=== PATIENT | female | born 1970 | race Caucasian/White ===

== ENCOUNTER → 2023-07-03 09:12 | Outpatient (REF) | payer OTHER, SELFPAY ==
[2023-07-03 12:20] LABS: INR 3.75; PT 37.6 Sec (11.4-14.6)
== END ==
LOC: REG 09:12
PROVIDERS: ATTENDING PHYSICIAN Internal Medicine Hematology & Oncology
DX: Z51.11 Encounter for antineoplastic chemotherapy (principal); I80.3 Phlebitis and thrombophlebitis of lower extremities, unspecified; D68.62 Lupus anticoagulant syndrome; D50.9 Iron deficiency anemia, unspecified; Z79.01 Long term (current) use of anticoagulants; E55.9 Vitamin D deficiency, unspecified; Z86.718 Personal history of other venous thrombosis and embolism
CPT/HCPCS: 36415; 85610

== ENCOUNTER → 2023-07-23 12:04 | Outpatient (REF) | payer OTHER, SELFPAY ==
[2023-07-23 13:35] LABS: APTT 39.6 Sec (23.4-35.0); INR 2.83; PT 29.7 Sec (11.4-14.6)
== END ==
LOC: REG 12:04
PROVIDERS: ATTENDING PHYSICIAN Internal Medicine Hematology & Oncology; FAMILY PHYSICIAN Nurse Practitioner
DX: Z51.11 Encounter for antineoplastic chemotherapy (principal); I80.3 Phlebitis and thrombophlebitis of lower extremities, unspecified; D68.62 Lupus anticoagulant syndrome; D50.9 Iron deficiency anemia, unspecified; Z79.01 Long term (current) use of anticoagulants; E55.9 Vitamin D deficiency, unspecified; Z86.718 Personal history of other venous thrombosis and embolism
CPT/HCPCS: 36415; 85610; 85730

== ENCOUNTER → 2023-08-02 10:14 | Outpatient (REF) | payer OTHER, SELFPAY ==
[2023-08-02 13:09] LABS: INR 2.46
== END ==
LOC: REG 10:14
PROVIDERS: ATTENDING PHYSICIAN Internal Medicine Hematology & Oncology; FAMILY PHYSICIAN Nurse Practitioner
DX: Z51.11 Encounter for antineoplastic chemotherapy (principal); I80.3 Phlebitis and thrombophlebitis of lower extremities, unspecified; D68.62 Lupus anticoagulant syndrome; Z79.01 Long term (current) use of anticoagulants; E55.9 Vitamin D deficiency, unspecified; Z86.718 Personal history of other venous thrombosis and embolism
CPT/HCPCS: 36415; 85610

== ENCOUNTER → 2023-08-15 11:46 | Outpatient (REF) | payer OTHER, SELFPAY ==
[2023-08-15 13:11] LABS: INR 3.11; PT 32.5 Sec (11.4-14.6)
[2023-08-15 13:12] LABS: APTT 40.2 Sec (23.4-35.0)
== END ==
LOC: REG 11:46
PROVIDERS: ATTENDING PHYSICIAN Internal Medicine Hematology & Oncology
DX: Z51.11 Encounter for antineoplastic chemotherapy (principal); I80.3 Phlebitis and thrombophlebitis of lower extremities, unspecified; D68.62 Lupus anticoagulant syndrome; D50.9 Iron deficiency anemia, unspecified; Z79.01 Long term (current) use of anticoagulants; E55.9 Vitamin D deficiency, unspecified; Z86.718 Personal history of other venous thrombosis and embolism
CPT/HCPCS: 36415; 85610; 85730

== ENCOUNTER → 2023-08-30 13:14 | Outpatient (REF) | payer OTHER, SELFPAY ==
[2023-08-30 14:41] LABS: INR 2.98; PT 31.4 Sec (11.4-14.6)
[2023-08-30 14:42] LABS: APTT 39.9 Sec (23.4-35.0)
== END ==
LOC: REG 13:14
PROVIDERS: ATTENDING PHYSICIAN Internal Medicine Hematology & Oncology; FAMILY PHYSICIAN Nurse Practitioner
DX: Z51.11 Encounter for antineoplastic chemotherapy (principal); I80.3 Phlebitis and thrombophlebitis of lower extremities, unspecified; D68.62 Lupus anticoagulant syndrome; D50.9 Iron deficiency anemia, unspecified; Z79.01 Long term (current) use of anticoagulants; E55.9 Vitamin D deficiency, unspecified; Z86.718 Personal history of other venous thrombosis and embolism
CPT/HCPCS: 36415; 85610; 85730

== ENCOUNTER → 2023-09-24 10:33 | Outpatient (REF) | payer OTHER, SELFPAY ==
[2023-09-24 14:45] LABS: INR 2.81; PT 29.5 Sec (11.4-14.6)
== END ==
LOC: REG 10:33
PROVIDERS: ATTENDING PHYSICIAN Internal Medicine Hematology & Oncology
DX: I80.3 Phlebitis and thrombophlebitis of lower extremities, unspecified (principal); Z79.01 Long term (current) use of anticoagulants; Z86.718 Personal history of other venous thrombosis and embolism
CPT/HCPCS: 36415; 85610

== ENCOUNTER → 2023-10-11 11:12 | Outpatient (REF) | payer OTHER, SELFPAY ==
[2023-10-11 16:56] LABS: APTT 46.7 Sec (23.4-35.0); PT 37.3 Sec (11.4-14.6)
== END ==
LOC: HWLAB 11:12
PROVIDERS: ATTENDING PHYSICIAN Internal Medicine Hematology & Oncology; FAMILY PHYSICIAN Nurse Practitioner
DX: Z51.11 Encounter for antineoplastic chemotherapy (principal); I80.3 Phlebitis and thrombophlebitis of lower extremities, unspecified; D68.62 Lupus anticoagulant syndrome; D50.9 Iron deficiency anemia, unspecified; Z79.01 Long term (current) use of anticoagulants; E55.9 Vitamin D deficiency, unspecified; Z86.718 Personal history of other venous thrombosis and embolism
CPT/HCPCS: 36415; 85610; 85730

== ENCOUNTER → 2023-10-18 10:59 | Outpatient (REF) | payer OTHER, SELFPAY ==
[2023-10-18 16:30] LABS: INR > 8.0
== END ==
LOC: HWLAB 10:59
PROVIDERS: ATTENDING PHYSICIAN Preventive Medicine Public Health & General Preventive Medicine; FAMILY PHYSICIAN Nurse Practitioner
DX: Z51.11 Encounter for antineoplastic chemotherapy (principal); I80.3 Phlebitis and thrombophlebitis of lower extremities, unspecified; D68.62 Lupus anticoagulant syndrome; D50.9 Iron deficiency anemia, unspecified; Z79.01 Long term (current) use of anticoagulants; E55.9 Vitamin D deficiency, unspecified; Z86.718 Personal history of other venous thrombosis and embolism
CPT/HCPCS: 36415; 85610; 85730

== ENCOUNTER → 2023-10-20 07:07 | Outpatient (REF) | payer OTHER, SELFPAY ==
[2023-10-20 08:40] LABS: APTT 43.2 Sec (23.4-35.0); INR 4.85; PT 45.6 Sec (11.4-14.6)
== END ==
LOC: REG 07:07
PROVIDERS: ATTENDING PHYSICIAN Internal Medicine Hematology & Oncology; FAMILY PHYSICIAN Nurse Practitioner
DX: Z51.11 Encounter for antineoplastic chemotherapy (principal); I80.3 Phlebitis and thrombophlebitis of lower extremities, unspecified; D68.62 Lupus anticoagulant syndrome; D50.9 Iron deficiency anemia, unspecified; Z79.01 Long term (current) use of anticoagulants; E55.9 Vitamin D deficiency, unspecified; Z86.718 Personal history of other venous thrombosis and embolism
CPT/HCPCS: 36415; 85610; 85730

== ENCOUNTER → 2023-10-25 11:08 | Outpatient (REF) | payer OTHER, SELFPAY ==
[2023-10-25 13:39] LABS: INR 2.07; PT 23.5 Sec (11.4-14.6)
== END ==
LOC: REG 11:08
PROVIDERS: ATTENDING PHYSICIAN Internal Medicine Hematology & Oncology; FAMILY PHYSICIAN Nurse Practitioner
DX: Z51.11 Encounter for antineoplastic chemotherapy (principal); I80.3 Phlebitis and thrombophlebitis of lower extremities, unspecified; D68.62 Lupus anticoagulant syndrome; D50.9 Iron deficiency anemia, unspecified; Z79.01 Long term (current) use of anticoagulants; E55.9 Vitamin D deficiency, unspecified; Z86.718 Personal history of other venous thrombosis and embolism
CPT/HCPCS: 36415; 85610; 85730

== ENCOUNTER → 2023-10-30 08:39 | Outpatient (REF) | payer OTHER, SELFPAY ==
[2023-10-30 10:34] LABS: INR 3.73; PT 36.9 Sec (11.4-14.6)
== END ==
LOC: REG 08:39
PROVIDERS: ATTENDING PHYSICIAN Internal Medicine Hematology & Oncology; FAMILY PHYSICIAN Nurse Practitioner
DX: Z51.11 Encounter for antineoplastic chemotherapy (principal); I80.3 Phlebitis and thrombophlebitis of lower extremities, unspecified; D68.61 Antiphospholipid syndrome; D50.9 Iron deficiency anemia, unspecified; Z79.01 Long term (current) use of anticoagulants; E55.9 Vitamin D deficiency, unspecified; Z86.718 Personal history of other venous thrombosis and embolism
CPT/HCPCS: 36415; 85610

== ENCOUNTER → 2023-11-06 10:10 | Outpatient (REF) | payer OTHER, SELFPAY ==
[2023-11-06 14:20] LABS: INR 5.01; PT 46.7 Sec (11.4-14.6)
== END ==
LOC: WDC 10:10
PROVIDERS: ATTENDING PHYSICIAN Nurse Practitioner; REFERRING PHYSICIAN Internal Medicine Hematology & Oncology
DX: Z86.718 Personal history of other venous thrombosis and embolism (principal); I80.3 Phlebitis and thrombophlebitis of lower extremities, unspecified; Z51.11 Encounter for antineoplastic chemotherapy; D68.62 Lupus anticoagulant syndrome; D50.9 Iron deficiency anemia, unspecified; E55.9 Vitamin D deficiency, unspecified; Z12.31 Encounter for screening mammogram for malignant neoplasm of breast
CPT/HCPCS: 36415; 77063; 77067; 85610

== ENCOUNTER → 2023-11-13 11:50 | Outpatient (REF) | payer OTHER, SELFPAY ==
[2023-11-13 14:09] LABS: INR 3.33; PT 33.7 Sec (11.4-14.6)
== END ==
LOC: REG 11:50
PROVIDERS: ATTENDING PHYSICIAN Internal Medicine Hematology & Oncology; FAMILY PHYSICIAN Nurse Practitioner
DX: Z51.11 Encounter for antineoplastic chemotherapy (principal); I80.3 Phlebitis and thrombophlebitis of lower extremities, unspecified; D68.62 Lupus anticoagulant syndrome; D50.9 Iron deficiency anemia, unspecified; Z79.01 Long term (current) use of anticoagulants; E55.9 Vitamin D deficiency, unspecified; Z86.718 Personal history of other venous thrombosis and embolism
CPT/HCPCS: 36415; 85610

== ENCOUNTER → 2023-11-23 09:26 | Outpatient (REF) | payer OTHER, SELFPAY ==
[2023-11-23 14:13] LABS: INR 4.78
== END ==
LOC: OLAB 09:26
PROVIDERS: ATTENDING PHYSICIAN Internal Medicine Hematology & Oncology
DX: Z51.11 Encounter for antineoplastic chemotherapy (principal); I80.3 Phlebitis and thrombophlebitis of lower extremities, unspecified; D68.62 Lupus anticoagulant syndrome; D50.9 Iron deficiency anemia, unspecified; Z79.01 Long term (current) use of anticoagulants; E55.9 Vitamin D deficiency, unspecified; Z86.718 Personal history of other venous thrombosis and embolism
CPT/HCPCS: 36415; 85610

== ENCOUNTER → 2023-11-28 12:00 | Outpatient (REF) | payer OTHER, SELFPAY ==
[2023-11-28 13:37] LABS: INR 3.58; PT 36.4 Sec (11.4-14.6)
== END ==
LOC: REG 12:00
PROVIDERS: ATTENDING PHYSICIAN Internal Medicine Hematology & Oncology
DX: Z79.01 Long term (current) use of anticoagulants (principal)
CPT/HCPCS: 36415; 85610

== ENCOUNTER → 2023-12-07 12:39 | Outpatient (REF) | payer OTHER, SELFPAY ==
[2023-12-07 13:47] LABS: PT 53.8 Sec (11.4-14.6)
[2023-12-07 15:03] LABS: INR 5.99
== END ==
LOC: REG 12:39
PROVIDERS: ATTENDING PHYSICIAN Internal Medicine Hematology & Oncology
DX: I80.3 Phlebitis and thrombophlebitis of lower extremities, unspecified (principal); D68.62 Lupus anticoagulant syndrome; Z86.718 Personal history of other venous thrombosis and embolism; Z79.01 Long term (current) use of anticoagulants
CPT/HCPCS: 36415; 85610

== ENCOUNTER → 2023-12-11 08:27 | Outpatient (REF) | payer OTHER, SELFPAY ==
[2023-12-11 12:23] LABS: PT 39.1 Sec (11.4-14.6)
== END ==
LOC: REG 08:27
PROVIDERS: ATTENDING PHYSICIAN Internal Medicine Hematology & Oncology
DX: Z51.11 Encounter for antineoplastic chemotherapy (principal); I80.3 Phlebitis and thrombophlebitis of lower extremities, unspecified; D68.62 Lupus anticoagulant syndrome; D50.9 Iron deficiency anemia, unspecified; Z79.01 Long term (current) use of anticoagulants; E55.9 Vitamin D deficiency, unspecified; Z86.718 Personal history of other venous thrombosis and embolism
CPT/HCPCS: 36415; 85610

== ENCOUNTER → 2023-12-15 11:50 | Outpatient (REF) | payer OTHER, SELFPAY ==
[2023-12-15 12:47] LABS: INR 4.28; PT 41.2 Sec (11.4-14.6)
== END ==
LOC: REG 11:50
PROVIDERS: ATTENDING PHYSICIAN Internal Medicine Hematology & Oncology
DX: Z51.11 Encounter for antineoplastic chemotherapy (principal); I80.3 Phlebitis and thrombophlebitis of lower extremities, unspecified; D68.62 Lupus anticoagulant syndrome; D50.9 Iron deficiency anemia, unspecified; Z79.01 Long term (current) use of anticoagulants; E55.9 Vitamin D deficiency, unspecified; Z86.718 Personal history of other venous thrombosis and embolism; I82.91 Chronic embolism and thrombosis of unspecified vein
CPT/HCPCS: 36415; 85610

== ENCOUNTER → 2023-12-24 11:44 | Outpatient (REF) | payer OTHER, SELFPAY ==
[2023-12-24 14:00] LABS: INR 4.15; PT 40.2 Sec (11.4-14.6)
== END ==
LOC: REG 11:44
PROVIDERS: ATTENDING PHYSICIAN Internal Medicine Hematology & Oncology
DX: Z51.11 Encounter for antineoplastic chemotherapy (principal); I80.3 Phlebitis and thrombophlebitis of lower extremities, unspecified; D68.62 Lupus anticoagulant syndrome; D50.9 Iron deficiency anemia, unspecified; Z79.01 Long term (current) use of anticoagulants; E55.9 Vitamin D deficiency, unspecified; Z86.718 Personal history of other venous thrombosis and embolism; I82.91 Chronic embolism and thrombosis of unspecified vein
CPT/HCPCS: 36415; 85610

== ENCOUNTER → 2023-12-31 10:55 | Outpatient (REF) | payer OTHER, SELFPAY ==
[2023-12-31 14:43] LABS: INR 4.55; PT 43.3 Sec (11.4-14.6)
== END ==
LOC: REG 10:55
PROVIDERS: ATTENDING PHYSICIAN Internal Medicine Hematology & Oncology
DX: Z51.11 Encounter for antineoplastic chemotherapy (principal); I80.3 Phlebitis and thrombophlebitis of lower extremities, unspecified; D68.62 Lupus anticoagulant syndrome; D50.9 Iron deficiency anemia, unspecified; Z79.01 Long term (current) use of anticoagulants; E55.9 Vitamin D deficiency, unspecified; Z86.718 Personal history of other venous thrombosis and embolism; I82.91 Chronic embolism and thrombosis of unspecified vein
CPT/HCPCS: 36415; 85610

== ENCOUNTER → 2024-01-07 10:18 | Outpatient (REF) | payer OTHER, SELFPAY ==
[2024-01-07 11:54] LABS: % Basophils 0.6 % (0-2); % Eosinophils 3.2 % (0-6); % Immature Granulocytes 0.4 % (0-0.5); % Lymphocytes 29.3 % (20.5-51.1); % Monocytes 7.2 % (1.7-9.3); % Neutrophils 59.3 % (42.2-75.2); Absolute Eosinophils 0.2 10^3/uL (0-0.7); Absolute Lymphocytes 1.4 10^3/uL (1.2-3.4); Absolute Monocytes 0.3 10^3/uL (0.1-0.6); Absolute Neutrophils 2.8 10^3/uL (1.4-6.5); Hematocrit 41.3 % (37.0-47.0); Hemoglobin 13.7 g/dL (12.0-16.0); Mean Corp Hgb Conc. 33.2 g/dL (33.0-37.0); Mean Corpuscular Hgb 28.8 pg (27.0-31.0); Mean Corpuscular Volume 86.8 fL (81.0-99.0); Mean Platelet Volume 10.6 fL (7.4-10.4); Nucleated Red Blood Cells % 0 %; Platelet Count 222 10^3/uL (130-400); Red Blood Cell Count 4.76 10^6/uL (4.20-5.40); Red Cell Dist. Width 14.6 % (11.5-14.5); White Blood Cell Count 4.7 10^3/uL (4.8-10.8)
[2024-01-07 12:24] LABS: Erythrocyte Sed Rate 2 mm/hour (0-20)
[2024-01-07 12:35] LABS: ALT (SGPT) 16 U/L (0-35); AST (SGOT) 30 U/L (14-36); Albumin 4.2 g/dl (3.5-5.0); Alkaline Phosphatase 74 U/L (38-126); Blood Urea Nitrogen 16 mg/dl (7-17); Calcium 9.6 mg/dl (8.4-10.2); Carbon Dioxide 27 mmol/L (22-30); Chloride 104 mmol/L (98-107); Glucose 99 mg/dl (70-99); Potassium 4.7 mmol/L (3.5-5.1); Sodium 137 mmol/L (135-145); Total Bilirubin 0.5 mg/dl (0.2-1.3); Total Protein 6.2 g/dl (6.3-8.2); eGFR > 60.00
[2024-01-07 12:38] LABS: C-Reactive Protein < 5.00 mg/L (0.0-10.00)
[2024-01-07 13:06] LABS: INR 2.78; PT 29.3 Sec (11.4-14.6)
== END ==
LOC: REG 10:18
PROVIDERS: ATTENDING PHYSICIAN Internal Medicine Hematology & Oncology; FAMILY PHYSICIAN Nurse Practitioner; REFERRING PHYSICIAN Internal Medicine Rheumatology
DX: Z51.11 Encounter for antineoplastic chemotherapy (principal); I80.3 Phlebitis and thrombophlebitis of lower extremities, unspecified; D50.9 Iron deficiency anemia, unspecified; Z79.01 Long term (current) use of anticoagulants; E55.9 Vitamin D deficiency, unspecified; Z86.718 Personal history of other venous thrombosis and embolism; I82.91 Chronic embolism and thrombosis of unspecified vein; M34.9 Systemic sclerosis, unspecified; Z51.81 Encounter for therapeutic drug level monitoring; D68.62 Lupus anticoagulant syndrome
CPT/HCPCS: 36415; 80053; 82306; 85025; 85610; 85652; 86140

== ENCOUNTER → 2024-01-14 11:42 | Outpatient (REF) | payer OTHER, SELFPAY ==
[2024-01-14 13:03] LABS: INR 3.24
== END ==
LOC: REG 11:42
PROVIDERS: ATTENDING PHYSICIAN Internal Medicine Hematology & Oncology; FAMILY PHYSICIAN Nurse Practitioner
DX: I80.3 Phlebitis and thrombophlebitis of lower extremities, unspecified (principal); D68.62 Lupus anticoagulant syndrome; D50.9 Iron deficiency anemia, unspecified; Z79.01 Long term (current) use of anticoagulants; E55.9 Vitamin D deficiency, unspecified; Z86.718 Personal history of other venous thrombosis and embolism; I82.91 Chronic embolism and thrombosis of unspecified vein
CPT/HCPCS: 36415; 85610

== ENCOUNTER → 2024-01-15 11:54 | Outpatient (REF) | payer OTHER, SELFPAY ==
[2024-01-15 13:41] LABS: Urine Albumin Trace (Neg - Trace); Urine Bilirubin 1+ (Negative); Urine Character Clear (Clear); Urine Color Yellow; Urine Glucose Negative (Negative); Urine Ketone Negative (Negative); Urine Leukocyte Trace (Negative); Urine Nitrite Negative (Negative); Urine Occult Blood Negative (Negative); Urine Specific Gravity 1.015 (<1.030); Urine Urobilinogen Negative (Neg - 1+)
[2024-01-15 15:09] LABS: Urine Mucus Few
[2024-01-15 15:13] LABS: Urine Red Blood Cell 0-2 /HPF (0-2); Urine White Cell 0-2 /HPF (0-5)
[2024-01-15 15:16] LABS: Urine Hyaline Cast >15 /LPF (0-2)
[2024-01-15 15:54] LABS: Urine Protein < 5 mg/dl
== END ==
LOC: REG 11:54
PROVIDERS: ATTENDING PHYSICIAN Internal Medicine Rheumatology; FAMILY PHYSICIAN Nurse Practitioner
DX: M34.9 Systemic sclerosis, unspecified (principal); Z51.81 Encounter for therapeutic drug level monitoring
CPT/HCPCS: 36415; 81003; 81015; 82570; 84156

== ENCOUNTER → 2024-01-21 10:21 | Outpatient (REF) | payer OTHER, SELFPAY ==
[2024-01-21 13:30] LABS: INR 3.82; PT 37.7 Sec (11.4-14.6)
== END ==
LOC: REG 10:21
PROVIDERS: ATTENDING PHYSICIAN Internal Medicine Hematology & Oncology; FAMILY PHYSICIAN Nurse Practitioner
DX: Z51.11 Encounter for antineoplastic chemotherapy (principal); I82.91 Chronic embolism and thrombosis of unspecified vein
CPT/HCPCS: 36415; 85610

== ENCOUNTER → 2024-01-28 10:10 | Outpatient (REF) | payer OTHER, SELFPAY ==
[2024-01-28 14:02] LABS: INR 3.36
== END ==
LOC: REG 10:10
PROVIDERS: ATTENDING PHYSICIAN Internal Medicine Hematology & Oncology; FAMILY PHYSICIAN Nurse Practitioner
DX: Z51.11 Encounter for antineoplastic chemotherapy (principal); I82.91 Chronic embolism and thrombosis of unspecified vein
CPT/HCPCS: 36415; 85610

== ENCOUNTER → 2024-02-05 09:37 | Outpatient (REF) | payer OTHER, SELFPAY ==
[2024-02-05 14:33] LABS: INR 5.35
== END ==
LOC: REG 09:37
PROVIDERS: ATTENDING PHYSICIAN Internal Medicine Hematology & Oncology
DX: Z51.11 Encounter for antineoplastic chemotherapy (principal); I80.3 Phlebitis and thrombophlebitis of lower extremities, unspecified; D68.62 Lupus anticoagulant syndrome; D50.9 Iron deficiency anemia, unspecified; Z79.01 Long term (current) use of anticoagulants; E55.9 Vitamin D deficiency, unspecified; Z86.718 Personal history of other venous thrombosis and embolism; I82.91 Chronic embolism and thrombosis of unspecified vein
CPT/HCPCS: 36415; 85610

== ENCOUNTER → 2024-02-12 10:01 | Outpatient (REF) | payer OTHER, SELFPAY ==
[2024-02-12 12:16] LABS: INR 3.36
== END ==
LOC: REG 10:01
PROVIDERS: ATTENDING PHYSICIAN Internal Medicine Hematology & Oncology
DX: Z51.11 Encounter for antineoplastic chemotherapy (principal); I80.3 Phlebitis and thrombophlebitis of lower extremities, unspecified; D68.62 Lupus anticoagulant syndrome; D50.9 Iron deficiency anemia, unspecified; Z79.01 Long term (current) use of anticoagulants; E55.9 Vitamin D deficiency, unspecified; Z86.718 Personal history of other venous thrombosis and embolism; I82.91 Chronic embolism and thrombosis of unspecified vein
CPT/HCPCS: 36415; 85610

== ENCOUNTER → 2024-02-21 10:04 | Outpatient (REF) | payer OTHER, SELFPAY ==
[2024-02-21 16:52] LABS: INR 3.83; PT 38.3 Sec (11.4-14.6)
== END ==
LOC: REG 10:04
PROVIDERS: ATTENDING PHYSICIAN Internal Medicine Hematology & Oncology
DX: Z51.11 Encounter for antineoplastic chemotherapy (principal); I80.3 Phlebitis and thrombophlebitis of lower extremities, unspecified; D68.62 Lupus anticoagulant syndrome; D50.9 Iron deficiency anemia, unspecified; Z79.01 Long term (current) use of anticoagulants; E55.9 Vitamin D deficiency, unspecified; Z86.718 Personal history of other venous thrombosis and embolism; I82.91 Chronic embolism and thrombosis of unspecified vein
CPT/HCPCS: 36415; 85610

== ENCOUNTER → 2024-03-04 11:35 | Outpatient (REF) | payer OTHER, SELFPAY ==
[2024-03-04 12:40] LABS: INR 1.86; PT 21.3 Sec (11.4-14.6)
== END ==
LOC: REG 11:35
PROVIDERS: ATTENDING PHYSICIAN Internal Medicine Hematology & Oncology
DX: Z51.11 Encounter for antineoplastic chemotherapy (principal); I80.3 Phlebitis and thrombophlebitis of lower extremities, unspecified; D68.62 Lupus anticoagulant syndrome; D50.9 Iron deficiency anemia, unspecified; Z79.01 Long term (current) use of anticoagulants; E55.9 Vitamin D deficiency, unspecified; Z86.718 Personal history of other venous thrombosis and embolism; I82.91 Chronic embolism and thrombosis of unspecified vein
CPT/HCPCS: 36415; 85610

== ENCOUNTER → 2024-03-11 09:06 | Outpatient (REF) | payer OTHER, SELFPAY ==
[2024-03-11 16:03] LABS: INR 2.26; PT 24.8 Sec (11.4-14.6)
== END ==
LOC: REG 09:06
PROVIDERS: ATTENDING PHYSICIAN Internal Medicine Hematology & Oncology
DX: Z86.718 Personal history of other venous thrombosis and embolism (principal); I82.91 Chronic embolism and thrombosis of unspecified vein; D68.62 Lupus anticoagulant syndrome; Z79.01 Long term (current) use of anticoagulants
CPT/HCPCS: 36415; 85610

== ENCOUNTER → 2024-03-19 10:01 | Outpatient (REF) | payer OTHER, SELFPAY ==
[2024-03-19 14:01] LABS: APTT 39.1 Sec (23.4-35.0)
[2024-03-19 15:18] LABS: INR 3.59; PT 36.4 Sec (11.4-14.6)
== END ==
LOC: REG 10:01
PROVIDERS: ATTENDING PHYSICIAN Internal Medicine Hematology & Oncology
DX: Z51.11 Encounter for antineoplastic chemotherapy (principal); I80.3 Phlebitis and thrombophlebitis of lower extremities, unspecified; D68.62 Lupus anticoagulant syndrome; D50.9 Iron deficiency anemia, unspecified; Z79.01 Long term (current) use of anticoagulants; E55.9 Vitamin D deficiency, unspecified; Z86.718 Personal history of other venous thrombosis and embolism; I82.91 Chronic embolism and thrombosis of unspecified vein
CPT/HCPCS: 36415; 85610; 85730

== ENCOUNTER → 2024-03-26 14:30 | Outpatient (REF) | payer OTHER, SELFPAY ==
[2024-03-26 15:59] LABS: INR 4.27; PT 41.8 Sec (11.4-14.6)
== END ==
LOC: REG 14:30
PROVIDERS: ATTENDING PHYSICIAN Internal Medicine Hematology & Oncology
DX: Z51.11 Encounter for antineoplastic chemotherapy (principal); I80.3 Phlebitis and thrombophlebitis of lower extremities, unspecified; D68.62 Lupus anticoagulant syndrome; D50.9 Iron deficiency anemia, unspecified; Z79.01 Long term (current) use of anticoagulants; E55.9 Vitamin D deficiency, unspecified; Z86.718 Personal history of other venous thrombosis and embolism; I82.91 Chronic embolism and thrombosis of unspecified vein
CPT/HCPCS: 36415; 85610

== ENCOUNTER → 2024-05-12 11:21 | Outpatient (REF) | payer OTHER, SELFPAY ==
[2024-05-12 12:19] LABS: INR 2.32; PT 25.6 Sec (11.4-14.6)
== END ==
LOC: REG 11:21
PROVIDERS: ATTENDING PHYSICIAN Internal Medicine Hematology & Oncology
DX: Z51.11 Encounter for antineoplastic chemotherapy (principal); I80.3 Phlebitis and thrombophlebitis of lower extremities, unspecified; D68.62 Lupus anticoagulant syndrome; D50.9 Iron deficiency anemia, unspecified; Z79.01 Long term (current) use of anticoagulants; E55.9 Vitamin D deficiency, unspecified; Z86.718 Personal history of other venous thrombosis and embolism; I82.91 Chronic embolism and thrombosis of unspecified vein
CPT/HCPCS: 36415; 85610

== ENCOUNTER → 2024-06-11 08:49 | Outpatient (REF) | payer OTHER, SELFPAY ==
[2024-06-11 11:23] LABS: INR 2.08; PT 23.8 Sec (11.4-14.6)
== END ==
LOC: REG 08:49
PROVIDERS: ATTENDING PHYSICIAN Internal Medicine Hematology & Oncology
DX: Z51.11 Encounter for antineoplastic chemotherapy (principal); I80.3 Phlebitis and thrombophlebitis of lower extremities, unspecified; D68.62 Lupus anticoagulant syndrome; D50.9 Iron deficiency anemia, unspecified; Z79.01 Long term (current) use of anticoagulants; E55.9 Vitamin D deficiency, unspecified; Z86.718 Personal history of other venous thrombosis and embolism; I82.91 Chronic embolism and thrombosis of unspecified vein
CPT/HCPCS: 36415; 85610; 85730

== ENCOUNTER → 2024-06-18 08:41 | Outpatient (REF) | payer OTHER, SELFPAY ==
[2024-06-18 12:35] LABS: INR 3.11; PT 32.4 Sec (11.4-14.6)
[2024-06-18 12:36] LABS: APTT 40.7 Sec (23.4-35.0)
== END ==
LOC: REG 08:41
PROVIDERS: ATTENDING PHYSICIAN Internal Medicine Hematology & Oncology
DX: Z51.11 Encounter for antineoplastic chemotherapy (principal); I80.3 Phlebitis and thrombophlebitis of lower extremities, unspecified; D68.62 Lupus anticoagulant syndrome; D50.9 Iron deficiency anemia, unspecified; Z79.01 Long term (current) use of anticoagulants; E55.9 Vitamin D deficiency, unspecified; Z86.718 Personal history of other venous thrombosis and embolism
CPT/HCPCS: 36415; 85610; 85730

== ENCOUNTER → 2024-06-27 09:30 | Outpatient (REF) | payer OTHER, SELFPAY ==
[2024-06-27 11:21] LABS: PT 31.1 Sec (11.4-14.6)
== END ==
LOC: REG 09:30
PROVIDERS: ATTENDING PHYSICIAN Internal Medicine Hematology & Oncology
DX: Z51.11 Encounter for antineoplastic chemotherapy (principal); I80.3 Phlebitis and thrombophlebitis of lower extremities, unspecified; D68.62 Lupus anticoagulant syndrome; D50.9 Iron deficiency anemia, unspecified; Z79.01 Long term (current) use of anticoagulants; E55.9 Vitamin D deficiency, unspecified; Z86.718 Personal history of other venous thrombosis and embolism; I82.91 Chronic embolism and thrombosis of unspecified vein
CPT/HCPCS: 36415; 85610

== ENCOUNTER → 2024-07-14 11:50 | Outpatient (REF) | payer OTHER, SELFPAY ==
[2024-07-14 13:09] LABS: % Basophils 0.2 % (0-2); % Eosinophils 2.7 % (0-6); % Immature Granulocytes 0.2 % (0-0.5); % Lymphocytes 26.4 % (20.5-51.1); % Monocytes 6.5 % (1.7-9.3); Absolute Eosinophils 0.1 10^3/uL (0-0.7); Absolute Lymphocytes 1.4 10^3/uL (1.2-3.4); Absolute Monocytes 0.3 10^3/uL (0.1-0.6); Absolute Neutrophils 3.4 10^3/uL (1.4-6.5); Hematocrit 42.8 % (37.0-47.0); Hemoglobin 13.9 g/dL (12.0-16.0); Mean Corp Hgb Conc. 32.5 g/dL (33.0-37.0); Mean Corpuscular Volume 86.1 fL (81.0-99.0); Nucleated Red Blood Cells % 0 %; Platelet Count 249 10^3/uL (130-400); Red Blood Cell Count 4.97 10^6/uL (4.20-5.40); Red Cell Dist. Width 14.3 % (11.5-14.5); White Blood Cell Count 5.2 10^3/uL (4.8-10.8)
[2024-07-14 13:17] LABS: INR 3.26; PT 33.1 Sec (11.4-14.6)
[2024-07-14 13:27] LABS: D-Dimer < 0.27 ug/mlFEU (0.00-0.50)
[2024-07-14 13:53] LABS: Erythrocyte Sed Rate 5 mm/hour (0-20)
[2024-07-14 14:04] LABS: ALT (SGPT) 18 U/L (0-35); AST (SGOT) 29 U/L (14-36); Albumin 4.6 g/dl (3.5-5.0); Alkaline Phosphatase 74 U/L (38-126); Blood Urea Nitrogen 21 mg/dl (7-17); Calcium 9.6 mg/dl (8.4-10.2); Carbon Dioxide 24 mmol/L (22-30); Chloride 102 mmol/L (98-107); Glucose 89 mg/dl (70-99); Iron 72 ug/dl (37-170); Potassium 4.6 mmol/L (3.5-5.1); Sodium 138 mmol/L (135-145); Total Bilirubin 0.7 mg/dl (0.2-1.3); Total Protein 6.5 g/dl (6.3-8.2); eGFR > 60.00
[2024-07-14 14:13] LABS: Percent Saturation 16 % (20-50); Total Iron Binding Capacity 429 ug/dl (265-497)
[2024-07-15 17:37] LABS: C-Reactive Protein < 5.00 mg/L (0.0-10.00)
[2024-07-15 17:57] LABS: Vitamin D, 25-OH*** 23.9 ng/mL (30-80)
[2024-07-15 18:15] LABS: Ferritin 11.3 ng/ml (11.1-264.0)
== END ==
LOC: REG 11:50
PROVIDERS: ATTENDING PHYSICIAN Internal Medicine Hematology & Oncology; REFERRING PHYSICIAN Internal Medicine Rheumatology
DX: Z51.11 Encounter for antineoplastic chemotherapy (principal); I80.3 Phlebitis and thrombophlebitis of lower extremities, unspecified; D68.62 Lupus anticoagulant syndrome; D50.9 Iron deficiency anemia, unspecified; Z79.01 Long term (current) use of anticoagulants; E55.9 Vitamin D deficiency, unspecified; Z86.718 Personal history of other venous thrombosis and embolism; I82.91 Chronic embolism and thrombosis of unspecified vein; M34.9 Systemic sclerosis, unspecified; Z51.81 Encounter for therapeutic drug level monitoring
CPT/HCPCS: 36415; 80053; 82306; 82728; 83540; 83550; 85025; 85379; 85610; 85652; 86140

== ENCOUNTER → 2024-07-30 13:51 | Outpatient (REF) | payer OTHER, SELFPAY ==
[2024-07-30 14:59] LABS: INR 3.64; PT 36.5 Sec (11.4-14.6)
== END ==
LOC: REG 13:51
PROVIDERS: ATTENDING PHYSICIAN Internal Medicine Hematology & Oncology; REFERRING PHYSICIAN Internal Medicine Rheumatology
DX: M34.9 Systemic sclerosis, unspecified (principal); D68.61 Antiphospholipid syndrome; R20.8 Other disturbances of skin sensation; Z51.11 Encounter for antineoplastic chemotherapy; I80.3 Phlebitis and thrombophlebitis of lower extremities, unspecified; D68.62 Lupus anticoagulant syndrome; D50.9 Iron deficiency anemia, unspecified; Z79.01 Long term (current) use of anticoagulants; E55.9 Vitamin D deficiency, unspecified; Z86.718 Personal history of other venous thrombosis and embolism; I82.91 Chronic embolism and thrombosis of unspecified vein
CPT/HCPCS: 36415; 73620; 85610

== ENCOUNTER → 2024-07-31 06:55 | Outpatient (REF) | payer OTHER, SELFPAY | LOC: RAD 06:55 | PROVIDERS: ATTENDING PHYSICIAN Internal Medicine Rheumatology | DX: M34.9 Systemic sclerosis, unspecified (principal); R20.9 Unspecified disturbances of skin sensation | CPT/HCPCS: 93922; 93925 ==

== ENCOUNTER → 2024-08-12 11:00 | Outpatient (REF) | payer OTHER, SELFPAY ==
[2024-08-12 14:04] LABS: INR 3.92
== END ==
LOC: REG 11:00
PROVIDERS: ATTENDING PHYSICIAN Internal Medicine Hematology & Oncology
DX: D68.62 Lupus anticoagulant syndrome (principal)
CPT/HCPCS: 36415; 85610

== ENCOUNTER → 2024-08-27 10:03 | Outpatient (REF) | payer OTHER, SELFPAY ==
[2024-08-27 14:09] LABS: INR 3.63; PT 36.4 Sec (11.4-14.6)
== END ==
LOC: REG 10:03
PROVIDERS: ATTENDING PHYSICIAN Internal Medicine Hematology & Oncology
DX: Z51.11 Encounter for antineoplastic chemotherapy (principal); I80.3 Phlebitis and thrombophlebitis of lower extremities, unspecified; D68.62 Lupus anticoagulant syndrome; D50.9 Iron deficiency anemia, unspecified; Z79.01 Long term (current) use of anticoagulants; E55.9 Vitamin D deficiency, unspecified; Z86.718 Personal history of other venous thrombosis and embolism; I82.91 Chronic embolism and thrombosis of unspecified vein
CPT/HCPCS: 36415; 85610

== ENCOUNTER → 2024-09-05 11:07 | Outpatient (REF) | payer OTHER, SELFPAY ==
[2024-09-05 12:12] LABS: % Basophils 0.4 % (0-2); % Eosinophils 3.5 % (0-6); % Immature Granulocytes 0.4 % (0-0.5); % Lymphocytes 25.7 % (20.5-51.1); Absolute Eosinophils 0.2 10^3/uL (0-0.7); Absolute Lymphocytes 1.4 10^3/uL (1.2-3.4); Absolute Monocytes 0.4 10^3/uL (0.1-0.6); Absolute Neutrophils 3.4 10^3/uL (1.4-6.5); Hematocrit 40.1 % (37.0-47.0); Hemoglobin 12.7 g/dL (12.0-16.0); Mean Corp Hgb Conc. 31.7 g/dL (33.0-37.0); Mean Corpuscular Volume 88.3 fL (81.0-99.0); Mean Platelet Volume 10.8 fL (7.4-10.4); Nucleated Red Blood Cells % 0 %; Platelet Count 273 10^3/uL (130-400); Red Blood Cell Count 4.54 10^6/uL (4.20-5.40); Red Cell Dist. Width 14.4 % (11.5-14.5); White Blood Cell Count 5.4 10^3/uL (4.8-10.8)
[2024-09-05 12:16] LABS: INR 4.43; PT 41.7 Sec (11.4-14.6)
[2024-09-05 12:34] LABS: Blood Urea Nitrogen 13 mg/dl (7-17); Calcium 9.5 mg/dl (8.4-10.2); Carbon Dioxide 25 mmol/L (22-30); Chloride 108 mmol/L (98-107); Glucose 99 mg/dl (70-99); Potassium 4.8 mmol/L (3.5-5.1); Sodium 141 mmol/L (135-145); eGFR > 60.00
== END ==
LOC: REG 11:07
PROVIDERS: ATTENDING PHYSICIAN Student in an Organized Health Care Education/Training Program; OTHER PHYSICIAN Internal Medicine Rheumatology; REFERRING PHYSICIAN Internal Medicine Hematology & Oncology
DX: I73.9 Peripheral vascular disease, unspecified (principal)
CPT/HCPCS: 36415; 80048; 85025; 85610

== ENCOUNTER 2024-09-05 23:31 | Inpatient (IN) | payer OTHER, SELFPAY ==
[2024-09-05 18:40] VITALS: BMI 29.3
[2024-09-05 18:49] VITALS: BP 137/92
--- NOTE | 2024-09-05 22:09 | ED.GENMED ---
History of Present Illness
General
Chief Complaint: Skin Problem
Source: patient
Exam Limitations: none
Time Seen by Provider: 09/05/24 22:02
History of Present Illness
History of Present Illness:
See MDM
Past History
Past History
ED Past Medical History: Other (DVT, IBS, Anitcardiolipin antibody, Lupus, Raynaud's disease)
ED Past Surgical History: Orthopedic
Social History
Tobacco: Non-smoker
Alcohol: None
Drug: None
Personal:
Living: with family
Employment: Not employed
Phy Exam
Physical Exam
Physical Exam:
See MDM
Course
Orders/Labs/Results
Orders:
Orders
09/05/24 19:01
CR Foot - Right Min 3 Views Urgent
Comment:
Reason For Exam: pain, redness
09/05/24 22:07
Complete Blood Count/With Diff Urgent
Comprehensive Metabolic Panel Urgent
PTT Urgent
Prothrombin Time Urgent
Morphine Sulfate 4 mg IV NOW STA
Zosyn 3.375 grams IVPB NOW Piperacillin/Tazo 3.375 Gram [Zosyn] 3.375 gram in 50 ml IV NOW
Vital Signs
Initial and Last Documented VS:
Initial Vital Signs
Pulse Resp BP Pulse Ox
45 20 137/92 99
09/05/24 18:49 09/05/24 18:49 09/05/24 18:49 09/05/24 18:49
Last Documented Vital Signs
Pulse Resp BP Pulse Ox
45 20 137/92 99
09/05/24 18:49 09/05/24 18:49 09/05/24 18:49 09/05/24 18:49
MDM/Problems Addressed
Differential Diagnosis Includes:
HPI and MDM Narrative:
53-year-old female presenting for evaluation of right great toe swelling and redness. This has been ongoing for the past month or so. She finished a course of doxycycline which did not help. PCP is concerned that it could be cellulitis versus
possible gout. She has no prior history of gout. Patient does have antiphospholipid syndrome and currently on Coumadin. Her INR was recently supratherapeutic in the fours. She had blood work performed earlier today. Given her ongoing symptoms,
she was sent in for IV antibiotics and admission. On exam, she does have erythema noted to her left great toe. X-ray was done showing no obvious osteomyelitis. Given her ongoing symptoms, will start Zosyn and admit
Physical exam
General: Well appearing and non-toxic
HEENT: protecting airway
Neck: appears supple
CV: No evidence of cyanosis
Resp: No accessory muscle use
Abd: Non-distended
Extremities: Decreased DP pulses to both feet. Chronic per patient
Neuro: alert
Psych: Normal affect
Skin: Erythema to right great toe
Problems Addressed including Acute and Chronic Conditions affecting care:
1. Right great toe erythema
Acuity: subacute
Prognosis: unstable
Details: Given her chronic poor perfusion and worsening symptoms, will start IV antibiotics and admit
Updates
Differential Diagnosis (but not limited to): Gout, cellulitis
Testing considered: Lactic acid
Drug therapy (if applicable): OTC meds, please see d/c instruction regarding Rx drugs
Amount and/or Complexity of Data Reviewed
Clinical info obtained from: Patient
External data reviewed: N/A
Labs I independently reviewed (but not limited to): Low blood cell count normal
Radiology: X-ray independently reviewed: No fracture or osteomyelitis
Pulse Ox: not hypoxic
EKG independently reviewed: N/A
[employer] [place] [employer] Inspector: N/A
Critical Care: N/A
Risk of Complication:
Social Determinants of health: Good social support
Discussed with other providers: Hospitalist
Escalation of Care includes Admit/Obs: Given the ongoing symptoms and failure of outpatient therapy, will admit
Occasional wrong word or 'sound a like' substitutions may have occurred due to the inherent limitations of voice recognition software. Read the chart carefully and recognize, using context, where substitutions have occurred.
*Critical Care Note
Total Time (30-74mins, 75-104mins- exclusive of procedures): Not Applicable
ED Attending Note
-
Portions of this chart may have been created with voice recognition software.� Occasional wrong word or��sound alike� substitutions may have occurred due to the inherent limitations of voice recognition software.
Discharge Plan
Departure
Patient Disposition: Admit
Date of Disposition: 09/05/24
Time of Disposition: 22:13
Admit to: Med/Surg
Presentation/result/management discussed w/ accepting MD/DO: Hospitalist
Discharge Problem:
Cellulitis of toe, right
Prescriptions:
No Action
amlodipine 5 MG tablet
5 mg PO HS
Patient Comments:
patient unsure of dose
valacyclovir [Valtrex] 500 MG tablet
500 mg PO DAILY
Patient Comments:
patient unsure of dose
omeprazole [Prilosec] 40 MG capsule,delayed release(DR/EC)
40 mg PO BID
warfarin [Coumadin] 6 MG tablet
6 mg PO .X4DAYS
Patient Comments:
Dose varies 6mg SUN/TUES/WED/FRI/SAT
Hydroxychloroquine Sulfate
400 mg PO HS
clonazepam 0.5 MG tablet
0.5 mg PO Q6HPRN PRN (Reason: anxiety)
gabapentin 300 MG capsule
600 mg PO HS
warfarin [Jantoven] 3 MG tablet
4 mg PO .DAILY X2DAYS
Patient Comments:
pattern of use is M and TH 4 mg other days 6 mg
Interventions
Interventions:
*Risk Screen - Suicide Last Done: 09/05/24 18:49
*General Assessment Last Done: 09/05/24 18:49
*Neglect/Abuse Screening Last Done: 09/05/24 18:49
*ED COVID-19 Vaccine History Last Done: 09/05/24 18:49
Discharge Date and Time
Print Language: LAO
[2024-09-05 22:19] VITALS: BP 131/86
--- NOTE | 2024-09-05 22:24 | HPS.HSE ---
Addendum entered and electronically signed by Ag Cordoba DO 09/06/24 00:20:
Patient seen and examined independently. Agree with findings and plan as set forth by AMBERLY Graves.
Patient is a 53y F with PMH significant for SLE, APS and PAD who presents to ED complaining of R foot pain x 1 month. Patient reports mild redness initially at the R great toe and now across the forefoot. She took abx when symptoms first
started - with no improvement in her symptoms. 2 weeks ago or so she nicked the great toe with a razor. Symptoms seemed to increased after that. She notes pain that feels 'in the bone'. No fevers / chills. No N/V.
Patient had known PAD and is followed by Dr. Boo Blanchard at [facility]. She states that 'all three blood vessels to my right foot are blocked' and she is scheduled for angio at that facility at the end of this month.
Ass:
R Foot Pain
ASCVD / PAD
SLE, Raynaud's, Scleroderma
Antiphospholipid Syndrome
Benign Hypertension
Anxiety
GERD
Plan:
Admit for further evaluation and treatment.
Will continue IV abx started in the ED for now - though symptoms / appearance seems more vascular than infectious.
Vascular Surgery evaluation.
Send for records to [facility].
Continue usual outpatient medications.
Follow daily INR and adjust Coumadin dose as needed to maintain therapeutic level.
Original Note:
Family Physician
-
Family Physician:
Chief Complaint
-
right great toe redness and swelling
History of Present Illness
53-year-old with past medical history for DVT, IBS, lupus, Raynaud's disease, scleroderma, antiphospholipid syndrome, PAD presented with right great toe redness for past 1 month. Patient was treated with antibiotics a month ago, patient stated no
relief in her redness or swelling, 2-1/2-week ago patient nicked her toe with a razor. Which made the redness, swelling worse. It is more painful. Patient denied any headache, dizziness or syncope patient denied any fever, chills, chest pain,
short of breath.. Patient denied any abdominal pain, nausea, vomiting or diarrhea. Patient denied dysuria hematuria.she is scheduled for angioplasty of her right LE.
Patient received a dose of Zosyn in ER. Admitted for further management
Medical History
Past Medical History
Past Medical History: Reports Other
Additional Past Medical History:
Antiphospholipid syndrome
DVT
IBS
Lupus
Raynaud's disease
Scleroderma
Past Surgical History: Reports Other
Additional Past Surgical History:
No surgery
Cholecystectomy
Partial amputation of right pinky toe
Impression amputation of left middle finger
Social History
Tobacco: Non-smoker
Alcohol: None
Drug: None
Family History
Family History: Not pertinent
Allergies / Home Medications
Allergies reflects when Allergies were last updated in [facility].
Home Medications with original date entered in [facility]
Allergy/Medication List:
Allergies
Allergy/AdvReac Type Severity Reaction Status Date / Time
No Known Allergies Allergy Verified 11/14/16 16:55
Home Medications
Hydroxychloroquine Sulfate 400 mg PO HS 11/13/13
amlodipine 5 mg tablet 5 mg PO HS 11/13/13
omeprazole 40 mg capsule,delayed release (Prilosec) 80 mg PO BID 11/13/13
warfarin 6 mg tablet (Coumadin) 6 mg PO .X4WEEK 11/13/13
clonazepam 0.5 mg tablet 0.5 mg PO Q6HPRN PRN anxiety 08/11/16
warfarin 3 mg tablet (Jantoven) 4 mg PO 3XD 09/13/16
Review of Systems
-
Constitutional: Reports No Symptoms
EENT: Reports No Symptoms
Respiratory: Reports No Symptoms
Cardiac: Reports No Symptoms
Abdomen/GI: Reports No Symptoms
: Reports No Symptoms
Musculoskeletal: Reports Other (Right great toe redness and swelling)
Skin: Reports No Symptoms
Neurological: Reports No Symptoms
Endocrine: Reports No Symptoms
Hematologic/Lymphatic: Reports No Symptoms
Psych: Reports No Symptoms
Physical Exam
Vital Signs
Vital Signs
Pulse Resp BP Pulse Ox
45 20 137/92 99
09/05/24 18:49 09/05/24 18:49 09/05/24 18:49 09/05/24 18:49
Physical Exam
General: Well Developed, Well Nourished and No Apparent Distress
HEENT: NormoCephalic, Moist mucous membranes and Atraumatic
Respiratory: Clear
Cardiac: S1/S2 and Regular Rhythm; No Murmur or Rub
GI: Soft, Non Tender, Non Distended and Normal Bowel Sounds; No Organomegaly
Rectal: Deferred by Provider
Musculoskeletal: No Clubbing and No Cyanosis
Skin: Other (Right great toe redness and swelling)
Neuro: AO x 3 and Nonfocal/grossly intact
Psych: Calm
Laboratory Results
-
09/05/24 22:07
09/05/24 22:07
Laboratory Results
PT Cancelled 09/05/24 22:07
INR Cancelled 09/05/24 22:07
APTT Cancelled 09/05/24 22:07
Total Bilirubin Cancelled 09/05/24 22:07
AST Cancelled 09/05/24 22:07
ALT Cancelled 09/05/24 22:07
Alkaline Phosphatase Cancelled 09/05/24 22:07
Data Reviewed
-
Diagnostic Radiology: Report Reviewed by me
Lab Data: Labs Reviewed by me
Impression/Plan
-
#toe cellulitis vs worsening PAD
-failed outpatient oral abx therapy
#hxt of PAD
-uric acid 3.5
-iv Zosyn continued
-Tylenol as needed for fever or pain
-foot x ray with No acute fracture or dislocation. Scattered mild to moderate osteoarthritic changes of the interphalangeal and first metatarsophalangeal joints. No erosions are evident. No radiographic evidence for inflammatory arthropathy. No
overt radiographic evidence for osteomyelitis. Soft tissues are grossly unremarkable.
--scheduled for angioplasty as outpatient next week.
-vascular consulted
# Essential hypertension
-Norvasc continue with hold parameters
#Anxiety
- Clonazepam continue with hold parameters
-trazodone continued for sleep
# History of lupus
#scleroderma
# History of antiphospholipid syndrome
#History of Raynaud disease
-CellCept, hydroxychloroquine continued
# History of DVT
#supratherapeutic INR
- INR 4.43
-daily PT/INR
-adjust Coumadin as per INR
-held Coumadin
# GERD
- PPI continued
# DVT prophylaxis
- scd
# CODE STATUS
- Full code
[2024-09-05] MEDS: MORPHINE SULFATE 4 MG IV (22:50)
[2024-09-05] MEDS: ZOSYN 50 IV (22:51)
[2024-09-05 23:00] VITALS: BP 125/85
[2024-09-05 23:11] LABS: Uric Acid 3.4 mg/dl (2.5-6.2)
[2024-09-06] VITALS (10 sets, daily range): BP systolic 103–135; BP diastolic 55–84; BMI 28.6
[2024-09-06] MEDS: MORPHINE SULFATE 4 MG IV ×2 (04:22→21:34)
[2024-09-06 04:35] LABS: % Basophils 0.6 % (0-2); % Eosinophils 4.1 % (0-6); % Immature Granulocytes 0.4 % (0-0.5); % Lymphocytes 38.7 % (20.5-51.1); % Monocytes 7.4 % (1.7-9.3); % Neutrophils 48.8 % (42.2-75.2); Absolute Eosinophils 0.2 10^3/uL (0-0.7); Absolute Monocytes 0.4 10^3/uL (0.1-0.6); Absolute Neutrophils 2.5 10^3/uL (1.4-6.5); Hematocrit 34.3 % (37.0-47.0); Hemoglobin 11.4 g/dL (12.0-16.0); Mean Corp Hgb Conc. 33.2 g/dL (33.0-37.0); Mean Corpuscular Hgb 28.1 pg (27.0-31.0); Mean Corpuscular Volume 84.7 fL (81.0-99.0); Mean Platelet Volume 10.5 fL (7.4-10.4); Nucleated Red Blood Cells % 0 %; Platelet Count 213 10^3/uL (130-400); Red Blood Cell Count 4.05 10^6/uL (4.20-5.40); Red Cell Dist. Width 14.2 % (11.5-14.5); White Blood Cell Count 5.1 10^3/uL (4.8-10.8)
[2024-09-06 04:42] LABS: INR 3.67; PT 36.2 Sec (11.4-14.6)
[2024-09-06 04:48] LABS: ALT (SGPT) 18 U/L (0-35); AST (SGOT) 25 U/L (14-36); Albumin 3.4 g/dl (3.5-5.0); Alkaline Phosphatase 69 U/L (38-126); Blood Urea Nitrogen 10 mg/dl (7-17); Calcium 9.5 mg/dl (8.4-10.2); Carbon Dioxide 23 mmol/L (22-30); Chloride 111 mmol/L (98-107); Estimated Creatinine Clearance 87 ml/min; Glucose 91 mg/dl (70-99); Potassium 3.8 mmol/L (3.5-5.1); Sodium 142 mmol/L (135-145); Total Bilirubin 0.5 mg/dl (0.2-1.3); Total Protein 5.3 g/dl (6.3-8.2); eGFR > 60.00
[2024-09-06] MEDS: ZOSYN 50 IV (06:08)
--- NOTE | 2024-09-06 08:00 | CON.VAS ---
Consultation
Consultation Request
Performing Provider: Miya
Reason for Consultation: Cellulitis
Medical History
-
Chief Complaint: Right foot/toe pain
History of Present Illness:
53-year-old female with past medical history significant for SLE, PAD, Raynaud's, scleroderma, antiphospholipid syndrome, hypertension, anxiety, GERD admitted with erythema to the right great toe that extends across the forefoot. Symptoms started
about 2 weeks ago after 'nicking her great toe with a razor'. Patient did finish 1 course of antibiotics with no relief. Patient follows with Dr. Boo Blanchard at [facility] for known PAD. Patient states 'all 3 blood vessels to my foot are
blocked' and is scheduled for an arteriogram at the end of this month. Patient wishes to follow-up with her surgeon at [facility]. Per the patient she has past medical history of embolic events to digits and toes and has been on Coumadin. Patient
reports her pain was significantly better overnight and has minimal symptoms this morning.
Patient states she recently had ultrasound duplex and was told she needed right lower extremity arteriogram and wishes to proceed with that at [facility] with her vascular surgeon.
Past Medical History
Past Medical History: Other (ASCVD / PAD, SLE, Raynaud's, Scleroderma, Antiphospholipid Syndrome, Benign Hypertension, Anxiety, GERD)
Past Surgical History: Other (Vascular surgery at [facility])
Family History
Family History: Reviewed & Not Pertinent
Allergies / Home Medications
Allergy/AdvReac Type Severity Reaction Status Date / Time
No Known Allergies Allergy Verified 11/14/16 16:55
�Medication �Instructions �Recorded �Confirmed �Type
Hydroxychloroquine Sulfate 400 mg PO HS 11/13/13 09/05/24 History
amlodipine 5 mg tablet 5 mg PO HS 11/13/13 09/05/24 History
omeprazole 40 mg capsule,delayed 80 mg PO BID 11/13/13 09/05/24 History
release (Prilosec)
warfarin 6 mg tablet (Coumadin) 6 mg PO .X4WEEK 11/13/13 09/05/24 History
clonazepam 0.5 mg tablet 0.5 mg PO Q6HPRN PRN anxiety 08/11/16 09/05/24 History
warfarin 3 mg tablet (Jantoven) 4 mg PO 3XD 09/13/16 09/05/24 History
mycophenolate mofetil 500 mg 1,000 mg PO HS 09/05/24 09/05/24 History
tablet (CellCept)
trazodone 100 mg tablet 200 mg PO HS 09/05/24 09/05/24 History
latanoprost 0.005 % eye drops 1 drp ophthalmic (eye) HS 09/06/24 09/06/24 History
sildenafil 25 mg tablet 20 mg PO HS 09/06/24 09/06/24 History
Review of Systems
-
History Source: Patient
Constitutional: Reports No Symptoms
Skin: Reports Other (Foot pain)
Physical Exam
Vital Signs
Temp Pulse Resp BP Pulse Ox
97.7 F 62 16 108/73 98
09/08/24 07:15 09/08/24 07:15 09/08/24 07:15 09/08/24 07:15 09/08/24 07:15
Lab Results
09/08/24 05:39
09/08/24 05:39
Physical Exam
General: No Apparent Distress
HEENT: Normocephalic and Atraumatic
Respiratory: Non Labored Respirations
GI: Soft and Non Tender
Skin: Other (very slight erythema to toes, no pain, + sensation, intact motor)
Pulses: Bilateral Femoral: +2, Left Dorsalis Pedis: +2 and Right Dorsalis Pedis: Doppler (Nonpalpable)
Assessment / Plan
-
extensive history with embolization
on coumadin
sees vascular surgeon at [facility]
patient wishes to return to her vascular surgeon
no acute vascular issue
chronic vascular disease that needs intervention
ok to discharge if foot remains stable and follow up with her vascular surgeon vaughn
if worsens, can transfer her per her request
would continue coumadin given history
call with any questions
--- NOTE | 2024-09-06 08:04 | W.PN.VS ---
Today's Communication / Plan
-
no acute intervention
Assessment/Plan
-
extensive history with embolization
on coumadin
sees vascular surgeon at [facility]
patient wishes to return to her vascular surgeon
no acute vascular issue
chronic vascular disease that needs intervention
ok to discharge if foot remains stable and follow up with her vascular surgeon vaughn
if worsens, can transfer her per her request
would continue coumadin given history
call with any questions
Subjective Data
-
Date of Service: September 06, 2024
Asked to eval patichristophern for right foot and toe pain
started 1 month ago
started oral antbx
symptoms were not improving so she came to ER
reports that pain is significantly better overnight
minimal symptoms this am
had duplex and was told she needs an agram with intervention on her right leg
would like to return to her vascular surgeon at [facility]
extensive pmhx including embolic events to digits and toes
Objective Data
-
Vital Signs
Temp Pulse Resp BP Pulse Ox
98 F 58 16 123/78 99
09/06/24 07:56 09/06/24 07:56 09/06/24 07:56 09/06/24 07:56 09/06/24 06:11
Lab Results
09/06/24 04:14
09/06/24 04:13
Calcium 9.5 mg/dl (8.4-10.2) 09/06/24 04:13
Total Bilirubin 0.5 mg/dl (0.2-1.3) 09/06/24 04:13
AST 25 U/L (14-36) 09/06/24 04:13
ALT 18 U/L (0-35) 09/06/24 04:13
Alkaline Phosphatase 69 U/L (38-126) 09/06/24 04:13
Total Protein 5.3 g/dl (6.3-8.2) L 09/06/24 04:13
Albumin 3.4 g/dl (3.5-5.0) L 09/06/24 04:13
Physical Exam
-
rrr
ctab
nt,nd,soft
2+ femoral pulses bilat
2+ DP left
non palpable pulses right foot
very slight erythema to toes
no pain
+ sensation
intact motor
[2024-09-06] MEDS: PEPCID 40 MG PO ×2 (08:12→20:15)
--- NOTE | 2024-09-06 09:54 | W.PN.HOSP.TC ---
Today's Communication/Plan
-
see plan
Assessment / Plan
Assessment / Plan
53y F with PMH significant for SLE, APS and PAD who presents to ED complaining of R foot pain x 1 month. Patient reports mild redness initially at the R great toe and now across the forefoot. She took abx when symptoms first started - with no
improvement in her symptoms. 2 weeks ago or so she nicked the great toe with a razor. Symptoms seemed to increased after that. She notes pain that feels 'in the bone'. No fevers / chills. No N/V.
Patient had known PAD and is followed by Dr. Boo Blanchard at [facility]. She states that 'all three blood vessels to my right foot are blocked' and she is scheduled for angio at that facility at the end of this month.
Gen: NAD, AAOx3.
Eyes: EOMI, PERRLA, no scleral icterus.
Neck: supple.
CV: RRR, +S1/S2, no m/r/g.
Resp: CTAB, no rales, wheezes, or rhonchi.
Abd: +BS, soft, NT, ND
Skin: R toes and distal foot with mild cellulitis
Neuro: CN 2-12 intact, non-focal.
Psych: Normal mood and affect.
R foot Xray: No acute fracture or dislocation. Scattered mild to moderate osteoarthritic changes of the interphalangeal and first metatarsophalangeal joints. No erosions are evident. No radiographic evidence for inflammatory arthropathy. No overt
radiographic evidence for osteomyelitis. Soft tissues are grossly unremarkable.
R ischemic Foot Pain due to PAD:
-with mild cellulitis
-Patient seen by vascular surgery. No acute vascular surgical intervention at this time.
-change abx to IV Vanco with reports of pus from nailbed
Other problems:
SLE, Raynaud's, Scleroderma: cont Plaquenil/CellCept
Antiphospholipid Syndrome: resume coumadin as no surgical intervention planned at this moment
Essential hypertension: cont Norvasc
Anxiety: cont Trazodone
GERD: Restart home Prilosec
FULL/coumadin with therapeutic INR
Anticipated Discharge: 24 - 48 hours
Subjective/Interval History
-
Date of Service: September 06, 2024
No new complaints.
Objective Data
-
Labs:
Laboratory Results
09/05/24 09/06/24 09/06/24
22:07 04:13 04:14
WBC Cancelled 5.1
Hgb Cancelled 11.4 L
Hct Cancelled 34.3 L
Plt Count Cancelled 213 D
PT Cancelled 36.2 H
INR Cancelled 3.67
APTT Cancelled
Sodium Cancelled 142
Potassium Cancelled 3.8
Chloride Cancelled 111 H
Carbon Dioxide Cancelled 23
BUN Cancelled 10
Creatinine Cancelled 0.8
Glucose Cancelled 91
Calcium Cancelled 9.5
Total Bilirubin Cancelled 0.5
AST Cancelled 25
ALT Cancelled 18
Alkaline Phosphatase Cancelled 69
Vital Signs:
Vital Signs
Temp Pulse Resp BP Pulse Ox
98 F 58 16 123/78 99
09/06/24 07:56 09/06/24 07:56 09/06/24 07:56 09/06/24 07:56 09/06/24 06:11
--- NOTE | 2024-09-06 10:33 | PHA.VAN.IN ---
Assessment
- Assessment
Renal Function: Appears similar to baseline
Concomitant Antimicrobials: hydroxychloroquine
AUC Dosing Plan
- Dosing Variables
Dosing Weight (kg): 80
Dosing CrCl (ml/min): 87
Vd coefficient (L/kg): 0.7
- Empiric Dosing
Maintenance Regimen: 1000 mg q12h - first dose pending administration
Estimated AUC (mcg*h/mL): 484
Estimated Peak (mcg*h/mL): 29.7
Estimated Trough (mcg/ml): 12.8
Estimated Half Life (H): 9
- Monitoring
No levels ordered at this time: consider levels when pt reaches steady state
Pharmacokinetics Vancomycin I
- -
Patient Age: 53
Patient Sex: Female
Vancomycin Day #: 1
Indication: Skin And Soft Tissue
Requesting Provider: Devin
Height / Weight:
Height 5 ft 5 in
Actual Weight 80 kg
- Vital Signs / Lab Results
Temp Pulse Resp BP Pulse Ox
98 F 58 16 123/78 99
09/06/24 07:56 09/06/24 07:56 09/06/24 07:56 09/06/24 07:56 09/06/24 06:11
Lab Results - Hematology
09/05/24 09/06/24
22:07 04:14
WBC Cancelled 5.1
Lab Results - Chemistry
09/05/24 09/06/24
22:07 04:13
BUN Cancelled 10
Creatinine Cancelled 0.8
Estimated Creat Clear Cancelled 87
Albumin Cancelled 3.4 L
09/06/24
00:01
Lactic Acid 1.0
[2024-09-06] MEDS: TESSALON PERLES 100 MG PO ×2 (10:39→20:15)
[2024-09-06] MEDS: VANCOCIN 200 IV ×2 (10:45→18:45)
[2024-09-06] MEDS: BENADRYL 25 MG IV ×3 (12:19→23:47)
--- NOTE | 2024-09-06 14:18 | CM ---
Initial assessment completed in the ED
Pharmacy verified: [facility] @ [id number]
Lives with spouse in multilevel home; 4 steps to enter; 10 steps between floors; railings on stairs; patient's bedroom and bath on 1st floor; bath has tub w/shower
PLOF: reported she is independent with ambulation, stairs, and ADLs; drives; not working
NO DME
NO SNF or Home Health utilization history
Transport: Family/Friend or [facility]
Discharge plan to be determined pending hospital course; CM will monitor for needs and support accordingly
--- NOTE | 2024-09-06 15:26 | PTCARENOTE ---
report sent to [facility].
--- NOTE | 2024-09-06 15:26 | PTCARENOTE ---
Assumed care of pt at aprox 1200- Pt vanco finished infusing and pt was c/o of itching of scalp. Dr Beltran notified and IV bendaryl given.
--- NOTE | 2024-09-06 19:25 | PTCARENOTE ---
Received pt from ED. Araceli3. VSS. Ambulatory with no assistance. No complaints at this time.
[2024-09-06] MEDS: PROTONIX 40 MG PO (20:15)
[2024-09-06] MEDS: CELLCEPT 1000 MG PO (21:25)
[2024-09-06] MEDS: NORVASC 5 MG PO (21:26)
[2024-09-06] MEDS: COUMADIN 4 MG PO (21:30)
[2024-09-06] MEDS: PLAQUENIL 400 MG PO (21:33)
[2024-09-07] MEDS: BENADRYL 25 MG IV ×2 (05:00→17:18)
[2024-09-07] MEDS: MORPHINE SULFATE 4 MG IV (05:01)
[2024-09-07] MEDS: VANCOCIN 200 IV ×2 (06:07→17:06)
[2024-09-07 06:08] LABS: Hemoglobin 12.3 g/dL (12.0-16.0); Mean Corp Hgb Conc. 32.4 g/dL (33.0-37.0); Mean Corpuscular Volume 86.6 fL (81.0-99.0); Mean Platelet Volume 10.6 fL (7.4-10.4); Platelet Count 237 10^3/uL (130-400); Red Blood Cell Count 4.39 10^6/uL (4.20-5.40); Red Cell Dist. Width 14.1 % (11.5-14.5)
[2024-09-07 06:14] LABS: INR 2.31; PT 25.5 Sec (11.4-14.6)
[2024-09-07 06:38] LABS: Blood Urea Nitrogen 10 mg/dl (7-17); Calcium 9.4 mg/dl (8.4-10.2); Carbon Dioxide 29 mmol/L (22-30); Chloride 108 mmol/L (98-107); Estimated Creatinine Clearance 76 ml/min; Glucose 82 mg/dl (70-99); Potassium 4.7 mmol/L (3.5-5.1); Sodium 142 mmol/L (135-145); eGFR > 60.00
[2024-09-07 07:20] VITALS: BP 112/68
[2024-09-07 07:35] VITALS: BP 112/68
[2024-09-07] MEDS: PEPCID 40 MG PO ×2 (08:40→20:39)
[2024-09-07] MEDS: PROTONIX 40 MG PO ×2 (08:40→20:40)
--- NOTE | 2024-09-07 09:01 | W.PN.HOSP.TC ---
Today's Communication/Plan
-
see plan
Assessment / Plan
Assessment / Plan
53y F with PMH significant for SLE, APS and PAD who presents to ED complaining of R foot pain x 1 month. Patient reports mild redness initially at the R great toe and now across the forefoot. She took abx when symptoms first started - with no
improvement in her symptoms. 2 weeks ago or so she nicked the great toe with a razor. Symptoms seemed to increased after that. She notes pain that feels 'in the bone'. No fevers / chills. No N/V.
Patient had known PAD and is followed by Dr. Boo Blanchard at [facility]. She states that 'all three blood vessels to my right foot are blocked' and she is scheduled for angio at that facility at the end of this month.
Gen: NAD, AAOx3.
Eyes: EOMI, PERRLA, no scleral icterus.
Neck: supple.
CV: RRR, +S1/S2, no m/r/g.
Resp: CTAB, no rales, wheezes, or rhonchi.
Abd: +BS, soft, NT, ND
Skin: R toes and distal foot proximal to the first toe with mild cellulitis
Neuro: CN 2-12 intact, non-focal.
Psych: Normal mood and affect.
R foot Xray: No acute fracture or dislocation. Scattered mild to moderate osteoarthritic changes of the interphalangeal and first metatarsophalangeal joints. No erosions are evident. No radiographic evidence for inflammatory arthropathy. No overt
radiographic evidence for osteomyelitis. Soft tissues are grossly unremarkable.
R ischemic Foot Pain due to PAD:
-with mild cellulitis
-Patient seen by vascular surgery. No acute vascular surgical intervention at this time.
-cont IV Vanco with reports of pus from nailbed
Other problems:
SLE, Raynaud's, Scleroderma: cont Plaquenil/CellCept
Antiphospholipid Syndrome: cont coumadin as no surgical intervention planned at this moment
Essential hypertension: cont Norvasc
Anxiety: cont Trazodone
GERD: Restart home Prilosec
FULL/coumadin with therapeutic INR
Anticipated Discharge: 24 - 48 hours
Subjective/Interval History
-
Date of Service: September 07, 2024
No new complaints.
Objective Data
-
Labs:
Laboratory Results
09/07/24
04:33
WBC 4.0 L
Hgb 12.3
Hct 38.0
Plt Count 237
PT 25.5 H
INR 2.31
Sodium 142
Potassium 4.7
Chloride 108 H
Carbon Dioxide 29
BUN 10
Creatinine 0.9
Glucose 82
Calcium 9.4
Vital Signs:
Vital Signs
Temp Pulse Resp BP Pulse Ox
97.7 F 68 16 112/68 97
09/07/24 07:35 09/07/24 07:35 09/07/24 07:35 09/07/24 07:35 09/07/24 07:40
I&O
09/06/24 09/07/24 09/08/24
06:59 06:59 06:59
Intake Total 480 / 480
Balance 480 / 480
[2024-09-07] MEDS: TYLENOL 650 MG PO (09:37)
[2024-09-07] MEDS: TESSALON PERLES 100 MG PO (09:37)
--- NOTE | 2024-09-07 10:36 | PHA.VAN.FU ---
Vancomycin Assessment / Plan
- Assessment
Renal Function: Stable
WBC's are: Stable
In the past 24 hrs, patient has been: Afebrile
Concomitant Antimicrobials: hydroxychloroquine
- Dosing Plan
Continue: vancomycin 1000 mg q12
- Monitoring Plan
Peak Level: 09/07/24 2030 - after 4th dose
Trough Level: 09/08/24 0530
- Follow Up
Pharmacy will continue to follow.
Vancomycin Follow UP
- -
Patient Age: 53
Patient Sex: Female
Vancomycin Day #: 2
Indication: Skin And Soft Tissue
Requesting Provider: Devin
Height / Weight:
Height 5 ft 5 in
Actual Weight 78.018 kg
- Vital Signs / Lab Results
Temp Pulse Resp BP Pulse Ox
97.7 F 68 16 112/68 97
09/07/24 07:35 09/07/24 07:35 09/07/24 07:35 09/07/24 07:35 09/07/24 07:40
Lab Results - Hematology
09/05/24 09/06/24 09/07/24
22:07 04:14 04:33
WBC Cancelled 5.1 4.0 L
Lab Results - Chemistry
09/05/24 09/06/24 09/07/24
22:07 04:13 04:33
BUN Cancelled 10 10
Creatinine Cancelled 0.8 0.9
Estimated Creat Clear Cancelled 87 76
Albumin Cancelled 3.4 L
09/06/24
00:01
Lactic Acid 1.0
--- NOTE | 2024-09-07 13:51 | PTCARENOTE ---
Right foot - posterior tibial pulse very weak with doppler. Dorsalis pedal pulse with doppler. Could not palpate pedal pulses. Patient states that this is her baseline and that it is very difficult to get pedal pulses on right even with doppler.
Right foot and ankle with redness and warmth. IV antibiotics administered as ordered. Denies pain at this time.
[2024-09-07 15:10] VITALS: BP 105/66
[2024-09-07] MEDS: COUMADIN 5 MG PO (17:05)
--- NOTE | 2024-09-07 17:22 | PTCARENOTE ---
Assumed care of patient at 3pm. No noted changes in assessment.
[2024-09-07] MEDS: NORVASC 5 MG PO (20:38)
[2024-09-07] MEDS: PLAQUENIL 400 MG PO (20:39)
[2024-09-07] MEDS: CELLCEPT 1000 MG PO (20:40)
[2024-09-07 21:17] LABS: Vancomycin Peak 29.8 ug/ml (18-26)
[2024-09-07 23:31] VITALS: BP 119/73
[2024-09-08] MEDS: MORPHINE SULFATE 4 MG IV (05:44)
[2024-09-08 05:55] LABS: Hematocrit 38.5 % (37.0-47.0); Hemoglobin 12.5 g/dL (12.0-16.0); Mean Corp Hgb Conc. 32.5 g/dL (33.0-37.0); Mean Corpuscular Hgb 28.2 pg (27.0-31.0); Mean Corpuscular Volume 86.7 fL (81.0-99.0); Mean Platelet Volume 10.5 fL (7.4-10.4); Platelet Count 226 10^3/uL (130-400); Red Blood Cell Count 4.44 10^6/uL (4.20-5.40); Red Cell Dist. Width 13.9 % (11.5-14.5); White Blood Cell Count 4.9 10^3/uL (4.8-10.8)
[2024-09-08 06:07] LABS: INR 2.23; PT 24.8 Sec (11.4-14.6)
[2024-09-08 06:16] LABS: Blood Urea Nitrogen 11 mg/dl (7-17); Calcium 9.7 mg/dl (8.4-10.2); Carbon Dioxide 26 mmol/L (22-30); Chloride 110 mmol/L (98-107); Estimated Creatinine Clearance 69 ml/min; Glucose 98 mg/dl (70-99); Potassium 4.9 mmol/L (3.5-5.1); Sodium 142 mmol/L (135-145); eGFR > 60.00
[2024-09-08 06:23] LABS: Vancomycin Trough 17.4 ug/ml (5-20)
[2024-09-08] MEDS: VANCOCIN 200 IV (06:27)
[2024-09-08] MEDS: BENADRYL 25 MG IV (06:28)
[2024-09-08 07:15] VITALS: BP 108/73
[2024-09-08] MEDS: PEPCID 40 MG PO (08:30)
[2024-09-08] MEDS: PROTONIX 40 MG PO (08:30)
--- NOTE | 2024-09-08 10:33 | W.PN.HOSP.TC ---
Today's Communication/Plan
-
d/c
Assessment / Plan
Assessment / Plan
53y F with PMH significant for SLE, APS and PAD who presents to ED complaining of R foot pain x 1 month. Patient reports mild redness initially at the R great toe and now across the forefoot. She took abx when symptoms first started - with no
improvement in her symptoms. 2 weeks ago or so she nicked the great toe with a razor. Symptoms seemed to increased after that. She notes pain that feels 'in the bone'. No fevers / chills. No N/V.
Patient had known PAD and is followed by Dr. Boo Blanchard at [facility]. She states that 'all three blood vessels to my right foot are blocked' and she is scheduled for angio at that facility at the end of this month.
Gen: NAD, AAOx3.
Eyes: EOMI, PERRLA, no scleral icterus.
Neck: supple.
CV: remains RRR, +S1/S2, no m/r/g.
Resp: remains CTAB, no rales, wheezes, or rhonchi.
Abd: +BS, soft, NT, ND
Skin: R toes and distal foot proximal to the first toe with mild cellulitis, improved from yesterday
Neuro: CN 2-12 intact, non-focal.
Psych: Normal mood and affect.
R foot Xray: No acute fracture or dislocation. Scattered mild to moderate osteoarthritic changes of the interphalangeal and first metatarsophalangeal joints. No erosions are evident. No radiographic evidence for inflammatory arthropathy. No overt
radiographic evidence for osteomyelitis. Soft tissues are grossly unremarkable.
R ischemic Foot Pain due to PAD:
-with mild cellulitis
-Patient seen by vascular surgery. No acute vascular surgical intervention at this time.
-has been on IV Vanco with reports of pus from nailbed
-d/c on 10 days bactrim/Keflex
Other problems:
SLE, Raynaud's, Scleroderma: cont Plaquenil/CellCept
Antiphospholipid Syndrome: cont coumadin as no surgical intervention planned at this moment
Essential hypertension: cont Norvasc
Anxiety: cont Trazodone
GERD: Restart home Prilosec
FULL/coumadin with therapeutic INR
Total time spent on d/c = 34 min. This included today's physical exam, progress note, review of laboratory and diagnostic data, preparation of discharge documents and prescriptions, and discussions about the pt's hospital course and discharge plan
with the patient and other medical technologist hematology involved in the patient's care.
Anticipated Discharge: Today
Subjective/Interval History
-
Date of Service: September 08, 2024
No new complaints.
Objective Data
-
Labs:
Laboratory Results
09/08/24
05:39
WBC 4.9
Hgb 12.5
Hct 38.5
Plt Count 226
PT 24.8 H
INR 2.23
Sodium 142
Potassium 4.9
Chloride 110 H
Carbon Dioxide 26
BUN 11
Creatinine 1.0
Glucose 98
Calcium 9.7
Vital Signs:
Vital Signs
Temp Pulse Resp BP Pulse Ox
97.7 F 62 16 108/73 98
09/08/24 07:15 09/08/24 07:15 09/08/24 07:15 09/08/24 07:15 09/08/24 07:15
I&O
09/07/24 09/08/24 09/09/24
06:59 06:59 06:59
Intake Total 480 / 480 600 / 600
Balance 480 / 480 600 / 600
--- NOTE | 2024-09-08 11:03 | CM ---
entered order for discharge.
Spoke with pt she said her mom Era will drive her home.
She will be dc on po antibiotics.
Pt agrees with dc.
PLAN Home no needs
[2024-09-08] MEDS: TESSALON PERLES 100 MG PO (11:11)
--- NOTE | 2024-09-08 11:25 | PHA.VAN.FU ---
Vancomycin Assessment / Plan
- Assessment
Renal Function: SCR Increasing (1.0, increasing by 0.1/day past three days)
WBC's are: WNL (4.9)
In the past 24 hrs, patient has been: Afebrile
Concomitant Antimicrobials: Hydroxychloroquine
- Assessment - Therapeutic Drug Monitoring
Extrapolated Cmax (mcg/mL): 29.8
Peak level was drawn: Appropriately (~2.7hr after end of infusion)
Extrapolated Cmin (mcg/mL): 17.4
Trough Drawn: Appropriately
Levels were drawn: At steady state (After 3rd maintenance dose)
Calculated AUC (mcg*h/mL): 618
Calculated ke: 0.0613
Calculated half life (H): 11.3
Calculated Vd (L): 52.78
Calculated Vanc CL (ml/min): 53.89
- Dosing Plan
Adjust Regimen to: Vanco 750mg Q12H
- Monitoring Plan
No level(s) ordered at this time: Consider in the next few days
- Follow Up
Pharmacy will continue to follow.
Vancomycin Follow UP
- -
Patient Age: 53
Patient Sex: Female
Vancomycin Day #: 3
Indication: Skin And Soft Tissue
Requesting Provider: Devin
Height / Weight:
Height 5 ft 5 in
Actual Weight 78.018 kg
- Vital Signs / Lab Results
Temp Pulse Resp BP Pulse Ox
97.7 F 62 16 108/73 98
09/08/24 07:15 09/08/24 07:15 09/08/24 07:15 09/08/24 07:15 09/08/24 07:15
Lab Results - Hematology
09/05/24 09/06/24 09/07/24
22:07 04:14 04:33
WBC Cancelled 5.1 4.0 L
09/08/24
05:39
WBC 4.9
Lab Results - Chemistry
09/05/24 09/06/24 09/07/24
22:07 04:13 04:33
BUN Cancelled 10 10
Creatinine Cancelled 0.8 0.9
Estimated Creat Clear Cancelled 87 76
Albumin Cancelled 3.4 L
09/08/24
05:39
BUN 11
Creatinine 1.0
Estimated Creat Clear 69
Albumin
09/06/24
00:01
Lactic Acid 1.0
Therapeutic Drug Monitoring
Vancomycin Peak 29.8 ug/ml (18-26) H 09/07/24 20:52
Vancomycin Trough 17.4 ug/ml (5-20) 09/08/24 05:39
[2024-09-08 12:15] VITALS: BP 114/77
--- NOTE | 2024-09-08 13:08 | W.DCSUMMARY ---
Discharge Summary
Discharge Data
Date of Admission: 09/05/24
Date of Discharge: 09/08/24
-
Pending Results: No
Hospital Course
Primary diagnoses:
Right foot cellulitis
Secondary diagnoses:
Right ischemic Foot Pain due to peripheral arterial disease
Systemic lupus erythematosus
Raynaud's disease
Scleroderma
Antiphospholipid Syndrome
Essential hypertension
Anxiety
Gastroesophageal reflux disease
Consultants:
Vascular surgery
Imaging:
R foot Xray: No acute fracture or dislocation. Scattered mild to moderate osteoarthritic changes of the interphalangeal and first metatarsophalangeal joints. No erosions are evident. No radiographic evidence for inflammatory arthropathy. No overt
radiographic evidence for osteomyelitis. Soft tissues are grossly unremarkable.
Hospital course: 53-year-old female presented with right foot pain and erythema as outlined in H&P done on admission. Imaging above. She had mild cellulitis. She was seen in consultation by vascular surgery who did not feel the patient required
any acute vascular surgical intervention. Patient was treated with IV vancomycin. She had improvement in her cellulitis. She was discharged on 10 days of Bactrim and Keflex.
Discharge Plan
-
Patient Disposition: Home (Routine Discharge)
Discharge Diagnosis/Procedures: Right foot cellulitis
Condition: Good
Diet: Regular
Activity: As tolerated
Driving Restrictions: As prior to admission
Bathing Restrictions: None
Blood Work: INR in 2 to 3 days
Referrals:
Salvador Brannon CRNP [Family Provider] - in less than 1 week
Prescriptions:
New
sulfamethoxazole-trimethoprim [Bactrim DS] 800-160 mg tablet
1 tab PO BID Qty: 20 0RF
cephalexin 500 mg capsule
500 mg PO Q6H 10 Days Qty: 40 0RF
Continued
amlodipine 5 MG tablet
5 mg PO HS
Patient Comments:
patient unsure of dose
omeprazole [Prilosec] 40 MG capsule,delayed release(DR/EC)
80 mg PO BID
warfarin [Coumadin] 6 MG tablet
6 mg PO .X4WEEK
Patient Comments:
Dose varies 6mg SUN//SUN/SUN/SAT
Hydroxychloroquine Sulfate
400 mg PO HS
clonazepam 0.5 MG tablet
0.5 mg PO Q6HPRN PRN (Reason: anxiety)
warfarin [Jantoven] 3 MG tablet
4 mg PO 3XD
Patient Comments:
pattern of use is and 4 mg other days 6 mg
Rx Instructions:
Sunday, , Sunday
mycophenolate mofetil [CellCept] 500 mg Tablet
1,000 mg PO HS
trazodone 100 mg Tablet
200 mg PO HS
latanoprost 0.005 % Drops
1 drp OPHTHALMIC (EYE) HS
sildenafil 25 mg Tablet
20 mg PO HS
Discharge Orders:
Discharge Patient (As Directed); Ordered 09/08/24
Ordered By: Estuardo Beltran
Discharge Date and Time
Print Language: [place]
== END 2024-09-08 13:25 | disposition home or self-care (01) | DRG 603 ==
LOC: 4 EAST ACU 23:31
PROVIDERS: Registered Nurse; ADMITTING PHYSICIAN Hospitalist; ATTENDING PHYSICIAN Internal Medicine; EMERGENCY PHYSICIAN Student in an Organized Health Care Education/Training Program; OTHER PHYSICIAN Surgery
DX: L03.115 Cellulitis of right lower limb (principal); D68.61 Antiphospholipid syndrome; I73.00 Raynaud's syndrome without gangrene; M79.89 Other specified soft tissue disorders; K58.9 Irritable bowel syndrome, unspecified; M32.9 Systemic lupus erythematosus, unspecified; M19.071 Primary osteoarthritis, right ankle and foot; L03.031 Cellulitis of right toe; I25.10 Atherosclerotic heart disease of native coronary artery without angina pectoris; M34.9 Systemic sclerosis, unspecified; I10 Essential (primary) hypertension; F41.9 Anxiety disorder, unspecified; K21.9 Gastro-esophageal reflux disease without esophagitis; Z90.49 Acquired absence of other specified parts of digestive tract; Z86.718 Personal history of other venous thrombosis and embolism; Z79.01 Long term (current) use of anticoagulants
CPT/HCPCS: 36415; 73630; 80048; 80053; 80202; 83605; 84550; 85025; 85027; 85610; 96365; 96367; 96375; 99284

== ENCOUNTER → 2024-09-10 09:00 | Outpatient (REF) | payer OTHER, SELFPAY ==
[2024-09-10 12:15] LABS: PT 33.8 Sec (11.4-14.6)
[2024-09-10 12:16] LABS: APTT 41.9 Sec (23.4-35.0)
== END ==
LOC: REG 09:00
PROVIDERS: ATTENDING PHYSICIAN Internal Medicine Hematology & Oncology
DX: Z51.11 Encounter for antineoplastic chemotherapy (principal); I80.3 Phlebitis and thrombophlebitis of lower extremities, unspecified; D68.62 Lupus anticoagulant syndrome; D50.9 Iron deficiency anemia, unspecified; Z79.01 Long term (current) use of anticoagulants; E55.9 Vitamin D deficiency, unspecified; Z86.718 Personal history of other venous thrombosis and embolism; I82.91 Chronic embolism and thrombosis of unspecified vein
CPT/HCPCS: 36415; 85610; 85730

== ENCOUNTER → 2024-09-15 10:01 | Outpatient (REF) | payer OTHER, SELFPAY | LOC: HWLAB 10:01 | PROVIDERS: ATTENDING PHYSICIAN Student in an Organized Health Care Education/Training Program | DX: I73.9 Peripheral vascular disease, unspecified (principal) | CPT/HCPCS: 36415; 86850; 86900; 86901 ==

== ENCOUNTER → 2024-09-17 08:56 | Outpatient (REF) | payer OTHER, SELFPAY ==
[2024-09-17 12:43] LABS: INR 2.59; PT 28.2 Sec (11.4-14.6)
== END ==
LOC: REG 08:56
PROVIDERS: ATTENDING PHYSICIAN Internal Medicine Hematology & Oncology
DX: Z51.11 Encounter for antineoplastic chemotherapy (principal); I80.3 Phlebitis and thrombophlebitis of lower extremities, unspecified; D68.62 Lupus anticoagulant syndrome; D50.9 Iron deficiency anemia, unspecified; Z79.01 Long term (current) use of anticoagulants; E55.9 Vitamin D deficiency, unspecified; Z86.718 Personal history of other venous thrombosis and embolism; I82.91 Chronic embolism and thrombosis of unspecified vein
CPT/HCPCS: 36415; 85610

== ENCOUNTER → 2024-09-23 12:57 | Outpatient (REF) | payer OTHER, SELFPAY ==
[2024-09-23 14:24] LABS: INR 2.24; PT 24.8 Sec (11.4-14.6)
== END ==
LOC: REG 12:57
PROVIDERS: ATTENDING PHYSICIAN Internal Medicine Hematology & Oncology
DX: Z51.11 Encounter for antineoplastic chemotherapy (principal); I80.3 Phlebitis and thrombophlebitis of lower extremities, unspecified; D68.62 Lupus anticoagulant syndrome; D50.9 Iron deficiency anemia, unspecified; Z79.01 Long term (current) use of anticoagulants; E55.9 Vitamin D deficiency, unspecified; Z86.718 Personal history of other venous thrombosis and embolism; I82.91 Chronic embolism and thrombosis of unspecified vein
CPT/HCPCS: 36415; 85610

== ENCOUNTER → 2024-09-26 10:41 | Outpatient (REF) | payer OTHER, SELFPAY ==
[2024-09-26 16:36] LABS: INR 3.01; PT 31.1 Sec (11.4-14.6)
== END ==
LOC: HWRAD 10:41
PROVIDERS: ATTENDING PHYSICIAN Internal Medicine Hematology & Oncology
DX: I82.91 Chronic embolism and thrombosis of unspecified vein (principal); J18.9 Pneumonia, unspecified organism; Z51.11 Encounter for antineoplastic chemotherapy; I80.3 Phlebitis and thrombophlebitis of lower extremities, unspecified; D68.62 Lupus anticoagulant syndrome; D50.9 Iron deficiency anemia, unspecified; Z79.01 Long term (current) use of anticoagulants; E55.9 Vitamin D deficiency, unspecified; Z86.718 Personal history of other venous thrombosis and embolism
CPT/HCPCS: 36415; 71046; 85610

== ENCOUNTER → 2024-09-30 12:29 | Outpatient (REF) | payer OTHER, SELFPAY ==
[2024-09-30 14:24] LABS: INR 4.37; PT 41.3 Sec (11.4-14.6)
== END ==
LOC: REG 12:29
PROVIDERS: ATTENDING PHYSICIAN Internal Medicine Hematology & Oncology
DX: Z51.11 Encounter for antineoplastic chemotherapy (principal); I80.3 Phlebitis and thrombophlebitis of lower extremities, unspecified; D68.62 Lupus anticoagulant syndrome; D50.9 Iron deficiency anemia, unspecified; Z79.01 Long term (current) use of anticoagulants; E55.9 Vitamin D deficiency, unspecified; Z86.718 Personal history of other venous thrombosis and embolism; I82.91 Chronic embolism and thrombosis of unspecified vein
CPT/HCPCS: 36415; 85610

== ENCOUNTER → 2024-10-08 09:43 | Outpatient (REF) | payer OTHER, SELFPAY ==
[2024-10-08 12:53] LABS: INR 4.91; PT 45.8 Sec (11.4-14.6)
== END ==
LOC: REG 09:43
PROVIDERS: ATTENDING PHYSICIAN Internal Medicine Hematology & Oncology
DX: Z51.11 Encounter for antineoplastic chemotherapy (principal); I80.3 Phlebitis and thrombophlebitis of lower extremities, unspecified; D68.62 Lupus anticoagulant syndrome; D50.9 Iron deficiency anemia, unspecified; Z79.01 Long term (current) use of anticoagulants; E55.9 Vitamin D deficiency, unspecified; Z86.718 Personal history of other venous thrombosis and embolism; I82.91 Chronic embolism and thrombosis of unspecified vein
CPT/HCPCS: 36415; 85610

== ENCOUNTER → 2024-10-13 06:32 | Outpatient (REF) | payer OTHER, SELFPAY ==
[2024-10-13 07:59] LABS: INR 2.68; PT 28.5 Sec (11.4-14.6)
== END ==
LOC: REG 06:32
PROVIDERS: ATTENDING PHYSICIAN Internal Medicine Hematology & Oncology
DX: Z51.11 Encounter for antineoplastic chemotherapy (principal); I80.3 Phlebitis and thrombophlebitis of lower extremities, unspecified; D68.62 Lupus anticoagulant syndrome; D50.9 Iron deficiency anemia, unspecified; Z79.01 Long term (current) use of anticoagulants; E55.9 Vitamin D deficiency, unspecified; Z86.718 Personal history of other venous thrombosis and embolism; I82.91 Chronic embolism and thrombosis of unspecified vein
CPT/HCPCS: 36415; 85610

== ENCOUNTER → 2024-10-21 06:52 | Outpatient (REF) | payer OTHER, SELFPAY ==
[2024-10-21 08:50] LABS: INR 2.71; PT 29.1 Sec (11.4-14.6)
== END ==
LOC: RAD 06:52
DX: I77.1 Stricture of artery (principal); L98.499 Non-pressure chronic ulcer of skin of other sites with unspecified severity; I73.9 Peripheral vascular disease, unspecified
CPT/HCPCS: 36415; 85610; 93926

== ENCOUNTER → 2024-10-29 09:23 | Outpatient (REF) | payer OTHER, SELFPAY ==
[2024-10-29 12:43] LABS: INR 3.32
== END ==
LOC: REG 09:23
PROVIDERS: ATTENDING PHYSICIAN Internal Medicine Hematology & Oncology
DX: Z51.11 Encounter for antineoplastic chemotherapy (principal); I80.3 Phlebitis and thrombophlebitis of lower extremities, unspecified; D68.62 Lupus anticoagulant syndrome; D50.9 Iron deficiency anemia, unspecified; Z79.01 Long term (current) use of anticoagulants; E55.9 Vitamin D deficiency, unspecified; Z86.718 Personal history of other venous thrombosis and embolism; I82.91 Chronic embolism and thrombosis of unspecified vein
CPT/HCPCS: 36415; 85610

== ENCOUNTER → 2024-11-05 09:08 | Outpatient (REF) | payer OTHER, SELFPAY ==
[2024-11-05 12:38] LABS: INR 3.39; PT 34.6 Sec (11.4-14.6)
== END ==
LOC: REG 09:08
PROVIDERS: ATTENDING PHYSICIAN Internal Medicine Hematology & Oncology
DX: Z51.11 Encounter for antineoplastic chemotherapy (principal); I80.3 Phlebitis and thrombophlebitis of lower extremities, unspecified; D68.62 Lupus anticoagulant syndrome; D50.9 Iron deficiency anemia, unspecified; Z79.01 Long term (current) use of anticoagulants; E55.9 Vitamin D deficiency, unspecified; Z86.718 Personal history of other venous thrombosis and embolism; I82.91 Chronic embolism and thrombosis of unspecified vein
CPT/HCPCS: 36415; 85610

== ENCOUNTER → 2024-11-12 08:35 | Outpatient (REF) | payer OTHER, SELFPAY ==
[2024-11-12 14:22] LABS: INR 4.23; PT 40.8 Sec (11.4-14.6)
== END ==
LOC: REG 08:35
PROVIDERS: ATTENDING PHYSICIAN Internal Medicine Hematology & Oncology
DX: D50.9 Iron deficiency anemia, unspecified (principal); I82.91 Chronic embolism and thrombosis of unspecified vein
CPT/HCPCS: 36415; 85610

== ENCOUNTER → 2024-11-18 08:42 | Outpatient (REF) | payer OTHER, SELFPAY ==
[2024-11-18 12:51] LABS: INR 3.44; PT 34.4 Sec (11.4-14.6)
== END ==
LOC: REG 08:42
PROVIDERS: ATTENDING PHYSICIAN Internal Medicine Hematology & Oncology
DX: P50.9 Newborn affected by intrauterine (fetal) blood loss, unspecified (principal); I82.91 Chronic embolism and thrombosis of unspecified vein
CPT/HCPCS: 36415; 85610

== ENCOUNTER → 2024-12-01 15:06 | Outpatient (REF) | payer OTHER, SELFPAY | LOC: WDC 15:06 | DX: Z12.31 Encounter for screening mammogram for malignant neoplasm of breast (principal) | CPT/HCPCS: 77063; 77067 ==

== ENCOUNTER → 2024-12-02 12:21 | Outpatient (REF) | payer OTHER, SELFPAY ==
[2024-12-02 15:37] LABS: INR 3.58; PT 35.5 Sec (11.4-14.6)
== END ==
LOC: REG 12:21
PROVIDERS: ATTENDING PHYSICIAN Internal Medicine Hematology & Oncology
DX: Z51.11 Encounter for antineoplastic chemotherapy (principal); I80.3 Phlebitis and thrombophlebitis of lower extremities, unspecified; D68.62 Lupus anticoagulant syndrome; D50.9 Iron deficiency anemia, unspecified; Z79.01 Long term (current) use of anticoagulants; E55.9 Vitamin D deficiency, unspecified; Z86.718 Personal history of other venous thrombosis and embolism; I82.91 Chronic embolism and thrombosis of unspecified vein
CPT/HCPCS: 36415; 85610

== ENCOUNTER → 2024-12-16 13:23 | Outpatient (REF) | payer OTHER, SELFPAY | LOC: RAD 13:23 | DX: D68.61 Antiphospholipid syndrome (principal); I73.9 Peripheral vascular disease, unspecified | CPT/HCPCS: 93925 ==

== ENCOUNTER → 2024-12-18 12:52 | Outpatient (REF) | payer OTHER, SELFPAY ==
[2024-12-18 13:36] LABS: INR 3.87; PT 38.2 Sec (11.4-14.6)
== END ==
LOC: REG 12:52
PROVIDERS: ATTENDING PHYSICIAN Internal Medicine Hematology & Oncology
DX: E55.9 Vitamin D deficiency, unspecified (principal); Z51.11 Encounter for antineoplastic chemotherapy; I80.3 Phlebitis and thrombophlebitis of lower extremities, unspecified; D68.62 Lupus anticoagulant syndrome; Z79.01 Long term (current) use of anticoagulants; Z86.718 Personal history of other venous thrombosis and embolism; I82.91 Chronic embolism and thrombosis of unspecified vein
CPT/HCPCS: 36415; 85610

== ENCOUNTER → 2024-12-25 13:25 | Outpatient (REF) | payer OTHER, SELFPAY ==
[2024-12-25 14:25] LABS: INR 3.19; PT 33.0 Sec (11.4-14.6)
== END ==
LOC: REG 13:25
PROVIDERS: ATTENDING PHYSICIAN Internal Medicine Hematology & Oncology
DX: D68.62 Lupus anticoagulant syndrome (principal); Z51.11 Encounter for antineoplastic chemotherapy; I80.3 Phlebitis and thrombophlebitis of lower extremities, unspecified; D50.9 Iron deficiency anemia, unspecified; Z79.01 Long term (current) use of anticoagulants; E55.9 Vitamin D deficiency, unspecified; Z86.718 Personal history of other venous thrombosis and embolism; I82.91 Chronic embolism and thrombosis of unspecified vein
CPT/HCPCS: 36415; 85610

== ENCOUNTER → 2024-12-31 15:43 | Outpatient (REF) | payer OTHER, SELFPAY ==
[2024-12-31 17:25] LABS: Hematocrit 35.5 % (37.0-47.0); Hemoglobin 11.6 g/dL (12.0-16.0); Mean Corp Hgb Conc. 32.7 g/dL (33.0-37.0); Mean Corpuscular Volume 87.7 fL (81.0-99.0); Nucleated Red Blood Cells % 0 %; Platelet Count 255 10^3/uL (130-400); Red Cell Dist. Width 14.6 % (11.5-14.5)
[2024-12-31 17:36] LABS: INR 2.34; PT 26.1 Sec (11.4-14.6)
[2024-12-31 17:44] LABS: Blood Urea Nitrogen 15 mg/dl (7-17); Calcium 9.3 mg/dl (8.4-10.2); Carbon Dioxide 23 mmol/L (22-30); Chloride 107 mmol/L (98-107); Glucose 95 mg/dl (70-99); Potassium 4.1 mmol/L (3.5-5.1); Sodium 137 mmol/L (135-145); eGFR > 60.00
== END ==
LOC: REG 15:43
PROVIDERS: ATTENDING PHYSICIAN Internal Medicine Hematology & Oncology; REFERRING PHYSICIAN Student in an Organized Health Care Education/Training Program
DX: Z51.11 Encounter for antineoplastic chemotherapy (principal); I80.3 Phlebitis and thrombophlebitis of lower extremities, unspecified; D68.62 Lupus anticoagulant syndrome; D50.9 Iron deficiency anemia, unspecified; Z79.01 Long term (current) use of anticoagulants; E55.9 Vitamin D deficiency, unspecified; Z86.718 Personal history of other venous thrombosis and embolism; I82.91 Chronic embolism and thrombosis of unspecified vein; I73.9 Peripheral vascular disease, unspecified
CPT/HCPCS: 36415; 80048; 85025; 85610

== ENCOUNTER → 2025-01-06 13:24 | Outpatient (REF) | payer OTHER, SELFPAY ==
[2025-01-06 14:20] LABS: INR 1.82; PT 21.3 Sec (11.4-14.6)
== END ==
LOC: REG 13:24
PROVIDERS: ATTENDING PHYSICIAN Internal Medicine Hematology & Oncology
DX: I80.3 Phlebitis and thrombophlebitis of lower extremities, unspecified (principal); Z51.11 Encounter for antineoplastic chemotherapy; D68.62 Lupus anticoagulant syndrome; D50.9 Iron deficiency anemia, unspecified; Z79.01 Long term (current) use of anticoagulants; E55.9 Vitamin D deficiency, unspecified; Z86.718 Personal history of other venous thrombosis and embolism; I82.91 Chronic embolism and thrombosis of unspecified vein
CPT/HCPCS: 36415; 85610

== ENCOUNTER 2025-01-12 22:47 | Inpatient (IN) | payer MEDICARE, OTHER, SELFPAY ==
[2025-01-12] VITALS (10 sets, daily range): BP systolic 108–138; BP diastolic 80–99; BMI 28.5; BMI 27.7
--- NOTE | 2025-01-12 20:32 | ED.GENMED ---
History of Present Illness
General
Chief Complaint: Vascular Symptoms
Source: patient, records and spouse
Exam Limitations: none
Time Seen by Provider: 01/12/25 20:12
Nursing documentation reviewed up to this point in time: agreed with
History of Present Illness
History of Present Illness:
54-year-old female with a past medical history of scleroderma, GERD, IBS, PVD who presents to the emergency department for evaluation of right foot pain and abnormal outpatient vascular studies. Patient reports that she has had claudication
symptoms in her right leg for months. She says she initially had an angioplasty in the right leg in September and then had return of claudication symptoms requiring repeat angioplasty this past Sunday with interventional radiology at [facility]. Symptoms improved after procedure and then a few days ago she started having exertional pain in the right foot again followed by development of a sensation of consistent tightness around the foot and ankle on the right. She denies
any weakness or numbness in the ankle or foot. She denies any other acute complaints. She had outpatient vascular studies done�arterial and venous ultrasounds of the right leg�and was found to have acute arterial occlusion of the posterior tibial
artery. She is on Coumadin and reports compliance, had an INR drawn today which was reportedly 2.9 she does note that she was briefly subtherapeutic on her INR in the days surrounding procedure last week with james at 1.8.
Past History
Past History
ED Past Medical History: Other (DVT, IBS, Anitcardiolipin antibody, Lupus, Raynaud's disease)
ED Past Surgical History: Orthopedic
Social History
Tobacco: Non-smoker
Alcohol: None
Drug: None
Personal:
Living: with family
Employment: Not employed
Review of Systems
Review of Systems
All Other Systems: ROS reviewed and negative except as documented in HPI and ROS
Constitutional: Denies fever
Respiratory: Denies trouble breathing
Cardiac: Denies chest pain
ABD/GI: Denies abdominal pain
: Denies flank pain
Musculoskeletal: Reports other (Foot and ankle pain); Denies neck pain or back pain
Neurological: Denies dizzy or headache
Phy Exam
Physical Exam
Physical Exam:
General: Awake, alert, oriented x3; no acute distress
Head: Normocephalic, atraumatic
Eyes: Conjunctiva normal, sclera anicteric
Throat: Airway intact, handling secretions
Neck: Trachea midline
Lungs: Breathing comfortably no distress
Heart: Regular rate
Neuro: No gross deficits�sensation appears intact in the right foot
Skin: Right foot is somewhat dusky and purpleish when compared to the left
Extremities: Right foot somewhat dusky and purpleish compared to the left with delayed capillary refill; no dorsalis pedis or posterior tibial pulses present by Doppler in the right foot; they are present by Doppler in the left foot; no edema or
calf tenderness
Scores
Heart Failure Risk
Heart Failure Risk Score: Not Applicable
Heart Score for Chest Pain Patients
STEMI patient?: Not applicable
Withdrawal Assessment of Alcohol
Withdrawal Assessment Completed?: Not applicable
Course
Orders/Labs/Results
Orders:
Orders
01/12/25 20:34
Type+Screen Urgent
Complete Blood Count/With Diff Urgent
Comprehensive Metabolic Panel Urgent
PTT Urgent
Prothrombin Time Urgent
01/12/25 20:39
CT Abd Aorta Angio W/ Run Off Urgent
Comment:
Reason For Exam: right leg pain, distal arterial occlusion
01/12/25 20:57
Heparin 6,200 units IV NOW STA
Pharmacy Request to Place See Dose Instructions PO NOW STA
Discontinue all Active Warfarin orders?: Yes
Nursing to Place Non Medication Order As Directed
Physician Order: PTT 6 hours after initial start of Heparin infusion
01/12/25 21:00
Heparin 22550 Units/250 ml 25,000 units in 250 ml IV PER PROTOCOL
Weight to be used for heparin protocol in kilograms (kg):: 77.6
Protocol:: DVT/PE
PTT Goal Range to be used:: PTT 73 to 111 seconds
Order type:: Initial
INITIAL Infusion Dose (UNITS/KG/hr) & then follow protocol:: 18 units/kg/hr
Infusion Dose in UNITS/hr & then follow protocol (UNITS/hr):: 1,400
INFUSION RATE in mL/hr & then follow protocol (mL/hr):: 14
For DVT/PE algorithm, re-bolus for low PTT?: Yes
PTT less than or equal to 64 seconds:: Re-bolus 80 units/kg (max 10,000units). Increase by 300 units/hr
(+ 3mL/hr)
PTT 64.1 to 72.9 seconds:: Re-bolus 40 units/kg (max 5,000 units). Increase by 200 units/hr
(+ 2mL/hr)
PTT 73 to 111 seconds:: Target Range. No change in rate.
PTT 111.1 to 130.9 seconds:: Decrease rate by 200 units/hr (- 2 mL/hr)
PTT 131 to 199.9 seconds:: HOLD for 1 hr. Then decrease by 200 units/hr (- 2mL/hr)
PTT greater than or equal to 200 seconds:: HOLD for 2 hrs & Notify Provider. Then decrease by 300 units/hr
(- 3mL/hr)
Lab follow-up:: Each change, PTT q6h until 2 consecutive are therapeutic. Then
PTT daily.
Pharmacy Request to Place See Dose Instructions IV DIRECTED
Abnormal Lab Results
01/12/25
20:34
WBC 4.7 L 10^3/uL
(4.8-10.8)
MCHC 32.2 L g/dL
(33.0-37.0)
MPV 10.9 H fL
(7.4-10.4)
01/12/25 20:34
Vital Signs
Initial and Last Documented VS:
Initial Vital Signs
Temp Pulse Resp BP Pulse Ox
36.9 C 109 18 138/99 98
01/12/25 19:59 01/12/25 19:59 01/12/25 19:59 01/12/25 19:59 01/12/25 19:59
Last Documented Vital Signs
Temp Pulse Resp BP Pulse Ox
36.9 C 97 20 114/81 98
01/12/25 19:59 01/12/25 20:53 01/12/25 20:53 01/12/25 20:53 01/12/25 20:53
MDM/Problems Addressed
Differential Diagnosis Includes:
Arterial occlusion
MDM/Problems Addressed:
54-year-old female presents for evaluation of right foot pain�had angioplasty last week at [facility] started with exertional right foot pain and consistent tightness around the foot and ankle over the past few days. Outpatient arterial
ultrasound done today showed acute arterial occlusion posterior tibial artery at the level of the ankle. Venous ultrasound negative for DVT. She is reportedly therapeutic on INR�she says it was 2.[address] an IV check labs including
a CBC and a CMP, coags. Will discuss with vascular surgery for recommendations.
Discussed with vascular surgery�recommended CT angiogram with runoff to evaluate for any large vessel occlusions. Will plan to admit on heparin infusion overnight. [facility] but was never seen by vascular surgery there. She declined transfer says that she does not wish to receive further care at [facility] and wishes to continue her care here at [place]. Discussed case
with hospitalist for admission.
Chronic conditions affecting care:
Scleroderma, PVD
*Radiology
Radiology exam reviewed: radiology read reviewed
*Pulse Oximetry
SaO2: 99
Oxygen Mode of Delivery: Room air
Patient hypoxic: no (99%)
*Critical Care Note
Total Time (30-74mins, 75-104mins- exclusive of procedures): Not Applicable
Data Reviewed
Review of Other/Old Records Reveals: Labs, Records and Radiology Studies
Source: patient, records and spouse
Patient Management
Discussion with other providers: Hospitalist (Discussed with hospitalist) and Artist Relationship Manager (Discussed with vascular surgeon)
Escalation/DeEscalation of care consider admission/obs:
Admission indicated
ED Attending Note
-
Portions of this chart may have been created with voice recognition software.� Occasional wrong word or��sound alike� substitutions may have occurred due to the inherent limitations of voice recognition software.
Discharge Plan
Departure
Patient Disposition: Admit
Date of Disposition: 01/12/25
Time of Disposition: 21:01
Admit to doctor: Adalid
Presentation/result/management discussed w/ accepting MD/DO: Hospitalist
Discharge Problem:
Arterial occlusion
Prescriptions:
No Action
amlodipine 5 MG tablet
5 mg PO HS
Patient Comments:
patient unsure of dose
omeprazole [Prilosec] 40 MG capsule,delayed release(DR/EC)
80 mg PO BID
warfarin [Coumadin] 6 MG tablet
6 mg PO .X4WEEK
Patient Comments:
Dose varies 6mg SUN//SUN/SUN/SAT
Hydroxychloroquine Sulfate
400 mg PO HS
clonazepam 0.5 MG tablet
0.5 mg PO Q6HPRN PRN (Reason: anxiety)
warfarin [Jantoven] 3 MG tablet
4 mg PO 3XD
Patient Comments:
pattern of use is M and TH 4 mg other days 6 mg
Rx Instructions:
Sunday, , Sunday
mycophenolate mofetil [CellCept] 500 mg Tablet
1,000 mg PO HS
trazodone 100 mg Tablet
200 mg PO HS
latanoprost 0.005 % Drops
1 drp OPHTHALMIC (EYE) HS
sildenafil 25 mg Tablet
20 mg PO HS
sulfamethoxazole-trimethoprim [Bactrim DS] 800-160 mg tablet
1 tab PO BID Qty: 20 0RF
cephalexin 500 mg capsule
500 mg PO Q6H 10 Days Qty: 40 0RF
Interventions
Interventions:
*Risk Screen - Suicide Last Done: 01/12/25 19:59
*General Assessment Last Done: 01/12/25 19:59
*Neglect/Abuse Screening Last Done: 01/12/25 19:59
*ED- Fall Risk Assessment Last Done: 01/12/25 20:25
*ED COVID-19 Vaccine History Last Done: 01/12/25 20:25
ED- Cardiac Assessment Last Done: 01/12/25 20:54
ED- Pulmonary Assessment Last Done: 01/12/25 20:54
ED-Peripheral Vascular Assessment Last Done: 01/12/25 20:54
ED-Skin Assessment Last Done: 01/12/25 20:54
Discharge Date and Time
Print Language: MOHAWK
[2025-01-12 20:50] LABS: Hematocrit 37.6 % (37.0-47.0); Hemoglobin 12.1 g/dL (12.0-16.0); Mean Corp Hgb Conc. 32.2 g/dL (33.0-37.0); Mean Corpuscular Volume 88.1 fL (81.0-99.0); Nucleated Red Blood Cells % 0 %; Platelet Count 210 10^3/uL (130-400); Red Cell Dist. Width 14.4 % (11.5-14.5)
[2025-01-12 20:58] LABS: APTT 38.2 Sec (23.4-35.0); INR 3.15; PT 32.2 Sec (11.4-14.6)
[2025-01-12] MEDS: HEPARIN 25000 UNITS/250 ML IV (21:10)
[2025-01-12] MEDS: IMODIUM 2 MG PO (21:15)
[2025-01-12 21:28] LABS: Blood Urea Nitrogen 12 mg/dl (7-17); Calcium 9.2 mg/dl (8.4-10.2); Carbon Dioxide 22 mmol/L (22-30); Chloride 108 mmol/L (98-107); Estimated Creatinine Clearance 75 ml/min; Glucose 135 mg/dl (70-99); Sodium 137 mmol/L (135-145); eGFR > 60.00
--- NOTE | 2025-01-12 22:13 | HPS.HSE ---
Family Physician
-
Family Physician: AMBERLY Amaya
Chief Complaint
-
Cold / painful R foot
History of Present Illness
Patient is a 54y F with PMH significant for SLE, antiphospholipid Abs syndrome and prior embolic phenomena / arterial occlusions who presents to ED complaining of cold and painful R foot. Patient was seen here in September 2024 with pain in the R
foot attributed to chronic vascular disease and mild cellulitis. She was seen by her usual Vascular Surgeon at [facility] (Dr. Boo Blanchard) and underwent angioplasty in September. Patient states that she had some recurrent symptoms and then had
another angioplasty procedure done last Sunday at [facility]. She had some initial pain s/p that procedure that was attributed to reperfusion pain.
Yesterday patient noted abrupt onset of cold and numb R foot. She contacted her physicians and had outpatient ultrasounds done today. This showed R posterior tibial artery occlusion at the level of the ankle.
Patient was advised to present to the ED for further evaluation and treatment.
Patient is maintained on Coumadin due to APS. She took her most recent dose yesterday.
Medical History
Past Medical History
Past Medical History: Reports Other
Additional Past Medical History:
Antiphospholipid syndrome
DVT
IBS
Lupus
Raynaud's disease
Scleroderma
Past Surgical History: Reports Other
Additional Past Surgical History:
Cholecystectomy
Partial amputation of right pinky toe
Impression amputation of left middle finger
Multiple Angioplasties
Social History
Tobacco: Non-smoker
Alcohol: None
Drug: None
Family History
Family History: Not pertinent
Allergies / Home Medications
Allergies reflects when Allergies were last updated in [facility].
Home Medications with original date entered in [facility]
Allergy/Medication List:
Allergies
Allergy/AdvReac Type Severity Reaction Status Date / Time
No Known Allergies Allergy Verified 01/12/25 20:24
Home Medications
amlodipine 5 mg tablet 5 mg PO HS 11/13/13
hydroxychloroquine 200 mg tablet (Plaquenil) 400 mg PO HS ##0 11/13/13
clonazepam 0.5 mg tablet 0.5 mg PO Q8HPRN PRN anxiety 08/11/16
mycophenolate mofetil 500 mg tablet (CellCept) 1,000 mg PO HS 09/05/24
trazodone 100 mg tablet 200 mg PO HS 09/05/24
latanoprost 0.005 % eye drops 1 drp BOTH EYES HS 09/06/24
sildenafil 25 mg tablet 20 mg PO HS 09/06/24
loperamide 2 mg tablet 2 mg PO Q6HPRN PRN DIARRHEA 01/12/25
omeprazole 40 mg capsule,delayed release 80 mg PO HS 01/12/25
psyllium husk 0.4 gram capsule (Metamucil) 2.4 g PO DAILY 01/12/25
warfarin 2 mg tablet 4 mg PO SUMOTUWETHSA@199901/12/25
warfarin 2 mg tablet 6 mg PO FR@199901/12/25
Review of Systems
-
History Source: Patient
A 12 point ROS was completed and negative except as noted: Yes
Constitutional: Denies Fever or Chills
Respiratory: Denies Cough or Trouble Breathing
Cardiac: Denies Chest Pain or Palpitations
Abdomen/GI: Denies Abdominal Pain, Nausea, Vomiting or Diarrhea
: Denies Dysuria or Flank Pain
Musculoskeletal: Reports Joint Pain; Denies Edema
Neurological: Denies Dizzy or Headache
Physical Exam
Vital Signs
Vital Signs
Temp Pulse Resp BP Pulse Ox
98.5 F 101 19 134/82 99
01/12/25 19:59 01/12/25 21:00 01/12/25 21:00 01/12/25 21:00 01/12/25 21:00
Physical Exam
General: Other (54y F in no acute distress.)
HEENT: Moist mucous membranes and PERRLA
Respiratory: Clear; No Wheezes, Rales or Rhonchi
Cardiac: S1/S2 and Regular Rhythm; No Murmur
GI: Soft, Non Tender, Non Distended and Normal Bowel Sounds
Hematologic/Lymphatic: Other (Cool, dusky R foot. Pulses are not appreciated. No tenderness.)
Laboratory Results
-
01/12/25 20:34
01/12/25 20:34
Laboratory Results
PT 32.2 Sec (11.4-14.6) H 01/12/25 20:34
INR 3.15 01/12/25 20:34
APTT 38.2 Sec (23.4-35.0) H 01/12/25 20:34
Total Bilirubin Cancelled 01/12/25 20:34
AST Cancelled 01/12/25 20:34
ALT Cancelled 01/12/25 20:34
Alkaline Phosphatase Cancelled 01/12/25 20:34
Impression/Plan
-
A/P: Patient is a 54y F with PMH significant for antiphospholipid syndrome and prior arterial embolizations who presents to ED complaining of cold / numb R foot x 24 hours.
Right Posterior Tibial Artery Occlusion
SLE
Antiphospholipid Antibody Syndrome
Raynaud's
Scleroderma
- Admit for further evaluation and treatment.
- CT Angio completed in the ED and awaiting formal results.
- IV heparin infusion for now.
- Vascular Surgery consulted and will follow-up results of CTA re: timing of any intervention.
- Pain control / supportive care / etc.
- Hold Coumadin acutely while on IV heparin.
- Continue CellCept and Plaquenil.
Benign Hypertension
- Hold amlodipine acutely to prevent hypotension / underperfusion.
Anxiety / Depression
- Stable. Continue current med regimen.
GERD
- Stable. Continue usual PPI.
DVT Prophylaxis: On IV Heparin
Code Status: Full
[2025-01-13] VITALS (7 sets, daily range): BP systolic 99–129; BP diastolic 60–93; BMI 27.7
--- NOTE | 2025-01-13 00:18 | PTCARENOTE ---
Pt admitted from ED to 2255 at 2345, aaox3, SR on the tele monitor HR 60's, BP 124/82, Pox 97% RA. R foot cold and dusky, able to locate pulses via Doppler to anterior tibial artery above R ankle, + pulses to L pedal. C/o some discomfort from R
foot, however denies any pain medications at this time. Admission questions completed, pt oriented to room and surroundings, call chase within reach, POC discussed and in agreement.
[2025-01-13] MEDS: NSS 1000 IV ×2 (00:37→09:59)
[2025-01-13] MEDS: PROTONIX 40 MG PO ×2 (00:49→22:11)
[2025-01-13] MEDS: CELLCEPT 1000 MG PO ×2 (00:49→22:11)
[2025-01-13] MEDS: XALATAN OPHTHALMIC SOLUTION 1 DROP BOTH EYES ×2 (00:59→22:12)
[2025-01-13] MEDS: DESYREL 200 MG PO (00:59)
[2025-01-13] MEDS: REVATIO 20 MG PO ×2 (00:59→22:11)
[2025-01-13] MEDS: PLAQUENIL 400 MG PO ×2 (01:01→22:11)
[2025-01-13 03:29] LABS: Hematocrit 31.9 % (37.0-47.0); Hemoglobin 10.5 g/dL (12.0-16.0); Mean Corp Hgb Conc. 32.9 g/dL (33.0-37.0); Mean Corpuscular Volume 87.6 fL (81.0-99.0); Nucleated Red Blood Cells % 0 %; Platelet Count 193 10^3/uL (130-400); Red Cell Dist. Width 14.4 % (11.5-14.5)
[2025-01-13 03:59] LABS: APTT > 200.0 Sec (23.4-35.0)
[2025-01-13 04:20] LABS: Blood Urea Nitrogen 10 mg/dl (7-17); Calcium 8.9 mg/dl (8.4-10.2); Carbon Dioxide 25 mmol/L (22-30); Chloride 110 mmol/L (98-107); Estimated Creatinine Clearance 74 ml/min; Glucose 91 mg/dl (70-99); Potassium 3.9 mmol/L (3.5-5.1); Sodium 139 mmol/L (135-145); eGFR > 60.00
[2025-01-13] MEDS: TYLENOL 650 MG PO (04:58)
--- NOTE | 2025-01-13 06:27 | PTCARENOTE ---
Ptt >200, held heparin infusion x 2hr then restarted by decreasing it by 300 unit. Hgb decreased from 12.1 to 10.5 with morning labs, no active bleeding noted. IVF's infusing at 100ml/hr. [employer] coupon and bond collection clerk made aware of morning labs.
--- NOTE | 2025-01-13 08:49 | CON.VAS ---
Addendum entered and electronically signed by Truman Rachel III, MD 01/13/25 16:03:
This patient was seen and examined in collaboration with AMBERLY White. I agree with the history and physical exam as well as the assessment and plan. I have the following additions:
Complex medical history including antiphospholipid antibody syndrome, scleroderma and Raynaud's
Prior upper extremity and lower extremity endovascular interventions by Dr. John Blanchard at [facility]
Most recent intervention was on January 07 (see separate update note for details). This was a tibial and pedal intervention for foot claudication
Presented to the [facility] emergency room overnight with pain in the right foot, worse since the arteriogram last week.
On physical exam she is in no acute distress
Rubor is seen in the right foot
No open wounds or ulcerations are present
Toes with sluggish cap refill
Monophasic Doppler signals are present over the dorsalis pedis artery and posterior tibial artery at the ankle
CT angiogram of the abdomen, pelvis and lower extremity runoff was reviewed. 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 There is some focal ectasia of her
right popliteal artery but this measures 6 to 6.5 mm and there is no thrombus or luminal irregularity identified.
I had a long conversation with Lizette today at the bedside. She has significant tibial and small vessel disease. She is having ongoing rest pain in her right foot. Her INR currently is 3. Ideally I would like to perform a lower extremity
arteriogram to get a better sense of her revascularization options. Given the tibial artery occlusive disease and small vessel disease in her foot open revascularization may not be possible due to limited target options and/or outflow limitations
in the foot. She may be a good candidate for arterialization of the deep veins given the distribution of her disease. I have ordered a LimFlow US of her right leg to evaluate her for this.
Will follow with you. When INR is below her therapeutic goal would initiate heparin gtt. Will followup on LimFlow US. Can discuss timing of RLE a'gram further once INR is below 2.
Signed:
Truman Rachel III, MD
Vascular Surgery
[facility]
Original Note:
Consultation
Consultation Request
Date/Time Consultation Performed: 01/13/2025 8:30 AM
Performing Provider: Virginie
Reason for Consultation: Right PT occlusion
Medical History
-
Chief Complaint: Cold/painful right foot
History of Present Illness:
54-year-old female with past medical history significant for scleroderma, lupus, antiphospholipid syndrome (on Coumadin), Raynaud's, DVT who presented to the ER last night for cold/painful right foot. Patient was seen by our service at [facility] in September 2024 for pain to the right foot. At that time she opted to return to her doctors at [facility](Dr. Blanchard). Since then patient has undergone angioplasty in September and another angioplasty last week of for the right foot pain.
Patient states that since her angioplasty last week she has had significantly more foot pain prompting this visit.
Arterial ultrasound: Occlusion of the right posterior tibial artery at the level of the ankle.
DVT study: Negative
CTA runoff: Occlusion at the proximal aspect of the right anterior tibial artery without evidence for reconstitution. Occlusion of the right posterior tibial artery at the level of the ankle with evidence for some reconstitution below the level of
the ankle. Diminutive left posterior tibial artery with diminished flow suggesting a degree of stenosis and/or occlusion. Correlation with an arterial ultrasound could be considered.
Vascular consult for above findings. Patient seen at bedside this a.m. with Dr. Rachel. Patient's right foot is warm though slightly cooler than the left. Doppler signals present. Good cap refill. Complains of burning to the foot.
Past Medical History
Past Medical History: Other (Antiphospholipid syndrome, DVT, IBS, lupus, Raynaud's, scleroderma)
Past Surgical History: Cholecystectomy, and Other (Partial amputation of right pinky toe and left middle finger, RLE angioplasties 09/2024 and last week)
Social History
Tobacco: Non-Smoker
Alcohol: None
Drug: None
Family History
Family History: Reviewed & Not Pertinent
Allergies / Home Medications
Allergy/AdvReac Type Severity Reaction Status Date / Time
No Known Allergies Allergy Verified 01/12/25 20:24
�Medication �Instructions �Recorded �Confirmed �Type
amlodipine 5 mg tablet 5 mg PO HS 11/13/13 01/12/25 History
hydroxychloroquine 200 mg tablet 400 mg PO HS ##0 11/13/13 01/12/25 History
(Plaquenil)
clonazepam 0.5 mg tablet 0.5 mg PO Q8HPRN PRN anxiety 08/11/16 01/12/25 History
mycophenolate mofetil 500 mg 1,000 mg PO HS 09/05/24 01/12/25 History
tablet (CellCept)
trazodone 100 mg tablet 200 mg PO HS 09/05/24 01/12/25 History
latanoprost 0.005 % eye drops 1 drp BOTH EYES HS 09/06/24 01/12/25 History
sildenafil 25 mg tablet 20 mg PO HS 09/06/24 01/12/25 History
loperamide 2 mg tablet 2 mg PO Q6HPRN PRN DIARRHEA 01/12/25 01/12/25 History
omeprazole 40 mg capsule,delayed 80 mg PO HS 01/12/25 01/12/25 History
release
psyllium husk 0.4 gram capsule 2.4 g PO DAILY 01/12/25 01/12/25 History
(Metamucil)
warfarin 2 mg tablet 4 mg PO SUMOTUWETHSA@199901/12/25 01/12/25 History
warfarin 2 mg tablet 6 mg PO FR@199901/12/25 01/12/25 History
Review of Systems
-
History Source: Patient
All other systems: Negative unless noted
Constitutional: Reports No Symptoms
EENT: Reports No Symptoms
Respiratory: Reports No Symptoms
Cardiac: Reports No Symptoms
Vascular: Reports Leg Pain / Claudication
Abdomen/GI: Reports No Symptoms
: Reports No Symptoms
Musculoskeletal: Reports Muscle Pain
Skin: Reports Other (Right foot burning)
Neurological: Reports No Symptoms
Physical Exam
Vital Signs
Temp Pulse Resp BP Pulse Ox
97.6 F 68 16 99/85 96
01/13/25 08:28 01/13/25 08:30 01/13/25 08:28 01/13/25 08:30 01/13/25 08:28
Lab Results
01/13/25 03:13
Physical Exam
General: No Apparent Distress
HEENT: Normocephalic and Atraumatic
Respiratory: Non Labored Respirations
Cardiac: Negative JVD
GI: Soft and Non Tender
Musculoskeletal: No Clubbing, No Cyanosis and No Edema
Skin: Warm
Neuro: Awake, Alert and Oriented
Psych: Calm
Pulses: Right Dorsalis Pedis: Doppler and Right Posterior Tibial: Doppler
Assessment / Plan
-
54-year-old female here with right foot pain
Occlusion of the right posterior tibial artery at the level of the ankle by ultrasound
Plan:
CHIKI and TBI ordered
Pre-limflow study
Will follow-up patient when studies complete
Data Reviewed
-
CT Scan: Discussed with Patient
Ultrasound: Discussed with Patient
Labs: Labs Reviewed by me
--- NOTE | 2025-01-13 08:59 | W.PN.HOSP.TC ---
Today's Communication/Plan
-
Check INR
Await Vascular plans
Continue Heparin gtt
Assessment / Plan
Assessment / Plan
54 female presented to the hospital with cold and painful right foot patient was seen by vascular surgeon at [facility] and underwent angioplasty in September as well as last Sunday. She had some initial pain which was felt to be secondary to
reperfusion pain but abruptly had cold and numb right foot she had ultrasound done as outpatient which showed right posterior tibial artery occlusion at the level of ankle and advised to go to ER. She has a history of antiphospholipid antibody
syndrome and maintained on Coumadin. She thinks that her INR was down to 1.8 for a procedure could have impacted this. She is normally ma
CTA-occlusion at the proximal aspect of the right anterior tibial artery without evidence of reconstitution. Occlusion of the right posterior tibial artery at the level of the ankle with evidence for some reconstitution below the level of the
ankle. Diminutive left posterior tibial artery with diminished flow suggesting a degree of stenosis and/or occlusion
Arterial ultrasound on 01/12/2025-occlusion of the right posterior tibial artery at the level of the ankle.
CVS: S1-S2 normal
Chest: CTA B/L
Abdomen: Soft, NT / Bowel sounds present
Extremities: No edema, left anterior tibial and posterior tibial appreciated with Doppler. Dorsalis pedis not appreciated
Big toe 1st and 2nd toes are slightly cold to touch. Decreased sensation but not total loss, no motor loss
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
IV heparin
Vascular surgery consulted, await plans
# SLE/antiphospholipid antibody syndrome/Raynaud's/scleroderma
Continue CellCept and Plaquenil
Also maintained on Coumadin as outpatient.
Sees . Her INR is kept between 3 and 3.5 as OP.
Hold coumadin while on IV heparin
# Drop in hemoglobin-repeat
# Hypertension-hold amlodipine
# Anxiety -continue clonazepam, trazodone
# GERD-continue PPI
# History of migraines
# Diverticulosis
# DVT prophylaxis-IV heparin
# Full code
Part of this note was created using voice recognition system. Occasional wrong word or��sound alike� substitutions may have inadvertently occurred due to the inherent limitations of voice recognition software. If noted kindly bring it to my
attention for correction.
Anticipated Discharge: 24 - 48 hours
Subjective/Interval History
-
Date of Service: January 13, 2025
Objective Data
-
Labs:
Laboratory Results
01/12/25 01/13/25 01/13/25
20:34 03:13 08:57
WBC 4.9
Hgb 10.5 L
Hct 31.9 L
Plt Count 193
PT 32.2 H Pending
INR 3.15 Pending
APTT 38.2 H > 200.0 H*
Sodium 137 139
Potassium 3.9
Chloride 108 H 110 H
Carbon Dioxide 22 25
BUN 12 10
Creatinine 0.9 0.9
Glucose 135 H 91
Calcium 9.2 8.9
Total Bilirubin Cancelled
AST Cancelled
ALT Cancelled
Alkaline Phosphatase Cancelled
01/13/25 01/13/25
12:00 14:00
WBC
Hgb Pending
Hct Pending
Plt Count
PT
INR
APTT Pending
Sodium
Potassium
Chloride
Carbon Dioxide
BUN
Creatinine
Glucose
Calcium
Total Bilirubin
AST
ALT
Alkaline Phosphatase
Vital Signs:
Vital Signs
Temp Pulse Resp BP Pulse Ox
97.6 F 68 16 99/85 96
01/13/25 08:28 01/13/25 08:30 01/13/25 08:28 01/13/25 08:30 01/13/25 08:28
I&O
01/12/25 01/13/25 01/14/25
06:59 06:59 06:59
Intake Total 1230 / 1230
Balance 1230 / 1230
--- NOTE | 2025-01-13 10:47 | CM ---
Reviewed chart. Met with Mrs. Palma to review discharge plans. She states prior to admission she resides with her spouse in a two story home with five steps to enter. She states she has a first floor set-up. She states prior to admission she was
independent with ambulation and adls. She states she does not have any DME in the home. She states she has a prescription plan and uses [facility]. She states she has not had any VNA services. Will need to see her current functional level
to see if she has any skilled care needs. Medical work-up in progress. The discharge plan is to return home with her spouse when medically stable.
[2025-01-13 12:24] LABS: Hematocrit 33.2 % (37.0-47.0); Hemoglobin 10.9 g/dL (12.0-16.0)
[2025-01-13 12:40] LABS: INR 3.27; PT 33.1 Sec (11.4-14.6)
[2025-01-13 12:46] LABS: APTT 154.8 Sec (23.4-35.0)
--- NOTE | 2025-01-13 14:48 | W.PN.UPDATE ---
Update Note
Progress Note Update
IR Angio performed at [facility]
01/07/2025 �4:35 PM - Simba Toscano
IMPRESSION:
Successful right lower extremity revascularization with recanalization and angioplasty of the posterior tibial and medial plantar arteries and partial recanalization and angioplasty of the anterior tibial artery.
�
ATTENDING PHYSICIAN AGREEMENT [[id number]]:
I have personally reviewed the images and agree with this report. This procedure was performed under my personal supervision; I was present for the entire procedure.
�
�
�
�
�
�
�
NARRATIVE:
Procedure:
1. Right lower extremity arteriogram
2. Right lower extremity revascularization with recanalization and balloon angioplasty of anterior tibial artery, posterior tibial artery, and proximal medial plantar artery
�
Staff: Santo
�
Resident: Raeann
�
Contrast: 80 mL Visipaque intraarterial
�
Fluoroscopy time: 37.5 minutes pulsed at 7.5 pulses per second.
�
Complications: None
�
Medications: 5000 units heparin iv. 400 mcg nitroglycerin ia. General anesthesia was monitored by anesthesia staff.
�
Indication: SLE, APLS , and right lower extremity critical limb ischemia with recurrent symptoms following 09/24/2024 revascularization
�
Procedure: Access to the left common femoral artery in a retrograde fashion was was achieved using a micropuncture kit. Real-time ultrasound guidance was used to access the artery. Under fluoroscopic guidance, access to the contralateral superficial
femoral artery was achieved with a wire and catheter, an overlapping arteriograms of the right lower extremity to the foot were obtained. Based on these findings, a 6 Cuban Thom sheath and 6 Cuban guiding catheter were placed with the tip of the
catheter in the popliteal artery. Through this access, a CXI and Glidewire advantage were used to recanalize the posterior tibial artery to the level of the medial plantar artery. Angioplasty was performed at multiple stations with a 2.5 mm Cook
Advance balloon. Post angioplasty arteriogram was performed. Intra-arterial nitroglycerin was administered and additional prolonged 2.5 mm balloon angioplasty of the posterior tibial artery was performed. Then, the wire and catheter were used to
select
and recanalize the anterior tibial artery. Angioplasty was performed in multiple stations with a 2.5 mm Cook Advance balloon. Additional wire and catheter recanalization of the dorsalis pedis artery was attempted and angioplasty performed with a 2
mm Cook Advance balloon. Post angioplasty arteriography was performed. Based on these findings, additional angioplasty of the posterior tibial artery was performed to 3 mm. Limited left common femoral arteriography was performed. All devices were
removed and hemostasis was gained by Perclose device.
�
Findings:
1. Pulsatile and anechoic common femoral artery. Appropriate vessel caliber and access site for closure device.
2. Patent superficial femoral and popliteal arteries with no significant stenosis. 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 Chronic occlusion of the proximal anterior
tibial artery with multifocal high-grade stenoses just distal to the origin. No significant stenosis of the tibioperoneal trunk or peroneal artery. Chronic occlusion of the posterior tibial artery with multifocal high-grade stenoses and distal
reconstitution at the level of the ankle. The proximal medial plantar artery is patent, with chronic occlusion distally. Chronic occlusion of the lateral plantar artery. The plantar arch is incomplete.
3. Following recanalization and initial angioplasty of the posterior tibial and medial plantar arteries, there is spasm of the mid posterior tibial artery. No significant residual stenosis after intra-arterial nitroglycerin and prolonged
angioplasty. Persistent distal occlusion of the distal medial plantar artery. No significant residual stenosis of the proximal anterior tibial artery post recanalization and angioplasty. The distal anterior tibial artery/dorsalis pedis artery remain
occluded. The peroneal artery remains patent. Improved perfusion to the foot on completion arteriogram. The pedal arch remains incomplete.
--- NOTE | 2025-01-13 19:03 | PTCARENOTE ---
~3525-2299: handoff repot received from nightshift RN. Pt Aox4, NSR BBB on tele 70s, SBP 100s, RA satting 96%. Pt denies pain at this time. RLE cool and dusky. Absent PT and DP pulses, however lateral tarsal pulses (lateral ankle pulse) present with
doppler, site marked. Pt does state minor decreased sensation in the RLE as well. Heparin gtt and IVF infusing per order. Pt NPO at this time. All needs met, call chase within reach.
~1000: DP pulses present with doppler but weak. PT pulses present with doppler. Sites marked.
~1100: DP and PT pulses remain present with doppler but weak at this time.
~1200: Bloodwork sent to lab.
~1300: PTT resulted, heparin gtt held per protocol. Questions about IVF, diet order since patient is not scheduled for procedure and per patient dilaudid makes her itchy, so PRN benedryl needed if pain meds to be given, messaged Dr. Tillman, no new
orders at this time. Patient transported via stretcher for of [facility].
~1400: Patient back from US. Diet ordered, PRN benedryl and IVF d/c'd by Dr. Baer. Heparin gtt restarted per protcol. Next PTT ordered.
~6927-8734: Patient resting in room. Family visiting. Q1H neurovascular assessment done on RLE. Toes dusky/ cyanotic, cap refill >2 seconds, foot is cool. R lateral pulse site present with doppler, however DP and PT pulses are intermittentl present
with doppler. Pt denies pain at this time.
~5795-6737: Patient resting in bed. Neurovascular checks completed. Famiyl visiting. VSS at this time. DP and PT ald R lateral ankle pulses all present with doppler at 1800. Pt denies pain at this time. All needs met, call chase within reach. handoff
report given to nightshift RN.
[2025-01-13 20:22] LABS: APTT 126.4 Sec (23.4-35.0)
[2025-01-13] MEDS: DESYREL PO (21:25)
[2025-01-13] MEDS: BENADRYL 50 MG PO (22:11)
[2025-01-13] MEDS: DILAUDID 0.5 MG IV (22:11)
--- NOTE | 2025-01-14 00:40 | PTCARENOTE ---
Addendum entered by Jonelle Astorga RN 01/14/25 01:04:
Q1 vascular check performed pt w/ + DP pulse w/ doppler, toes remain dusky and cool.
Original Note:
Assumed care of patient at change of shift. Tele monitor shows NSR w/ BBBC, HR in the 60-70's at rest. VSS.
Right foot intermittently dusky, and toes remain cool upon assessment. DP pulses not present w/ doppler. Posterior tibial artery present w/ doppler. Pt c/o right foot w/ decreased sensation which is unchanged from previous shift. Pt does note that
her pain in her foot is worse at night and c/o pain after ambulating. Pt described pain as 'burning' w/ her 4th & 5th digits on her right foot along w/ her heel. PRN Dilaudid administered--see MAR for details. IV Heparin gtt infusing at 700units/hr,
next ptt due at 02:40. Patient aware of POC, and can make needs known. Call chase in reach.
[2025-01-14] MEDS: HEPARIN 25000 UNITS/250 ML IV (00:46)
[2025-01-14 02:37] VITALS: BMI 28.1
[2025-01-14 02:39] VITALS: BP 105/71
[2025-01-14] MEDS: DILAUDID 0.5 MG IV ×2 (02:42→21:44)
[2025-01-14 02:55] LABS: Hematocrit 31.8 % (37.0-47.0); Hemoglobin 10.5 g/dL (12.0-16.0); Mean Corp Hgb Conc. 33.0 g/dL (33.0-37.0); Mean Corpuscular Volume 87.1 fL (81.0-99.0); Platelet Count 173 10^3/uL (130-400); Red Cell Dist. Width 14.3 % (11.5-14.5)
[2025-01-14 03:06] LABS: INR 3.17; PT 32.3 Sec (11.4-14.6)
[2025-01-14 03:07] LABS: APTT 70.0 Sec (23.4-35.0)
[2025-01-14] MEDS: HEPARIN 3100 UNITS IV (03:13)
[2025-01-14 03:18] LABS: Blood Urea Nitrogen 8 mg/dl (7-17); Calcium 8.5 mg/dl (8.4-10.2); Carbon Dioxide 23 mmol/L (22-30); Chloride 112 mmol/L (98-107); Estimated Creatinine Clearance 84 ml/min; Glucose 90 mg/dl (70-99); Potassium 4.1 mmol/L (3.5-5.1); Sodium 138 mmol/L (135-145); eGFR > 60.00
[2025-01-14 08:01] VITALS: BP 93/66
--- NOTE | 2025-01-14 08:32 | W.PN.HOSP.TC ---
Today's Communication/Plan
-
Await Vascular plans
Assessment / Plan
Assessment / Plan
54 female presented to the hospital with cold and painful right foot patient was seen by vascular surgeon at [facility] and underwent angioplasty in September as well as last Sunday. She had some initial pain which was felt to be secondary to
reperfusion pain but abruptly had cold and numb right foot she had ultrasound done as outpatient which showed right posterior tibial artery occlusion at the level of ankle and advised to go to ER. She has a history of antiphospholipid antibody
syndrome and maintained on Coumadin. She thinks that her INR was down to 1.8 for a procedure could have impacted this. She is normally ma
CTA-occlusion at the proximal aspect of the right anterior tibial artery without evidence of reconstitution. Occlusion of the right posterior tibial artery at the level of the ankle with evidence for some reconstitution below the level of the
ankle. Diminutive left posterior tibial artery with diminished flow suggesting a degree of stenosis and/or occlusion
Arterial ultrasound on 01/12/2025-occlusion of the right posterior tibial artery at the level of the ankle.
CVS: S1-S2 normal
Chest: CTA B/L
Abdomen: Soft, NT / Bowel sounds present
Extremities: No edema, left anterior tibial and posterior tibial appreciated with Doppler. Dorsalis pedis not appreciated
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
IV heparin
Vascular surgery consulted, waiting for INR to come down to do procedure
# SLE/antiphospholipid antibody syndrome/Raynaud's/scleroderma
Continue CellCept and Plaquenil
Also maintained on Coumadin as outpatient.
Sees . Her INR is kept between 3 and 3.5 as OP.
Hold coumadin while on IV heparin
# Drop in hemoglobin-repeat stable. Anemia NOS. Check Iron studies.
# Hypertension-hold amlodipine
# Anxiety -continue clonazepam, trazodone
# GERD-continue PPI
# History of migraines
# Diverticulosis
# DVT prophylaxis-IV heparin
# Full code
D/W RN at bed side
Part of this note was created using voice recognition system. Occasional wrong word or��sound alike� substitutions may have inadvertently occurred due to the inherent limitations of voice recognition software. If noted kindly bring it to my
attention for correction.
Anticipated Discharge: 24 - 48 hours
Subjective/Interval History
-
Date of Service: January 14, 2025
Objective Data
-
Labs:
Laboratory Results
01/13/25 01/14/25 01/14/25
20:03 02:47 09:15
WBC 3.5 L
Hgb 10.5 L
Hct 31.8 L
Plt Count 173
PT 32.3 H
INR 3.17
APTT 126.4 H 70.0 H Pending
Sodium 138
Potassium 4.1
Chloride 112 H
Carbon Dioxide 23
BUN 8
Creatinine 0.8
Glucose 90
Calcium 8.5
Vital Signs:
Vital Signs
Temp Pulse Resp BP Pulse Ox
97.7 F 69 20 93/66 97
01/14/25 08:06 01/14/25 08:01 01/14/25 08:06 01/14/25 08:01 01/14/25 08:06
I&O
01/13/25 01/14/25 01/15/25
06:59 06:59 06:59
Intake Total 1230 / 1230 334 / 334
Balance 1230 / 1230 334 / 334
[2025-01-14 10:01] LABS: Iron 107 ug/dl (37-170)
[2025-01-14 10:11] LABS: Total Iron Binding Capacity 323 ug/dl (265-497)
--- NOTE | 2025-01-14 10:36 | PTCARENOTE ---
Pt is AOx3, complains of burning and numbness in right foot. Neuro checks completed as ordered. 10AM neuro check, RN unable to find posterior tibial pulse on doppler. Kell Rosenbaum NP, made aware. Independent OOB. Heparin gtt infusing per
protocol. Call chase within reach.
[2025-01-14 10:56] LABS: APTT > 200 Sec (23.4-35.0)
[2025-01-14 11:30] VITALS: BP 109/75
[2025-01-14 11:31] LABS: Ferritin 32.8 ng/ml (11.1-264.0)
[2025-01-14 11:45] LABS: Vitamin B12 167 pg/ml (239-931)
--- NOTE | 2025-01-14 15:33 | CM ---
Reviewed chart. Met with Mrs. Palma to review discharge plans. She states she is feeling okay. Going testing in progress.
Prior to admission she resides with her spouse in a two story home with five steps to enter. She has a first floor set-up. Prior to admission she was independent with ambulation and adls. She does not have any DME in the home. She has a
prescription plan and uses [facility]. She has not had any VNA services. Will need to see her current functional level to see if she has any skilled care needs. Medical work-up in progress. The discharge plan is to return home with her
spouse when medically stable.
[2025-01-14 15:41] VITALS: BP 107/73
[2025-01-14 18:51] LABS: APTT 57.2 Sec (23.4-35.0)
[2025-01-14 19:28] VITALS: BP 132/75
[2025-01-14] MEDS: HEPARIN 6200 UNITS IV (19:29)
[2025-01-14] MEDS: PLAQUENIL 400 MG PO (21:43)
[2025-01-14] MEDS: CELLCEPT 1000 MG PO (21:43)
[2025-01-14] MEDS: PROTONIX 40 MG PO (21:44)
[2025-01-14] MEDS: REVATIO 20 MG PO (21:44)
[2025-01-14] MEDS: BENADRYL 50 MG PO (21:44)
[2025-01-14] MEDS: XALATAN OPHTHALMIC SOLUTION 1 DROP BOTH EYES (21:45)
[2025-01-14 21:54] VITALS: BP 112/74
[2025-01-14] MEDS: DESYREL PO (22:02)
--- NOTE | 2025-01-14 23:28 | PTCARENOTE ---
Assumed care of the pt @ 1900. Pt is AAOx3 SR with BBB on the monitor. Heparin gtt infusing per protocol. Right DP and PT + doppler. Pt c/o right foot pain 7 on numeric scale see MAR. Call chase within reach.
[2025-01-15 02:01] VITALS: BP 104/72
[2025-01-15 02:11] VITALS: BMI 28.0
[2025-01-15 03:15] LABS: INR 2.34; PT 26.1 Sec (11.4-14.6)
[2025-01-15 03:32] LABS: Blood Urea Nitrogen 8 mg/dl (7-17); Calcium 9.5 mg/dl (8.4-10.2); Carbon Dioxide 26 mmol/L (22-30); Chloride 109 mmol/L (98-107); Estimated Creatinine Clearance 75 ml/min; Glucose 85 mg/dl (70-99); Potassium 4.1 mmol/L (3.5-5.1); Sodium 140 mmol/L (135-145); eGFR > 60.00
[2025-01-15 03:40] LABS: APTT > 200 Sec (23.4-35.0)
[2025-01-15 08:18] VITALS: BP 108/71
--- NOTE | 2025-01-15 09:15 | W.PN.HOSP.TC ---
Today's Communication/Plan
-
Continue with IV heparin
Restart her Norvasc which she takes for Raynaud's
Check an echocardiogram
Assessment / Plan
Assessment / Plan
54 female presented to the hospital with cold and painful right foot patient was seen by vascular surgeon at [facility] and underwent angioplasty in September as well as last Sunday. She had some initial pain which was felt to be secondary to
reperfusion pain but abruptly had cold and numb right foot she had ultrasound done as outpatient which showed right posterior tibial artery occlusion at the level of ankle and advised to go to ER. She has a history of antiphospholipid antibody
syndrome and maintained on Coumadin. She thinks that her INR was down to 1.8 for a procedure could have impacted this. She is normally ma
CTA-occlusion at the proximal aspect of the right anterior tibial artery without evidence of reconstitution. Occlusion of the right posterior tibial artery at the level of the ankle with evidence for some reconstitution below the level of the
ankle. Diminutive left posterior tibial artery with diminished flow suggesting a degree of stenosis and/or occlusion
Arterial ultrasound on 01/12/2025-occlusion of the right posterior tibial artery at the level of the ankle.
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
IV heparin
Vascular surgery consulted, waiting for INR to come down to do procedure
# SLE/antiphospholipid antibody syndrome/Raynaud's/scleroderma
Continue CellCept and Plaquenil
Also maintained on Coumadin as outpatient.
Sees . Her INR is kept between 3 and 3.5 as OP.
Hold coumadin while on IV heparin
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
occlusion of the right posterior tibial artery.
Will discuss with vascular if this is PAD or to be concerned about any embolic disease. If recurrent arterial embolism the need to reevaluate her current anticoagulation regimen. She came with INR of 2.94. Her goal is. 2.5-3.5. Will definitely
add aspirin to her Coumadin. If felt more an embolic issue will speak with the her balance wheel arm burnisher and consider fondaparinux if appropriate.
Check an echo to rule out any intracardiac emboli.
# Drop in hemoglobin-repeat stable. Anemia NOS. Check Iron studies.
# Hypertension-hold amlodipine
# Anxiety -continue clonazepam, trazodone
# GERD-continue PPI
# History of migraines
# Diverticulosis
# DVT prophylaxis-IV heparin
# Full code
Discussed with vascular
Total time spent on today's encounter was 52 minutes which included time spent in counseling the patient/family regarding diagnosis and treatment plan as listed above, goals of care, and symptom management. Case was discussed with nursing staff,
specialists, and care coordinators/case management. All labs and imaging personally reviewed by me. Remainder the time spent in detailed review of previous records, lab data, imaging, and other medical provider documentation.
Anticipated Discharge: > 48 hours
Subjective/Interval History
-
Date of Service: January 15, 2025
Patient has pain in the toes more than the feet especially at night
No nausea vomiting. No fever or chills.
No shortness of breath or chest pain.
Patient says she had 2 episodes of DVT in her life
She also thinks that she had an arterial clot in August of this year. She has been on Coumadin since 1996.
In the past apparently she was on aspirin and Plavix and felt overkill and not on any antithrombotic events currently.
When asked about SLE she says it is more scleroderma and sees a manager pulmonary. On CellCept.
Objective Data
-
Labs:
Laboratory Results
01/15/25 01/15/25
02:17 11:45
PT 26.1 H
INR 2.34
APTT > 200 H* Pending
Sodium 140
Potassium 4.1
Chloride 109 H
Carbon Dioxide 26
BUN 8
Creatinine 0.9
Glucose 85
Calcium 9.5
Vital Signs:
Vital Signs
Temp Pulse Resp BP Pulse Ox
97.7 F 68 16 108/71 96
01/15/25 08:20 01/15/25 08:18 01/15/25 08:20 01/15/25 08:18 01/15/25 08:20
I&O
01/14/25 01/15/25 01/16/25
06:59 06:59 06:59
Intake Total 334 / 334
Balance 334 / 334
Physical Exam
-
General: Comfortable
Respiratory: Non Labored Respirations; Negative Accessory Resp Muscle Use
Cardiac: Regular Rhythm and S1/S2; Negative Murmur or Tachycardic
Musculoskeletal: Other (Colder right distal foot compared to left)
Neuro: AO x 3
Psych: Calm
Data Reviewed
-
Labs: Labs Reviewed by me
[2025-01-15 11:09] VITALS: BP 114/77
--- NOTE | 2025-01-15 12:20 | CON.ONC ---
Consultation
-
Date Consultation Requested: 01/15/25
Date Consultation Performed: 01/15/25
Requesting Provider: Dr. Leeroy Gruber
Performing Provider: Dr. Maulik Talbot
Reason for Consultation: APLS
Impression
Impression
a/w Right posterior tibial artery occlusion
triple positive APLS
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
PAD
Plan
Plan
awaiting INR to drift down for vascular surgery intervention
on heparin gtt -would consider eventual transition back to warfarin with goal 3-3.5 plus ASA 81mg daily
check iron studies
Patient History
History of Present Illness
54yo F with PMH VTE in setting of triple positive antiphospholipid syndrome for which she is on warfarin with goal 3-3.[address] Sanchez and CREST/SLE for which she is on CellCeept and hydroxychloroquine managed by Ashwin who presented with a cold
and painful right foot. She noted abrupt onset of numbness and cold in her right foot yesterday. She underwent outpatient vascular US that showed right posterior tibial artery occlusion athe the level of the ankle so was advised to proceed to the ER
for further evaluation and intervention. She has been undergoing evaluation and intervention with vascular surgery for PAD with Dr. Blanchard and s/p angioplasty in [facility] 2024 and last week. Her INR was 1.82 ON 01/06 and 2.94 on 01/12. She has been
admitted and started on a heparin gtt.
Past-Medical/Surgical History
PMH VTE, RESST/SLE, PAD, VERA
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
Social non-smoker, denies eTOH or recreational drugs. 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
Family son with factor 2 deficency
Patient Medication
�Medication �Instructions �Recorded �Confirmed �Last Taken �Type
amlodipine 5 mg tablet 5 mg PO HS 11/13/13 01/12/25 01/11/25 History
hydroxychloroquine 200 mg tablet 400 mg PO HS ##0 11/13/13 01/12/25 01/11/25 History
(Plaquenil)
clonazepam 0.5 mg tablet 0.5 mg PO Q8HPRN PRN anxiety 08/11/16 01/12/25 11/14/16 History
mycophenolate mofetil 500 mg 1,000 mg PO HS 09/05/24 01/12/25 01/11/25 History
tablet (CellCept)
trazodone 100 mg tablet 200 mg PO HS 09/05/24 01/12/25 01/11/25 History
latanoprost 0.005 % eye drops 1 drp BOTH EYES HS 09/06/24 01/12/25 01/11/25 History
sildenafil 25 mg tablet 20 mg PO HS 09/06/24 01/12/25 01/11/25 History
loperamide 2 mg tablet 2 mg PO Q6HPRN PRN DIARRHEA 01/12/25 01/12/25 01/12/25 History
omeprazole 40 mg capsule,delayed 80 mg PO HS 01/12/25 01/12/25 01/11/25 History
release
psyllium husk 0.4 gram capsule 2.4 g PO DAILY 01/12/25 01/12/25 01/12/25 History
(Metamucil)
warfarin 2 mg tablet 4 mg PO SUMOTUWETHSA@199901/12/25 01/12/25 01/11/25 History
warfarin 2 mg tablet 6 mg PO FR@199901/12/25 01/12/25 01/09/25 History
Active Medications
Generic Name Dose Route Start Last Admin
Trade Name Freq PRN Reason Stop Dose Admin
Acetaminophen 650 mg 01/12/25 23:47 01/13/25 04:58
Acetaminophen 325 Mg Tablet PO 02/09/25 23:46 650 mg
Q4HPRN PRN Administration
Mild Pain / Temp > 101
Amlodipine Besylate 5 mg 01/15/25 22:00
Amlodipine 5 Mg Tablet PO 02/12/25 21:59
HS AC
Clonazepam 0.5 mg 01/12/25 23:47
Clonazepam 0.5 Mg Tablet PO 02/09/25 23:46
Q8HPRN PRN
anxiety
Diphenhydramine HCl 25 mg 01/15/25 09:13
Diphenhydramine 50 Mg/Ml 1 Ml Vial IV 02/12/25 09:12
Q4HPRN PRN
ITHCING
Heparin Sodium 6,200 units 01/12/25 21:07 01/14/25 19:29
Heparin 80 Units/Kg Iv Rebolus IV 02/09/25 21:06 6,200 units
PRN PRN Administration
PTT < OR = 64 seconds
Heparin Sodium 3,100 units 01/12/25 21:08 01/14/25 03:13
Heparin 40 Units/Kg Iv Rebolus IV 02/09/25 21:07 3,100 units
PRN PRN Administration
PTT = 64.1 to 72.9 seconds
Hydromorphone HCl 0.5 mg 01/12/25 23:47 01/14/25 21:44
Hydromorphone 0.5 Mg/0.5 Ml Syringe IV 01/26/25 23:46 0.5 mg
Q4HPRN PRN Administration
Severe Pain
Hydroxychloroquine Sulfate 400 mg 01/13/25 01:00 01/14/25 21:43
Hydroxychloroquine 200 Mg Tablet PO 02/10/25 00:59 400 mg
HS AC Administration
Heparin Sodium 25,000 units in 250 mls @ 0 mls/hr 01/12/25 21:00 01/14/25 00:46
Heparin 29962 Units/250 Ml IV 250 mls
PER PROTOCOL AC Administration
Protocol
Per Protocol
Latanoprost 1 drop 01/13/25 01:00 01/14/25 21:45
Latanoprost 0.005% (Ophthalmic Solution) 2.5 Ml Bottle BOTH EYES 02/10/25 00:59 1 drop
HS AC Administration
Mycophenolate Mofetil 1,000 mg 01/13/25 00:45 01/14/25 21:43
Mycophenolate 500 Mg Tablet PO 02/10/25 00:44 1,000 mg
HS AC Administration
Pantoprazole Sodium 40 mg 01/13/25 01:00 01/14/25 21:44
Pantoprazole 40 Mg Delayed Release Tablet PO 02/10/25 00:59 40 mg
HS AC Administration
Sildenafil Citrate 20 mg 01/13/25 01:00 01/14/25 21:44
Sildenafil 20 Mg Tablet PO 02/10/25 00:59 20 mg
HS AC Administration
Sodium Chloride 0 flush 01/15/25 10:00
Sodium Chloride 0.9% (Flush) Syringe IV 02/12/25 09:59
PER PROTOCOL AC
Trazodone HCl 200 mg 01/13/25 01:00 01/14/25 22:02
Trazodone 100 Mg Tablet PO 02/10/25 00:59 Not Given
HS AC
Review of Systems
-
ROS is notable for HPI, otherwise negative
Physical Exam
-
General: No Apparent Distress
HEENT: Negative Jaundice
Cardiology: Normal Sinus Rhythm
Pulmonary: Clear
GI: Soft
Neurology: Non Focal
Skin: Warm
Psych: Calm
Labs
Lab Results
WBC 3.5 10^3/uL (4.8-10.8) L 01/14/25 02:47
RBC 3.65 10^6/uL (4.20-5.40) L 01/14/25 02:47
Hgb 10.5 g/dL (12.0-16.0) L 01/14/25 02:47
Hct 31.8 % (37.0-47.0) L 01/14/25 02:47
MCV 87.1 fL (81.0-99.0) 01/14/25 02:47
MCH 28.8 pg (27.0-31.0) 01/14/25 02:47
MCHC 33.0 g/dL (33.0-37.0) 01/14/25 02:47
RDW 14.3 % (11.5-14.5) 01/14/25 02:47
Plt Count 173 10^3/uL (130-400) 01/14/25 02:47
MPV 10.8 fL (7.4-10.4) H 01/14/25 02:47
Abs Immat Gran (auto) 0.0 10^3/uL (0-0.05) 01/13/25 03:13
Absolute Neuts (auto) 2.4 10^3/uL (1.4-6.5) 01/13/25 03:13
Absolute Lymphs (auto) 2.0 10^3/uL (1.2-3.4) 01/13/25 03:13
Absolute Monos (auto) 0.3 10^3/uL (0.1-0.6) 01/13/25 03:13
Absolute Eos (auto) 0.1 10^3/uL (0-0.7) 01/13/25 03:13
Absolute Basos (auto) 0.0 10^3/uL (0-0.2) 01/13/25 03:13
Immature Gran % 0.2 % (0-0.5) 01/13/25 03:13
Neutrophils % 49.0 % (42.2-75.2) 01/13/25 03:13
Lymphocytes % 40.7 % (20.5-51.1) 01/13/25 03:13
Monocytes % 7.0 % (1.7-9.3) 01/13/25 03:13
Eosinophils % 2.9 % (0-6) 01/13/25 03:13
Basophils % 0.2 % (0-2) 01/13/25 03:13
Creatinine 0.9 mg/dL (0.6-1.0) 01/15/25 02:17
Vital Signs
Vital Signs
Temp Pulse Resp BP Pulse Ox
97.9 F 68 16 114/77 96
01/15/25 11:09 01/15/25 12:00 01/15/25 11:09 01/15/25 11:09 01/15/25 08:20
--- NOTE | 2025-01-15 12:30 | CM ---
Reviewed chart. Met with Mrs. Palma to review discharge plans. She states she is feeling well. Awaiting medical team recommendations. Prior to admission she resides with her spouse in two story home with five steps to enter. She has a first
floor set-up. Prior to admission she was independent with ambulation and adls. She does not have any DME in the home. She has a prescription plan and uses [facility]. Will need to see her current functional level to see if she will h ave
any skilled care needs. Medical work-up in progress. The discharge plan is to return home with her spouse when medically stable.
[2025-01-15] MEDS: HEPARIN 25000 UNITS/250 ML IV (12:45)
[2025-01-15 13:20] LABS: APTT 40.6 Sec (23.4-35.0)
[2025-01-15] MEDS: HEPARIN 6200 UNITS IV (13:34)
--- NOTE | 2025-01-15 16:05 | PTCARENOTE ---
Heparin gtt infusing at 900 units/hr. Tele- SR w/ BBBC. HR 60-70s. Assessment completed as documented. B/l dorsalis pedis and posterior tibial pulse present on doppler. Pt complains of some pressure and numbness in right foot and rates 4/10. Pain
medication offered and pt states pain is at acceptable level. Currently OOB in chair; call salvatore w/in reach.
[2025-01-15 16:16] VITALS: BP 107/62
[2025-01-15 19:30] VITALS: BP 105/79
[2025-01-15 20:21] LABS: APTT 199.7 Sec (23.4-35.0)
[2025-01-15] MEDS: CELLCEPT 1000 MG PO (21:56)
[2025-01-15] MEDS: NORVASC 5 MG PO (21:56)
[2025-01-15] MEDS: REVATIO 20 MG PO (21:57)
[2025-01-15] MEDS: PLAQUENIL 400 MG PO (21:57)
[2025-01-15] MEDS: XALATAN OPHTHALMIC SOLUTION 1 DROP BOTH EYES (21:57)
[2025-01-15] MEDS: PROTONIX 40 MG PO (21:57)
[2025-01-15] MEDS: DESYREL PO (23:06)
[2025-01-15] MEDS: DILAUDID 0.5 MG IV (23:10)
[2025-01-15] MEDS: BENADRYL 25 MG IV (23:10)
[2025-01-15 23:18] VITALS: BP 127/83
--- NOTE | 2025-01-16 01:09 | PTCARENOTE ---
Assumed care of the pt @ 1900. Pt is AAOx3 SR with BBB on the monitor VSS Heparin gtt infusing per DVT protocol. Neuro/Vascular checks q1 to RLE. + doppler pulses. Call chase within reach.
[2025-01-16 03:26] VITALS: BP 108/73
[2025-01-16] MEDS: BENADRYL 25 MG IV ×2 (03:53→22:23)
[2025-01-16] MEDS: DILAUDID 0.5 MG IV ×2 (03:54→22:23)
[2025-01-16 04:19] LABS: INR 1.75; PT 21.0 Sec (11.4-14.6)
[2025-01-16 04:20] LABS: APTT 56.6 Sec (23.4-35.0)
[2025-01-16 04:21] LABS: Hematocrit 34.8 % (37.0-47.0); Hemoglobin 11.3 g/dL (12.0-16.0); Mean Corp Hgb Conc. 32.5 g/dL (33.0-37.0); Mean Corpuscular Volume 87.7 fL (81.0-99.0); Platelet Count 198 10^3/uL (130-400); Red Cell Dist. Width 14.1 % (11.5-14.5)
[2025-01-16 04:33] LABS: HDL Cholesterol 52 mg/dl; LDL Cholesterol, Calculated 102 mg/dl; Very Low Density Lipoprotein 24 mg/dl (0-30)
[2025-01-16] MEDS: HEPARIN 6200 UNITS IV ×2 (05:26→20:27)
[2025-01-16 07:16] VITALS: BP 94/59
[2025-01-16 07:17] VITALS: BMI 27.8
--- NOTE | 2025-01-16 10:03 | W.PN.HOSP.TC ---
Today's Communication/Plan
-
Continue with IV heparin for now
Initiate aspirin
Follow CBC
Assessment / Plan
Assessment / Plan
54 female presented to the hospital with cold and painful right foot patient was seen by vascular surgeon at [facility] and underwent angioplasty in September as well as last Sunday. She had some initial pain which was felt to be secondary to
reperfusion pain but abruptly had cold and numb right foot she had ultrasound done as outpatient which showed right posterior tibial artery occlusion at the level of ankle and advised to go to ER. She has a history of antiphospholipid antibody
syndrome and maintained on Coumadin. She thinks that her INR was down to 1.8 for a procedure could have impacted this. She is normally ma
CTA-occlusion at the proximal aspect of the right anterior tibial artery without evidence of reconstitution. Occlusion of the right posterior tibial artery at the level of the ankle with evidence for some reconstitution below the level of the
ankle. Diminutive left posterior tibial artery with diminished flow suggesting a degree of stenosis and/or occlusion
Arterial ultrasound on 01/12/2025-occlusion of the right posterior tibial artery at the level of the ankle.
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
On IV heparin
Vascular surgery consulted-plan to do intervention on Saturday 01/20
Will discuss with hematology about bridging with fondaparinux and stop IV heparin with the difficulty of PTT interpretation with CASH SALES AUDIT CLERK
# SLE/antiphospholipid antibody syndrome/Raynaud's/scleroderma
Continue CellCept and Plaquenil
Also maintained on Coumadin as outpatient.
Sees . Her INR is kept between 3 and 3.5 as OP.
Hold coumadin while on IV heparin
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
occlusion of the right posterior tibial artery.
Will discuss with vascular if this is PAD or to be concerned about any embolic disease. If recurrent arterial embolism the need to reevaluate her current anticoagulation regimen. She came with INR of 2.94. Her goal is. 2.5-3.5. Will definitely
add aspirin to her Coumadin. If felt more an embolic issue/thrombosis than classic PAD. Appreciate hematology input. Start on aspirin along with Coumadin going forward
Echo 01/15 with normal EF mild MR and no changes compared to August 2022
# Drop in hemoglobin-repeat stable
# Hypertension-continue with amlodipine
# Anxiety -continue clonazepam, trazodone
# GERD-continue PPI
# History of migraines
# Diverticulosis
# DVT prophylaxis-IV heparin
# Full code
Discussed with vascular and hematology
Discussed with RN
Total time spent on today's encounter was 52 minutes which included time spent in counseling the patient/family regarding diagnosis and treatment plan as listed above, goals of care, and symptom management. Case was discussed with nursing staff,
specialists, and care coordinators/case management. All labs and imaging personally reviewed by me. Remainder the time spent in detailed review of previous records, lab data, imaging, and other medical provider documentation.
Anticipated Discharge: > 48 hours
Subjective/Interval History
-
Date of Service: January 16, 2025
Feels okay today. Right foot feels okay including the toes.
No fever or chills.
Objective Data
-
Labs:
Laboratory Results
01/16/25 01/16/25
03:48 11:30
WBC 3.7 L
Hgb 11.3 L
Hct 34.8 L
Plt Count 198
PT 21.0 H
INR 1.75
APTT 56.6 H Pending
Vital Signs:
Vital Signs
Temp Pulse Resp BP Pulse Ox
98.3 F 65 18 94/59 98
01/16/25 07:16 01/16/25 09:00 01/16/25 07:16 01/16/25 07:16 01/16/25 07:16
I&O
01/15/25 01/16/25 01/17/25
06:59 06:59 06:59
Intake Total 570 / 570
Balance 570 / 570
Physical Exam
-
General: Comfortable
Respiratory: Non Labored Respirations; Negative Accessory Resp Muscle Use
Cardiac: Regular Rhythm and S1/S2; Negative Tachycardic
Musculoskeletal: Other (Mildly colder right foot compared to left as yesterday)
Neuro: AO x 3
Psych: Calm
Data Reviewed
-
Labs: Labs Reviewed by me
[2025-01-16] MEDS: ASPIR LOW (ENTERIC COATED) 81 MG PO (10:36)
[2025-01-16 11:23] LABS: APTT > 200 Sec (23.4-35.0)
--- NOTE | 2025-01-16 12:24 | W.PN.ONC2 ---
Today's Communication / Plan
-
increase dietary iron
INR goal 3-3.5 when eventual resumption of warfarin
add asa 81mg daily
Impression
Impression
a/w Right posterior tibial artery occlusion
triple positive APLS
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
PAD
normocytic anemia with a component of iron deficiency with ferritin 32
Plan
Plan
awaiting INR to drift down for vascular surgery intervention
on heparin gtt -would consider eventual transition back to warfarin with goal 3-3.5 plus ASA 81mg daily
Subjective/Objective
Subjective
denies overt bleeding
Vital Signs:
Vital Signs
Temp Pulse Resp BP Pulse Ox
98.3 F 65 18 94/59 98
01/16/25 07:16 01/16/25 09:00 01/16/25 07:16 01/16/25 07:16 01/16/25 07:16
Lab Results:
Laboratory Data
WBC 3.7 10^3/uL (4.8-10.8) L 01/16/25 03:48
Hgb 11.3 g/dL (12.0-16.0) L 01/16/25 03:48
Plt Count 198 10^3/uL (130-400) 01/16/25 03:48
PT 21.0 Sec (11.4-14.6) H 01/16/25 03:48
INR 1.75 01/16/25 03:48
APTT > 200 Sec (23.4-35.0) H* 01/16/25 10:45
eGFR > 60.00 01/15/25 02:17
Physical Exam
HEENT: No Jaundice
Pulmonary: Other (unlabored)
GI: Soft
Neuro: Non Focal
--- NOTE | 2025-01-16 12:28 | PTCARENOTE ---
PTT continues to remain non-therapeutic. Dr. Gruber, Dr. Dias and Cayden GAMING all notified and no new orders. Instructed to continue to follow IV Heparin (DVT/PE) protocol. Plan of care reviewed w/ pt and verbalizes understanding.
[2025-01-16 12:35] VITALS: BP 118/89
--- NOTE | 2025-01-16 15:04 | CM ---
Reviewed chart. Met with Mrs. Palma to review discharge plans. She states she feels well. Awaiting medical team recommendations. Prior to admission she resides with her spouse in two story home with five steps to enter. She has a first floor
set-up. Prior to admission she was independent with ambulation and adls. She does not have any DME in the home. She has a prescription plan and uses [facility]. Will need to see her current functional level to see if she will h ave any
skilled care needs. Medical work-up in progress. The discharge plan is to return home with her spouse when medically stable.
Initialized on 01/15/25 12:30 - END OF NOTE
[2025-01-16 15:18] VITALS: BP 115/71
[2025-01-16] MEDS: HEPARIN 25000 UNITS/250 ML IV (19:03)
[2025-01-16 19:59] LABS: APTT 52.4 Sec (23.4-35.0)
[2025-01-16 22:11] VITALS: BP 135/94
[2025-01-16] MEDS: DESYREL PO (22:19)
[2025-01-16] MEDS: CELLCEPT 1000 MG PO (22:19)
[2025-01-16] MEDS: NORVASC 5 MG PO (22:19)
[2025-01-16] MEDS: REVATIO 20 MG PO (22:20)
[2025-01-16] MEDS: PLAQUENIL 400 MG PO (22:20)
[2025-01-16] MEDS: PROTONIX 40 MG PO (22:20)
[2025-01-16] MEDS: XALATAN OPHTHALMIC SOLUTION 1 DROP BOTH EYES (22:20)
[2025-01-17 02:31] VITALS: BMI 27.5
[2025-01-17 02:38] LABS: Hematocrit 32.5 % (37.0-47.0); Hemoglobin 10.6 g/dL (12.0-16.0); Mean Corp Hgb Conc. 32.6 g/dL (33.0-37.0); Mean Corpuscular Volume 86.7 fL (81.0-99.0); Platelet Count 193 10^3/uL (130-400); Red Cell Dist. Width 14.4 % (11.5-14.5)
[2025-01-17] MEDS: DILAUDID 0.5 MG IV ×2 (02:39→22:31)
[2025-01-17] MEDS: BENADRYL 25 MG IV ×2 (02:39→22:30)
[2025-01-17 03:19] LABS: APTT > 200 Sec (23.4-35.0)
--- NOTE | 2025-01-17 03:56 | PTCARENOTE ---
Heparin gtt on hold for 2 hrs due to PTT > 200, house provider notified (continue to follow protocol, will decrease rate with restart). Right pedal and posterior tibial pulses weak but present by Doppler this shift. Pt. having level 8/10 pain in
right foot, especially when laying still/sleeping. Medicated with Dilaudid with adequate relief obtained. Pt. resting quietly.
[2025-01-17 08:12] VITALS: BP 91/70
[2025-01-17] MEDS: ASPIR LOW (ENTERIC COATED) 81 MG PO (08:30)
[2025-01-17 08:33] VITALS: BP 99/76
--- NOTE | 2025-01-17 09:46 | W.PN.HOSP.TC ---
Today's Communication/Plan
-
Continue with IV Heparin
Assessment / Plan
Assessment / Plan
54 female presented to the hospital with cold and painful right foot patient was seen by vascular surgeon at [facility] and underwent angioplasty in September as well as last Sunday. She had some initial pain which was felt to be secondary to
reperfusion pain but abruptly had cold and numb right foot she had ultrasound done as outpatient which showed right posterior tibial artery occlusion at the level of ankle and advised to go to ER. She has a history of antiphospholipid antibody
syndrome and maintained on Coumadin. She thinks that her INR was down to 1.8 for a procedure could have impacted this. She is normally ma
CTA-occlusion at the proximal aspect of the right anterior tibial artery without evidence of reconstitution. Occlusion of the right posterior tibial artery at the level of the ankle with evidence for some reconstitution below the level of the
ankle. Diminutive left posterior tibial artery with diminished flow suggesting a degree of stenosis and/or occlusion
Arterial ultrasound on 01/12/2025-occlusion of the right posterior tibial artery at the level of the ankle.
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
On IV heparin
Vascular surgery consulted-plan to do intervention on Saturday 01/20
Continue with bridging heparin preprocedure. Patient baseline APTT 40-45. Hematology recommending to keep PTT twice the normal limit of 80-90. She seems to be very sensitive with heparin. Frequent supratherapeutic PTT elevation noted but no
external bleeding. Hematology following
# SLE/antiphospholipid antibody syndrome/Raynaud's/scleroderma
Continue CellCept and Plaquenil
Also maintained on Coumadin as outpatient.
Sees . Her INR is kept between 3 and 3.5 as OP.
Hold coumadin while on IV heparin
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
occlusion of the right posterior tibial artery.
Will discuss with vascular if this is PAD or to be concerned about any embolic disease. If recurrent arterial embolism the need to reevaluate her current anticoagulation regimen. She came with INR of 2.94. Her goal is. 2.5-3.5. Will definitely
add aspirin to her Coumadin. If felt more an embolic issue/thrombosis than classic PAD. Appreciate hematology input. Continue on aspirin along with Coumadin going forward
Echo 01/15 with normal EF mild MR and no changes compared to August 2022
# Drop in hemoglobin- stable
# Hypertension-continue with amlodipine
# Anxiety -continue clonazepam, trazodone
# GERD-continue PPI
# History of migraines
# Diverticulosis
# DVT prophylaxis-IV heparin
# Full code
Discussed with hematology
Anticipated Discharge: > 48 hours
Subjective/Interval History
-
Date of Service: January 17, 2025
Pain from the right foot and toes are okay.
Denies any black stools or blood in the urine.
No nausea vomiting. No abdominal pain.
Denies chest pain or shortness of breath. Next
Objective Data
-
Labs:
Laboratory Results
01/17/25 01/17/25
02:28 11:25
WBC 4.0 L
Hgb 10.6 L
Hct 32.5 L
Plt Count 193
APTT > 200 H* Pending
Vital Signs:
Vital Signs
Temp Pulse Resp BP Pulse Ox
97.7 F 60 16 91/70 100
01/17/25 08:13 01/17/25 08:40 01/17/25 08:13 01/17/25 08:12 01/17/25 08:13
I&O
01/16/25 01/17/25 01/18/25
06:59 06:59 06:59
Intake Total 570 / 570 1260 / 1260
Balance 570 / 570 1260 / 1260
Physical Exam
-
General: Comfortable
Respiratory: Non Labored Respirations; Negative Accessory Resp Muscle Use
Cardiac: Regular Rhythm and S1/S2
Neuro: AO x 3
Data Reviewed
-
Labs: Labs Reviewed by me
--- NOTE | 2025-01-17 10:13 | W.PN.ONC ---
Today's Communication / Plan
-
Awaiting INR to drift down for vascular surgery intervention
Heparin gtt -would consider eventual transition back to warfarin with goal 3-3.5 plus ASA 81mg daily
Discussed discussed alternative to heparin however there is less data with Arixtra particularly following a failure of Lovenox
Although the INR is been erratic would continue the current course prior to procedure
Impression
Impression
a/w Right posterior tibial artery occlusion
triple positive APLS
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
PAD
normocytic anemia with a component of iron deficiency with ferritin 32
Subjective/Objective
Subjective/Objective
Patient
Vital Signs:
Vital Signs
Temp Pulse Resp BP Pulse Ox
97.7 F 60 16 91/70 100
01/17/25 08:13 01/17/25 08:40 01/17/25 08:13 01/17/25 08:12 01/17/25 08:13
physical exam unchanged
Lab Results:
Laboratory Data
WBC 4.0 10^3/uL (4.8-10.8) L 01/17/25 02:28
Hgb 10.6 g/dL (12.0-16.0) L 01/17/25 02:28
Plt Count 193 10^3/uL (130-400) 01/17/25 02:28
PT 21.0 Sec (11.4-14.6) H 01/16/25 03:48
INR 1.75 01/16/25 03:48
APTT > 200 Sec (23.4-35.0) H* 01/17/25 02:28
eGFR > 60.00 01/15/25 02:17
--- NOTE | 2025-01-17 10:50 | PTCARENOTE ---
Patient resting in bed this morning, IV heparin infusing at 700 units/hr. Pulses R foot obtainable with doppler x 3. Patient denies any pain at this time, foot warm to touch. Patient requesting to speak with vascular, that she has questions prior to
arteriogram which is scheduled for Sunday. TT to Dr. Escobar, she will see the patient tomorrow or at the latest Sunday. Neurovascular checks reduced from q1H to q 4H.
[2025-01-17 11:44] VITALS: BP 123/55
[2025-01-17 12:17] LABS: APTT 55.0 Sec (23.4-35.0)
[2025-01-17] MEDS: HEPARIN 6200 UNITS IV (13:20)
[2025-01-17 15:55] VITALS: BP 117/93
--- NOTE | 2025-01-17 19:10 | PTCARENOTE ---
TT to Dr. Gruber regarding IV heparin and fluctuating PTT levels. On 700 units/hr of heparin, PTT resulted at 55.0 which requires a bolus and increase of heparin by 300 units/hr. PTT's after boluses have been greater than 200, requested if bolus
could be held and increase rate according to protocol. As per physician, should continue with protocol at this time and administer bolus as ordered, which was given and heparin now at 1000 units/hr. For repeat PTT at 1930.
[2025-01-17 20:01] VITALS: BP 107/81
[2025-01-17 20:45] LABS: APTT > 200 Sec (23.4-35.0)
[2025-01-17 22:27] VITALS: BP 122/81
[2025-01-17] MEDS: CELLCEPT 1000 MG PO (22:27)
[2025-01-17] MEDS: REVATIO 20 MG PO (22:28)
[2025-01-17] MEDS: PLAQUENIL 400 MG PO (22:28)
[2025-01-17] MEDS: PROTONIX 40 MG PO (22:29)
[2025-01-17] MEDS: NORVASC 5 MG PO (22:30)
[2025-01-17] MEDS: FLUSH (NSS) 1 FLUSH IV (22:32)
[2025-01-17] MEDS: DESYREL PO (22:33)
[2025-01-17] MEDS: XALATAN OPHTHALMIC SOLUTION 1 DROP BOTH EYES (22:33)
[2025-01-18] VITALS (7 sets, daily range): BP systolic 93–130; BP diastolic 59–87; BMI 27.3
--- NOTE | 2025-01-18 00:03 | PTCARENOTE ---
Received pt at change of shift resting in bed. VSS. Heparin gtt infusing per protocol. PTT obtained and sent, resulted >200. Mamie Ring NP made aware. Protocol followed. pt Denies any CP or SOB. pt c/o pain in right foot as 11/11, requesting
PRN Dilaudid and Bendryl. Administered per order. Encouraged pt to call RN with any questions/concerns. Call chase within reach.
[2025-01-18] MEDS: BENADRYL 25 MG IV ×2 (02:44→22:22)
[2025-01-18] MEDS: HEPARIN 25000 UNITS/250 ML IV (02:45)
[2025-01-18] MEDS: DILAUDID 0.5 MG IV ×2 (02:45→22:23)
[2025-01-18 05:29] LABS: Hematocrit 32.3 % (37.0-47.0); Hemoglobin 10.6 g/dL (12.0-16.0); Mean Corp Hgb Conc. 32.8 g/dL (33.0-37.0); Mean Corpuscular Volume 88.0 fL (81.0-99.0); Platelet Count 208 10^3/uL (130-400); Red Cell Dist. Width 14.3 % (11.5-14.5)
[2025-01-18 06:01] LABS: APTT 42.3 Sec (23.4-35.0)
[2025-01-18] MEDS: HEPARIN 6200 UNITS IV (06:15)
[2025-01-18] MEDS: ASPIR LOW (ENTERIC COATED) 81 MG PO (08:42)
--- NOTE | 2025-01-18 09:37 | PTCARENOTE ---
Resting in bed this morning, IV heparin infusing at 1000 units/hr, for repeat PTT at 1230- still having difficulty obtaining therapeutic range PTT. Patient denies any pain this morning, neurovascular check unchanged.
--- NOTE | 2025-01-18 13:42 | W.PN.HOSP.TC ---
Today's Communication/Plan
-
CW IV heparin
Assessment / Plan
Assessment / Plan
54 female presented to the hospital with cold and painful right foot patient was seen by vascular surgeon at [facility] and underwent angioplasty in September as well as last Sunday. She had some initial pain which was felt to be secondary to
reperfusion pain but abruptly had cold and numb right foot she had ultrasound done as outpatient which showed right posterior tibial artery occlusion at the level of ankle and advised to go to ER. She has a history of antiphospholipid antibody
syndrome and maintained on Coumadin. She thinks that her INR was down to 1.8 for a procedure could have impacted this. She is normally ma
CTA-occlusion at the proximal aspect of the right anterior tibial artery without evidence of reconstitution. Occlusion of the right posterior tibial artery at the level of the ankle with evidence for some reconstitution below the level of the
ankle. Diminutive left posterior tibial artery with diminished flow suggesting a degree of stenosis and/or occlusion.
Arterial ultrasound on 01/12/2025-occlusion of the right posterior tibial artery at the level of the ankle.
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
On IV heparin
Vascular surgery consulted-plan to do intervention on Saturday 01/20
Continue with bridging heparin preprocedure. Patient baseline APTT 40-45. Hematology recommending to keep PTT twice the normal limit of 80-90. She seems to be very sensitive with heparin. Frequent supratherapeutic PTT elevation noted but no
external bleeding. Hematology following
# SLE/antiphospholipid antibody syndrome/Raynaud's/scleroderma
Continue CellCept and Plaquenil
Also maintained on Coumadin as outpatient.
Sees . Her INR is kept between 3 and 3.5 as OP.
Hold coumadin while on IV heparin
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
occlusion of the right posterior tibial artery.
If felt more an embolic issue/thrombosis than classic PAD. Appreciate hematology input. Continue on aspirin along with Coumadin going forward
Echo 01/15 with normal EF mild MR and no changes compared to August 2022
# Drop in hemoglobin- stable
# Hypertension-continue with amlodipine
# Anxiety -continue clonazepam, trazodone
# GERD-continue PPI
# History of migraines
# Diverticulosis
# DVT prophylaxis-IV heparin
# Full code
Anticipated Discharge: > 48 hours
Subjective/Interval History
-
Date of Service: January 18, 2025
No overnight events.
Patient voices no specific complaints.
Right foot feels okay
Objective Data
-
Labs:
Laboratory Results
01/18/25 01/18/25
05:22 12:45
WBC 4.0 L
Hgb 10.6 L
Hct 32.3 L
Plt Count 208
APTT 42.3 H Pending
Vital Signs:
Vital Signs
Temp Pulse Resp BP Pulse Ox
98 F 70 20 107/73 94
01/18/25 07:47 01/18/25 07:47 01/18/25 07:47 01/18/25 07:47 01/18/25 07:47
I&O
01/17/25 01/18/25 01/19/25
06:59 06:59 06:59
Intake Total 1260 / 1260 222 / 222
Balance 1260 / 1260 222 / 222
Physical Exam
-
General: Comfortable
Respiratory: Non Labored Respirations; Negative Accessory Resp Muscle Use
Cardiac: Regular Rhythm and S1/S2
Neuro: AO x 3
Data Reviewed
-
Labs: Labs Reviewed by me
[2025-01-18 14:07] LABS: APTT 183.7 Sec (23.4-35.0)
--- NOTE | 2025-01-18 14:31 | CHAP ---
Visited Ms. Palma at 10:35. She was in good spirits, awaiting her procedure on Sunday. Has good family support. She welcomed prayer and was appreciative of the visit. Emotional and spiritual support provided.
--- NOTE | 2025-01-18 17:22 | PTCARENOTE ---
Critical high PTT result tt to Dr. Gruber per protocol. Heparin held x 1 hour and resumed at 800 units/hr. Heparin boluses discontinued for future PTT's.
[2025-01-18 21:45] LABS: APTT 60.3 Sec (23.4-35.0)
[2025-01-18] MEDS: CELLCEPT 1000 MG PO (22:19)
[2025-01-18] MEDS: PROTONIX 40 MG PO (22:20)
[2025-01-18] MEDS: DESYREL PO (22:20)
[2025-01-18] MEDS: REVATIO 20 MG PO (22:21)
[2025-01-18] MEDS: PLAQUENIL 400 MG PO (22:21)
[2025-01-18] MEDS: NORVASC 5 MG PO (22:22)
[2025-01-18] MEDS: XALATAN OPHTHALMIC SOLUTION 1 DROP BOTH EYES (22:32)
--- NOTE | 2025-01-19 01:02 | PTCARENOTE ---
Assumed care on pt at 1900, resting in bed with no complaints of pain at the time. Heparin infusing at 800 unit/hr, assessing ptt per protocol. R foot dopler pulses and vascular assessment q4hr. Call chase within reach, VSS.
[2025-01-19 03:27] VITALS: BP 93/58
[2025-01-19 04:48] VITALS: BP 99/64
[2025-01-19 05:08] LABS: INR 1.22; PT 15.7 Sec (11.4-14.6)
[2025-01-19 05:09] LABS: APTT 65.1 Sec (23.4-35.0)
[2025-01-19 05:49] VITALS: BMI 27.2
[2025-01-19 07:50] VITALS: BP 94/73
[2025-01-19] MEDS: ASPIR LOW (ENTERIC COATED) 81 MG PO (08:39)
--- NOTE | 2025-01-19 09:14 | PTCARENOTE ---
Patient oob in the chair this morning, IV heparin infusing at 1300 units/hr. Neurovascular check to RLE is unchanged. Patient is asking to speak with vascular, tt to vascular domestic travel consultant nursing support worker and they will see after first case this morning.
[2025-01-19] MEDS: HEPARIN 25000 UNITS/250 ML IV (11:56)
[2025-01-19 13:09] LABS: APTT 115.1 Sec (23.4-35.0)
--- NOTE | 2025-01-19 13:27 | W.PN.HOSP.TC ---
Today's Communication/Plan
-
For arteriogram tomorrow.
Continue with IV heparin.
Assessment / Plan
Assessment / Plan
54 female presented to the hospital with cold and painful right foot patient was seen by vascular surgeon at [facility] and underwent angioplasty in September as well as last Sunday. She had some initial pain which was felt to be secondary to
reperfusion pain but abruptly had cold and numb right foot she had ultrasound done as outpatient which showed right posterior tibial artery occlusion at the level of ankle and advised to go to ER. She has a history of antiphospholipid antibody
syndrome and maintained on Coumadin. She thinks that her INR was down to 1.8 for a procedure could have impacted this. She is normally ma
CTA-occlusion at the proximal aspect of the right anterior tibial artery without evidence of reconstitution. Occlusion of the right posterior tibial artery at the level of the ankle with evidence for some reconstitution below the level of the
ankle. Diminutive left posterior tibial artery with diminished flow suggesting a degree of stenosis and/or occlusion.
Arterial ultrasound on 01/12/2025-occlusion of the right posterior tibial artery at the level of the ankle.
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
On IV heparin
Vascular surgery consulted-plan to do intervention on Saturday 01/20
Continue with bridging heparin preprocedure. Patient baseline APTT 40-45. Hematology recommending to keep PTT twice the normal limit of 80-90. She seems to be very sensitive with heparin. Frequent supratherapeutic PTT elevation noted but no
external bleeding. Hematology following
# SLE/antiphospholipid antibody syndrome/Raynaud's/scleroderma
Continue CellCept and Plaquenil
Also maintained on Coumadin as outpatient.
Sees . Her INR is kept between 3 and 3.5 as OP.
Hold coumadin while on IV heparin
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
occlusion of the right posterior tibial artery.
If felt more an embolic issue/thrombosis than classic PAD. Appreciate hematology input. Continue on aspirin along with Coumadin going forward
Echo 01/15 with normal EF mild MR and no changes compared to August 2022
# Drop in hemoglobin- stable
# Hypertension-continue with amlodipine
# Anxiety -continue clonazepam, trazodone
# GERD-continue PPI
# History of migraines
# Diverticulosis
# DVT prophylaxis-IV heparin
# Full code
Anticipated Discharge: 24 - 48 hours
Subjective/Interval History
-
Date of Service: January 19, 2025
No overnight events. Voices no specific complaints. Right foot is okay.
Objective Data
-
Labs:
Laboratory Results
01/19/25 01/19/25
04:45 12:08
PT 15.7 H
INR 1.22
APTT 65.1 H 115.1 H
Vital Signs:
Vital Signs
Temp Pulse Resp BP Pulse Ox
97.7 F 64 16 94/73 97
01/19/25 07:53 01/19/25 04:46 01/19/25 07:53 01/19/25 07:50 01/19/25 07:53
I&O
01/18/25 01/19/25 01/20/25
06:59 06:59 06:59
Intake Total 322 / 322 1060 / 1060
Balance 322 / 322 1060 / 1060
Physical Exam
-
General: Comfortable
Respiratory: Non Labored Respirations; Negative Accessory Resp Muscle Use
Neuro: AO x 3
Data Reviewed
-
Labs: Labs Reviewed by me
[2025-01-19 15:18] VITALS: BP 110/72
[2025-01-19 19:55] LABS: APTT 124.1 Sec (23.4-35.0)
[2025-01-19] MEDS: REVATIO 20 MG PO (22:13)
[2025-01-19] MEDS: CELLCEPT 1000 MG PO (22:13)
[2025-01-19] MEDS: PLAQUENIL 400 MG PO (22:13)
[2025-01-19] MEDS: PROTONIX 40 MG PO (22:13)
[2025-01-19] MEDS: DESYREL PO (22:13)
[2025-01-19] MEDS: DILAUDID 0.5 MG IV (22:14)
[2025-01-19] MEDS: BENADRYL 25 MG IV (22:14)
[2025-01-19] MEDS: XALATAN OPHTHALMIC SOLUTION 1 DROP BOTH EYES (22:15)
[2025-01-19] MEDS: NORVASC 5 MG PO (22:15)
[2025-01-19 22:17] VITALS: BP 124/82
[2025-01-20] VITALS (13 sets, daily range): BP systolic 98–147; BP diastolic 65–92; BMI 27.1
--- NOTE | 2025-01-20 01:41 | PTCARENOTE ---
Heparin gtt infusing as per order, assessing ptt per protocol. R foot dopler pulses and vascular assessment q4hr. Medicated for pain from R foot at bedtime, + effect. Call chase within reach, VSS.
[2025-01-20 02:18] LABS: Hematocrit 33.1 % (37.0-47.0); Hemoglobin 10.8 g/dL (12.0-16.0); Mean Corp Hgb Conc. 32.6 g/dL (33.0-37.0); Mean Corpuscular Volume 87.8 fL (81.0-99.0); Platelet Count 229 10^3/uL (130-400); Red Cell Dist. Width 14.7 % (11.5-14.5)
[2025-01-20 02:23] LABS: APTT 83.4 Sec (23.4-35.0)
[2025-01-20] MEDS: ASPIR LOW (ENTERIC COATED) 81 MG PO (08:27)
[2025-01-20 09:05] LABS: APTT 83.4 Sec (23.4-35.0)
--- NOTE | 2025-01-20 10:18 | W.PN.HOSP.TC ---
Today's Communication/Plan
-
For arteriogram today
Assessment / Plan
Assessment / Plan
54 female presented to the hospital with cold and painful right foot patient was seen by vascular surgeon at [facility] and underwent angioplasty in September as well as last Sunday. She had some initial pain which was felt to be secondary to
reperfusion pain but abruptly had cold and numb right foot she had ultrasound done as outpatient which showed right posterior tibial artery occlusion at the level of ankle and advised to go to ER. She has a history of antiphospholipid antibody
syndrome and maintained on Coumadin. She thinks that her INR was down to 1.8 for a procedure could have impacted this. She is normally ma
CTA-occlusion at the proximal aspect of the right anterior tibial artery without evidence of reconstitution. Occlusion of the right posterior tibial artery at the level of the ankle with evidence for some reconstitution below the level of the
ankle. Diminutive left posterior tibial artery with diminished flow suggesting a degree of stenosis and/or occlusion.
Arterial ultrasound on 01/12/2025-occlusion of the right posterior tibial artery at the level of the ankle.
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
On IV heparin
Vascular surgery consulted-plan to do intervention today
Continue with bridging heparin preprocedure. Patient baseline APTT 40-45. Hematology recommending to keep PTT twice the normal limit of 80-90. She seems to be very sensitive with heparin. Frequent supratherapeutic PTT elevation noted but no
external bleeding. Hematology following
# SLE/antiphospholipid antibody syndrome/Raynaud's/scleroderma
Continue CellCept and Plaquenil
Also maintained on Coumadin as outpatient.
Sees . Her INR is kept between 3 and 3.5 as OP.
Hold coumadin while on IV heparin
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
occlusion of the right posterior tibial artery.
If felt more an embolic issue/thrombosis than classic PAD. Appreciate hematology input. Continue on aspirin along with Coumadin going forward
Echo 01/15 with normal EF mild MR and no changes compared to August 2022
# Drop in hemoglobin- stable
# Hypertension-continue with amlodipine
# Anxiety -continue clonazepam, trazodone
# GERD-continue PPI
# History of migraines
# Diverticulosis
# DVT prophylaxis-IV heparin
# Full code
Anticipated Discharge: 24 - 48 hours
Subjective/Interval History
-
Date of Service: January 20, 2025
Once is no new specific complaint. Right foot pain is okay.
Denies shortness of breath or chest pain.
No nausea vomiting today.
Objective Data
-
Labs:
Laboratory Results
01/20/25 01/20/25
02:00 08:42
WBC 4.2 L
Hgb 10.8 L
Hct 33.1 L
Plt Count 229
APTT 83.4 H 83.4 H
Vital Signs:
Vital Signs
Temp Pulse Resp BP Pulse Ox
98 F 63 20 104/71 99
01/20/25 07:18 01/20/25 07:18 01/20/25 07:18 01/20/25 07:18 01/20/25 07:18
I&O
01/19/25 01/20/25 01/21/25
06:59 06:59 06:59
Intake Total 1060 / 1060 600 / 600
Balance 1060 / 1060 600 / 600
Physical Exam
-
General: Comfortable
Respiratory: Non Labored Respirations; Negative Accessory Resp Muscle Use
Neuro: AO x 3
Psych: Calm; Negative Confused
Data Reviewed
-
Labs: Labs Reviewed by me
[2025-01-20] MEDS: HEPARIN 25000 UNITS/250 ML IV (12:30)
[2025-01-20] MEDS: KLONOPIN 0.5 MG PO (15:41)
--- NOTE | 2025-01-20 20:59 | W.SUR.PREOP ---
Pre-Operative Surgical Note
-
I have examined this patient prior to the performance of the scheduled procedure.
The patient's condition is unchanged from the time of the current History and
Physical and the patient is able to undergo the scheduled procedure.
--- NOTE | 2025-01-20 21:44 | PTCARENOTE ---
Assumed care on pt at 1900, resting in bed with no complaints, pt's mom at bedside. Picked up for procedure at 2099, all belongings sent to [address] [place] [id number].
--- NOTE | 2025-01-20 21:53 | W.SUR.POST ---
Surgical Immediate Post Op
Note
Pre Op Diagnosis: Peripheral arterial disease
Post Op Diagnosis: Peripheral arterial disease
Procedure Performed: RLE diagnostic angiogram
Primary Surgeon: Truman Rachel MD
Secondary Surgeons: Shravan Llamas MD PhD
Anesthesia: Per Anesthesia
Estimated Blood Loss: 2 cc
Fluids: Per Anesthesia
Drains/Shunts: None
Specimens/Cultures: None
Doppler/Duplex/Angio (Y/N): Yes - angio
Complications: None
Operative Findings: Left groin stick and 5 Fr sheath placement. Severe RLE small vessel disease with single vessel runoff and sparse flow to the right foot.
--- NOTE | 2025-01-20 21:57 | OR.RPT ---
Addendum entered and electronically signed by Truman Rachel III, MD 01/21/25 08:21:
It should be noted that additional views of the popliteal artery and proximal tibial runoff were performed with both passive dorsiflexion and passive plantarflexion. Neither of these maneuvers resulted in any change in the popliteal artery or
distal flow.
Original Note:
Operative Report
Operative Report
Date of Operation: 01/20/2025
Pre Op Diagnosis:
1. [place] artery occlusive disease with ischemic rest pain, right foot
2. Antiphospholipid antibody syndrome
3. Scleroderma
4. Raynaud's
Post Op Diagnosis:
1. [place] artery occlusive disease with ischemic rest pain, right foot
2. Antiphospholipid antibody syndrome
3. Scleroderma
4. Raynaud's
Procedure:
1. Selective catheterization of third order lower extremity artery
2. Diagnostic aortobiiliac arteriogram
3. Diagnostic right lower extremity arteriogram
4. Ultrasound-guided percutaneous access to the left common femoral artery
Surgeon: Truman Rachel III, MD
[employer] Freezer: Shravan Llamas MD PhD PGY-7
Anesthesia: Sedation with local
Complications: None
Estimated Blood Loss: Less than 10 cc
History and Indications for Procedure: 54-year-old female with multiple medical comorbidities and ischemic rest pain of her right foot. She had recently undergone an arteriogram and attempted endovascular revascularization at [facility].
This re-occluded shortly thereafter. I brought her to the operating room for an arteriogram to explore any additional revascularization options.
Procedure in Detail: Lizette Palma was correctly identified and placed supine on the operating table. After adequate induction of anesthesia the bilateral groins were prepped and draped in the usual sterile fashion. A time out was performed with the
nursing and anesthesia staff confirming the patient's identity as well as the nature and laterality of the procedure.
The left common femoral artery was identified under ultrasound guidance. The artery was patent. The superior and inferior aspects of the femoral head were identified with radiographic guidance and marked at the skin level. The proposed puncture site
was infiltrated with local anesthesia. Under ultrasound guidance we accessed the left common femoral artery with a micropuncture needle and upsized to a 5 Fr sheath over a [employer] Dat[employer] wire. The wire and a Shepherds hook flush catheter were advanced into
the distal abdominal aorta and a diagnostic aorto-biiliac arteriogram was performed:
AORTO-ILIAC ARTERIOGRAM:
Aorta: Patent with no stenosis identified
Right common iliac artery: Patent with no stenosis identified
Right external iliac artery: Patent with no stenosis identified
Left common iliac artery: Patent with no stenosis identified
Left external iliac artery: Patent with no stenosis identified
Under roadmap guidance using a Glidewire and the Shepherds hook catheter we selected the right common iliac artery followed by the external iliac artery and then the common femoral artery. A catheter was tracked up and over the aortic bifurcation
and placed in the common femoral artery. A diagnostic right lower extremity arteriogram was then performed which demonstrated the following:
RIGHT LOWER EXTREMITY:
Common femoral artery: Patent with no stenosis identified
Superficial femoral artery: Patent with no stenosis identified
Popliteal artery: Patent with no stenosis identified. Focal ectatic segment below the knee. No dissection identified. No filling defects identified.
Anterior tibial artery: Patent stump but occluded thereafter with no distal reconstitution. Dorsalis pedis artery occluded
Tibioperoneal trunk: Patent
Peroneal artery: Patent as the lone tibial artery runoff vessel. Branches at the ankle are diminutive. Very limited flow into the foot is identified from the peroneal branches at the ankle.
Posterior tibial artery: Patent proximally but very sluggish flow. Occluded distally. Segmental reconstitution behind the medial malleolus but then occludes once again. No plantar branch flow is identified.
Extensive small vessel occlusive disease is identified in the foot.
Satisfied with this diagnostic information we concluded the procedure. The catheter was pulled from the 5 [place] sheath in the left groin. The sheath was pulled and direct manual pressure was held over the puncture site until hemostasis was
achieved. A sterile dressing was applied.
The patient tolerated the procedure well and was taken to the recovery area in stable condition.
Attestation: I was present and responsible for the entire procedure.
Signed:
Truman Rachel III, MD
Vascular Surgery
[facility]
[2025-01-20] MEDS: DILAUDID 0.5 MG IV ×2 (22:57→23:22)
[2025-01-20] MEDS: BENADRYL 25 MG IV (22:58)
[2025-01-20] MEDS: NSS 1000 IV (23:27)
--- NOTE | 2025-01-20 23:40 | PTCARENOTE ---
ax3 mobility restrictions reviewed- will keep leg straight until 0500, left groin dsg cdi. rt dp and pt pules absent per pacu report aware. see n/v checks. medicated with dilaudid for left foot pain
[2025-01-20] MEDS: CELLCEPT PO (23:54)
[2025-01-20] MEDS: NORVASC PO (23:54)
[2025-01-20] MEDS: DESYREL PO (23:54)
[2025-01-20] MEDS: REVATIO PO (23:55)
[2025-01-20] MEDS: PLAQUENIL PO (23:55)
[2025-01-20] MEDS: PROTONIX PO (23:55)
[2025-01-20] MEDS: XALATAN OPHTHALMIC SOLUTION BOTH EYES (23:55)
--- NOTE | 2025-01-20 23:55 | PTCARENOTE ---
pt wishes to not take all meds that were scheduled eralier and to restart regimen in am
[2025-01-21] VITALS (8 sets, daily range): BP systolic 111–135; BP diastolic 70–84; BMI 26.9
--- NOTE | 2025-01-21 02:36 | DOWNTIME ---
There was a [employer] Client Fermenter Operator Downtime on 01/21/2025 from 0100 to 01/21/2025 at 0235. Downtime documentation of patient's care, including medication administrations, has been reconciled in the electronic record per guidelines. Refer to the
patient's paper chart under the miscellaneous tab to see printed paper medication records and downtime forms.
[2025-01-21] MEDS: DILAUDID 0.5 MG IV ×5 (02:43→23:07)
[2025-01-21] MEDS: HEPARIN 25000 UNITS/250 ML IV (06:02)
--- NOTE | 2025-01-21 06:46 | PTCARENOTE ---
pt oob- hep gtt restarted at previous rate- ptt for 1200
[2025-01-21] MEDS: ASPIR LOW (ENTERIC COATED) 81 MG PO (07:42)
[2025-01-21] MEDS: BENADRYL 25 MG IV ×4 (07:47→20:14)
--- NOTE | 2025-01-21 08:41 | W.PN.VS ---
Today's Communication / Plan
-
Below plan reviewed with attending Dr. Truman Rachel III.
Assessment/Plan
-
Assessment: 52-year-old female POD #1 Selective catheterization of third order lower extremity artery. Diagnostic aortobiiliac arteriogram. Diagnostic right lower extremity arteriogram. Ultrasound-guided percutaneous access to the left common
femoral artery.
Plan:
Continue as needed medications
Okay to continue heparin infusion
Surgical plan to be reviewed with attending Dr. Truman Rachel III, will recommend limflow procedure as revascularization option for patient, timing to be determined by surgeon.
Subjective Data
-
Date of Service: January 21, 2025
Patient seen and examined at bedside, endorses continued challenging pain management at right foot wound, she just received pain medication prior to my assessment. Denies pain at left groin puncture site.
Objective Data
-
Vital Signs
Temp Pulse Resp BP Pulse Ox
98 F 64 16 126/82 99
01/21/25 07:20 01/21/25 07:20 01/21/25 07:20 01/21/25 07:20 01/21/25 07:20
Intake and Output
01/20/25 01/21/25 01/22/25
06:59 06:59 06:59
Intake Total 600 / 600 480 / 480
Balance 600 / 600 480 / 480
Intake:
Oral fluids 480 / 480 480 / 480
IV fluids (Total) 120 / 120
heparin 120 / 120
Other:
How many times incontinent 2
MODERATE amount urine
Lab Results
01/20/25 02:00
01/15/25 02:17
Calcium 9.5 mg/dl (8.4-10.2) 01/15/25 02:17
Total Bilirubin Cancelled 01/12/25 20:34
AST Cancelled 01/12/25 20:34
ALT Cancelled 01/12/25 20:34
Alkaline Phosphatase Cancelled 01/12/25 20:34
Total Protein Cancelled 01/12/25 20:34
Albumin Cancelled 01/12/25 20:34
Physical Exam
-
No apparent distress, does endorse pain at right foot wound
No tachycardia
No dyspnea on room air
Abdomen nontender, nondistended, and soft
Left groin clean, dry, and intact, no evidence of hematoma, all surrounding compartments soft
--- NOTE | 2025-01-21 08:53 | CM ---
Reviewed the chart notes. CM continues to be available to patient/family and is monitoring medical plan for needs at discharge.
Plan: Discharge to home when medically stable. No needs anticipated.
--- NOTE | 2025-01-21 10:31 | W.PN.HOSP.TC ---
Today's Communication/Plan
-
Add gabapentin for pain
Add oxycodone to her pain regimen. Continue with IV Dilaudid.
On bowel regimen.
Continue with IV heparin.
Assessment / Plan
Assessment / Plan
54 female presented to the hospital with cold and painful right foot patient was seen by vascular surgeon at [facility] and underwent angioplasty in September as well as last Sunday. She had some initial pain which was felt to be secondary to
reperfusion pain but abruptly had cold and numb right foot she had ultrasound done as outpatient which showed right posterior tibial artery occlusion at the level of ankle and advised to go to ER. She has a history of antiphospholipid antibody
syndrome and maintained on Coumadin. She thinks that her INR was down to 1.8 for a procedure could have impacted this. She is normally ma
CTA-occlusion at the proximal aspect of the right anterior tibial artery without evidence of reconstitution. Occlusion of the right posterior tibial artery at the level of the ankle with evidence for some reconstitution below the level of the
ankle. Diminutive left posterior tibial artery with diminished flow suggesting a degree of stenosis and/or occlusion.
Arterial ultrasound on 01/12/2025-occlusion of the right posterior tibial artery at the level of the ankle.
# Peripheral arterial disease
Status post arteriogram yesterday which showed disease in the anterior tibial artery, right peroneal artery, right posterior tibial artery. However it further input from vascular regarding further interventions.
Continue with IV heparin. Patient baseline APTT 40-45. Hematology recommending to keep PTT twice the normal limit of 80-90. She seems to be very sensitive with heparin. Frequent supratherapeutic PTT elevation noted but no external bleeding.
Hematology following
Patient complains of right toe pain more so today. Add gabapentin. Add oxycodone to her IV Dilaudid. She is on bowel regimen.
# SLE/antiphospholipid antibody syndrome/Raynaud's/scleroderma
Continue CellCept and Plaquenil
Also maintained on Coumadin as outpatient.
Sees . Her INR is kept between 3 and 3.5 as OP.
Hold coumadin while on IV heparin
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
occlusion of the right posterior tibial artery.
If felt more an embolic issue/thrombosis than classic PAD. Appreciate hematology input. Continue on aspirin along with Coumadin going forward
Echo 01/15 with normal EF mild MR and no changes compared to August 2022
# Drop in hemoglobin- stable
# Hypertension-continue with amlodipine
# Anxiety -continue clonazepam, trazodone
# GERD-continue PPI
# History of migraines
# Diverticulosis
# DVT prophylaxis-IV heparin
# Full code
Anticipated Discharge: > 48 hours
Subjective/Interval History
-
Date of Service: January 21, 2025
He was complaining pain with more pain in the right toes. Requesting increase in pain medication. She had tried gabapentin in the past.
No fever or chills.
No shortness of breath or chest pain.
Tolerating diet. Had a bowel movement yesterday.
Objective Data
-
Labs:
Laboratory Results
01/21/25
12:00
APTT Pending
Vital Signs:
Vital Signs
Temp Pulse Resp BP Pulse Ox
98 F 64 16 126/82 99
01/21/25 07:20 01/21/25 07:20 01/21/25 07:20 01/21/25 07:20 01/21/25 07:20
I&O
01/20/25 01/21/25 01/22/25
06:59 06:59 06:59
Intake Total 600 / 600 480 / 480
Balance 600 / 600 480 / 480
Physical Exam
-
General: No Apparent Distress
HEENT: Moist Mucous Membranes
Respiratory: Non Labored Respirations; Negative Accessory Resp Muscle Use
GI: Soft
Musculoskeletal: Other (rt forefoot cooler compared to left)
Neuro: AO x 3
Psych: Calm
Data Reviewed
-
Labs: Labs Reviewed by me
[2025-01-21 12:27] LABS: APTT 46.1 Sec (23.4-35.0)
[2025-01-21] MEDS: NEURONTIN 100 MG PO ×2 (16:18→21:15)
[2025-01-21 18:59] LABS: APTT 129.1 Sec (23.4-35.0)
[2025-01-21] MEDS: DILAUDID 1 MG IV (20:14)
[2025-01-21] MEDS: CELLCEPT 1000 MG PO (21:13)
[2025-01-21] MEDS: REVATIO 20 MG PO (21:13)
[2025-01-21] MEDS: NORVASC 5 MG PO (21:13)
[2025-01-21] MEDS: PROTONIX 40 MG PO (21:13)
[2025-01-21] MEDS: PLAQUENIL 400 MG PO (21:13)
[2025-01-21] MEDS: DESYREL PO (21:14)
[2025-01-21] MEDS: XALATAN OPHTHALMIC SOLUTION 1 DROP BOTH EYES (21:16)
--- NOTE | 2025-01-21 23:16 | PTCARENOTE ---
pain med increased to 1 mg iv Dilaudid earlier . dose was effective but pain wore off before the q4h time. pt refused Roxicodone despite encouragement to take. marksmanship instructor ordered 1 time dose Dilaudid
[2025-01-22] MEDS: DILAUDID 1 MG IV ×6 (01:28→21:08)
[2025-01-22] MEDS: BENADRYL 25 MG IV ×4 (01:29→21:07)
[2025-01-22 02:02] LABS: APTT 79.8 Sec (23.4-35.0)
--- NOTE | 2025-01-22 02:25 | PTCARENOTE ---
one hour after 1 mg Dilaudid given pt was ringing for more pain meds. 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 next dose dilaudid not due until 529
[2025-01-22] MEDS: ULTRAM 25 MG PO (02:29)
[2025-01-22] MEDS: HEPARIN 25000 UNITS/250 ML IV (04:40)
[2025-01-22 05:53] VITALS: BMI 27.0
[2025-01-22 07:15] VITALS: BP 117/65
[2025-01-22 08:14] LABS: Hematocrit 37.9 % (37.0-47.0); Hemoglobin 12.0 g/dL (12.0-16.0); Mean Corp Hgb Conc. 31.7 g/dL (33.0-37.0); Mean Corpuscular Volume 89.8 fL (81.0-99.0); Platelet Count 257 10^3/uL (130-400); Red Cell Dist. Width 14.8 % (11.5-14.5)
[2025-01-22 08:22] LABS: APTT 79.3 Sec (23.4-35.0)
[2025-01-22] MEDS: ASPIR LOW (ENTERIC COATED) 81 MG PO (08:29)
[2025-01-22] MEDS: NEURONTIN 100 MG PO (08:29)
[2025-01-22] MEDS: MIRALAX PO (08:30)
--- NOTE | 2025-01-22 10:14 | CM ---
Patient seen at bedside
Cont on Heparin
vascular note recommend limflow procedure as revascularization option for patient
PLAN: home when medically stable, CM to follow for needs
--- NOTE | 2025-01-22 10:38 | W.PN.HOSP.TC ---
Today's Communication/Plan
-
Continue with IV heparin
Continue with pain regimen
Continue with bowel regimen
Assessment / Plan
Assessment / Plan
54 female presented to the hospital with cold and painful right foot patient was seen by vascular surgeon at [facility] and underwent angioplasty in September as well as last Sunday. She had some initial pain which was felt to be secondary to
reperfusion pain but abruptly had cold and numb right foot she had ultrasound done as outpatient which showed right posterior tibial artery occlusion at the level of ankle and advised to go to ER. She has a history of antiphospholipid antibody
syndrome and maintained on Coumadin. She thinks that her INR was down to 1.8 for a procedure could have impacted this. She is normally ma
CTA-occlusion at the proximal aspect of the right anterior tibial artery without evidence of reconstitution. Occlusion of the right posterior tibial artery at the level of the ankle with evidence for some reconstitution below the level of the
ankle. Diminutive left posterior tibial artery with diminished flow suggesting a degree of stenosis and/or occlusion.
Arterial ultrasound on 01/12/2025-occlusion of the right posterior tibial artery at the level of the ankle.
# Peripheral arterial disease
Status post arteriogram 01/20 which showed disease in the anterior tibial artery, right peroneal artery, right posterior tibial artery. Plan for intervention noted for early next week.
Continue with IV heparin. Patient baseline APTT 40-45. Hematology recommending to keep PTT twice the normal limit of 80-90. She seems to be very sensitive with heparin. Frequent supratherapeutic PTT elevation noted but no external bleeding.
Patient continues to complain of right toes pain and requesting pain medication adjustment.. Increase the dose of gabapentin. Continue with narcotic regimen-increase the frequency of IV Dilaudid to every 3 hours for today-Will reevaluate tomorrow
# SLE/antiphospholipid antibody syndrome/Raynaud's/scleroderma
Continue CellCept and Plaquenil
Also maintained on Coumadin as outpatient.
Sees . Her INR is kept between 3 and 3.5 as OP.
Hold coumadin while on IV heparin
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
occlusion of the right posterior tibial artery.
If felt more an embolic issue/thrombosis than classic PAD. Appreciate hematology input. Continue on aspirin along with Coumadin going forward
Echo 01/15 with normal EF mild MR and no changes compared to August 2022
# Drop in hemoglobin- stable
# Hypertension-continue with amlodipine
# Anxiety -continue clonazepam, trazodone
# GERD-continue PPI
# History of migraines
# Diverticulosis
# DVT prophylaxis-IV heparin
# Full code
Anticipated Discharge: > 48 hours
Subjective/Interval History
-
Date of Service: January 22, 2025
Continued right toes pain.
Not constipated.
Objective Data
-
Labs:
Laboratory Results
01/22/25 01/22/25
01:32 08:01
WBC 5.4
Hgb 12.0
Hct 37.9
Plt Count 257
APTT 79.8 H 79.3 H
Vital Signs:
Vital Signs
Temp Pulse Resp BP Pulse Ox
98.3 F 72 16 117/65 98
01/22/25 07:15 01/22/25 07:15 01/22/25 07:15 01/22/25 07:15 01/22/25 07:15
I&O
01/21/25 01/22/25 01/23/25
06:59 06:59 06:59
Intake Total 2160 / 2160 480 / 480
Balance 2160 / 2160 480 / 480
Physical Exam
-
General: Comfortable
Respiratory: Non Labored Respirations; Negative Accessory Resp Muscle Use
Neuro: AO x 3
Psych: Calm; Negative Confused
[2025-01-22 15:40] VITALS: BP 119/70
[2025-01-22] MEDS: NEURONTIN 200 MG PO ×2 (16:08→21:11)
[2025-01-22] MEDS: COLACE 200 MG PO (19:54)
[2025-01-22] MEDS: CELLCEPT 1000 MG PO (21:10)
[2025-01-22] MEDS: XALATAN OPHTHALMIC SOLUTION 1 DROP BOTH EYES (21:11)
[2025-01-22] MEDS: PROTONIX 40 MG PO (21:11)
[2025-01-22] MEDS: REVATIO 20 MG PO (21:11)
[2025-01-22] MEDS: NORVASC 5 MG PO (21:11)
[2025-01-22] MEDS: PLAQUENIL 400 MG PO (21:11)
[2025-01-22] MEDS: DESYREL PO (21:20)
[2025-01-22 23:05] VITALS: BP 100/65
[2025-01-23] MEDS: DILAUDID 1 MG IV ×5 (00:21→21:15)
[2025-01-23] MEDS: FLUSH (NSS) 2 FLUSH IV (00:22)
[2025-01-23] MEDS: BENADRYL 25 MG IV ×4 (05:31→21:14)
[2025-01-23] MEDS: FLUSH (NSS) 3 FLUSH IV (05:34)
[2025-01-23 05:56] VITALS: BMI 26.5
[2025-01-23 06:16] LABS: APTT 76.6 Sec (23.4-35.0)
[2025-01-23 07:20] VITALS: BP 85/53
[2025-01-23] MEDS: HEPARIN 25000 UNITS/250 ML IV (08:39)
[2025-01-23] MEDS: ASPIR LOW (ENTERIC COATED) 81 MG PO (08:46)
[2025-01-23] MEDS: NEURONTIN 200 MG PO ×3 (08:46→21:33)
[2025-01-23] MEDS: MIRALAX PO (08:47)
[2025-01-23] MEDS: COLACE 200 MG PO ×2 (08:47→21:12)
--- NOTE | 2025-01-23 09:25 | CM ---
Reviewed the chart notes and spoke with the patient at the bedside. Patient continues with heparin gtt. Per patient, surgical intervention will be a limflow procedure as revascularization option for patient, timing to be determined by surgeon.
Patient anticipates going to OR on Sunday. CM continues to be available to patient/family and is monitoring medical plan for needs at discharge.
Plan: Discharge plans will depend on the patient's progress.
--- NOTE | 2025-01-23 10:40 | W.PN.HOSP.TC ---
Today's Communication/Plan
-
Continue with IV heparin
Await vascular surgery beginning the week
Assessment / Plan
Assessment / Plan
54 female presented to the hospital with cold and painful right foot patient was seen by vascular surgeon at [facility] and underwent angioplasty in September as well as last Sunday. She had some initial pain which was felt to be secondary to
reperfusion pain but abruptly had cold and numb right foot she had ultrasound done as outpatient which showed right posterior tibial artery occlusion at the level of ankle and advised to go to ER. She has a history of antiphospholipid antibody
syndrome and maintained on Coumadin. She thinks that her INR was down to 1.8 for a procedure could have impacted this. She is normally ma
CTA-occlusion at the proximal aspect of the right anterior tibial artery without evidence of reconstitution. Occlusion of the right posterior tibial artery at the level of the ankle with evidence for some reconstitution below the level of the
ankle. Diminutive left posterior tibial artery with diminished flow suggesting a degree of stenosis and/or occlusion.
Arterial ultrasound on 01/12/2025-occlusion of the right posterior tibial artery at the level of the ankle.
# Peripheral arterial disease
Status post arteriogram 01/20 which showed disease in the anterior tibial artery, right peroneal artery, right posterior tibial artery. Plan for intervention noted for early next week.
Continue with IV heparin. Patient baseline APTT 40-45. Hematology recommending to keep PTT twice the normal limit of 80-90. She seems to be very sensitive with heparin. Frequent supratherapeutic PTT elevation noted but no external bleeding.
Continue with current pain regimen and if she were to require more Dilaudid for breakthrough pain will increase gabapentin further.
# SLE/antiphospholipid antibody syndrome/Raynaud's/scleroderma
Continue CellCept and Plaquenil
Also maintained on Coumadin as outpatient.
Sees . Her INR is kept between 3 and 3.5 as OP.
Hold coumadin while on IV heparin
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
occlusion of the right posterior tibial artery.
If felt more an embolic issue/thrombosis than classic PAD. Appreciate hematology input. Continue on aspirin along with Coumadin going forward
Echo 01/15 with normal EF mild MR and no changes compared to August 2022
# Hypertension-continue with amlodipine
# Anxiety -continue clonazepam, trazodone
# GERD-continue PPI
# DVT prophylaxis-IV heparin
# Full code
Anticipated Discharge: > 48 hours
Subjective/Interval History
-
Date of Service: January 23, 2025
No new issues
No overnight events
Objective Data
-
Labs:
Laboratory Results
01/23/25
05:51
APTT 76.6 H
Vital Signs:
Vital Signs
Temp Pulse Resp BP Pulse Ox
98.4 F 68 16 85/53 98
01/23/25 07:20 01/23/25 07:20 01/23/25 07:20 01/23/25 07:20 01/23/25 07:20
I&O
01/22/25 01/23/25 01/24/25
06:59 06:59 06:59
Intake Total 0 / 2160 0 / 1680
Balance 2160 / 2160 1680 / 1680
Physical Exam
-
HEENT: Moist Mucous Membranes
Respiratory: Non Labored Respirations; Negative Accessory Resp Muscle Use
Cardiac: Regular Rhythm and S1/S2
Neuro: AO x 3
Psych: Calm; Negative Confused
Data Reviewed
-
Labs: Labs Reviewed by me
--- NOTE | 2025-01-23 11:02 | W.PN.UPDATE ---
Update Note
Progress Note Update
I had a long detailed surgical discussion with Lizette and her (via telephone). Explained the results of the lower extremity arteriogram showing extensive tibial and small vessel occlusive disease. There is no option for traditional
endovascular arterial intervention and there is also no option for open revascularization. She is very much interested in all limb preservation options and therefore I am recommending an attempt at transcatheter arterialization of the deep veins.
The technical aspects of this procedure were discussed with her and her in detail. The benefits and rationale for this approach were discussed with both of them in detail. Operative risks were discussed with them in detail including but
not limited to bleeding, arterial access site injury, infection, contrast nephropathy, thrombosis of the LimFlow/TADV circuit, inability to successfully complete the LimFlow/TADV and the need for additional procedures. I discussed the anticipated
postoperative course with both of them in detail. I discussed the need for frequent postoperative follow-up and imaging. I was very clear that the goal would be to avoid major amputation by doing this procedure but may require multiple repeat
interventions to maximize the lifespan of the LimFlow/TADV circuit and achieve neovascularization long-term. We also discussed the importance of continuing medical therapy and reinitiating anticoagulation postop given her underlying hypercoagulable
disorder. I was also clear with her that this may pose challenges in terms of increasing bleeding risk but also increasing the risk of thrombotic complications with the LimFlow/TADV circuit. The alternative of major amputation below the knee was
discussed with both of them in detail.
They would like to move forward with LimFlow/TADV and we will plan for this next Sunday, January 27, 2025. Continue heparin drip with therapeutic PTT goal. All questions answered.
Truman Rachel III, MD
Vascular Surgery
[facility]
[2025-01-23 15:10] VITALS: BP 117/79
[2025-01-23] MEDS: PLAQUENIL 400 MG PO (21:12)
[2025-01-23] MEDS: CELLCEPT 1000 MG PO (21:12)
[2025-01-23] MEDS: PROTONIX 40 MG PO (21:12)
[2025-01-23] MEDS: DESYREL PO (21:12)
[2025-01-23] MEDS: XALATAN OPHTHALMIC SOLUTION 1 DROP BOTH EYES (21:13)
[2025-01-23] MEDS: REVATIO 20 MG PO (21:13)
[2025-01-23] MEDS: NORVASC 5 MG PO (21:16)
[2025-01-23 23:17] VITALS: BP 106/66
[2025-01-24] MEDS: DILAUDID 1 MG IV ×5 (01:15→21:21)
[2025-01-24] MEDS: BENADRYL 25 MG IV ×5 (01:15→22:16)
[2025-01-24 06:00] VITALS: BMI 27.3
[2025-01-24 06:23] LABS: Hematocrit 33.2 % (37.0-47.0); Hemoglobin 10.8 g/dL (12.0-16.0); Mean Corp Hgb Conc. 32.5 g/dL (33.0-37.0); Mean Corpuscular Volume 88.3 fL (81.0-99.0); Platelet Count 203 10^3/uL (130-400); Red Cell Dist. Width 14.7 % (11.5-14.5)
[2025-01-24 06:27] LABS: APTT 83.6 Sec (23.4-35.0)
[2025-01-24 07:25] VITALS: BP 112/62
[2025-01-24] MEDS: HEPARIN 25000 UNITS/250 ML IV (08:36)
[2025-01-24] MEDS: COLACE 200 MG PO ×2 (08:41→21:22)
[2025-01-24] MEDS: MIRALAX 17 GRAMS PO (08:41)
[2025-01-24] MEDS: ASPIR LOW (ENTERIC COATED) 81 MG PO (08:41)
[2025-01-24] MEDS: NEURONTIN 200 MG PO ×3 (08:41→21:22)
--- NOTE | 2025-01-24 09:36 | W.PN.HOSP.TC ---
Today's Communication/Plan
-
Continue with IV heparin
Assessment / Plan
Assessment / Plan
54 female presented to the hospital with cold and painful right foot patient was seen by vascular surgeon at [facility] and underwent angioplasty in September as well as last Sunday. She had some initial pain which was felt to be secondary to
reperfusion pain but abruptly had cold and numb right foot she had ultrasound done as outpatient which showed right posterior tibial artery occlusion at the level of ankle and advised to go to ER. She has a history of antiphospholipid antibody
syndrome and maintained on Coumadin. She thinks that her INR was down to 1.8 for a procedure could have impacted this. She is normally ma
CTA-occlusion at the proximal aspect of the right anterior tibial artery without evidence of reconstitution. Occlusion of the right posterior tibial artery at the level of the ankle with evidence for some reconstitution below the level of the
ankle. Diminutive left posterior tibial artery with diminished flow suggesting a degree of stenosis and/or occlusion.
Arterial ultrasound on 01/12/2025-occlusion of the right posterior tibial artery at the level of the ankle.
# Peripheral arterial disease
Status post arteriogram 01/20 which showed disease in the anterior tibial artery, right peroneal artery, right posterior tibial artery. Plan for intervention on 01/27 noted.
Continue with IV heparin. Patient baseline APTT 40-45. Hematology recommending to keep PTT twice the normal limit of 80-90. She seems to be very sensitive with heparin.
Continue with current pain regimen and if she were to require more Dilaudid for breakthrough pain will increase gabapentin further.
# SLE/antiphospholipid antibody syndrome/Raynaud's/scleroderma
Continue CellCept and Plaquenil
Also maintained on Coumadin as outpatient.
Sees . Her INR is kept between 3 and 3.5 as OP.
Hold coumadin while on IV heparin
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
occlusion of the right posterior tibial artery.
If felt more an embolic issue/thrombosis than classic PAD. Appreciate hematology input. Continue on aspirin along with Coumadin going forward
Echo 01/15 with normal EF mild MR and no changes compared to August 2022
# Hypertension-continue with amlodipine
# Anxiety -continue clonazepam, trazodone
# GERD-continue PPI
# DVT prophylaxis-IV heparin
# Full code
Anticipated Discharge: > 48 hours
Subjective/Interval History
-
Date of Service: January 24, 2025
Voices no specific complaints. No overnight events.
Patient would like to take a shower ,she understands the risks of transient interruption of heparin.
Objective Data
-
Labs:
Laboratory Results
01/24/25
05:49
WBC 4.4 L
Hgb 10.8 L
Hct 33.2 L
Plt Count 203 D
APTT 83.6 H
Vital Signs:
Vital Signs
Temp Pulse Resp BP Pulse Ox
98.4 F 63 16 112/62 95
01/24/25 07:25 01/24/25 07:25 01/24/25 07:25 01/24/25 07:25 01/24/25 07:25
I&O
01/23/25 01/24/25 01/25/25
06:59 06:59 06:59
Intake Total 1680 / 1680 480 / 480 480 / 480
Balance 1680 / 1680 480 / 480 480 / 480
Physical Exam
-
General: Comfortable
Respiratory: Non Labored Respirations; Negative Accessory Resp Muscle Use
Cardiac: Negative Tachycardic
Neuro: AO x 3
Data Reviewed
-
Labs: Labs Reviewed by me
[2025-01-24 15:15] VITALS: BP 103/70
--- NOTE | 2025-01-24 16:35 | PTCARENOTE ---
Dr. Gruber notified that patient requesting to shower; Per Dr. Gruber's order 'ok to interrupt Heparin gtt for shower, restart at same rate as prior to interruption, check a PTT in 6 hours'; Hep gtt turned off @10:00, restarted @10:15, PTT ordered for
16:15 and result posted @16:34 was 78.7; see [employer] Heparin gtt nursing intervention for details.
[2025-01-24 16:52] LABS: APTT 78.7 Sec (23.4-35.0)
[2025-01-24] MEDS: DESYREL PO (21:22)
[2025-01-24] MEDS: PLAQUENIL 400 MG PO (21:22)
[2025-01-24] MEDS: CELLCEPT 1000 MG PO (21:22)
[2025-01-24] MEDS: PROTONIX 40 MG PO (21:23)
[2025-01-24] MEDS: REVATIO 20 MG PO (21:23)
[2025-01-24] MEDS: XALATAN OPHTHALMIC SOLUTION 1 DROP BOTH EYES (21:23)
[2025-01-24] MEDS: NORVASC 5 MG PO (21:24)
[2025-01-24 23:00] VITALS: BP 102/66
[2025-01-25] MEDS: DILAUDID 1 MG IV ×5 (01:17→20:22)
[2025-01-25 06:00] VITALS: BMI 27.5
[2025-01-25 06:55] LABS: APTT 75.7 Sec (23.4-35.0)
[2025-01-25 08:00] VITALS: BP 117/72
[2025-01-25] MEDS: BENADRYL 25 MG IV ×3 (08:25→20:22)
[2025-01-25] MEDS: COLACE 200 MG PO ×2 (08:32→19:48)
[2025-01-25] MEDS: ASPIR LOW (ENTERIC COATED) 81 MG PO (08:32)
[2025-01-25] MEDS: MIRALAX 17 GRAMS PO (08:33)
[2025-01-25] MEDS: NEURONTIN 200 MG PO ×3 (08:33→21:36)
[2025-01-25] MEDS: HEPARIN 25000 UNITS/250 ML IV (11:06)
--- NOTE | 2025-01-25 14:24 | W.PN.HOSP.TC ---
Today's Communication/Plan
-
CW IV heparin
Await Limflow/TADV circuit -planned for sun
Assessment / Plan
Assessment / Plan
54 female presented to the hospital with cold and painful right foot patient was seen by vascular surgeon at [facility] and underwent angioplasty in September as well as last Sunday. She had some initial pain which was felt to be secondary to
reperfusion pain but abruptly had cold and numb right foot she had ultrasound done as outpatient which showed right posterior tibial artery occlusion at the level of ankle and advised to go to ER. She has a history of antiphospholipid antibody
syndrome and maintained on Coumadin. She thinks that her INR was down to 1.8 for a procedure could have impacted this. She is normally ma
CTA-occlusion at the proximal aspect of the right anterior tibial artery without evidence of reconstitution. Occlusion of the right posterior tibial artery at the level of the ankle with evidence for some reconstitution below the level of the
ankle. Diminutive left posterior tibial artery with diminished flow suggesting a degree of stenosis and/or occlusion.
Arterial ultrasound on 01/12/2025-occlusion of the right posterior tibial artery at the level of the ankle.
# Peripheral arterial disease
Status post arteriogram 01/20 which showed disease in the anterior tibial artery, right peroneal artery, right posterior tibial artery. Plan for intervention on 01/27 noted.
Continue with IV heparin. Patient baseline APTT 40-45. Hematology recommending to keep PTT twice the normal limit of 80-90. She seems to be very sensitive with heparin.
Continue with current pain regimen and if she were to require more Dilaudid for breakthrough pain will increase gabapentin further.
# SLE/antiphospholipid antibody syndrome/Raynaud's/scleroderma
Continue CellCept and Plaquenil
Also maintained on Coumadin as outpatient.
Sees . Her INR is kept between 3 and 3.5 as OP.
Hold coumadin while on IV heparin
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
occlusion of the right posterior tibial artery.
If felt more an embolic issue/thrombosis than classic PAD. Appreciate hematology input. Continue on aspirin along with Coumadin going forward
Echo 01/15 with normal EF mild MR and no changes compared to August 2022
# Hypertension-continue with amlodipine
# Anxiety -continue clonazepam, trazodone
# GERD-continue PPI
# DVT prophylaxis-IV heparin
# Full code
Anticipated Discharge: > 48 hours
Subjective/Interval History
-
Date of Service: January 25, 2025
Main pain if in her right big toe
No new worsening of her pain
No fever or chills
Objective Data
-
Labs:
Laboratory Results
01/25/25
06:23
APTT 75.7 H
Vital Signs:
Vital Signs
Temp Pulse Resp BP Pulse Ox
98.0 F 73 20 117/72 99
01/25/25 08:00 01/25/25 08:00 01/25/25 08:00 01/25/25 08:00 01/25/25 08:00
I&O
01/24/25 01/25/25 01/26/25
06:59 06:59 06:59
Intake Total 480 / 480 480 / 480
Balance 480 / 480 480 / 480
Physical Exam
-
General: Comfortable
Respiratory: Non Labored Respirations; Negative Accessory Resp Muscle Use
Cardiac: Negative Tachycardic
Musculoskeletal: Other (Rt big toe 2nd, 3rd toe discolored along with medial forefoot)
Neuro: AO x 3
[2025-01-25 15:51] VITALS: BP 103/63
[2025-01-25] MEDS: DESYREL PO (21:35)
[2025-01-25] MEDS: XALATAN OPHTHALMIC SOLUTION BOTH EYES (21:35)
[2025-01-25] MEDS: PROTONIX 40 MG PO (21:36)
[2025-01-25] MEDS: NORVASC 5 MG PO (21:36)
[2025-01-25] MEDS: PLAQUENIL 400 MG PO (21:36)
[2025-01-25] MEDS: REVATIO 20 MG PO (21:36)
[2025-01-25] MEDS: CELLCEPT 1000 MG PO (21:37)
[2025-01-25 23:27] VITALS: BP 101/64
[2025-01-26] MEDS: DILAUDID 1 MG IV ×7 (00:22→23:36)
[2025-01-26] MEDS: BENADRYL 25 MG IV ×5 (00:22→23:36)
[2025-01-26] MEDS: TYLENOL 650 MG PO (04:19)
[2025-01-26 06:00] VITALS: BMI 27.5
[2025-01-26 07:19] LABS: Hematocrit 34.6 % (37.0-47.0); Hemoglobin 11.1 g/dL (12.0-16.0); Mean Corp Hgb Conc. 32.1 g/dL (33.0-37.0); Mean Corpuscular Volume 88.0 fL (81.0-99.0); Platelet Count 209 10^3/uL (130-400); Red Cell Dist. Width 14.6 % (11.5-14.5)
[2025-01-26 07:20] VITALS: BP 127/84
[2025-01-26] MEDS: COLACE 200 MG PO ×2 (07:28→19:31)
[2025-01-26] MEDS: NEURONTIN 200 MG PO ×3 (07:28→21:17)
[2025-01-26] MEDS: ASPIR LOW (ENTERIC COATED) 81 MG PO (07:28)
[2025-01-26 07:29] LABS: APTT 41.0 Sec (23.4-35.0)
[2025-01-26] MEDS: MIRALAX 17 GRAMS PO (07:29)
--- NOTE | 2025-01-26 09:24 | PTCARENOTE ---
pt aaox3. tearful states she is having 7/10 pain in right toe. iv site on rounds looked red and slightly swollen. heparin stopped and vat team called to start new line. heparin gtt now running in left ac. pain med given as ordered. dr Yoder
made aware of morning ptt 41 ordered to increase heparin to 1100 units. ptt in 6 hours.
--- NOTE | 2025-01-26 11:37 | W.PN.HOSP.TC ---
Today's Communication/Plan
-
Monitor vital signs see plan
Check BMP
PTT
Start vitamin B12
OR tomorrow by vascular
Assessment / Plan
Assessment / Plan
54 female presented to the hospital with cold and painful right foot patient was seen by vascular surgeon at [facility] and underwent angioplasty in September as well as last Sunday. She had some initial pain which was felt to be secondary to
reperfusion pain but abruptly had cold and numb right foot she had ultrasound done as outpatient which showed right posterior tibial artery occlusion at the level of ankle and advised to go to ER. She has a history of antiphospholipid antibody
syndrome and maintained on Coumadin. She thinks that her INR was down to 1.8 for a procedure could have impacted this. She is normally ma
CTA-occlusion at the proximal aspect of the right anterior tibial artery without evidence of reconstitution. Occlusion of the right posterior tibial artery at the level of the ankle with evidence for some reconstitution below the level of the
ankle. Diminutive left posterior tibial artery with diminished flow suggesting a degree of stenosis and/or occlusion.
Arterial ultrasound on 01/12/2025-occlusion of the right posterior tibial artery at the level of the ankle.
# Peripheral arterial disease
Status post arteriogram 01/20 which showed disease in the anterior tibial artery, right peroneal artery, right posterior tibial artery. Plan for intervention on 01/27 noted.
Continue with IV heparin. Patient baseline APTT 40-45. Hematology recommending to keep PTT twice the normal limit of 80-90. She seems to be very sensitive with heparin.
Continue with current pain regimen and if she were to require more Dilaudid for breakthrough pain will increase gabapentin further.
# SLE/antiphospholipid antibody syndrome/Raynaud's/scleroderma
Continue CellCept and Plaquenil
Also maintained on Coumadin as outpatient.
Sees . Her INR is kept between 3 and 3.5 as OP. Failure of Lovenox in past. Will need Coumadin with IV heparin bridge when able after procedure
Hold coumadin while on IV heparin pending OR
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
occlusion of the right posterior tibial artery.
If felt more an embolic issue/thrombosis than classic PAD. Appreciate hematology input. Continue on aspirin along with Coumadin going forward
Echo 01/15 with normal EF mild MR and no changes compared to August 2022
Vitamin B12 deficiency
start Vitamin B12
# Hypertension-continue with amlodipine
# Anxiety -continue clonazepam, trazodone
# GERD-continue PPI
# DVT prophylaxis-IV heparin
# Full code
General: Comfortable
Respiratory: Non Labored Respirations; Negative Accessory Resp Muscle Use
Cardiac: Negative Tachycardic
Musculoskeletal: Other (Rt big toe 2nd, 3rd toe discolored along with medial forefoot)
Neuro: AO x 3
Anticipated Discharge: > 48 hours
Subjective/Interval History
-
Date of Service: January 26, 2025
Has some pain
Objective Data
-
Labs:
Laboratory Results
01/26/25 01/26/25
07:00 15:00
WBC 4.0 L
Hgb 11.1 L
Hct 34.6 L
Plt Count 209
APTT 41.0 H Pending
Vital Signs:
Vital Signs
Temp Pulse Resp BP Pulse Ox
98.0 F 77 16 127/84 97
01/26/25 07:20 01/26/25 07:20 01/26/25 07:20 01/26/25 07:20 01/26/25 07:20
I&O
01/25/25 01/26/25 01/27/25
06:59 06:59 06:59
Intake Total 480 / 480 1080 / 1080
Balance 480 / 480 1080 / 1080
[2025-01-26] MEDS: VITAMIN B-12 1000 MCG PO (11:49)
[2025-01-26 11:58] LABS: Blood Urea Nitrogen 8 mg/dl (7-17); Calcium 9.1 mg/dl (8.4-10.2); Carbon Dioxide 26 mmol/L (22-30); Chloride 108 mmol/L (98-107); Estimated Creatinine Clearance 61 ml/min; Glucose 87 mg/dl (70-99); Potassium 4.9 mmol/L (3.5-5.1); Sodium 136 mmol/L (135-145); eGFR > 60.00
--- NOTE | 2025-01-26 13:25 | CM ---
Chart reviewed. Case Management will continue to monitor for needs and support if/when identified
[2025-01-26] MEDS: HEPARIN 25000 UNITS/250 ML IV ×2 (14:59→23:32)
[2025-01-26 15:20] VITALS: BP 111/74
[2025-01-26 16:13] LABS: APTT 57.1 Sec (23.4-35.0)
[2025-01-26] MEDS: DILAUDID 0.5 MG IV (17:01)
[2025-01-26] MEDS: NEURONTIN 100 MG PO (17:01)
[2025-01-26] MEDS: NORVASC 5 MG PO (21:17)
[2025-01-26] MEDS: PLAQUENIL 400 MG PO (21:17)
[2025-01-26] MEDS: PROTONIX 40 MG PO (21:17)
[2025-01-26] MEDS: REVATIO 20 MG PO (21:17)
[2025-01-26] MEDS: CELLCEPT 1000 MG PO (21:17)
[2025-01-26] MEDS: DESYREL PO (21:18)
[2025-01-26] MEDS: XALATAN OPHTHALMIC SOLUTION 1 DROP BOTH EYES (21:18)
[2025-01-26 23:00] VITALS: BP 98/64
[2025-01-26 23:10] LABS: APTT 108.5 Sec (23.4-35.0)
[2025-01-26] MEDS: KLONOPIN 0.5 MG PO (23:36)
[2025-01-27] VITALS (16 sets, daily range): BP systolic 0–157; BP diastolic 12–125; BMI 27.5
[2025-01-27] MEDS: DILAUDID 0.5 MG IV ×2 (00:38→21:59)
[2025-01-27 05:26] LABS: APTT 75.2 Sec (23.4-35.0)
[2025-01-27] MEDS: DILAUDID 1 MG IV ×4 (05:43→23:15)
[2025-01-27 08:27] LABS: INR 1.05; PT 14.0 Sec (11.4-14.6)
[2025-01-27 08:29] LABS: Hematocrit 34.3 % (37.0-47.0); Hemoglobin 11.1 g/dL (12.0-16.0); Mean Corp Hgb Conc. 32.4 g/dL (33.0-37.0); Mean Corpuscular Volume 88.6 fL (81.0-99.0); Nucleated Red Blood Cells % 0 %; Platelet Count 213 10^3/uL (130-400); Red Cell Dist. Width 14.7 % (11.5-14.5)
[2025-01-27] MEDS: ASPIR LOW (ENTERIC COATED) 81 MG PO (08:49)
[2025-01-27] MEDS: NEURONTIN 200 MG PO (08:49)
[2025-01-27] MEDS: VITAMIN B-12 1000 MCG PO (08:49)
[2025-01-27] MEDS: MIRALAX PO (08:50)
[2025-01-27] MEDS: COLACE PO (08:50)
[2025-01-27 09:05] LABS: Blood Urea Nitrogen 7 mg/dl (7-17); Calcium 9.5 mg/dl (8.4-10.2); Carbon Dioxide 25 mmol/L (22-30); Chloride 108 mmol/L (98-107); Estimated Creatinine Clearance 67 ml/min; Glucose 94 mg/dl (70-99); Potassium 4.2 mmol/L (3.5-5.1); Sodium 137 mmol/L (135-145); eGFR > 60.00
--- NOTE | 2025-01-27 10:33 | W.PN.ONC ---
Today's Communication / Plan
-
Continue heparin gtt
When able, transition back to warfarin with goal 3-3.5 plus ASA 81mg daily
She previously failed a Lovenox + coumadin bridge, therefore will benefit from heparin + coumadin (after all procedures) until INR > 3, prior to discharge
After d/c, f/u with Dr. Sanchez for heme mgmt
She's also considering seeing Dr. Zazueta at [facility]], whom she saw for years prior to his leaving [place]
She's rec'd Cytoxan infusions previously to help manage her autoimmune issues, may benefit from another round as outpatient
f/u with rheum at [place]
Impression
Impression
a/w Right posterior tibial artery occlusion
triple positive APLS
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
PAD
normocytic anemia with a component of iron deficiency with ferritin 32
Plan
Plan
Continue heparin gtt
When able, transition back to warfarin with goal 3-3.5 plus ASA 81mg daily
She previously failed a Lovenox + coumadin bridge, therefore will benefit from heparin + coumadin (after all procedures) until INR > 3, prior to discharge
After d/c, f/u with Dr. Sanchez for heme mgmt
She's also considering seeing Dr. Zazueta at [facility]], whom she saw for years prior to his leaving [place]
She's rec'd Cytoxan infusions previously to help manage her autoimmune issues, may benefit from another round as outpatient
f/u with rheum at [place]
Subjective/Objective
Subjective/Objective
for OR today
no new issues/complaints
Vital Signs:
Vital Signs
Temp Pulse Resp BP Pulse Ox
98.2 F 71 16 117/12 96
01/27/25 07:21 01/27/25 07:21 01/27/25 07:21 01/27/25 07:21 01/27/25 07:21
Lab Results:
Laboratory Data
WBC 3.6 10^3/uL (4.8-10.8) L 01/27/25 07:29
Hgb 11.1 g/dL (12.0-16.0) L 01/27/25 07:29
Plt Count 213 10^3/uL (130-400) 01/27/25 07:29
PT 14.0 Sec (11.4-14.6) 01/27/25 07:29
INR 1.05 01/27/25 07:29
APTT 75.2 Sec (23.4-35.0) H 01/27/25 05:08
eGFR > 60.00 01/27/25 07:29
--- NOTE | 2025-01-27 11:17 | CM ---
Reviewed the chart notes and spoke with the patient and her spouse at the bedside. Patient anticipating going to OR today for LimFlow/TADV. CM continues to be available to patient/family and is monitoring medical plan for needs at discharge.
Plan: Discharge plans will depend on the patient's progress.
--- NOTE | 2025-01-27 12:36 | W.PN.HOSP.TC ---
Today's Communication/Plan
-
monitor vitals
see plan
pain control; increase gabapentin
OR today
post OP defer anticoagulation to vascular
Assessment / Plan
Assessment / Plan
54 female presented to the hospital with cold and painful right foot patient was seen by vascular surgeon at [facility] and underwent angioplasty in September as well as last Sunday. She had some initial pain which was felt to be secondary to
reperfusion pain but abruptly had cold and numb right foot she had ultrasound done as outpatient which showed right posterior tibial artery occlusion at the level of ankle and advised to go to ER. She has a history of antiphospholipid antibody
syndrome and maintained on Coumadin. She thinks that her INR was down to 1.8 for a procedure could have impacted this. She is normally ma
CTA-occlusion at the proximal aspect of the right anterior tibial artery without evidence of reconstitution. Occlusion of the right posterior tibial artery at the level of the ankle with evidence for some reconstitution below the level of the
ankle. Diminutive left posterior tibial artery with diminished flow suggesting a degree of stenosis and/or occlusion.
Arterial ultrasound on 01/12/2025-occlusion of the right posterior tibial artery at the level of the ankle.
# Peripheral arterial disease
Status post arteriogram 01/20 which showed disease in the anterior tibial artery, right peroneal artery, right posterior tibial artery. Plan for intervention on 01/27 noted. Postop defer to vascular when to start IV heparin and possible Coumadin.
Will need bridging as has history of failure to Lovenox
Continue with IV heparin. Patient baseline APTT 40-45. Hematology recommending to keep PTT twice the normal limit of 80-90. She seems to be very sensitive with heparin.
Continue with current pain regimen and if she were to require more Dilaudid for breakthrough pain will increase gabapentin further. Increase gabapentin
# SLE/antiphospholipid antibody syndrome/Raynaud's/scleroderma
Continue CellCept and Plaquenil
Also maintained on Coumadin as outpatient.
Sees . Her INR is kept between 3 and 3.5 as OP. Failure of Lovenox in past. Will need Coumadin with IV heparin bridge when able after procedure
Hold coumadin while on IV heparin pending OR
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
occlusion of the right posterior tibial artery.
If felt more an embolic issue/thrombosis than classic PAD. Appreciate hematology input. Continue on aspirin along with Coumadin going forward
Echo 01/15 with normal EF mild MR and no changes compared to August 2022
Vitamin B12 deficiency
started Vitamin B12
# Hypertension-continue with amlodipine
# Anxiety -continue clonazepam, trazodone
# GERD-continue PPI
# DVT prophylaxis-IV heparin
# Full code
General: Comfortable
Respiratory: Non Labored Respirations; Negative Accessory Resp Muscle Use
Cardiac: Negative Tachycardic
Musculoskeletal: Other (Rt big toe 2nd, 3rd toe discolored along with medial forefoot)
Neuro: AO x 3
Anticipated Discharge: Today
Subjective/Interval History
-
Date of Service: January 27, 2025
Still has pain
Objective Data
-
Labs:
Laboratory Results
01/27/25 01/27/25
05:08 07:29
WBC 3.6 L
Hgb 11.1 L
Hct 34.3 L
Plt Count 213
PT 14.0
INR 1.05
APTT 75.2 H
Sodium 137
Potassium 4.2
Chloride 108 H
Carbon Dioxide 25
BUN 7
Creatinine 1.0
Glucose 94
Calcium 9.5
Vital Signs:
Vital Signs
Temp Pulse Resp BP Pulse Ox
98.0 F 80 17 115/83 98
01/27/25 11:35 01/27/25 11:35 01/27/25 11:35 01/27/25 11:35 01/27/25 11:35
I&O
01/26/25 01/27/25 01/28/25
06:59 06:59 06:59
Intake Total 1080 / 1080 720 / 720
Balance 1080 / 1080 720 / 720
--- NOTE | 2025-01-27 13:45 | PTCARENOTE ---
Heparin gtt d/c upon transfer to [employer]. per INSURANCE CLAIMS ANALYST Yesika julio order.
--- NOTE | 2025-01-27 14:00 | PTCARENOTE ---
recieved pt from [facility] awake, alert and oriented . bp 120/75 nsr at 73 ,94%on ra. lungs cta. dp pulses by doppler bilaterally. anesthesia notitfied .
[2025-01-27 16:30] LABS: ACT-LR - POC 327 Seconds (116-155)
[2025-01-27 17:27] LABS: ACT-LR - POC 274 Seconds (116-155)
[2025-01-27 19:17] LABS: ACT-LR - POC 236 Seconds (116-155)
[2025-01-27 20:10] LABS: ACT-LR - POC 253 Seconds (116-155)
[2025-01-27] MEDS: SUBLIMAZE 50 MCG IV ×2 (21:25→21:36)
--- NOTE | 2025-01-27 21:33 | W.SUR.POST ---
Surgical Immediate Post Op
Note
Pre Op Diagnosis: PAD
Post Op Diagnosis: PAD
Procedure Performed: RLE Limflow, balloon angioplasty, angiojet, and stenting
Primary Surgeon: Truman Rachel MD
Secondary Surgeons: Shravan Llamas MD PhD
Anesthesia: General, per anesthesia
Estimated Blood Loss: 150 cc
Fluids: Per anesthesia
Drains/Shunts: RLE groing 10 Fr MCKAY
Specimens/Cultures: None
Doppler/Duplex/Angio (Y/N): Angio
Complications: Loss of signal at completion of Limflow resulting in groin cutdown and further stenting/angioplasty
Operative Findings: Right pedal veinous access and SFA arterial access, successful Limflow, and completion angio with good veinous outflow. Subsequent loss of signal after closure resulting in right groin cutdown and repeat angiogram via direct SFA
stick. Thrombus appreciated in mid-pop and proximal PT/PT trunk. Angiojet and balloon angioplasty proximally and angioplasty/stenting distally with improved inflow and outflow. Primary repair of SFA and layered closure over 10 Fr MCKAY. Improved signal
post-op.
--- NOTE | 2025-01-27 21:41 | OR.RPT ---
Operative Report
Operative Report
Date of Operation: 01/27/2025
Pre Op Diagnosis:
Atherosclerosis of kas[place] arteries of right leg with rest pain and ischemic changes to the forefoot
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
Scleroderma
Antiphospholipid antibody syndrome with hypercoagulability
Post Op Diagnosis:
Atherosclerosis of kas[place] arteries of right leg with rest pain and ischemic changes to the forefoot
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
Scleroderma
Antiphospholipid antibody syndrome with hypercoagulability
Procedure:
1. 0620T: Endovascular venous arterialization, tibial or peroneal vein, with transcatheter placement of intravascular
stent graft(s) and closure by any method, including percutaneous or open vascular access, ultrasound guidance for
vascular access when performed, all catheterization(s) and intraprocedural roadmapping and imaging guidance
necessary to complete the intervention, all associated radiological supervision and interpretation, when performed
2. [id number]: Bypass right posterior tibial artery to lower extremity vein with synthetic substitute, percutaneous approach
3. Cutdown and exposure of right superficial femoral artery for additional endovascular intervention. Primary repair
4. Mechanical thrombectomy of right popliteal artery, posterior tibial artery and proximal LimFlow/TADV circuit (AngioJet)
5. Balloon angioplasty and drug-eluting stent placement to plantar vein outflow right foot (6 mm x 120 mm Zilver PTX)
6. Balloon angioplasty and bioabsorbable drug-eluting scaffold stent placement of proximal kasaan posterior tibial artery (3 mm x 38 mm Hernandez Esprit)
7. Balloon angioplasty and Viabahn stent grafting of right popliteal artery ectasia (6 mm x 5 cm Viabahn stent graft)
Surgeon: Truman Rachel III, MD
Tray Delivery Aide: Shravan Llamas MD PhD PGY-7
Anesthesia: General
Complications: None
Estimated Blood Loss: 100 cc
History and Indications for Procedure: 54-year-old female with complex medical history and severe tibial artery/small vessel occlusive disease of the right lower extremity. She had failed a recent endovascular intervention at an outside hospital.
She had severe unrelenting rest pain in her right foot. She was interested in all limb preservation options and I recommended an attempt at transcatheter deep venous arterialization.
Procedure in Detail: Lizette Palma was brought back to the operating room and placed supine on the OR table. General anesthesia was induced. Preoperative antibiotics were given. The patient�s right lower extremity was prepped and draped in the usual
sterile fashion.
Patient was placed in reverse Trendelenburg position A sterile tourniquet was applied to the right calf and inflated while obtaining venous access. We obtained ultrasound guided percutaneous access in the Lateral Plantar Vein using a micropuncture
technique. A 4Fr sheath was placed. A 0.014 Glidewire advantage wire was advanced through the Lateral Plantar Vein into the Posterior Tibial Vein.
Attention was then turned to the patient�s right groin. We first obtained antegrade percutaneous access at the origin of the right superficial femoral artery using fluoroscopic and ultrasound guidance with a micropuncture needle. A 7Fr sheath was
inserted over a Phanfare wire, which was advanced into the superficial femoral artery (SFA). We obtained a right lower extremity angiogram, which demonstrated the following:
Patent superficial femoral artery and popliteal artery. Focal segment of popliteal ectasia identified below the knee. Anterior tibial artery patent for a short segment and then occluded with no distal reconstitution. Patent tibioperoneal trunk.
Patent peroneal artery to the ankle. Occluded posterior tibial artery with no meaningful distal reconstitution.
Systemic heparin was administered. We used a Quickcross catheter and 0.014 wire to select the posterior tibial artery. We advanced the LimFlow ARC� Arterial Catheter into the proximal posterior tibial artery. We advanced the LimFlow V-Ceiver� Venous
Catheter to the Posterior Tibial vein from the Lateral Plantar Vein sheath at the same
approximate level. The fluoroscopy unit was rotated in such a way as to overlay the crossing device and snare. The LimFlow crossing device (ARC) needle was deployed into the Posterior Tibial Vein. A 0.014 wire was advanced through the crossing
device into the venous snare (V-Ceiver) where it was captured and subsequently withdrawn
through the venous sheath, providing through and through wire access. The arteriovenous connection was ballooned with a 3 mm x40 mm balloon. Next, the forward cutting LimFlow Vector� Valvulotome was advanced from the arterial sheath across the
arteriovenous connection into the Posterior Tibial Vein. The valvulotome was deployed and advanced down the vein in order to lyse the venous valves to the distal-most aspect of the Lateral Plantar Vein. A 5 mm x 200 mm balloon was used to
angioplasty the donor vein to confirm adequate valve effacement and absence of stricture within the donor vein in preparation for stent placement. A 5 mm x 60 mm high pressure Burnet balloon was used distally near the ankle to completely open the
posterior tibial vein at that level. We then deployed two LimFlow cylindrical stent grafts (5.5mm x 150mm and 5.5mm x 150mm) in the Posterior Tibial Vein from the ankle extending proximally up the calf. Next the tapered conical stent (3.5-5.5mm x 60
mm) was deployed proximally across the level of the arteriovenous connection. The stent grafts were post-dilated to 3 mm in the arterial segment and 5 mm in the venous segment.
The plantar sheath was retracted to allow for wiring of the metatarsal aspect of the Lateral Plantar Vein. Using a Quickcross catheter and Glidewire advantage and navigated through the lateral plantar vein outflow and across the pedal venous loop.
The pedal venous loop was ballooned with a long 3 mm angioplasty balloon. A 4 mm angioplasty balloon was used to profile the lateral plantar vein outflow distal to the stent. Subsequent arteriogram demonstrated residual areas of stenosis along the
plantar vein outflow likely due to retained valves. The areas of stenosis were then treated with a 5 mm x 20 mm cutting angioplasty balloon. Subsequent arteriogram demonstrated significant improvement in the appearance of the venous outflow in the
foot.
On subsequent imaging, thrombus was identified in the proximal kas[place] posterior tibial artery. tPA was administered across the segment of thrombus in the proximal posterior tibial artery. We then profiled the area with a 3 mm angioplasty balloon.
Subsequent angiogram demonstrated patent posterior tibial artery, posterior tibial stents and robust filling of the pedal venous system.
A closure device was deployed at the arterial access site and hemostasis was achieved. The pedal sheath was removed and venous access hemostasis was obtained. Unfortunately at this point we could not find Doppler signals in the right foot or in the
popliteal artery behind the knee. It was unclear if this was a closure device mediated problem or if there was an additional issue with the LimFlow/TADV circuit. I immediately re-heparinized the patient with a weight-based bolus. I made the
decision to cut down on the proximal superficial femoral artery to examine whether this was a closure device issue or whether additional endovascular intervention on the limb flow circuit needed to be performed.
A vertical incision was made over the right groin access site. Electrocautery and sharp dissection were used to expose the superficial femoral artery. The closure device Prolene was visualized in the proximal superficial femoral artery. There was
a pulse in the superficial femoral artery which was quite strong and was equal proximal and distal to the closure device knots. Proximal and distal control was obtained with vessel loops. As this did not appear to be a thrombotic complication
related to the closure device I made a decision to interrogate the LimFlow/TADV circuit with an additional arteriogram. Under direct visualization the right superficial femoral artery was accessed in an antegrade fashion with a micropuncture
needle. We then upsized to a 5 Italian sheath over a Appscoson wire. An arteriogram was performed which demonstrated a patent superficial femoral artery but sluggish flow was identified. The area of ectasia in the popliteal artery below the knee
appeared to be contributing to a flow-limiting issue and perhaps a filling defect. The proximal posterior tibial artery was occluded and no flow was seen through the LimFlow circuit.
Under roadmap guidance using a Quickcross catheter and Glidewire we navigated across the popliteal artery ectasia easily and into the kas[place] posterior tibial artery. Additional arteriograms of the LimFlow/TADV circuit revealed patent stents and
venous outflow in the foot but the proximal kas[place] posterior tibial artery was thrombosed. We then performed mechanical thrombectomy on the ectatic popliteal artery segment and the proximal posterior tibial artery using an AngioJet catheter. We
passed the AngioJet catheter through this segment several times and subsequent arteriogram revealed significant improvement. Additional arteriograms of the venous outflow in the foot revealed significant luminal irregularity of the lateral plantar
vein outflow with areas of stenosis identified.
Using a quick cross catheter and 0.014 wire I was able to navigate across the lateral plantar vein outflow and the pedal venous loop. I then brought into position a 6 mm x 120 mm Zilver PTX stent. This was positioned and deployed in the desired
location in the lateral plantar vein outflow. The stent was postdilated with a 5 mm angioplasty balloon. We then focused our attention on the area of popliteal artery ectasia. I was concerned that this was contributing to turbulent flow or was
perhaps a thrombogenic source and elected to exclude it. Under roadmap guidance I positioned a 6 mm x 5 cm Viabahn stent graft across the popliteal artery segment. This was deployed in the desired location and postdilated with a 5 mm angioplasty
balloon. Subsequent arteriogram demonstrated an excellent technical result with a widely patent popliteal artery stent and no residual stenosis identified. Once again identified was thrombus forming in the [place] posterior tibial artery and
proximal LimFlow/TADV stents. I once again passed the AngioJet catheter through the kas[place] posterior tibial artery proximally and proximal LimFlow/TADV stents. Following several passes an arteriogram demonstrated a significantly improved result
with a patent posterior tibial artery and limb flow stents. I was concerned however that there was an intrinsic abnormality in the proximal posterior tibial artery and elected to treat this area with a drug-eluting bioabsorbable scaffold stent.
Under roadmap guidance a 3 mm x 38 mm [employer] Esprit stent was positioned and deployed in the proximal kas[place] posterior tibial artery.
A completion arteriogram demonstrated a patent superficial femoral artery and popliteal artery. The popliteal artery stent was patent with no stenosis identified. Brisk flow was identified through the posterior tibial artery and LimFlow/TADV
circuit. Brisk venous outflow was identified in the foot. The peroneal artery was patent to the ankle on completion imaging.
Handheld Doppler was performed at the distal Posterior Tibial Vein, Lateral Plantar Vein, and outflow Greater Saphenous Vein and an audible pulsatile signal was heard at all points.
I elected not to reverse anticoagulation at the completion of the case given the patient's history and thrombotic issues IntraOp. The 6 Italian sheath was removed and the arteriotomy repaired with 3 interrupted 6-0 Prolene sutures. There was an
excellent pulse in the superficial femoral artery following the repair. The suture line was inspected and was hemostatic. Hemostasis was achieved in the wound bed in the right groin. The wound was irrigated with saline solution. A #10 MCKAY drain
was left in the wound bed and brought out through a separate stab incision at the skin. The drain was secured in place at the skin level. The wound was then closed in layers and sterile dressings were applied.
Attestation: I was present and responsible for the entire procedure
Signed:
Truman Rachel III, MD
Vascular Surgery
[facility]
[2025-01-27] MEDS: HEPARIN 25000 UNITS/250 ML IV (22:19)
--- NOTE | 2025-01-27 22:35 | PTCARENOTE ---
Assumed care of patient from RUBBER BELT SPLICER around 2230, Pt AOx3, anxious and asking for . report went over with RUBBER BELT SPLICER, pulses on right foot checked with doppler, all present. Right groin site checked, soft with no hematoma. Right MCKAY drain in
place. Per RUBBER BELT SPLICER, MCKAY emptied for 125cc prior to coming over, another 40 cc emptied on arrival. While assessing pt and performing CHG bath, another RN was wiping right foot when a scab must have come off and the foot started squirting blood.
Pressure applied and SHIPPING PACKER notified. When bleeding persisted, SHIPPING PACKER notified Dr Rachel and asked to come assess. Bleeding resolved, pressure dressing applied. Pulses still present with doppler.
Pt complaining of 'someone squeezing' her right foot and it being painful, PRN dilaudid and benadryl given as ordered. Will continue to monitor.
Between 2300 and 0000, pt had 285 cc of blood from right MCKAY drain. Notified SHIPPING PACKER
At 0015,went in to sit patient up to 30 degrees and rechecked pt's groin and noticed oozing from the MCKAY drain site and that the bulb was full again, within 20 minutes, another 305 cc was emptied. Pt with increasing hematoma in groin and into her
right thigh. Pressure applied
STAT labs drawn, heparin gtt placed on hold at this time.
HGB 10.2, PTT>200.
SHIPPING PACKER notified Dr Rachel, per Dr Rachel, redraw labs at 0400. Continue to monitor. Pt's HR also now elevated 140-150's and BP trending down, now in the 110-120's systolically. Did mention to SHIPPING PACKER while she was on the phone, that patient is also more
confused and paranoid at this time.
At 0120, Another 100cc emptied from the MCKAY drain.
--- NOTE | 2025-01-27 22:46 | SUR.PHASEI ---
pt vss. pt pain is decreasing. pt aaox3. right groin no hematoma,, right groin jarrett dressing intact, scant amount previous drainage. pt transfered to ICU 3363. report given to BC BANUELOS.
[2025-01-27 22:49] LABS: Glucose - Point of Care 161 mg/dl (70-99)
--- NOTE | 2025-01-27 22:59 | W.PN.UPDATE ---
Update Note
Progress Note Update
9025- Patient arrived post op, while patient was getting wiped down with CHG wipes nursing noted blood spirting from the bottom of her right foot. Pressure was immediately applied with sterile gauze, pressure held several minutes. Dr. Rachel
updated and came to bedside, blood flow had slowed down, one of the vascular access points that was used during the surgery. Recommendation per Dr. Rachel is to continue to hold pressure and apply sterile dressing with pressure continue to watch.
Heparin gtt to continue as ordered. Right Femoral dressing intact, scant amount of blood on dressing and intact.
[2025-01-27] MEDS: BENADRYL 25 MG IV (23:15)
[2025-01-27] MEDS: NSS 1000 IV (23:16)
[2025-01-28] VITALS (60 sets, daily range): BP systolic 87–155; BP diastolic 45–107; BMI 27.6
[2025-01-28] MEDS: NEURONTIN PO ×2 (00:03→02:17)
[2025-01-28 00:47] LABS: Hematocrit 30.9 % (37.0-47.0); Hemoglobin 10.2 g/dL (12.0-16.0)
[2025-01-28 00:58] LABS: INR 1.17; PT 15.2 Sec (11.4-14.6)
[2025-01-28 01:15] LABS: APTT > 200.00 Sec (23.4-35.0)
[2025-01-28 01:30] LABS: Blood Urea Nitrogen 9 mg/dl (7-17); Calcium 8.7 mg/dl (8.4-10.2); Carbon Dioxide 19 mmol/L (22-30); Chloride 111 mmol/L (98-107); Estimated Creatinine Clearance 74 ml/min; Glucose 183 mg/dl (70-99); Potassium 4.4 mmol/L (3.5-5.1); Sodium 137 mmol/L (135-145); eGFR > 60.00
[2025-01-28] MEDS: CELLCEPT PO (02:16)
[2025-01-28] MEDS: COLACE PO ×2 (02:16→08:48)
[2025-01-28] MEDS: DESYREL PO ×2 (02:16→21:52)
[2025-01-28] MEDS: PLAQUENIL PO (02:17)
[2025-01-28] MEDS: REVATIO PO (02:17)
[2025-01-28] MEDS: PROTONIX PO (02:17)
[2025-01-28] MEDS: NORVASC PO (02:17)
[2025-01-28] MEDS: XALATAN OPHTHALMIC SOLUTION BOTH EYES (02:17)
--- NOTE | 2025-01-28 02:18 | W.PN.UPDATE ---
Addendum entered and electronically signed by AMBERLY Nolasco 01/28/25 04:31:
0425- PTT resulted 35.3, hgb 9.4, updated Dr. Rachel of lab results and groin hematoma is stable, bleeding has decreased at the MCKAY site as well. Recommendation to resume heparin gtt at previous weight based dosing, no rebolus. Repeat PTT in 6 hours.
Original Note:
Update Note
Progress Note Update
01/28/25
0030- Called to bedside due to increased bleeding at MCKAY site and hematoma around femoral insertion site. Dressing of MCKAY draining red blood and MCKAY drainage increased significantly over the last 1-2 hours, over 300cc for the last hour, red blood, no
clots. Hematoma explaining around right femoral insertion site up to the groin/perineum and into the top right thigh, red blood noted on dressing site. Patient's vital signs HR 130-140s sinus tachycardia and SBP 120-130s. Dr. Rachel, vascular
surgeon, called and notified of increased red bloody drainage at MCKAY site and groin insertion site. Pressure applied to dressing sites, bleeding slowed down but MCKAY drainage continues with good amount of output red blood drainage. Labs obtained H&H,
bmp, and PT/INR/PTT; heparin gtt placed on hold.
0120- Dr. Rachel updated with lab results, PTT greater than 200 and H&H hgb 10.2. Will continue to hold heparin gtt and repeat labs at 0400. MCKAY drain continues with red bloody output, emptied for additional 100cc. Hematoma expanding around right
groin insertion site. Dressing sites re-enforced, monitor vital signs and update vascular surgeon if worsening signs of bleeding at incision sites.
[2025-01-28 03:59] LABS: Hematocrit 28.3 % (37.0-47.0); Hemoglobin 9.4 g/dL (12.0-16.0); Mean Corp Hgb Conc. 33.2 g/dL (33.0-37.0); Mean Corpuscular Volume 86.0 fL (81.0-99.0); Nucleated Red Blood Cells % 0 %; Platelet Count 181 10^3/uL (130-400); Red Cell Dist. Width 14.6 % (11.5-14.5)
[2025-01-28 04:09] LABS: APTT 35.3 Sec (23.4-35.0); INR 1.15; PT 15.0 Sec (11.4-14.6)
[2025-01-28 04:26] LABS: Blood Urea Nitrogen 10 mg/dl (7-17); Calcium 8.1 mg/dl (8.4-10.2); Carbon Dioxide 18 mmol/L (22-30); Chloride 110 mmol/L (98-107); Estimated Creatinine Clearance 61 ml/min; Glucose 180 mg/dl (70-99); Potassium 4.3 mmol/L (3.5-5.1); Sodium 137 mmol/L (135-145); eGFR > 60.00
--- NOTE | 2025-01-28 04:30 | PTCARENOTE ---
Restarted hep gtt per Dr Rachel's orders based on AM PTT. Starting back at 1400 units/hr, no bolus.
--- NOTE | 2025-01-28 07:11 | CON.INTV ---
Consultation
Consultation Request
Date/Time Consultation Requested: 01/27/2025
Date/Time Consultation Performed: 01/28/2025
Medical History
-
Chief Complaint: Cold, painful foot
History of Present Illness:
Patient is a 54-year-old female with known history of antiphospholipid antibody syndrome, Raynaud's disease along with lupus and scleroderma with crest syndrome, multiple VTE events in the past as well as failed Lovenox therapy, who presented to the
emergency room with cold painful right foot. Patient has known history of severe peripheral vascular disease and follows at [facility]. She had angioplasty performed in September and then again in January at [facility] for right foot
ischemia. Patient reportedly had increased pain since her most recent procedure initially felt to be related to reperfusion pain. In view of worsening pain and foot feeling numb and cold, she had an outpatient ultrasound performed prior to
admission which showed right posterior tibial artery occlusion at the level of the ankle, patient was subsequently referred to emergency room. She was evaluated by vascular surgery as well as hematology service. She has been on heparin infusion
during most of this hospital stay. On 01/20, patient was taken to the OR and had selective catheterization of third order lower extremity artery performed. Subsequently on 01/27 patient was again taken to the OR for right lower extremity limb
flow, balloon angioplasty, AngioJet and stent placement. Postprocedure, patient was admitted to ICU and environmental remediation consultant service was consulted for additional input.
Past Medical History
Past Medical History: Reports Other
Additional Past Medical History:
Antiphospholipid syndrome
DVT
IBS
Lupus
Raynaud's disease
Scleroderma
Past Surgical History: Reports Other
Additional Past Surgical History:
Cholecystectomy
Partial amputation of right pinky toe
Impression amputation of left middle finger
Multiple Angioplasties
Social History
Tobacco: Non-smoker
Alcohol: None
Drug: None
Family History
Family History: Not pertinent
Allergies / Home Medications
Allergies
Allergy/AdvReac Type Severity Reaction Status Date / Time
No Known Allergies Allergy Verified 01/12/25 20:24
Home Medications
�Medication �Instructions �Recorded �Confirmed �Last Taken �Type
amlodipine 5 mg tablet 5 mg PO HS 11/13/13 01/12/25 01/11/25 History
hydroxychloroquine 200 mg tablet 400 mg PO HS ##0 11/13/13 01/12/25 01/11/25 History
(Plaquenil)
clonazepam 0.5 mg tablet 0.5 mg PO Q8HPRN PRN anxiety 08/11/16 01/12/25 11/14/16 History
mycophenolate mofetil 500 mg 1,000 mg PO HS 09/05/24 01/12/25 01/11/25 History
tablet (CellCept)
trazodone 100 mg tablet 200 mg PO HS 09/05/24 01/12/25 01/11/25 History
latanoprost 0.005 % eye drops 1 drp BOTH EYES HS 09/06/24 01/12/25 01/11/25 History
sildenafil 25 mg tablet 20 mg PO HS 09/06/24 01/12/25 01/11/25 History
loperamide 2 mg tablet 2 mg PO Q6HPRN PRN DIARRHEA 01/12/25 01/12/25 01/12/25 History
omeprazole 40 mg capsule,delayed 80 mg PO HS 01/12/25 01/12/25 01/11/25 History
release
psyllium husk 0.4 gram capsule 2.4 g PO DAILY 01/12/25 01/12/25 01/12/25 History
(Metamucil)
warfarin 2 mg tablet 4 mg PO SUMOTUWETHSA@199901/12/25 01/12/25 01/11/25 History
warfarin 2 mg tablet 6 mg PO FR@199901/12/25 01/12/25 01/09/25 History
Review of Systems
-
Hematologic/Lymphatic: Other (All 14 systems reviewed and negative except as stated above in the history of present illness.)
Vitals / Labs / Diagnostic Testing
Vital Signs
Temp Pulse Resp BP Pulse Ox
98.4 F 106 32 112/75 97
01/28/25 04:00 01/28/25 05:30 01/28/25 05:30 01/28/25 05:30 01/28/25 05:30
Lab Data
01/28/25 03:48
01/28/25 03:48
Laboratory Results
01/27/25 01/28/25 01/28/25
07:29 00:36 03:48
PT 14.0 15.2 H 15.0 H
INR 1.05 1.17 1.15
APTT > 200.00 H* 35.3 H
Diagnostic Testing:
Physical Exam
-
HEENT: Normocephalic and Other (Pale conjunctiva)
Cardiovascular: S1/S2
Respiratory: Clear
GI: Soft and Non Distended
Neurology: Awake and Alert
Skin: Warm and Other (Tapering digits of both hands consistent with scleroderma, also noted skin thickening.)
General: Comfortable
Assessment
-
Patient is 54-year-old gentleman with known history of antiphospholipid antibody syndrome, scleroderma with severe peripheral vascular disease, presented with cold and painful right foot, s/p
1. Endovascular venous arterialization, tibial or peroneal vein, with transcatheter placement of intravascular
stent graft(s) and closure by any method, including percutaneous or open vascular access, ultrasound guidance for
vascular access when performed, all catheterization(s) and intraprocedural roadmapping and imaging guidance
necessary to complete the intervention, all associated radiological supervision and interpretation, when performed
2. Bypass right posterior tibial artery to lower extremity vein with synthetic substitute, percutaneous approach
3. Cutdown and exposure of right superficial femoral artery for additional endovascular intervention. Primary repair
4. Mechanical thrombectomy of right popliteal artery, posterior tibial artery and proximal LimFlow/TADV circuit
5. Balloon angioplasty and drug-eluting stent placement to plantar vein outflow right foot
6. Balloon angioplasty and bioabsorbable drug-eluting scaffold stent placement of proximal [place] posterior tibial artery
7. Balloon angioplasty and Viabahn stent grafting of right popliteal artery ectasia
by vascular surgery service,POD #1
Continue observation following procedure
Follow neurovascular checks per protocol
ASA, heparin infusion. Amlodipine 5 mg nightly.
overnight increased MCKAY drain bleeding and expanding hematoma noted. Heparin infusion was held briefly and then resumed once bleeding improved.
Follow BP monitoring and parameters as set by primary team
Monitor on telemetry
Pain control per protocol
No prior history of pulmonary disease,
Encouraged IS
Diet advancement per protocol
Aspiration precautions
GI prophylaxis: Protonix
Cr at baseline, follow UO
Critical I/Os
Replete electrolytes as needed
No signs/symptoms suspicious for infectious etiology at this time
Will observe off antibiotics for now
Follow temperatures/CBC
DVT prophylaxis: Currently on heparin infusion
Other medical diagnoses:
- History of antiphospholipid antibody syndrome with recurrent VTE. Chronically on Coumadin. Per oncology recommendations, plan for aspirin and Coumadin therapy with INR goal 3-3.5. History of Lovenox failure. Continue outpatient follow-up with
hematology service.
- SLE/scleroderma with CREST syndrome. Chronically on CellCept and hydroxychloroquine, follows up at [facility]
- Raynaud's phenomena. On amlodipine
- Gastroesophageal reflux disease. Proton pump inhibitor
- HTN
- Anxiety
Critical Care time [62] mins -- The patient is admitted for acute critical illness for the treatment of vital organ failure and/or prevention of further life-threatening conditions. Total care includes time spent in review of history, physical exam,
medications, hemodynamic/ventilator parameters, laboratory data, imaging and discussion with house staff, pharmacy, respiratory therapy, assisted living housekeeper, and nursing
Data:
ECHO 01/2025: 1. Normal left ventricular size and function, ejection fraction 55-60%.
2. Mitral leaflet thickening, mitral annular calcification, mild mitral regurgitation and normal left atrium.
3. Normal aortic valve.
4. Normal right heart with normal pulmonary artery systolic pressure.
5. No change compared to August 2022.
Spirometry 07/2019: Normal spirometry and lung volumes. There is mild diffusion impairment.
--- NOTE | 2025-01-28 08:40 | W.PN.VS ---
Today's Communication / Plan
-
Patient seen and evaluated bedside with Dr. Berto Caicedo M.D., below plan reviewed with attending.
Assessment/Plan
-
Assessment: 52-year-old female POD #1 endovascular venous arterialization, endovascular bypass of right posterior tibial artery to lower extremity vein with synthetic substitute, cutdown and exposure of right superficial femoral artery, mechanical
thrombectomy of right popliteal artery, posterior tibial artery, and proximal limflow/TADV circuit, balloon angioplasty and stent to plantar vein outflow at right foot, balloon angioplasty and bioabsorbable drug-eluting scaffold stent at posterior
tibial artery, Viabahn stent grafting of right popliteal artery
Plan:
Continue heparin infusion with goal of therapeutic PTT, repeat draw at 10 AM
Will recheck H&H also at 10 AM
Discontinue aspirin for antiplatelet therapy and add Plavix, will start with load of 300 mg and then transition tomorrow to Plavix 75 mg p.o. daily
Continue neurovascular checks
Discontinue Rachel catheter
Possible out of bed to chair later this afternoon
Continue intake and output monitoring of MCKAY drain
Subjective Data
-
Date of Service: January 28, 2025
Patient seen and examined at bedside, reports right foot chronic wrist pain pain and right foot coolness has improved following procedure. Reports for manage postoperative pain.
Objective Data
-
Vital Signs
Temp Pulse Resp BP Pulse Ox
97.7 F 116 19 135/96 98
01/28/25 07:22 01/28/25 08:30 01/28/25 08:30 01/28/25 08:30 01/28/25 06:30
Intake and Output
01/27/25 01/28/25 01/29/25
06:59 06:59 06:59
Intake Total 720 / 720 774 / 774
Output Total 2150 / 2150
Balance 720 / 720 -1376 / -1376
Intake:
Oral fluids 720 / 720
IV fluids (Total) 774 / 774
Nss 1,000 ml @ 120 mls/hr IV . 760 / 760
Q8H20M AC Rx#:[id number]
heparin
Output:
Drain Output (Total) 825 / 825
Right Lower Yakov-Iyer 825 / 825
Urine, Rachel 1325 / 1325
Other:
Number of approximated MODERATE 3
amounts of urine
Lab Results
01/28/25 03:48
01/28/25 03:48
Calcium 8.1 mg/dl (8.4-10.2) L 01/28/25 03:48
Total Bilirubin Cancelled 01/12/25 20:34
AST Cancelled 01/12/25 20:34
ALT Cancelled 01/12/25 20:34
Alkaline Phosphatase Cancelled 01/12/25 20:34
Total Protein Cancelled 01/12/25 20:34
Albumin Cancelled 01/12/25 20:34
Physical Exam
-
No apparent distress, resting bed comfortably
Tachycardia noted on monitor, RRR
No dyspnea on room air
Abdomen nontender, nondistended, and soft
Right groin clean, dry, and intact, no evidence of hematoma, all surrounding compartments soft, MCKAY drain with minimal serosanguineous output at time of assessment, right foot puncture site clean, dry, and intact, right foot warm, right PT signal
with Doppler and dopplerable phasic signal on dorsum of foot
[2025-01-28] MEDS: NEURONTIN 300 MG PO ×3 (08:48→21:53)
[2025-01-28] MEDS: VITAMIN B-12 1000 MCG PO (08:48)
[2025-01-28] MEDS: ASPIR LOW (ENTERIC COATED) PO ×2 (08:48→10:37)
[2025-01-28] MEDS: MIRALAX PO (08:49)
[2025-01-28 09:22] LABS: Magnesium 1.8 mg/dl (1.6-2.3)
[2025-01-28] MEDS: PLAVIX 300 MG PO (10:08)
[2025-01-28 10:19] LABS: Hematocrit 24.4 % (37.0-47.0); Hemoglobin 8.0 g/dL (12.0-16.0)
[2025-01-28] MEDS: ROXICODONE 5 MG PO ×3 (11:39→23:14)
[2025-01-28 11:42] LABS: APTT 182.5 Sec (23.4-35.0)
--- NOTE | 2025-01-28 11:49 | PTCARENOTE ---
OOB to commode 1assist. Passed small hard formed BM. No urinary output at that time. HR 150's initially, SBP 103. She was very anxious about getting onto the commode and even more so sitting in the chair. She was reassured that she was permitted to
be in the chair.
--- NOTE | 2025-01-28 12:20 | PTCARENOTE ---
Pt called RN into room with C/O severe burning 10/10 from her right heel to her toes. Doppler signals unchanged from several minutes ago. Pt appears extremely anxious but denies feeling anxious, however I did recommend she take Klonopin to allow her
to relax somewhat. She adamantly refused the Klonopin. She did not recall vascular surgery saying she can get OOB to the chair this morning. I reassured her that we had this discussion at the bedside and that OOB to the chair was encouraged by the
vascular team. Supportive care provided and reassured that her discomfort is not unusual and that her pulses are still present and unchanged.
[2025-01-28] MEDS: BENADRYL 25 MG IV ×3 (12:25→22:00)
[2025-01-28] MEDS: DILAUDID 1 MG IV ×3 (12:25→21:55)
--- NOTE | 2025-01-28 13:59 | W.PN.HOSP.TC ---
Today's Communication/Plan
-
Monitor vital signs and see plan
Continue with IV heparin
Aspirin stopped and instead started on Plavix
Pain control
Assessment / Plan
Assessment / Plan
54 female presented to the hospital with cold and painful right foot patient was seen by vascular surgeon at [facility] and underwent angioplasty in September as well as last Sunday. She had some initial pain which was felt to be secondary to
reperfusion pain but abruptly had cold and numb right foot she had ultrasound done as outpatient which showed right posterior tibial artery occlusion at the level of ankle and advised to go to ER. She has a history of antiphospholipid antibody
syndrome and maintained on Coumadin. She thinks that her INR was down to 1.8 for a procedure could have impacted this. She is normally ma
CTA-occlusion at the proximal aspect of the right anterior tibial artery without evidence of reconstitution. Occlusion of the right posterior tibial artery at the level of the ankle with evidence for some reconstitution below the level of the
ankle. Diminutive left posterior tibial artery with diminished flow suggesting a degree of stenosis and/or occlusion.
Arterial ultrasound on 01/12/2025-occlusion of the right posterior tibial artery at the level of the ankle.
# Peripheral arterial disease
Status post arteriogram 01/20 which showed disease in the anterior tibial artery, right peroneal artery, right posterior tibial artery. Plan for intervention on 01/27 noted. Postop defer to vascular when to start IV heparin and possible Coumadin.
Will need bridging as has history of failure to Lovenox
Continue with IV heparin. Patient baseline APTT 40-45. Hematology recommending to keep PTT twice the normal limit of 80-90. She seems to be very sensitive with heparin.
Continue with current pain regimen and if she were to require more Dilaudid for breakthrough pain will increase gabapentin further. Increase gabapentin
s/p Bypass right posterior tibial artery to lower extremity vein with synthetic substitute, percutaneous approach
Cutdown and exposure of right superficial femoral artery for additional endovascular intervention. Primary repair
Mechanical thrombectomy of right popliteal artery, posterior tibial artery and proximal LimFlow/TADV circuit
Balloon angioplasty and drug-eluting stent placement to plantar vein outflow right foot
Balloon angioplasty and bioabsorbable drug-eluting scaffold stent placement of proximal [place] posterior tibial artery
Balloon angioplasty and Viabahn stent grafting of right popliteal artery ectasia
Overnight increase MCKAY drain bleeding and expanding hematoma. Heparin fusion was briefly held however now resumed once bleeding improved
Leukocytosis likely secondary to recent surgery
Sinus tachycardia, monitor
# SLE/antiphospholipid antibody syndrome/Raynaud's/scleroderma
Continue CellCept and Plaquenil
Also maintained on Coumadin as outpatient.
Sees . Her INR is kept between 3 and 3.5 as OP. Failure of Lovenox in past. Will need Coumadin with IV heparin bridge when able per vascular
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
occlusion of the right posterior tibial artery.
If felt more an embolic issue/thrombosis than classic PAD. Appreciate hematology input. Has been has been stopped, now on Plavix. Start Coumadin when okay with vascular surgery. Will need bridging with IV heparin
Echo 01/15 with normal EF mild MR and no changes compared to August 2022
Vitamin B12 deficiency
started Vitamin B12
# Hypertension-continue with amlodipine
# Anxiety -continue clonazepam, trazodone
# GERD-continue PPI
# DVT prophylaxis-IV heparin
# Full code
General: Comfortable
Respiratory: Non Labored Respirations; Negative Accessory Resp Muscle Use
Cardiac: RRR,+ tachycardia
Musculoskeletal:right foot sx
Neuro: AO x 3
Anticipated Discharge: > 48 hours
Subjective/Interval History
-
Date of Service: January 28, 2025
denies nausea
Objective Data
-
Labs:
Laboratory Results
01/28/25 01/28/25 01/28/25
03:48 10:00 10:11
WBC 11.2 H
Hgb 9.4 L 8.0 L
Hct 28.3 L 24.4 L
Plt Count 181
PT 15.0 H
INR 1.15
APTT 35.3 H Pending 182.5 H*
Sodium 137
Potassium 4.3
Chloride 110 H
Carbon Dioxide 18 L
BUN 10
Creatinine 1.1 H
Glucose 180 H
Calcium 8.1 L
Vital Signs:
Vital Signs
Temp Pulse Resp BP Pulse Ox
98.4 F 148 20 144/104 100
01/28/25 11:24 01/28/25 13:00 01/28/25 13:00 01/28/25 12:00 01/28/25 08:47
I&O
01/27/25 01/28/25 01/29/25
06:59 06:59 06:59
Intake Total 720 / 720 774 / 908 670 / 670
Output Total 2150 / 2185 130 / 130
Balance 720 / 720 -1376 / -1277 540 / 540
--- NOTE | 2025-01-28 14:36 | PTCARENOTE ---
Pt's at the bedside. She only ate apple sauce today and lemonade & water. She was encouraged to eat and again the importance of good nutrition for wound healing is imperative. Broth ordered for her.
[2025-01-28] MEDS: COLACE 200 MG PO (15:16)
--- NOTE | 2025-01-28 16:00 | PTCARENOTE ---
Pt with poor appetite. Only taking clear liquids and applesauce & several saltines. She was encouraged to take Miralax and informed of the consequences of immobility, anesthesia, analgesia on her bowels causing constipation and worse case scenario
obstruction and/or perforation. I also informed her that she should heed our recommendations regarding bowel regimen. Senokot administered and she stated she would take Miralax tomorrow.
[2025-01-28] MEDS: SENOKOT 8.6 MG PO (16:26)
--- NOTE | 2025-01-28 16:34 | PTCARENOTE ---
s/p right femoral dressing change. MCKAY drain with small amount SS drainage in bulb. She was medicated for severe pain in her right foot. Safe environment maintained.
--- NOTE | 2025-01-28 18:34 | PTCARENOTE ---
2nd unit PRBC infusing via right FA#20g protective catheter. Pain starting to subside, she reports it's now a 12/11. at the bedside.
[2025-01-28 18:50] LABS: APTT 169.8 Sec (23.4-35.0)
[2025-01-28] MEDS: HEPARIN 25000 UNITS/250 ML IV (19:02)
--- NOTE | 2025-01-28 20:16 | PTCARENOTE ---
Assumed care of pt at 1900. Pt is A/O x4, pleasant and cooperative with care. x1 assist OOB to BSC. Reports pain to right foot, mostly in toes, discussed plan for pain control overnight, pt agreeable to taking oxycodone and tylenol at bedtime with
her other HS meds. Received pt on Heparin drip, put on hold for 1 hour at start of shift per protocol, see med titration flowsheet for details. Receiving PRBC transfusion currently. Assessment as documented in nursing shift assessment flowsheet.
Neurovascular checks ongoing Q1 hours currently, see neurovascular assessment flowsheet for details. CHG cloth bath done, linens and gown changed.
[2025-01-28] MEDS: PROTONIX 40 MG PO (21:53)
[2025-01-28] MEDS: CELLCEPT 1000 MG PO (21:54)
[2025-01-28] MEDS: PLAQUENIL 400 MG PO (21:55)
[2025-01-28] MEDS: REVATIO 20 MG PO (21:55)
[2025-01-28] MEDS: NORVASC 5 MG PO (21:55)
[2025-01-28] MEDS: XALATAN OPHTHALMIC SOLUTION 1 DROP BOTH EYES (22:05)
[2025-01-28] MEDS: TYLENOL 650 MG PO (23:13)
[2025-01-29] VITALS (16 sets, daily range): BP systolic 87–140; BP diastolic 58–87; BMI 28.2
[2025-01-29] MEDS: VALIUM INJECTION 5 MG IV (01:02)
--- NOTE | 2025-01-29 01:16 | PTCARENOTE ---
Assessment unchanged, pt has had increased pain throughout the shift despite being medicated with Dilaudid, Oxycodone, and Tylenol. At around midnight pt rang call chase and was shaking and saying she was in 9-10/10 pain in her right foot, from her
heel to her 5th toe (along lateral side of foot). Describes the pain as burning. Discussed with ICU BUSINESS ADMINISTRATION PROFESSOR Ricardo Castelan, 5mg IV Valium ordered, pt fell asleep immediately after administration. Remains ST 110s-120s on monitor, SpO2 97-98% on RA. Has been
up to BSC with standby assist several times this shift to void.
[2025-01-29 01:31] LABS: APTT 94.0 Sec (23.4-35.0)
[2025-01-29] MEDS: TYLENOL 650 MG PO ×3 (04:45→12:52)
[2025-01-29] MEDS: ROXICODONE 5 MG PO ×3 (04:45→12:51)
--- NOTE | 2025-01-29 04:52 | PTCARENOTE ---
0400 assessment unchanged, pt slept a few hours after receiving Valium, awakens easily. Reported pain 4/10 this AM and requested Oxycodone and Tylenol, see EMAR. SR 90s on monitor. SpO2 97% on RA. Continues on heparin drip.
[2025-01-29 04:56] LABS: Hematocrit 25.9 % (37.0-47.0); Hemoglobin 8.7 g/dL (12.0-16.0); Mean Corp Hgb Conc. 33.6 g/dL (33.0-37.0); Mean Corpuscular Volume 86.0 fL (81.0-99.0); Nucleated Red Blood Cells % 0 %; Platelet Count 141 10^3/uL (130-400); Red Cell Dist. Width 14.2 % (11.5-14.5)
[2025-01-29 05:00] LABS: Blood Urea Nitrogen 12 mg/dl (7-17); Calcium 8.6 mg/dl (8.4-10.2); Carbon Dioxide 22 mmol/L (22-30); Chloride 110 mmol/L (98-107); Estimated Creatinine Clearance 67 ml/min; Glucose 124 mg/dl (70-99); Potassium 3.9 mmol/L (3.5-5.1); Sodium 134 mmol/L (135-145); eGFR > 60.00
[2025-01-29 07:06] LABS: INR 1.30; PT 16.7 Sec (11.4-14.6)
[2025-01-29 07:08] LABS: APTT 100.6 Sec (23.4-35.0)
--- NOTE | 2025-01-29 07:20 | PTCARENOTE ---
Received pt laying in bed. She is awake and alert. Left FA#22g protective catheter with Heparin @1000units/hr. Right FA#20g protective catheter flushed and patent. Right DP/PT and left PT Doppler signals unchanged,left DP remains palpable. Bilateral
feet equally warm. Right plantar w/mild numbness which she is attributing to her neuropathy. Lungs remain CTA. Hypoactive BSX4. Appetite remains poor. At this point she has only eaten liquids and several saltines. She was encouraged to take her
bowel regimen as prescribed being they will allow her to ambulate in the room today. She is also aware that they will bridge her to Coumadin starting today sometime. Informed of downgrade as well. She verbalized her understanding. Safe environment
maintained.
--- NOTE | 2025-01-29 07:29 | W.PN.VS ---
Addendum entered and electronically signed by Berto Caicedo MD 01/29/25 08:00:
Seen and examined with DIRECTOR EDUCATIONAL RADIO. Agree with findings as noted below. Good Doppler signals, foot warm. Plan/as discussed and noted below.
Original Note:
Today's Communication / Plan
-
Patient seen and examined at bedside with Dr. Berto Caicedo, below plan reviewed with attending.
Assessment/Plan
-
Assessment: 52-year-old female POD #2 endovascular venous arterialization, endovascular bypass of right posterior tibial artery to lower extremity vein with synthetic substitute, cutdown and exposure of right superficial femoral artery, mechanical
thrombectomy of right popliteal artery, posterior tibial artery, and proximal limflow/TADV circuit, balloon angioplasty and stent to plantar vein outflow at right foot, balloon angioplasty and bioabsorbable drug-eluting scaffold stent at posterior
tibial artery, Viabahn stent grafting of right popliteal artery
Plan:
Continue heparin infusion with goal of therapeutic PTT, from a vascular standpoint can begin Coumadin bridge
Continue Plavix 75mgh PO daily
Continue neurovascular checks
PT continue progression of ambulation as tolerated
Continue intake and output monitoring of MCKAY drain
From a vascular standpoint can downgrade to tele
Subjective Data
-
Date of Service: January 29, 2025
Patient seen and examined reports increased pain overnight that is now well managed. Denies nausea, vomiting, fever, and chills.
Objective Data
-
Vital Signs
Temp Pulse Resp BP Pulse Ox
97.8 F 83 21 94/65 95
01/29/25 04:12 01/29/25 06:00 01/29/25 06:00 01/29/25 06:00 01/29/25 06:00
Intake and Output
01/28/25 01/29/25 01/30/25
06:59 06:59 06:59
Intake Total 774 / 908 2 / 194
Output Total 2150 / 2185 1805 / 1805
Balance -1376 / -1277 137 / 137
Intake:
Oral fluids 960 / 960
IV fluids (Total) 774 / 908 482 / 482
Nss 1,000 ml @ 120 mls/hr IV . 760 / 880 240 / 240
Q8H20M AC Rx#:[id number]
heparin 242 / 242
Blood Product Amount Infused ( 500 / 500
mL)
Packed Rbc Leukoreduced Unit 250 / 250
[id number]
Packed Rbc Leukoreduced Unit 250 / 250
[id number]
Output:
Drain Output (Total) 825 / 825
Right Lower Yakov-Iyer 825 / 5
Urine, Rachel 1325 / 1360 130 / 130
Urine, Voided 1650 / 1650
Other:
Number of approximated MODERATE 1
amounts of urine
Lab Results
01/29/25 04:15
01/29/25 04:15
Calcium 8.6 mg/dl (8.4-10.2) 01/29/25 04:15
Phosphorus 3.0 mg/dl (2.5-4.5) 01/28/25 00:36
Magnesium 1.8 mg/dl (1.6-2.3) 01/28/25 00:36
Total Bilirubin Cancelled 01/12/25 20:34
AST Cancelled 01/12/25 20:34
ALT Cancelled 01/12/25 20:34
Alkaline Phosphatase Cancelled 01/12/25 20:34
Total Protein Cancelled 01/12/25 20:34
Albumin Cancelled 01/12/25 20:34
Physical Exam
-
No apparent distress, resting in bed comfortably
NSR, RRR
No dyspnea on room air
Abdomen nontender, nondistended, and soft
Right groin dressing clean, dry, and intact, no evidence of hematoma, all surrounding compartments soft, MCKAY drain with minimal serosanguineous output at time of assessment, right foot puncture site clean, dry, and intact, right foot warm, right PT
signal with Doppler and dopplerable phasic signal on dorsum of foot
[2025-01-29] MEDS: VITAMIN B-12 1000 MCG PO (08:39)
[2025-01-29] MEDS: MIRALAX 17 GRAMS PO (08:39)
[2025-01-29] MEDS: NEURONTIN 300 MG PO ×3 (08:39→21:50)
[2025-01-29] MEDS: PLAVIX 75 MG PO (08:39)
[2025-01-29] MEDS: COLACE 200 MG PO (08:39)
--- NOTE | 2025-01-29 09:45 | W.PN.ONC2 ---
Today's Communication / Plan
-
Bridge to warfarin with heparin gtt, started on plavix once cleared by vasc surgery
no further inpatient recommendations, Has outpt follow up with primary providers. Hematology will sign off. please reach out for any further questions or concerns.
Impression
Impression
a/w Right posterior tibial artery occlusion
triple positive APLS
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
PAD
normocytic anemia with a component of iron deficiency with ferritin 32
Plan
Plan
Continue heparin gtt
When able, transition back to warfarin with goal 3-3.5
ASA had been initiated during hospitalization, however, antiplatelet was changed to plavix with load per vasc surgery recommendations
She previously failed a Lovenox + coumadin bridge, therefore will benefit from heparin + coumadin (after all procedures) until INR > 3, prior to discharge
After d/c, f/u with Dr. Sanchez for heme mgmt
She's also considering seeing Dr. Zazueta at [facility], whom she saw for years prior to his leaving [place]
She's rec'd Cytoxan infusions previously to help manage her autoimmune issues, may benefit from another round as outpatient
f/u with rheum at [facility]
Subjective/Objective
Subjective
afebrile, BP 87/61 at 7am, no hypoxia
using hydromorphone IV, acetaminophen PO, and oxycodone IR PO prn pain
diazepam around 1am
using colace, senna bowel, miralax bowel regimen
Vital Signs:
Vital Signs
Temp Pulse Resp BP Pulse Ox
97.7 F 77 19 103/75 96
01/29/25 08:13 01/29/25 08:00 01/29/25 08:00 01/29/25 08:00 01/29/25 08:13
Lab Results:
Laboratory Data
WBC 6.6 10^3/uL (4.8-10.8) 01/29/25 04:15
Hgb 8.7 g/dL (12.0-16.0) L 01/29/25 04:15
Plt Count 141 10^3/uL (130-400) D 01/29/25 04:15
PT 16.7 Sec (11.4-14.6) H 01/29/25 06:42
INR 1.30 01/29/25 06:42
APTT 100.6 Sec (23.4-35.0) H 01/29/25 06:42
eGFR > 60.00 01/29/25 04:15
Physical Exam
HEENT: No Jaundice
Pulmonary: Other (unlabored)
GI: Soft
Neuro: Non Focal
--- NOTE | 2025-01-29 10:54 | W.PN.INTV ---
Today's Communication / Plan
Recommendations
- Continue heparin infusion, monitor for signs of bleeding
- Patient can be transferred out of ICU
- Photograph Inspector service will sign off, please call as needed
Assessment
-
Patient is 54-year-old gentleman with known history of antiphospholipid antibody syndrome, scleroderma with severe peripheral vascular disease, presented with cold and painful right foot, s/p
1. Endovascular venous arterialization, tibial or peroneal vein, with transcatheter placement of intravascular
stent graft(s) and closure by any method, including percutaneous or open vascular access, ultrasound guidance for
vascular access when performed, all catheterization(s) and intraprocedural roadmapping and imaging guidance
necessary to complete the intervention, all associated radiological supervision and interpretation, when performed
2. Bypass right posterior tibial artery to lower extremity vein with synthetic substitute, percutaneous approach
3. Cutdown and exposure of right superficial femoral artery for additional endovascular intervention. Primary repair
4. Mechanical thrombectomy of right popliteal artery, posterior tibial artery and proximal LimFlow/TADV circuit
5. Balloon angioplasty and drug-eluting stent placement to plantar vein outflow right foot
6. Balloon angioplasty and bioabsorbable drug-eluting scaffold stent placement of proximal [place] posterior tibial artery
7. Balloon angioplasty and Viabahn stent grafting of right popliteal artery ectasia
by vascular surgery service,POD #2
Continue observation following procedure
Follow neurovascular checks per protocol
Plavix, heparin infusion. Amlodipine 5 mg nightly.
01/27- overnight increased MCKAY drain bleeding and expanding hematoma noted. Heparin infusion was held briefly and then resumed once bleeding improved. No further issues.
01/29 overview: Patient comfortably sitting in chair, current infusions heparin drip. Saturating 96% on room air. Normal MAP, not requiring any pressors.
Follow BP monitoring and parameters as set by primary team
Monitor on telemetry
Pain control per protocol
No prior history of pulmonary disease,
Encouraged IS
Diet advancement per protocol
Aspiration precautions
GI prophylaxis: Protonix
Cr at baseline, follow UO
Critical I/Os
Replete electrolytes as needed
No signs/symptoms suspicious for infectious etiology at this time
Will observe off antibiotics for now
Follow temperatures/CBC
DVT prophylaxis: Currently on heparin infusion
Other medical diagnoses:
- History of antiphospholipid antibody syndrome with recurrent VTE. Chronically on Coumadin. Per oncology recommendations, plan for Plavix and Coumadin therapy with INR goal 3-3.5. History of Lovenox failure. Continue outpatient follow-up with
hematology service.
- SLE/scleroderma with CREST syndrome. Chronically on CellCept and hydroxychloroquine, follows up at [facility]
- Raynaud's phenomena. On amlodipine
- Gastroesophageal reflux disease. Proton pump inhibitor
- HTN
- Anxiety
Critical Care time [38] mins -- The patient is admitted for acute critical illness for the treatment of vital organ failure and/or prevention of further life-threatening conditions. Total care includes time spent in review of history, physical exam,
medications, hemodynamic/ventilator parameters, laboratory data, imaging and discussion with house staff, pharmacy, respiratory therapy, fuels engineer, and nursing
Data:
ECHO 01/2025: 1. Normal left ventricular size and function, ejection fraction 55-60%.
2. Mitral leaflet thickening, mitral annular calcification, mild mitral regurgitation and normal left atrium.
3. Normal aortic valve.
4. Normal right heart with normal pulmonary artery systolic pressure.
5. No change compared to August 2022.
Spirometry 07/2019: Normal spirometry and lung volumes. There is mild diffusion impairment.
Subjective Dataa
Subjective Data
Date of Service:
Date of Service: January 29, 2025
Subjective:
Patient comfortably sitting in chair, no acute distress.
Review of Systems
Genitourinary: Other (All 14 systems reviewed and negative except as stated above in the history of present illness.)
Objective Data
Data Reviewed
Vital Signs / I&O / Oxygen:
Vital Signs
Temp Pulse Resp BP Pulse Ox
97.7 F 105 19 131/78 96
01/29/25 08:13 01/29/25 10:19 01/29/25 08:00 01/29/25 10:19 01/29/25 08:13
Intake and Output
01/28/25 01/29/25 01/30/25
06:59 06:59 06:59
Intake Total 774 / 908 1942 / 1952 290 / 290
Output Total 2150 / 2185 1805 / 1805 300 / 300
Balance -1376 / -1277 137 / 147 -10 / -10
SaO2 96
Nasal Cannula flow liters per 97
minute
Physical Exam
General: Comfortable
HEENT: Normocephalic
Cardiovascular: S1-S2
Respiratory: Clear
GI: Soft and Non Distended
Neurology: Awake and Alert
Skin: Other (Tapering digits, changes of scleroderma on skin of both hands)
Labs/Micro/Reports
Lab Data
01/29/25 04:15
01/29/25 04:15
Laboratory Results
01/28/25 01/28/25 01/28/25
10:00 10:11 18:25
PT
INR
APTT Cancelled 182.5 H* 169.8 H*
01/29/25 01/29/25
01:09 06:42
PT 16.7 H
INR 1.30
APTT 94.0 H 100.6 H
--- NOTE | 2025-01-29 12:00 | PTCARENOTE ---
No changes. Right foot pain manageable but would like oral analgesics when they are due. is at the bedside. He reports that she ate half a PBJ sandwich. She appears tired, resting in the chair. Right foot dangling off the side of the
recliner chair as she stated it was more comfortable for her that way. Safe environment maintained. Will continue to monitor.
--- NOTE | 2025-01-29 12:08 | PN.CDI ---
CDI
- -
CDI:
Physician Documentation Request
Admit Date: 01/12/25 22:47
Dear Doctor Paresh,
01/27 patient underwent endovascular venous arterialization, endovascular bypass of right posterior tibial artery to lower extremity vein with synthetic substitute, cutdown and exposure of right superficial femoral artery, mechanical thrombectomy of
right popliteal artery, posterior tibial artery, and proximal limflow/TADV circuit, balloon angioplasty and stent to plantar vein outflow at right foot, balloon angioplasty and bioabsorbable drug-eluting scaffold stent at posterior tibial artery,
Viabahn stent grafting of right popliteal artery
01/27 BREEDER SERVICE TECHNICIAN notes 'nursing noted blood spirting from the bottom of her right foot. Pressure was immediately applied with sterile gauze, pressure held several minutes.
01/28 BREEDER SERVICE TECHNICIAN note states 'Called to bedside due to increased bleeding at MCKAY site and hematoma around femoral insertion site'
01/28 patient received 2 units of PRBC.
H/H results:
Laboratory Tests
01/26/25 01/27/25 01/28/25
07:00 07:29 10:11
Hgb 11.1 L 11.1 L 8.0 L
Hct 34.6 L 34.3 L 24.4 L
01/29/25
04:15
Hgb 8.7 L
Hct 25.9 L
Could you please provide a diagnosis that supports the above lab abnormalities and additional evaluation, monitoring and/or treatment rendered:
Acute blood loss anemia
Anemia other- please specify
Abnormal lab value clinically insignificant
Other
Use of terms such as suspected, likely, concern for, or probable (associated with a specific diagnosis that is being evaluated, monitored, or treated as if it exists) are acceptable and can be coded in the inpatient setting, when documented at the
time of discharge.
Thank you,
Isabela Cabral RN, BSN
CDI Specialist
tiger text
Please use your independent medical judgment in providing your response.
[2025-01-29] MEDS: KCL 20 MEQ PO (12:30)
--- NOTE | 2025-01-29 12:38 | W.PN.HOSP.TC ---
Today's Communication/Plan
-
Monitor vital signs
see plan
Transfer to telemetry per vascular
Continue with IV heparin
Start Coumadin
Continue Plavix
Pain control
goal INR 3-3.5
Assessment / Plan
Assessment / Plan
54 female presented to the hospital with cold and painful right foot patient was seen by vascular surgeon at [facility] and underwent angioplasty in September as well as last Sunday. She had some initial pain which was felt to be secondary to
reperfusion pain but abruptly had cold and numb right foot she had ultrasound done as outpatient which showed right posterior tibial artery occlusion at the level of ankle and advised to go to ER. She has a history of antiphospholipid antibody
syndrome and maintained on Coumadin. She thinks that her INR was down to 1.8 for a procedure could have impacted this. She is normally ma
CTA-occlusion at the proximal aspect of the right anterior tibial artery without evidence of reconstitution. Occlusion of the right posterior tibial artery at the level of the ankle with evidence for some reconstitution below the level of the
ankle. Diminutive left posterior tibial artery with diminished flow suggesting a degree of stenosis and/or occlusion.
Arterial ultrasound on 01/12/2025-occlusion of the right posterior tibial artery at the level of the ankle.
# Peripheral arterial disease
Status post arteriogram 01/20 which showed disease in the anterior tibial artery, right peroneal artery, right posterior tibial artery. Plan for intervention on 01/27 noted. Postop defer to vascular when to start IV heparin and possible Coumadin.
Will need bridging as has history of failure to Lovenox
Continue with IV heparin. Patient baseline APTT 40-45. Hematology recommending to keep PTT twice the normal limit of 80-90. She seems to be very sensitive with heparin.
Continue with current pain regimen and if she were to require more Dilaudid for breakthrough pain will increase gabapentin further. Increased gabapentin
s/p Bypass right posterior tibial artery to lower extremity vein with synthetic substitute, percutaneous approach
Cutdown and exposure of right superficial femoral artery for additional endovascular intervention. Primary repair
Mechanical thrombectomy of right popliteal artery, posterior tibial artery and proximal LimFlow/TADV circuit
Balloon angioplasty and drug-eluting stent placement to plantar vein outflow right foot
Balloon angioplasty and bioabsorbable drug-eluting scaffold stent placement of proximal [place] posterior tibial artery
Balloon angioplasty and Viabahn stent grafting of right popliteal artery ectasia
Postop had increase MCKAY drain bleeding and expanding hematoma. Heparin fusion was briefly held however now resumed once bleeding improved
cw IV heparin per vascular. Per vascular okay for Coumadin bridging. Will start Coumadin at 5 mg. Goal INR 3-3.5. also on plavix
Anemia; likely acute blood loss
Leukocytosis likely secondary to recent surgery
Sinus tachycardia, monitor
# SLE/antiphospholipid antibody syndrome/Raynaud's/scleroderma
Continue CellCept and Plaquenil
Also maintained on Coumadin as outpatient.
Sees . Her INR is kept between 3 and 3.5 as OP. Failure of Lovenox in past. started Coumadin bridge with IV heparin
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
occlusion of the right posterior tibial artery.
If felt more an embolic issue/thrombosis than classic PAD. Appreciate hematology input. aspirin been has been stopped, now on Plavix. Started Coumadin bridge with IV heparin
Vitamin B12 deficiency
started Vitamin B12
# Hypertension-continue with amlodipine
# Anxiety -continue clonazepam, trazodone
# GERD-continue PPI
# DVT prophylaxis-IV heparin
# Full code
General: Comfortable
Respiratory: Non Labored Respirations; Negative Accessory Resp Muscle Use
Cardiac: RRR
RESP: CTA,no wheezing
Musculoskeletal:right foot sx
Neuro: AO x 3
I spent a total of 52 minutes with the patient or on the floor. More than 50% of this time involved counseling and coordination of care.
Anticipated Discharge: > 48 hours
Subjective/Interval History
-
Date of Service: January 29, 2025
denies pain
Objective Data
-
Labs:
Laboratory Results
01/29/25 01/29/25 01/29/25
01:09 04:15 06:42
WBC 6.6
Hgb 8.7 L
Hct 25.9 L
Plt Count 141 D
PT 16.7 H
INR 1.30
APTT 94.0 H 100.6 H
Sodium 134 L
Potassium 3.9
Chloride 110 H
Carbon Dioxide 22
BUN 12
Creatinine 1.0
Glucose 124 H
Calcium 8.6
Vital Signs:
Vital Signs
Temp Pulse Resp BP Pulse Ox
97.6 F 90 19 131/78 96
01/29/25 12:00 01/29/25 11:00 01/29/25 08:00 01/29/25 10:19 01/29/25 08:13
I&O
01/28/25 01/29/25 01/30/25
06:59 06:59 06:59
Intake Total 774 / 908 1941 / 1951 300 / 300
Output Total 2150 / 2185 1805 / 1805 300 / 300
Balance -1376 / -1277 137 / 147 0 / 0
--- NOTE | 2025-01-29 13:31 | CM ---
POD #2: PAD. RLE Limflow, balloon angioplasty, angiojet, stenting. Discharge POC: TBD with medical progression.
--- NOTE | 2025-01-29 16:55 | TRANSFER ---
Received pt from ICU via WC. Pt AAOX3. NSR/BBB on quality assurance monitor chassis. Pox: 100% RA. Heparin gtt infusing at 1000units/hr. Pt c/o R foot pain 03/13. Family at bedside. Call chase within reach. Plan of care ongoing.
[2025-01-29] MEDS: DILAUDID 1 MG IV ×2 (17:31→21:35)
[2025-01-29] MEDS: BENADRYL 25 MG IV ×2 (17:34→21:35)
[2025-01-29] MEDS: COUMADIN 5 MG PO (17:57)
[2025-01-29] MEDS: COLACE PO (19:50)
[2025-01-29] MEDS: HEPARIN 25000 UNITS/250 ML IV (21:45)
[2025-01-29] MEDS: REVATIO 20 MG PO (21:50)
[2025-01-29] MEDS: CELLCEPT 1000 MG PO (21:50)
[2025-01-29] MEDS: PROTONIX 40 MG PO (21:50)
[2025-01-29] MEDS: NORVASC 5 MG PO (21:50)
[2025-01-29] MEDS: PLAQUENIL 400 MG PO (21:50)
[2025-01-29] MEDS: DESYREL PO (22:06)
[2025-01-29] MEDS: XALATAN OPHTHALMIC SOLUTION 1 DROP BOTH EYES (22:26)
[2025-01-30] MEDS: DILAUDID 1 MG IV ×3 (00:38→23:06)
[2025-01-30] MEDS: TYLENOL 650 MG PO ×4 (02:35→20:59)
[2025-01-30] MEDS: ROXICODONE 5 MG PO ×4 (02:35→20:58)
[2025-01-30 03:14] VITALS: BP 104/71
[2025-01-30 05:53] VITALS: BMI 28.0
[2025-01-30 06:36] LABS: Hematocrit 26.2 % (37.0-47.0); Hemoglobin 8.4 g/dL (12.0-16.0); Mean Corp Hgb Conc. 32.1 g/dL (33.0-37.0); Mean Corpuscular Volume 90.0 fL (81.0-99.0); Nucleated Red Blood Cells % 0 %; Platelet Count 132 10^3/uL (130-400); Red Cell Dist. Width 14.7 % (11.5-14.5)
[2025-01-30 06:39] LABS: INR 1.47; PT 18.4 Sec (11.4-14.6)
[2025-01-30 06:41] LABS: APTT 108.9 Sec (23.4-35.0)
[2025-01-30 06:56] LABS: Blood Urea Nitrogen 7 mg/dl (7-17); Calcium 8.5 mg/dl (8.4-10.2); Carbon Dioxide 24 mmol/L (22-30); Chloride 111 mmol/L (98-107); Estimated Creatinine Clearance 75 ml/min; Glucose 89 mg/dl (70-99); Potassium 4.2 mmol/L (3.5-5.1); Sodium 138 mmol/L (135-145); eGFR > 60.00
[2025-01-30 07:30] VITALS: BP 102/67
[2025-01-30] MEDS: MIRALAX PO (08:05)
[2025-01-30] MEDS: COLACE PO (08:05)
[2025-01-30] MEDS: PLAVIX 75 MG PO (08:07)
[2025-01-30] MEDS: VITAMIN B-12 1000 MCG PO (08:07)
[2025-01-30] MEDS: NEURONTIN 300 MG PO ×3 (08:07→21:06)
--- NOTE | 2025-01-30 10:46 | CM ---
Reviewed the chart notes and spoke with the patient at the bedside. Patient ambulating in room ad trang. Patient with heparin gtt infusing. MCKAY drain in place. CM continues to be available to patient/family and is monitoring medical plan for needs
at discharge.
Plan: Discharge to home with no anticipated needs being identified at this time. If home with CMKAY drain would then need VN services.
[2025-01-30 11:44] VITALS: BP 113/73
--- NOTE | 2025-01-30 13:47 | W.PN.HOSP.TC ---
Today's Communication/Plan
-
Monitor vital signs see plan
Continue with IV heparin with bridge to Coumadin
Continue Plavix
Pain control
Assessment / Plan
Assessment / Plan
54 female presented to the hospital with cold and painful right foot patient was seen by vascular surgeon at [facility] and underwent angioplasty in September as well as last Sunday. She had some initial pain which was felt to be secondary to
reperfusion pain but abruptly had cold and numb right foot she had ultrasound done as outpatient which showed right posterior tibial artery occlusion at the level of ankle and advised to go to ER. She has a history of antiphospholipid antibody
syndrome and maintained on Coumadin. She thinks that her INR was down to 1.8 for a procedure could have impacted this. She is normally ma
CTA-occlusion at the proximal aspect of the right anterior tibial artery without evidence of reconstitution. Occlusion of the right posterior tibial artery at the level of the ankle with evidence for some reconstitution below the level of the
ankle. Diminutive left posterior tibial artery with diminished flow suggesting a degree of stenosis and/or occlusion.
Arterial ultrasound on 01/12/2025-occlusion of the right posterior tibial artery at the level of the ankle.
# Peripheral arterial disease
Status post arteriogram 01/20 which showed disease in the anterior tibial artery, right peroneal artery, right posterior tibial artery. Plan for intervention on 01/27 noted. Postop defer to vascular when to start IV heparin and possible Coumadin.
Will need bridging as has history of failure to Lovenox
Continue with IV heparin. Patient baseline APTT 40-45. Hematology recommending to keep PTT twice the normal limit of 80-90. She seems to be very sensitive with heparin.
Continue with current pain regimen and if she were to require more Dilaudid for breakthrough pain will increase gabapentin further. Increased gabapentin
s/p Bypass right posterior tibial artery to lower extremity vein with synthetic substitute, percutaneous approach
Cutdown and exposure of right superficial femoral artery for additional endovascular intervention. Primary repair
Mechanical thrombectomy of right popliteal artery, posterior tibial artery and proximal LimFlow/TADV circuit
Balloon angioplasty and drug-eluting stent placement to plantar vein outflow right foot
Balloon angioplasty and bioabsorbable drug-eluting scaffold stent placement of proximal [place] posterior tibial artery
Balloon angioplasty and Viabahn stent grafting of right popliteal artery ectasia
Postop had increase MCKAY drain bleeding and expanding hematoma. Heparin fusion was briefly held however now resumed once bleeding improved
cw IV heparin per vascular. Per vascular okay for Coumadin bridging. Will start Coumadin at 5 mg. Goal INR 3-3.5. also on plavix
Anemia; likely acute blood loss
Leukocytosis likely secondary to recent surgery
Sinus tachycardia, monitor
# SLE/antiphospholipid antibody syndrome/Raynaud's/scleroderma
Continue CellCept and Plaquenil
Also maintained on Coumadin as outpatient.
Sees . Her INR is kept between 3 and 3.5 as OP. Failure of Lovenox in past. started Coumadin bridge with IV heparin
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
occlusion of the right posterior tibial artery.
If felt more an embolic issue/thrombosis than classic PAD. Appreciate hematology input. aspirin been has been stopped, now on Plavix. Started Coumadin bridge with IV heparin
Vitamin B12 deficiency
started Vitamin B12
# Hypertension-continue with amlodipine
# Anxiety -continue clonazepam, trazodone
# GERD-continue PPI
# DVT prophylaxis-IV heparin
# Full code
General: Comfortable
Respiratory: Non Labored Respirations; Negative Accessory Resp Muscle Use
Cardiac: RRR
RESP: CTA,no wheezing
Musculoskeletal:right foot sx
Neuro: AO x 3
Anticipated Discharge: 24 - 48 hours
Subjective/Interval History
-
Date of Service: January 30, 2025
denies pain
Objective Data
-
Labs:
Laboratory Results
01/30/25
06:15
WBC 4.7 L
Hgb 8.4 L
Hct 26.2 L
Plt Count 132
PT 18.4 H
INR 1.47
APTT 108.9 H
Sodium 138
Potassium 4.2
Chloride 111 H
Carbon Dioxide 24
BUN 7
Creatinine 0.9
Glucose 89
Calcium 8.5
Vital Signs:
Vital Signs
Temp Pulse Resp BP Pulse Ox
97.4 F 83 18 113/73 98
01/30/25 11:44 01/30/25 11:44 01/30/25 11:44 01/30/25 11:44 01/30/25 11:44
I&O
01/29/25 01/30/25 01/31/25
06:59 06:59 06:59
Intake Total 1941 / 1951 1550 / 1550 600 / 600
Output Total 1805 / 1805 470 / 470
Balance 137 / 147 1080 / 1080 600 / 600
--- NOTE | 2025-01-30 13:55 | W.PN.VS ---
Today's Communication / Plan
-
Discussed with Dr Rachel
Assessment/Plan
-
Assessment: 52-year-old female POD #3 endovascular venous arterialization, endovascular bypass of right posterior tibial artery to lower extremity vein with synthetic substitute, cutdown and exposure of right superficial femoral artery, mechanical
thrombectomy of right popliteal artery, posterior tibial artery, and proximal limflow/TADV circuit, balloon angioplasty and stent to plantar vein outflow at right foot, balloon angioplasty and bioabsorbable drug-eluting scaffold stent at posterior
tibial artery, Viabahn stent grafting of right popliteal artery
Plan:
Continue heparin/Coumadin bridge
Continue Plavix 75mgh PO daily
Ambulation as tolerated
OK for dc from vascular standpoint when theraputic INR
Follow up added to dc instructions
Subjective Data
-
Date of Service: January 30, 2025
Pt seen at bedside this afternoon. Pt offers no complaints at this time. No events overnight. Ambulating in her room.
Objective Data
-
Vital Signs
Temp Pulse Resp BP Pulse Ox
97.4 F 83 18 113/73 98
01/30/25 11:44 01/30/25 11:44 01/30/25 11:44 01/30/25 11:44 01/30/25 11:44
Intake and Output
01/29/25 01/30/25 01/31/25
06:59 06:59 06:59
Intake Total 1942 / 195 1550 / 1550 600 / 600
Output Total 1805 / 1805 470 / 470
Balance 137 / 147 1080 / 1080 600 / 600
Intake:
Oral fluids 960 / 960 1440 / 1440 600 / 600
IV fluids (Total) 482 / 492 110 / 110
Nss 1,000 ml @ 120 mls/hr IV . 240 / 240
Q8H20M AC Rx#:[id number]
heparin 242 / 252 110 / 110
Blood Product Amount Infused ( 500 / 500
mL)
Packed Rbc Leukoreduced Unit 250 / 250
[id number]
Packed Rbc Leukoreduced Unit 250 / 250
[id number]
Output:
Drain Output (Total)
Right [place]
Urine, Rachel 130 / 130
Urine, Voided 1650 / 1650 450 / 450
Other:
Number of approximated SMALL 3
amounts of urine
Number of approximated MODERATE 1 4
amounts of urine
Number of unmeasured liquid
stools
Rectum 3
Lab Results
01/30/25 06:15
01/30/25 06:15
Calcium 8.5 mg/dl (8.4-10.2) 01/30/25 06:15
Phosphorus 3.0 mg/dl (2.5-4.5) 01/28/25 00:36
Magnesium 1.8 mg/dl (1.6-2.3) 01/28/25 00:36
Total Bilirubin Cancelled 01/12/25 20:34
AST Cancelled 01/12/25 20:34
ALT Cancelled 01/12/25 20:34
Alkaline Phosphatase Cancelled 01/12/25 20:34
Total Protein Cancelled 01/12/25 20:34
Albumin Cancelled 01/12/25 20:34
Physical Exam
-
No apparent distress, resting in the chair
No tachypnea
No tachycardia
Abdomen nontender, nondistended, and soft
Right groin dressing removed and MCKAY DC'd
Staple site c/d/i, no drainage noted
foot warm, right PT signal with Doppler and dopplerable signal on dorsum of foot
[2025-01-30 15:15] VITALS: BP 103/71
[2025-01-30] MEDS: FLUSH (NSS) 1 FLUSH IV (15:59)
[2025-01-30] MEDS: BENADRYL 25 MG IV ×2 (15:59→22:49)
[2025-01-30] MEDS: COUMADIN 5 MG PO (17:17)
[2025-01-30 19:40] VITALS: BP 109/73
[2025-01-30] MEDS: PLAQUENIL 400 MG PO (20:57)
[2025-01-30] MEDS: COLACE 200 MG PO (20:58)
[2025-01-30] MEDS: PROTONIX 40 MG PO (20:58)
[2025-01-30] MEDS: CELLCEPT 1000 MG PO (20:59)
[2025-01-30] MEDS: REVATIO 20 MG PO (20:59)
[2025-01-30] MEDS: NEURONTIN 100 MG PO (20:59)
[2025-01-30] MEDS: XALATAN OPHTHALMIC SOLUTION 1 DROP BOTH EYES (22:29)
[2025-01-30] MEDS: HEPARIN 25000 UNITS/250 ML IV (22:30)
[2025-01-30] MEDS: NORVASC PO (22:45)
[2025-01-30 22:50] VITALS: BP 94/53
[2025-01-30] MEDS: DESYREL PO (23:10)
[2025-01-31 03:00] VITALS: BP 111/71
[2025-01-31] MEDS: ROXICODONE 5 MG PO ×3 (05:39→21:54)
[2025-01-31] MEDS: TYLENOL 650 MG PO ×3 (05:40→21:54)
[2025-01-31 06:00] VITALS: BMI 27.5
[2025-01-31 06:17] LABS: Hematocrit 26.2 % (37.0-47.0); Hemoglobin 8.5 g/dL (12.0-16.0); Mean Corp Hgb Conc. 32.4 g/dL (33.0-37.0); Mean Corpuscular Volume 90.3 fL (81.0-99.0); Nucleated Red Blood Cells % 0 %; Platelet Count 148 10^3/uL (130-400); Red Cell Dist. Width 14.8 % (11.5-14.5)
[2025-01-31 06:33] LABS: INR 2.08; PT 23.5 Sec (11.4-14.6)
[2025-01-31 06:35] LABS: APTT 96.4 Sec (23.4-35.0)
[2025-01-31 06:43] LABS: Blood Urea Nitrogen 6 mg/dl (7-17); Calcium 8.9 mg/dl (8.4-10.2); Carbon Dioxide 20 mmol/L (22-30); Chloride 113 mmol/L (98-107); Estimated Creatinine Clearance 75 ml/min; Glucose 97 mg/dl (70-99); Potassium 3.8 mmol/L (3.5-5.1); Sodium 138 mmol/L (135-145); eGFR > 60.00
[2025-01-31 08:30] VITALS: BP 134/73
[2025-01-31] MEDS: COLACE PO ×2 (08:39→21:53)
[2025-01-31] MEDS: PLAVIX 75 MG PO (08:40)
[2025-01-31] MEDS: MIRALAX PO (08:40)
[2025-01-31] MEDS: VITAMIN B-12 1000 MCG PO (08:40)
[2025-01-31] MEDS: NEURONTIN 300 MG PO ×3 (08:40→21:54)
[2025-01-31] MEDS: BENADRYL 25 MG IV ×2 (11:21→19:04)
[2025-01-31] MEDS: DILAUDID 1 MG IV ×2 (11:21→19:04)
--- NOTE | 2025-01-31 11:48 | W.PN.HOSP.TC ---
Today's Communication/Plan
-
Monitor vital signs see plan
Continue to monitor INR, goal INR 3-3.5
Continue IV heparin with bridge to Coumadin, continue Plavix
Pain control
Assessment / Plan
Assessment / Plan
54 female presented to the hospital with cold and painful right foot patient was seen by vascular surgeon at [facility] and underwent angioplasty in September as well as last Sunday. She had some initial pain which was felt to be secondary to
reperfusion pain but abruptly had cold and numb right foot she had ultrasound done as outpatient which showed right posterior tibial artery occlusion at the level of ankle and advised to go to ER. She has a history of antiphospholipid antibody
syndrome and maintained on Coumadin. She thinks that her INR was down to 1.8 for a procedure could have impacted this. She is normally ma
CTA-occlusion at the proximal aspect of the right anterior tibial artery without evidence of reconstitution. Occlusion of the right posterior tibial artery at the level of the ankle with evidence for some reconstitution below the level of the
ankle. Diminutive left posterior tibial artery with diminished flow suggesting a degree of stenosis and/or occlusion.
Arterial ultrasound on 01/12/2025-occlusion of the right posterior tibial artery at the level of the ankle.
# Peripheral arterial disease
Status post arteriogram 01/20 which showed disease in the anterior tibial artery, right peroneal artery, right posterior tibial artery. Plan for intervention on 01/27 noted. Postop defer to vascular when to start IV heparin and possible Coumadin.
Will need bridging as has history of failure to Lovenox
Continue with IV heparin. Patient baseline APTT 40-45. Hematology recommending to keep PTT twice the normal limit of 80-90. She seems to be very sensitive with heparin.
Continue with current pain regimen and if she were to require more Dilaudid for breakthrough pain will increase gabapentin further. Increased gabapentin
s/p Bypass right posterior tibial artery to lower extremity vein with synthetic substitute, percutaneous approach
Cutdown and exposure of right superficial femoral artery for additional endovascular intervention. Primary repair
Mechanical thrombectomy of right popliteal artery, posterior tibial artery and proximal LimFlow/TADV circuit
Balloon angioplasty and drug-eluting stent placement to plantar vein outflow right foot
Balloon angioplasty and bioabsorbable drug-eluting scaffold stent placement of proximal [place] posterior tibial artery
Balloon angioplasty and Viabahn stent grafting of right popliteal artery ectasia
Postop had increase MCKAY drain bleeding and expanding hematoma. Heparin fusion was briefly held however now resumed once bleeding improved
cw IV heparin per vascular. Per vascular okay for Coumadin bridging. cw Coumadin at 5 mg. Goal INR 3-3.5. also on plavix
Anemia; likely acute blood loss
Leukocytosis likely secondary to recent surgery
Sinus tachycardia, monitor
# SLE/antiphospholipid antibody syndrome/Raynaud's/scleroderma
Continue CellCept and Plaquenil
Also maintained on Coumadin as outpatient.
Sees . Her INR is kept between 3 and 3.5 as OP. Failure of Lovenox in past. started Coumadin bridge with IV heparin
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
occlusion of the right posterior tibial artery.
If felt more an embolic issue/thrombosis than classic PAD. Appreciate hematology input. aspirin been has been stopped, now on Plavix. Started Coumadin bridge with IV heparin
Vitamin B12 deficiency
started Vitamin B12
# Hypertension-continue with amlodipine
# Anxiety -continue clonazepam, trazodone
# GERD-continue PPI
# DVT prophylaxis-IV heparin
# Full code
General: Comfortable
Respiratory: Non Labored Respirations; Negative Accessory Resp Muscle Use
Cardiac: RRR
RESP: CTA,no wheezing
Musculoskeletal:right foot sx
Neuro: AO x 3
Anticipated Discharge: Within 24 hours
Subjective/Interval History
-
Date of Service: January 31, 2025
Denies nausea
Objective Data
-
Labs:
Laboratory Results
01/31/25
06:04
WBC 4.3 L
Hgb 8.5 L
Hct 26.2 L
Plt Count 148
PT 23.5 H
INR 2.08
APTT 96.4 H
Sodium 138
Potassium 3.8
Chloride 113 H
Carbon Dioxide 20 L
BUN 6 L
Creatinine 0.9
Glucose 97
Calcium 8.9
Vital Signs:
Vital Signs
Temp Pulse Resp BP Pulse Ox
98.1 F 85 16 134/73 97
01/31/25 08:30 01/31/25 08:30 01/31/25 08:30 01/31/25 08:30 01/31/25 08:30
I&O
01/30/25 01/31/25 02/01/25
06:59 06:59 06:59
Intake Total 1550 / 1550 1200 / 1200
Output Total 470 / 470
Balance 1080 / 1080 1200 / 1200
[2025-01-31 12:00] VITALS: BP 118/75
[2025-01-31 16:00] VITALS: BP 135/93
[2025-01-31] MEDS: COUMADIN 5 MG PO (17:35)
[2025-01-31] MEDS: FLUSH (NSS) 1 FLUSH IV (19:05)
[2025-01-31 19:57] VITALS: BP 114/76
[2025-01-31] MEDS: HEPARIN 25000 UNITS/250 ML IV (21:12)
[2025-01-31] MEDS: DESYREL PO (21:48)
[2025-01-31] MEDS: PLAQUENIL 400 MG PO (21:53)
[2025-01-31] MEDS: PROTONIX 40 MG PO (21:54)
[2025-01-31] MEDS: CELLCEPT 1000 MG PO (21:54)
[2025-01-31] MEDS: NEURONTIN 100 MG PO (21:54)
[2025-01-31] MEDS: NORVASC 5 MG PO (21:54)
[2025-01-31] MEDS: REVATIO 20 MG PO (21:55)
[2025-01-31] MEDS: XALATAN OPHTHALMIC SOLUTION 1 DROP BOTH EYES (21:56)
[2025-01-31 22:56] VITALS: BP 102/56
[2025-02-01] VITALS (7 sets, daily range): BP systolic 104–129; BP diastolic 65–80; BMI 27.4
[2025-02-01] MEDS: BENADRYL 25 MG IV ×4 (01:37→22:18)
[2025-02-01] MEDS: DILAUDID 1 MG IV ×4 (01:38→22:18)
[2025-02-01 06:02] LABS: INR 2.75; PT 29.1 Sec (11.4-14.6)
[2025-02-01 06:16] LABS: APTT 158.9 Sec (23.4-35.0)
[2025-02-01 06:19] LABS: Hematocrit 26.6 % (37.0-47.0); Hemoglobin 8.5 g/dL (12.0-16.0); Mean Corp Hgb Conc. 32.0 g/dL (33.0-37.0); Mean Corpuscular Volume 91.1 fL (81.0-99.0); Nucleated Red Blood Cells % 0 %; Platelet Count 182 10^3/uL (130-400); Red Cell Dist. Width 14.9 % (11.5-14.5)
[2025-02-01 06:20] LABS: Blood Urea Nitrogen 7 mg/dl (7-17); Calcium 9.2 mg/dl (8.4-10.2); Carbon Dioxide 23 mmol/L (22-30); Estimated Creatinine Clearance 74 ml/min; Glucose 91 mg/dl (70-99); eGFR > 60.00
[2025-02-01 06:54] LABS: Chloride 112 mmol/L (98-107); Potassium 3.9 mmol/L (3.5-5.1); Sodium 138 mmol/L (135-145)
[2025-02-01] MEDS: MIRALAX PO (07:49)
[2025-02-01] MEDS: COLACE PO ×2 (07:49→19:13)
[2025-02-01] MEDS: VITAMIN B-12 1000 MCG PO (07:50)
[2025-02-01] MEDS: NEURONTIN 300 MG PO ×3 (07:50→21:07)
[2025-02-01] MEDS: PLAVIX 75 MG PO (07:50)
[2025-02-01] MEDS: TYLENOL 650 MG PO (08:06)
[2025-02-01] MEDS: ROXICODONE 5 MG PO ×2 (08:06→15:52)
--- NOTE | 2025-02-01 11:54 | W.PN.HOSP.TC ---
Today's Communication/Plan
-
monitor vitals
see plan
cw vascular checks
pain control
vascular
Assessment / Plan
Assessment / Plan
54 female presented to the hospital with cold and painful right foot patient was seen by vascular surgeon at [facility] and underwent angioplasty in September as well as last Sunday. She had some initial pain which was felt to be secondary to
reperfusion pain but abruptly had cold and numb right foot she had ultrasound done as outpatient which showed right posterior tibial artery occlusion at the level of ankle and advised to go to ER. She has a history of antiphospholipid antibody
syndrome and maintained on Coumadin. She thinks that her INR was down to 1.8 for a procedure could have impacted this. She is normally ma
CTA-occlusion at the proximal aspect of the right anterior tibial artery without evidence of reconstitution. Occlusion of the right posterior tibial artery at the level of the ankle with evidence for some reconstitution below the level of the
ankle. Diminutive left posterior tibial artery with diminished flow suggesting a degree of stenosis and/or occlusion.
Arterial ultrasound on 01/12/2025-occlusion of the right posterior tibial artery at the level of the ankle.
# Peripheral arterial disease
Status post arteriogram 01/20 which showed disease in the anterior tibial artery, right peroneal artery, right posterior tibial artery. s/p intervention on 01/27 Will need bridging as has history of failure to Lovenox
Continue with IV heparin. Patient baseline APTT 40-45. Hematology recommending to keep PTT twice the normal limit of 80-90. She seems to be very sensitive with heparin.
Continue with current pain regimen and if she were to require more Dilaudid for breakthrough pain will increase gabapentin further. Increased gabapentin
s/p Bypass right posterior tibial artery to lower extremity vein with synthetic substitute, percutaneous approach
Cutdown and exposure of right superficial femoral artery for additional endovascular intervention. Primary repair
Mechanical thrombectomy of right popliteal artery, posterior tibial artery and proximal LimFlow/TADV circuit
Balloon angioplasty and drug-eluting stent placement to plantar vein outflow right foot
Balloon angioplasty and bioabsorbable drug-eluting scaffold stent placement of proximal [place] posterior tibial artery
Balloon angioplasty and Viabahn stent grafting of right popliteal artery ectasia
Postop had increase MCKAY drain bleeding and expanding hematoma. Heparin fusion was briefly held however now resumed once bleeding improved
cw IV heparin per vascular. Per vascular okay for Coumadin bridging. cw Coumadin at 5 mg. Goal INR 3-3.5. also on plavix, INR 2.75 today
Anemia; likely acute blood loss
Leukocytosis likely secondary to recent surgery
Sinus tachycardia, monitor
# SLE/antiphospholipid antibody syndrome/Raynaud's/scleroderma
Continue CellCept and Plaquenil
Also maintained on Coumadin as outpatient.
Sees . Her INR is kept between 3 and 3.5 as OP. Failure of Lovenox in past. started Coumadin bridge with IV heparin
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
occlusion of the right posterior tibial artery.
If felt more an embolic issue/thrombosis than classic PAD. Appreciate hematology input. aspirin been has been stopped, now on Plavix. Started Coumadin bridge with IV heparin
Vitamin B12 deficiency
started Vitamin B12
# Hypertension-continue with amlodipine
# Anxiety -continue clonazepam, trazodone
# GERD-continue PPI
# DVT prophylaxis-IV heparin
# Full code
General: Comfortable
Respiratory: Non Labored Respirations; Negative Accessory Resp Muscle Use
Cardiac: RRR
RESP: CTA,no wheezing
Musculoskeletal:right foot sx
Neuro: AO x 3
Anticipated Discharge: 24 - 48 hours
Subjective/Interval History
-
Date of Service: February 01, 2025
has some discomfort
Objective Data
-
Labs:
Laboratory Results
02/01/25 02/01/25
04:47 13:30
WBC 3.6 L
Hgb 8.5 L
Hct 26.6 L
Plt Count 182 D
PT 29.1 H
INR 2.75
APTT 158.9 H* Pending
Sodium 138
Potassium 3.9
Chloride 112 H
Carbon Dioxide 23
BUN 7
Creatinine 0.9
Glucose 91
Calcium 9.2
Vital Signs:
Vital Signs
Temp Pulse Resp BP Pulse Ox
98.4 F 100 18 118/77 98
02/01/25 08:03 02/01/25 08:03 02/01/25 08:03 02/01/25 08:03 02/01/25 10:56
I&O
01/31/25 02/01/25 02/02/25
06:59 06:59 06:59
Intake Total 1200 / 1200 720 / 720
Balance 1200 / 1200 720 / 720
[2025-02-01 13:47] LABS: APTT 91.0 Sec (23.4-35.0)
[2025-02-01] MEDS: TYLENOL 1000 MG PO (15:52)
[2025-02-01] MEDS: COUMADIN 5 MG PO (18:00)
[2025-02-01] MEDS: FLUSH (NSS) 1 FLUSH IV (18:18)
[2025-02-01 20:34] LABS: APTT 100.8 Sec (23.4-35.0)
[2025-02-01] MEDS: PLAQUENIL 400 MG PO (21:07)
[2025-02-01] MEDS: NORVASC 5 MG PO (21:07)
[2025-02-01] MEDS: PROTONIX 40 MG PO (21:07)
[2025-02-01] MEDS: CELLCEPT 1000 MG PO (21:07)
[2025-02-01] MEDS: NEURONTIN 100 MG PO (21:07)
[2025-02-01] MEDS: REVATIO 20 MG PO (21:07)
[2025-02-01] MEDS: XALATAN OPHTHALMIC SOLUTION 1 DROP BOTH EYES (21:09)
[2025-02-01] MEDS: DESYREL PO (21:09)
[2025-02-01] MEDS: HEPARIN 25000 UNITS/250 ML IV (22:19)
[2025-02-01] MEDS: TYLENOL PO (23:00)
[2025-02-02] MEDS: BENADRYL 25 MG IV ×2 (02:38→06:45)
[2025-02-02] MEDS: DILAUDID 1 MG IV ×2 (02:38→06:45)
[2025-02-02 03:01] VITALS: BP 116/76
[2025-02-02 06:00] VITALS: BMI 27.3
[2025-02-02 07:15] VITALS: BP 116/68
[2025-02-02 07:29] LABS: Hematocrit 25.0 % (37.0-47.0); Hemoglobin 8.3 g/dL (12.0-16.0); Mean Corp Hgb Conc. 33.2 g/dL (33.0-37.0); Mean Corpuscular Volume 90.3 fL (81.0-99.0); Nucleated Red Blood Cells % 0 %; Platelet Count 176 10^3/uL (130-400); Red Cell Dist. Width 14.7 % (11.5-14.5)
[2025-02-02 07:50] LABS: Blood Urea Nitrogen 7 mg/dl (7-17); Calcium 8.6 mg/dl (8.4-10.2); Carbon Dioxide 23 mmol/L (22-30); Chloride 111 mmol/L (98-107); Estimated Creatinine Clearance 83 ml/min; Glucose 96 mg/dl (70-99); Potassium 3.9 mmol/L (3.5-5.1); Sodium 136 mmol/L (135-145); eGFR > 60.00
[2025-02-02] MEDS: VITAMIN B-12 1000 MCG PO (08:08)
[2025-02-02] MEDS: NEURONTIN 300 MG PO ×2 (08:08→15:12)
[2025-02-02] MEDS: PLAVIX 75 MG PO (08:08)
[2025-02-02] MEDS: TYLENOL 1000 MG PO ×2 (08:09→15:12)
[2025-02-02] MEDS: MIRALAX PO (08:10)
[2025-02-02] MEDS: COLACE 200 MG PO (08:10)
[2025-02-02 08:42] LABS: INR 3.43; PT 34.3 Sec (11.4-14.6)
[2025-02-02 08:43] LABS: APTT 102.6 Sec (23.4-35.0)
[2025-02-02 08:59] VITALS: BP 121/80; PULSE 88; O2SAT 97
[2025-02-02 11:15] VITALS: BP 132/81
--- NOTE | 2025-02-02 11:27 | W.PN.HOSP.TC ---
Today's Communication/Plan
-
Monitor vitals
See plan
Pain control
INR now therapeutic, discharge today with Coumadin and Plavix
Patient will follow-up with vascular outpatient
Time of discharge 38 minutes
Assessment / Plan
Assessment / Plan
54 female presented to the hospital with cold and painful right foot patient was seen by vascular surgeon at [facility] and underwent angioplasty in September as well as last Sunday. She had some initial pain which was felt to be secondary to
reperfusion pain but abruptly had cold and numb right foot she had ultrasound done as outpatient which showed right posterior tibial artery occlusion at the level of ankle and advised to go to ER. She has a history of antiphospholipid antibody
syndrome and maintained on Coumadin. She thinks that her INR was down to 1.8 for a procedure could have impacted this. She is normally ma
CTA-occlusion at the proximal aspect of the right anterior tibial artery without evidence of reconstitution. Occlusion of the right posterior tibial artery at the level of the ankle with evidence for some reconstitution below the level of the
ankle. Diminutive left posterior tibial artery with diminished flow suggesting a degree of stenosis and/or occlusion.
Arterial ultrasound on 01/12/2025-occlusion of the right posterior tibial artery at the level of the ankle.
# Peripheral arterial disease
Status post arteriogram 01/20 which showed disease in the anterior tibial artery, right peroneal artery, right posterior tibial artery. s/p intervention on 01/27 Will need bridging as has history of failure to Lovenox
Continue with IV heparin. Patient baseline APTT 40-45. Hematology recommending to keep PTT twice the normal limit of 80-90. She seems to be very sensitive with heparin.
Continue with current pain regimen and if she were to require more Dilaudid for breakthrough pain will increase gabapentin further. Increased gabapentin
s/p Bypass right posterior tibial artery to lower extremity vein with synthetic substitute, percutaneous approach
Cutdown and exposure of right superficial femoral artery for additional endovascular intervention. Primary repair
Mechanical thrombectomy of right popliteal artery, posterior tibial artery and proximal LimFlow/TADV circuit
Balloon angioplasty and drug-eluting stent placement to plantar vein outflow right foot
Balloon angioplasty and bioabsorbable drug-eluting scaffold stent placement of proximal [place] posterior tibial artery
Balloon angioplasty and Viabahn stent grafting of right popliteal artery ectasia
Postop had increase MCKAY drain bleeding and expanding hematoma. Heparin fusion was briefly held however now resumed once bleeding improved
IV heparin per vascular. Per vascular okay for Coumadin bridging. cw Coumadin at 5 mg. Goal INR 3-3.5. also on plavix, INR 3.4 today. Patient is aware to get repeat INR this week. DC heparin drip.
Anemia; likely acute blood loss
Pain control
Leukocytosis likely secondary to recent surgery
Sinus tachycardia, monitor
# SLE/antiphospholipid antibody syndrome/Raynaud's/scleroderma
Continue CellCept and Plaquenil
Also maintained on Coumadin as outpatient.
Sees . Her INR is kept between 3 and 3.5 as OP. Failure of Lovenox in past. started Coumadin bridge with IV heparin
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
occlusion of the right posterior tibial artery.
If felt more an embolic issue/thrombosis than classic PAD. Appreciate hematology input. aspirin been has been stopped, now on Plavix. Started Coumadin bridge with IV heparin
Vitamin B12 deficiency
started Vitamin B12
# Hypertension-continue with amlodipine
# Anxiety -continue clonazepam, trazodone
# GERD-continue PPI
# DVT prophylaxis-IV heparin
# Full code
General: Comfortable
Respiratory: Non Labored Respirations; Negative Accessory Resp Muscle Use
Cardiac: RRR
RESP: CTA,no wheezing
Musculoskeletal:right foot sx
Neuro: AO x 3
Anticipated Discharge: Today
Subjective/Interval History
-
Date of Service: February 02, 2025
Has some pain but better
Objective Data
-
Labs:
Laboratory Results
02/02/25
07:14
WBC 3.8 L
Hgb 8.3 L
Hct 25.0 L
Plt Count 176
PT 34.3 H
INR 3.43
APTT 102.6 H
Sodium 136
Potassium 3.9
Chloride 111 H
Carbon Dioxide 23
BUN 7
Creatinine 0.8
Glucose 96
Calcium 8.6
Vital Signs:
Vital Signs
Temp Pulse Resp BP Pulse Ox
98.8 F 85 14 116/68 100
02/02/25 07:15 02/02/25 07:15 02/02/25 07:15 02/02/25 07:15 02/02/25 07:15
I&O
02/01/25 02/02/25 02/03/25
06:59 06:59 06:59
Intake Total 720 / 720 960 / 960
Balance 720 / 720 960 / 960
--- NOTE | 2025-02-02 11:29 | W.DCSUMMARY ---
Discharge Summary
Discharge Data
Date of Admission: 01/12/25
Date of Discharge: 02/02/25
-
Pending Results: No
Hospital Course
54-year-old female with past medical history of peripheral arterial disease, SLE/antiphospholipid antibody syndrome, Raynaud's, scleroderma, hypertension, anxiety, GERD came to the hospital with lower extremity pain with ultrasound showing right
posterior tibial artery occlusion. Patient was seen by vascular surgery who performed bypass of right posterior tibial artery to lower extremity vein. Patient also Balloon angioplasty and drug-eluting stent to plantar vein, balloon angioplasty and
drug-eluting stent posterior tibial artery and popliteal. Patient hospital course was prolonged due to her inability to take Lovenox for Coumadin bridging since she has failed it before. Instead she was started on IV heparin until her INR was
greater than 3. Her discharge INR was 3.4. She was instructed to follow-up closely for repeat INR outpatient.Once her symptoms continue to improve, she was then discharged home with instructions to follow-up with all her physicians outpatient.
Discharge Plan
-
Patient Disposition: Home (Routine Discharge)
Discharge Diagnosis/Procedures: Peripheral arterial disease status post bypass, mechanical thrombectomy of right popliteal artery, posterior tibial artery
Antiphospholipid antibody syndrome
Condition: Fair
Diet: As tolerated
Activity: As tolerated
Driving Restrictions: As prior to admission
Bathing Restrictions: None
Blood Work: INR with your provider early this week
Others Tests: Ultrasound appointment: 02/11 at 3 PM
Stand Alone Forms: Vascular Surg Discharge Instr
Referrals:
Salvador Brannon CRNP [Family Provider] - in less than 1 week
Stefanie Pineda CRNP [Specified Professional Personl, Vascular Surgery] - 02/12/25 9:00 am
Referral Note: Vascular surgery office follow-up
Prescriptions:
New
polyethylene glycol 3350 17 gram Powder In Packet
17 g PO DAILY Qty: 0 0RF
clopidogrel 75 mg Tablet
75 mg PO DAILY Qty: 30 0RF
acetaminophen [Tylenol Extra Strength] 500 mg Tablet
1,000 mg PO Q8 Qty: 0 0RF
cyanocobalamin (vitamin B-12) [Vitamin B-12] 500 mcg Tablet
1,000 mcg PO DAILY Qty: 30 0RF
docusate sodium 100 mg Capsule
200 mg PO BID Qty: 0 0RF
gabapentin 400 mg capsule
400 mg PO TID Qty: 90 0RF
oxycodone 5 mg Tablet
5 mg PO Q4HPRN PRN (Reason: moderate to severe pain) Qty: 20 0RF
Continued
amlodipine 5 MG tablet
5 mg PO HS
hydroxychloroquine [Plaquenil] 200 mg Tablet
400 mg PO HS Qty: 0
clonazepam 0.5 MG tablet
0.5 mg PO Q8HPRN PRN (Reason: anxiety)
mycophenolate mofetil [CellCept] 500 mg Tablet
1,000 mg PO HS
trazodone 100 mg Tablet
200 mg PO HS
latanoprost 0.005 % Drops
1 drp BOTH EYES HS
sildenafil 25 mg Tablet
20 mg PO HS
loperamide 2 mg Tablet
2 mg PO Q6HPRN PRN (Reason: DIARRHEA)
omeprazole 40 mg Capsule,Delayed Release(Dr/Ec)
80 mg PO HS
warfarin 2 mg Tablet
4 mg PO SUMOTUWETHSA@1999
warfarin 2 mg Tablet
6 mg PO FR@1999
psyllium husk [Metamucil] 0.4 gram Capsule
2.4 g PO DAILY
Discharge Orders:
Discharge Patient (As Directed); Ordered 02/02/25
Ordered By: Dayo Yoder
Care Plan Goals
Care Plan Goals:
Problem: Readiness for enhanced knowledge related to diagnosis and treatment plan
Goal: Understand your diagnosis and treatment plan needs, including medications if applicable.
Instructions: Know your diagnosis, underlying causes and treatment plan options, including medications if applicable. Consult with your health care team to learn about your diagnosis and treatment plan, including medications if applicable.
Discharge Date and Time
Print Language: LIBERIAN
[2025-02-02] MEDS: ROXICODONE 5 MG PO (12:55)
[2025-02-02 15:15] VITALS: BP 145/90
== END 2025-02-02 16:49 | disposition home or self-care (01) | DRG 271 ==
LOC: 2 SOUTH 22:47
PROVIDERS: Hospitalist; Internal Medicine; Nurse Practitioner; Nurse Practitioner Family; Registered Nurse; Surgery; ADMITTING PHYSICIAN Hospitalist; ATTENDING PHYSICIAN Internal Medicine; EMERGENCY PHYSICIAN Emergency Medicine; OTHER PHYSICIAN Internal Medicine; OTHER PHYSICIAN Internal Medicine Hematology & Oncology; OTHER PHYSICIAN Surgery Vascular Surgery
PROC: B41D1ZZ Fluoroscopy of Aorta and Bilateral Lower Extremity Arteries using Low Osmolar Contrast (ICD-10-PCS; 2025-01-20)
PROC: 047 Lower Arteries, Dilation (ICD-10-PCS; 2025-01-27)
PROC: 041R3JS Bypass Right Posterior Tibial Artery to Lower Extremity Vein with Synthetic Substitute, Percutaneous Approach (ICD-10-PCS; 2025-01-27)
PROC: 04CR3ZZ Extirpation of Matter from Right Posterior Tibial Artery, Percutaneous Approach (ICD-10-PCS; 2025-01-27)
PROC: 04CM3ZZ Extirpation of Matter from Right Popliteal Artery, Percutaneous Approach (ICD-10-PCS; 2025-01-27)
PROC: X27R3TA Dilation of Right Posterior Tibial Artery with Intraluminal Device, Everolimus-eluting Resorbable Scaffold(s), Percutaneous Approach, New Technology Group 10 (ICD-10-PCS; 2025-01-27)
PROC: 047M3DZ Dilation of Right Popliteal Artery with Intraluminal Device, Percutaneous Approach (ICD-10-PCS; 2025-01-27)
PROC: 3E05317 Introduction of Other Thrombolytic into Peripheral Artery, Percutaneous Approach (ICD-10-PCS; 2025-01-27)
PROC: 30233N1 Transfusion of Nonautologous Red Blood Cells into Peripheral Vein, Percutaneous Approach (ICD-10-PCS; 2025-01-28)
DX: I70.221 Atherosclerosis of native arteries of extremities with rest pain, right leg (principal); D62 Acute posthemorrhagic anemia; D68.61 Antiphospholipid syndrome; L76.32 Postprocedural hematoma of skin and subcutaneous tissue following other procedure; M34.1 CR(E)ST syndrome; M32.9 Systemic lupus erythematosus, unspecified; I10 Essential (primary) hypertension; D72.829 Elevated white blood cell count, unspecified; R00.0 Tachycardia, unspecified; E53.8 Deficiency of other specified B group vitamins; K21.9 Gastro-esophageal reflux disease without esophagitis; F41.9 Anxiety disorder, unspecified; F32.A Depression, unspecified; K58.0 Irritable bowel syndrome with diarrhea; Y83.8 Other surgical procedures as the cause of abnormal reaction of the patient, or of later complication, without mention of misadventure at the time of the procedure; Z86.718 Personal history of other venous thrombosis and embolism; Z79.01 Long term (current) use of anticoagulants
CPT/HCPCS: 0620T; 36246; 36415; 71045; 75625; 75635; 75710; 80048; 80061; 82607; 82728; 82962; 83540; 83550; 83735; 84100; 85014; 85018; 85025; 85027; 85610; 85730; 86850; 86900; 86901; 86920; 93005; 93306; 93922; 93926; 93971; 96374; 97116; 97161; 97530; 99285; C1725; C1757; C1760; C1769; C1874; C1889; C1894; J2997; P9016; Q9967

== ENCOUNTER 2025-02-04 10:54 | Inpatient (IN) | payer MEDICARE, OTHER, SELFPAY ==
[2025-02-03] VITALS (13 sets, daily range): BP systolic 96–142; BP diastolic 63–108; BMI 27.6; BMI 26.7
--- NOTE | 2025-02-03 10:30 | ED.GENMED ---
History of Present Illness
General
Chief Complaint: Extremity Pain (non-traumatic)
Source: patient, records and spouse
Exam Limitations: none
Time Seen by Provider: 02/03/25 09:53
Nursing documentation reviewed up to this point in time: agreed with
History of Present Illness
History of Present Illness:
54-year-old female with history as noted presents to the ER for evaluation of right foot pain. She was notably admitted to this hospital 01/12 until he was admitted with right posterior tibial artery occlusion and seen in consultation with
vascular surgery and underwent bypass of the right posterior artery as well as balloon angioplasty and drug-eluting stent in the plantar vein, 1 angioplasty and drug-eluting stent in the posterior tibial artery and popliteal artery. Prolonged
hospitalization in part due to requiring IV heparin bridge to Coumadin given failure of Lovenox in the past.
She presents to the ER for evaluation of right foot pain and color change. She left the hospital yesterday afternoon and she says that when she went to bed yesterday evening she started to notice that she was having increasing pain in the right
foot specifically in the right big toe. She says that this morning when she woke up she noticed that the pain had worsened and that she had discoloration of the toe with some redness as well as duskiness/darkness at the tip of the toe. Came to the
ER for assessment. She denies any swelling in the right lower extremity. She denies any other complaints including chest pain or shortness of breath. She did note in triage that her dog jumped on her foot yesterday when she came home�it sounds
like her 65 pound dog essentially sat on her foot but it was a relatively minor trauma and there was no cut or scratch, no bite.
Past History
Past History
ED Past Medical History: Other (DVT, IBS, Anitcardiolipin antibody, Lupus, Raynaud's disease)
ED Past Surgical History: Orthopedic
Social History
Tobacco: Non-smoker
Alcohol: None
Drug: None
Personal:
Living: with family
Employment: Not employed
Review of Systems
Review of Systems
All Other Systems: ROS reviewed and negative except as documented in HPI and ROS
Musculoskeletal: Reports other (Foot pain); Denies edema
Skin: Reports other (Color change of right foot/toe)
Phy Exam
Physical Exam
Physical Exam:
General: Awake, alert, oriented x3; anxious appearing but nontoxic
Head: Normocephalic, atraumatic
Eyes: Conjunctiva normal
Throat: Airway intact, handling secretions
Neck: Trachea midline, supple without meningismus
Lungs: Breathing comfortably not in distress, no hypoxia or tachypnea
Heart: Regular rate
Neuro: Grossly intact
Skin: Patient has some erythema streaking from the dorsum of the right first toe down towards the midfoot; she has purpleish/dusky discoloration at the tip of the 1st and 2nd digit on the right
Extremities: Skin changes to the right foot/toe as above, no edema noted; she does have dorsalis pedis and posterior tibial pulse present by Doppler in the right foot
Scores
Heart Failure Risk
Heart Failure Risk Score: Not Applicable
Heart Score for Chest Pain Patients
STEMI patient?: Not applicable
Withdrawal Assessment of Alcohol
Withdrawal Assessment Completed?: Not applicable
Course
Orders/Labs/Results
Orders:
Orders
02/03/25 10:36
Vascular Surgery Consult Urgent
Consulting Provider: Truman Rachel III
Was physician already notified: Yes
02/03/25 10:50
Complete Blood Count/With Diff Urgent
Comprehensive Metabolic Panel Urgent
PTT Urgent
Prothrombin Time Urgent
02/03/25 11:06
Morphine Sulfate 4 mg IV NOW STA
02/03/25 11:23
US Limflow Post RT Urgent
Comment:
Reason For Exam: pain/discolored toes
02/03/25 14:25
Diphenhydramine [Benadryl] 25 mg IV NOW STA
02/03/25 14:26
HYDROmorphone [Dilaudid] 0.5 mg IV NOW STA
Abnormal Lab Results
02/03/25
10:50
RBC 3.21 L 10^6/uL
(4.20-5.40)
Hgb 9.4 L g/dL
(12.0-16.0)
Hct 28.2 L %
(37.0-47.0)
MPV 10.6 H fL
(7.4-10.4)
Absolute Lymphs (auto) 0.9 L 10^3/uL
(1.2-3.4)
Lymphocytes % 17.2 L %
(20.5-51.1)
Monocytes % 10.1 H %
(1.7-9.3)
PT 38.5 H Sec
(11.4-14.6)
APTT 57.9 H Sec
(23.4-35.0)
Sodium 134 L mmol/L
(135-145)
Chloride 110 H mmol/L
(98-107)
Carbon Dioxide 19 L mmol/L
(22-30)
Total Protein 5.7 L g/dl
(6.3-8.2)
02/03/25 10:50
02/03/25 10:50
Vital Signs
Initial and Last Documented VS:
Initial Vital Signs
Temp Pulse Resp BP Pulse Ox
36.7 C 97 22 128/81 95
02/03/25 09:28 02/03/25 09:28 02/03/25 09:28 02/03/25 09:28 02/03/25 09:28
Last Documented Vital Signs
Temp Pulse Resp BP Pulse Ox
36.7 C 84 20 134/84 98
02/03/25 09:28 02/03/25 14:45 02/03/25 14:42 02/03/25 14:40 02/03/25 14:54
MDM/Problems Addressed
Differential Diagnosis Includes:
Arterial occlusion, cellulitis/lymphangitis, contusion/trauma
MDM/Problems Addressed:
54-year-old female with recent vascular interventions as described above presents with worsening pain and color change to her right foot/toe. Vitals and exam as above. Will send screening labs including INR. Case discussed with vascular surgery
for consultation. Requesting arterial ultrasound with [facility]IKI. Monitor very closely reassess at the above.
Labs reviewed: INR therapeutic 3.98. CBC shows stable anemia, chemistry shows mild metabolic acidosis. Awaiting ultrasound results.
Ultrasound results reviewed�Limflow stent occluded. Discussed with vascular surgery who are reviewing and will evaluate patient. Hold off on heparin infusion at this point with an INR of 3.98.
Discussed with vascular surgery�unfortunately no acute intervention to take at this point in time, patient developing gangrene in the toe will likely eventually need amputation. Her pain is poorly controlled here will admit for acute pain
management, discussed case with hospitalist.
Chronic conditions affecting care:
Scleroderma, hypercoagulable
*Radiology
Radiology exam reviewed: radiology read reviewed
*Pulse Oximetry
SaO2: 95
Oxygen Mode of Delivery: Room air
Patient hypoxic: no (95%)
*Critical Care Note
Total Time (30-74mins, 75-104mins- exclusive of procedures): Not Applicable
Data Reviewed
Review of Other/Old Records Reveals: Labs, Records and Discharge Summary
Source: patient, records and spouse
Patient Management
Discussion with other providers: Hospitalist (Discussed with hospitalist) and Hvac Refrigeration Technician (Discussed with vascular surgery)
Escalation/DeEscalation of care consider admission/obs:
Admission indicated
ED Attending Note
-
Portions of this chart may have been created with voice recognition software.� Occasional wrong word or��sound alike� substitutions may have occurred due to the inherent limitations of voice recognition software.
Discharge Plan
Departure
Patient Disposition: Admit
Date of Disposition: 02/03/25
Time of Disposition: 15:58
Admit to doctor: Tone
Presentation/result/management discussed w/ accepting MD/DO: Hospitalist
Discharge Problem:
Gangrene of toe of right foot, Arterial occlusive disease
Prescriptions:
No Action
amlodipine 5 MG tablet
5 mg PO HS
hydroxychloroquine [Plaquenil] 200 mg Tablet
400 mg PO HS Qty: 0
clonazepam 0.5 MG tablet
0.5 mg PO Q8HPRN PRN (Reason: anxiety)
mycophenolate mofetil [CellCept] 500 mg Tablet
1,000 mg PO HS
trazodone 100 mg Tablet
200 mg PO HS
latanoprost 0.005 % Drops
1 drp BOTH EYES HS
sildenafil 25 mg Tablet
20 mg PO HS
loperamide 2 mg Tablet
2 mg PO Q6HPRN PRN (Reason: DIARRHEA)
omeprazole 40 mg Capsule,Delayed Release(Dr/Ec)
80 mg PO HS
warfarin 2 mg Tablet
4 mg PO SUMOTUWETHSA@1999
warfarin 2 mg Tablet
6 mg PO FR@1999
psyllium husk [Metamucil] 0.4 gram Capsule
2.4 g PO DAILY
polyethylene glycol 3350 17 gram Powder In Packet
17 g PO DAILY Qty: 0 0RF
clopidogrel 75 mg Tablet
75 mg PO DAILY Qty: 30 0RF
acetaminophen [Tylenol Extra Strength] 500 mg Tablet
1,000 mg PO Q8 Qty: 0 0RF
cyanocobalamin (vitamin B-12) [Vitamin B-12] 500 mcg Tablet
1,000 mcg PO DAILY Qty: 30 0RF
docusate sodium 100 mg Capsule
200 mg PO BID Qty: 0 0RF
gabapentin 400 mg capsule
400 mg PO TID Qty: 90 0RF
oxycodone 5 mg Tablet
5 mg PO Q4HPRN PRN (Reason: moderate to severe pain) Qty: 20 0RF
Referrals:
Salvador Brannon CRNP [Family Provider]
Interventions
Interventions:
*Risk Screen - Suicide Last Done: 02/03/25 09:28
*General Assessment Last Done: 02/03/25 09:28
*Neglect/Abuse Screening Last Done: 02/03/25 09:28
*ED COVID-19 Vaccine History Last Done: 02/03/25 10:51
ED-Skin Assessment Last Done: 02/03/25 10:51
ED-Peripheral Vascular Assessment Last Done: 02/03/25 10:52
ED-Musculoskeletal Assessment Last Done: 02/03/25 10:51
Discharge Date and Time
Print Language: GABONESE
[2025-02-03 11:06] LABS: Hematocrit 28.2 % (37.0-47.0); Hemoglobin 9.4 g/dL (12.0-16.0); Mean Corp Hgb Conc. 33.3 g/dL (33.0-37.0); Mean Corpuscular Volume 87.9 fL (81.0-99.0); Nucleated Red Blood Cells % 0 %; Platelet Count 216 10^3/uL (130-400); Red Cell Dist. Width 14.3 % (11.5-14.5)
[2025-02-03] MEDS: MORPHINE SULFATE 4 MG IV (11:14)
[2025-02-03 11:17] LABS: INR 3.98; PT 38.5 Sec (11.4-14.6)
[2025-02-03 11:18] LABS: APTT 57.9 Sec (23.4-35.0)
[2025-02-03 11:23] LABS: ALT (SGPT) 24 U/L (0-35); AST (SGOT) 27 U/L (14-36); Albumin 3.6 g/dl (3.5-5.0); Alkaline Phosphatase 105 U/L (38-126); Blood Urea Nitrogen 10 mg/dl (7-17); Calcium 9.2 mg/dl (8.4-10.2); Carbon Dioxide 19 mmol/L (22-30); Chloride 110 mmol/L (98-107); Estimated Creatinine Clearance 74 ml/min; Glucose 98 mg/dl (70-99); Potassium 4.2 mmol/L (3.5-5.1); Sodium 134 mmol/L (135-145); Total Protein 5.7 g/dl (6.3-8.2); eGFR > 60.00
--- NOTE | 2025-02-03 12:15 | CON.VAS ---
Addendum entered and electronically signed by Truman Rachel III, MD 02/03/25 20:15:
This patient was seen and examined in collaboration with AMBERLY White. I agree with the history and physical exam as well as the assessment and plan. I have the following additions:
Complex medical history
Known to me
Recent LimFlow/TADV, right lower extremity
Patient had right foot pain and discoloration of the right hallux
On physical exam she is in no acute distress
Right hallux discoloration consistent with ischemia
Audible Doppler signals in the right foot
LimFlow/TADV duplex reveals occluded circuit
Her INR is currently 3.98
I explained to her that it would be very unlikely to be able to re-establish and then maintain patency of the LimFlow/TADV circuit with reintervention if it thrombosed while her INR was 4. I am concerned that with her history, cessation of
anticoagulation to allow for attempt at endovascular intervention would carry more risk than benefit at this point. My recommendation is to admit for pain control. Will need a good oral regimen for analgesia. She has no open wounds or active
infection. I explained to her that she will likely need a major amputation at some point in the future but there is no immediate need to do this right now.
Signed:
Truman Rachel III, MD
Vascular Surgery
[facility]
Original Note:
Consultation
Consultation Request
Date/Time Consultation Performed: 02/03/25 11:00a
Performing Provider: Virginie
Medical History
-
History of Present Illness:
54-year-old female with past medical history significant for scleroderma, lupus, antiphospholipid syndrome (on Coumadin), Raynaud's, DVT presented to the ER today for right foot pain. Patient was recently admitted from 01/12-02/02 with right posterior
tibial artery occlusion and underwent right lower extremity bypass. Patient now presenting to the ER for right foot pain and discoloration. She complains specifically of her right great toe. The pain has worsened overnight and this morning she
noted the discoloration of the toe.
Patient seen at bedside in the emergency room this morning by Dr. Rachel.
Past Medical History
Past Medical History: Other (Antiphospholipid syndrome, DVT, IBS, lupus, Raynaud's, scleroderma)
Past Surgical History: Cholecystectomy, , Orthopedic and Other (Partial amputation of right pinky toe and left middle finger, RLE angioplasties 09/2024 and last week)
Social History
Alcohol: None
Personal:
Living: With Family
Employment: Not Employed
Family History
Family History: Reviewed & Not Pertinent
Allergies / Home Medications
Allergy/AdvReac Type Severity Reaction Status Date / Time
No Known Allergies Allergy Verified 02/03/25 09:36
�Medication �Instructions �Recorded �Confirmed �Type
amlodipine 5 mg tablet 5 mg PO HS Blood Pressure 11/13/13 01/12/25 History
hydroxychloroquine 200 mg tablet 400 mg PO HS Sleep ##0 11/13/13 01/12/25 History
(Plaquenil)
clonazepam 0.5 mg tablet 0.5 mg PO Q8HPRN PRN anxiety 08/11/16 01/12/25 History
mycophenolate mofetil 500 mg 1,000 mg PO HS Autoimmune Disorder 09/05/24 01/12/25 History
tablet (CellCept)
trazodone 100 mg tablet 200 mg PO HS Sleep 09/05/24 01/12/25 History
latanoprost 0.005 % eye drops 1 drp BOTH EYES HS Glaucoma 09/06/24 01/12/25 History
sildenafil 25 mg tablet 20 mg PO HS Raynaud's 09/06/24 01/12/25 History
loperamide 2 mg tablet 2 mg PO Q6HPRN PRN DIARRHEA 01/12/25 01/12/25 History
omeprazole 40 mg capsule,delayed 80 mg PO HS Gastrointestinal Issue 01/12/25 01/12/25 History
release
psyllium husk 0.4 gram capsule 2.4 g PO DAILY Constipation 01/12/25 01/12/25 History
(Metamucil)
warfarin 2 mg tablet 4 mg PO SUMOTUWETHSA@199901/12/25 01/12/25 History
Antiphospholipid
warfarin 2 mg tablet 6 mg PO FR@1999 Antiphospholipid 01/12/25 01/12/25 History
acetaminophen 500 mg tablet 1,000 mg (2 x 500 mg) PO Q8 #0 tabs 02/02/25 Rx
(Tylenol Extra Strength)
clopidogrel 75 mg tablet 75 mg PO DAILY #30 tabs 02/02/25 Rx
cyanocobalamin (vitamin B-12) 500 1,000 mcg (2 x 500 mcg) PO DAILY 02/02/25 Rx
mcg tablet (Vitamin B-12) #30 tabs
docusate sodium 100 mg capsule 200 mg (2 x 100 mg) PO BID #0 caps 02/02/25 Rx
gabapentin 400 mg capsule 400 mg PO TID #90 caps 02/02/25 Rx
oxycodone 5 mg tablet 5 mg PO Q4HPRN PRN moderate to 02/02/25 Rx
severe pain #20 tabs
polyethylene glycol 3350 17 gram 17 g PO DAILY #0 ea 02/02/25 Rx
oral powder packet
Review of Systems
-
History Source: Patient
All other systems: Negative unless noted
Constitutional: Reports No Symptoms
EENT: Reports No Symptoms
Respiratory: Reports No Symptoms
Cardiac: Reports No Symptoms
Vascular: Reports Leg Pain / Claudication
Abdomen/GI: Reports No Symptoms
: Reports No Symptoms
Musculoskeletal: Reports Muscle Pain
Skin: Reports Other (Discoloration right great toe)
Neurological: Reports No Symptoms
Physical Exam
Vital Signs
Temp Pulse Resp BP Pulse Ox
98.1 F 72 14 96/81 99
02/03/25 09:28 02/03/25 11:45 02/03/25 11:45 02/03/25 11:00 02/03/25 11:45
Lab Results
02/03/25 10:50
02/03/25 10:50
Physical Exam
General: No Apparent Distress and Pain
HEENT: Normocephalic and Atraumatic
Respiratory: Non Labored Respirations
Cardiac: Negative JVD
GI: Soft and Non Tender
Musculoskeletal: No Clubbing
Skin: Other (Pale/slightly discolored great toe)
Neuro: Awake, Alert and Oriented
Psych: Calm
Pulses: Right Dorsalis Pedis: Doppler (Audible Doppler in region of DP)
Assessment / Plan
-
54-year-old female here with discoloration and pain to the right foot status post limflow
Plan:
Ultrasound limflow
Will follow-up with patient when study complete
Data Reviewed
-
Labs: Labs Reviewed by me
[2025-02-03] MEDS: BENADRYL 25 MG IV (14:29)
[2025-02-03] MEDS: DILAUDID 0.5 MG IV ×3 (14:29→22:23)
--- NOTE | 2025-02-03 16:56 | HPS.HSE ---
Family Physician
-
Family Physician: AMBERLY Amaya
Chief Complaint
-
RLE pain
History of Present Illness
54yo F with SLE, APLS, PAD, Reynaulds, Scleroderma, HTN, anxiety, GERD, discharged less then 24h ago after being managed for R anterior tibila artery occlusion s/p angio and stent. Patient had persisstent RLE pain over preceding weeks and did not
get relieve fter the procedure. She came back to the hospital due to inability to tolerate pain at home on her current mgmt. US in ED showed occluded Limflow stent. Also concerned for discoloration of the tip of the R great toe with clear
demarkation. Most likely ritical limb ischemia. A sper conversation with VascSx - no immediate intervention planned, pain mgmt recommended. INR supratherapeutic and no indication for heparin. Patient also reported difuse pruritus after dilaudid,
that works for her pain
Medical History
Past Medical History
Past Medical History: Reports Other
Additional Past Medical History:
see HPI
Past Surgical History: Reports Other
Additional Past Surgical History:
See HPI
Social History
Tobacco: Non-smoker
Alcohol: None
Drug: None
Family History
Family History: Not pertinent
Allergies / Home Medications
Allergies reflects when Allergies were last updated in [facility].
Home Medications with original date entered in [facility]
Allergy/Medication List:
Allergies
Allergy/AdvReac Type Severity Reaction Status Date / Time
No Known Allergies Allergy Verified 02/03/25 09:36
Home Medications
amlodipine 5 mg tablet 5 mg PO HS Blood Pressure 11/13/13
hydroxychloroquine 200 mg tablet (Plaquenil) 400 mg PO HS lupus ##0 11/13/13
clonazepam 0.5 mg tablet 0.5 mg PO Q8HPRN PRN anxiety 08/11/16
mycophenolate mofetil 500 mg tablet (CellCept) 1,000 mg PO HS Autoimmune Disorder 09/05/24
trazodone 100 mg tablet 200 mg PO HS Sleep 09/05/24
latanoprost 0.005 % eye drops 1 drp BOTH EYES HS Glaucoma 09/06/24
loperamide 2 mg tablet 2 mg PO Q6HPRN PRN DIARRHEA 01/12/25
omeprazole 40 mg capsule,delayed release 80 mg PO HS Gastrointestinal Issue 01/12/25
psyllium husk 0.4 gram capsule (Metamucil) 2.4 g PO DAILY Constipation 01/12/25
warfarin 2 mg tablet 6 mg PO FR@1999 Antiphospholipid 01/12/25
clopidogrel 75 mg tablet 75 mg PO DAILY #30 tabs 02/02/25
cyanocobalamin (vitamin B-12) 500 mcg tablet (Vitamin B-12) 1,000 mcg (2 x 500 mcg) PO DAILY #30 tabs 02/02/25
gabapentin 400 mg capsule 400 mg PO TID #90 caps 02/02/25
oxycodone 5 mg tablet 5 mg PO Q4HPRN PRN moderate to severe pain #20 tabs 02/02/25
acetaminophen 500 mg tablet (Tylenol Extra Strength) 1,000 mg PO Q8HPRN PRN mild pain 02/03/25
docusate sodium 100 mg capsule 200 mg PO BIDPRN PRN constipation 02/03/25
polyethylene glycol 3350 17 gram oral powder packet 17 g PO DAILYPRN PRN constipation 02/03/25
sildenafil (pulm.hypertension) 20 mg tablet 20 mg PO HS pulm hypertension 02/03/25
warfarin 5 mg tablet 5 mg PO SUMOTUWETHSA@1999 Blood Clot Prevention/Tx 02/03/25
Review of Systems
-
History Source: Patient
A 12 point ROS was completed and negative except as noted: Yes
Physical Exam
Vital Signs
Vital Signs
Temp Pulse Resp BP Pulse Ox
98.1 F 100 20 128/108 95
02/03/25 09:28 02/03/25 16:00 02/03/25 14:42 02/03/25 16:00 02/03/25 15:15
Physical Exam
General: No Apparent Distress
HEENT: NormoCephalic
Respiratory: Clear; No Wheezes or Rales
Cardiac: S1/S2 and Regular Rhythm; No Tachycardia
GI: Soft, Non Tender and Non Distended
Genito-urinary: No costovertebral tender
Musculoskeletal: No Clubbing, No Cyanosis and No Edema
Skin: Warm; No Rash or Jaundice
Neuro: Awake, Alert, Oriented and AO x 3
Psych: Calm
Laboratory Results
-
02/03/25 10:50
02/03/25 10:50
Laboratory Results
PT 38.5 Sec (11.4-14.6) H 02/03/25 10:50
INR 3.98 02/03/25 10:50
APTT 57.9 Sec (23.4-35.0) H 02/03/25 10:50
Total Bilirubin 0.7 mg/dl (0.2-1.3) 02/03/25 10:50
AST 27 U/L (14-36) 02/03/25 10:50
ALT 24 U/L (0-35) 02/03/25 10:50
Alkaline Phosphatase 105 U/L (38-126) 02/03/25 10:50
Data Reviewed
-
Ultrasound: Report Reviewed by me
Lab Data: Labs Reviewed by me
Impression/Plan
-
A/P:
#APLS with critical limb ischemia and occluded Limflow
recently s/p: endovascular venous arterialization, endovascular bypass of right posterior tibial artery to lower extremity vein with synthetic substitute, cutdown and exposure of right superficial femoral artery, mechanical thrombectomy of right
popliteal artery, posterior tibial artery, and proximal limflow/TADV circuit, balloon angioplasty and stent to plantar vein outflow at right foot, balloon angioplasty and bioabsorbable drug-eluting scaffold stent at posterior tibial artery, Viabahn
stent grafting of right popliteal artery
VascSX consult: cont warfarin
Pain mgmt
Cont Plavix, change PPI to Pepcid to avoid interaction
#Supratherapeutic INR
Target 3-3.5 as per Hematology consult on previous admisison
Subtherapeutic INR way more dangerous due to significant propencity to clotting. Reasnable to cont previous home dose except of admission date, when dose to be decreased by 50% (that patient was on for months) and follow INR.
daily INR
#Hematoma within the right groin, measuring 4.4 cm in greatest dimension
no further mgmt
#Cronic anemia
follow CBC
#Anxiety
#Insomnia
#Constipation
#GERD
#SLE
#Glaucoma
#Raynaulds
#Neuropathy
#Essential HTN
#Pulmonary HTN
cont home meds
DVT ppx COumadin
Full code
I have spent at least 78min reviewing chart, test results, communication with consultants, family and providing direct patient care
--- NOTE | 2025-02-03 18:14 | CM ---
CM reviewed chart and met with pt bedside in ED. Lives with her in 2 story home, 5 TO[address], has first floor setup.
Independent in ADLs, personal care and ambulation at baseline. Has been using rolling walker since discharge yesterday. No other DME.
OBS form reviewed and signed. Confirms prescription coverage.
No hx VN or SNF.
PCP: Salvador Brannon
Pharmacy: [facility]
Anticipate discharge home, CM will continue to follow for any discharge planning needs.
[2025-02-03] MEDS: ZYRTEC 10 MG PO (20:43)
[2025-02-03] MEDS: COUMADIN 3 MG PO (20:43)
[2025-02-03] MEDS: DILAUDID 2 MG PO (20:44)
[2025-02-03] MEDS: PEPCID 20 MG PO (20:44)
[2025-02-03] MEDS: NEURONTIN 400 MG PO (22:22)
[2025-02-03] MEDS: PLAQUENIL 400 MG PO (22:22)
[2025-02-03] MEDS: CELLCEPT 1000 MG PO (22:22)
[2025-02-03] MEDS: DESYREL 200 MG PO (22:23)
[2025-02-03] MEDS: XALATAN OPHTHALMIC SOLUTION 1 DROP BOTH EYES (22:24)
[2025-02-03] MEDS: REVATIO 20 MG PO (22:24)
[2025-02-03] MEDS: NORVASC 5 MG PO (22:25)
[2025-02-04] MEDS: DILAUDID 2 MG PO ×4 (04:50→21:39)
[2025-02-04 05:51] LABS: Hematocrit 26.1 % (37.0-47.0); Hemoglobin 8.5 g/dL (12.0-16.0); Mean Corp Hgb Conc. 32.6 g/dL (33.0-37.0); Mean Corpuscular Volume 89.7 fL (81.0-99.0); Nucleated Red Blood Cells % 0 %; Platelet Count 221 10^3/uL (130-400); Red Cell Dist. Width 14.5 % (11.5-14.5)
[2025-02-04 06:00] LABS: INR 4.38; PT 41.3 Sec (11.4-14.6)
[2025-02-04 07:51] VITALS: BP 103/58
[2025-02-04] MEDS: NEURONTIN 400 MG PO ×3 (08:49→21:39)
[2025-02-04] MEDS: PEPCID 20 MG PO ×2 (08:50→21:37)
[2025-02-04] MEDS: ZYRTEC 10 MG PO (08:50)
[2025-02-04] MEDS: VITAMIN B-12 1000 MCG PO (08:50)
[2025-02-04] MEDS: PLAVIX 75 MG PO (08:50)
[2025-02-04] MEDS: DILAUDID 0.5 MG IV ×2 (10:22→17:43)
--- NOTE | 2025-02-04 10:54 | W.PN.HOSP.TC ---
Today's Communication/Plan
-
pain well controlled
already ahas appt with vascSx on Feb
Coumading 3mg tonight and decrease home dose by 10% (was on 4mg daily except Fri, when was 5mg)
Assessment / Plan
Assessment / Plan
54yo F with SLE, APLS, PAD, Reynaulds, Scleroderma, HTN, anxiety, GERD, discharged less then 24h ago after being managed for R anterior tibila artery occlusion s/p angio and stent. Patient had persisstent RLE pain over preceding weeks and did not
get relieve fter the procedure. Found ocluded limflow stent. Admitted for pain mgmt and found supratherapeutic INR
A/P:
#APLS with critical limb ischemia and occluded Limflow
recently s/p: endovascular venous arterialization, endovascular bypass of right posterior tibial artery to lower extremity vein with synthetic substitute, cutdown and exposure of right superficial femoral artery, mechanical thrombectomy of right
popliteal artery, posterior tibial artery, and proximal limflow/TADV circuit, balloon angioplasty and stent to plantar vein outflow at right foot, balloon angioplasty and bioabsorbable drug-eluting scaffold stent at posterior tibial artery, Viabahn
stent grafting of right popliteal artery
VascSX consult: cont warfarin
Pain mgmt
Cont Plavix, change PPI to Pepcid to avoid interaction
#Supratherapeutic INR
Target 3-3.5 as per Hematology consult on previous admisison
Subtherapeutic INR way more dangerous due to significant propencity to clotting. Reasnable to cont previous home dose except of admission date, when dose to be decreased by 50% (that patient was on for months) and follow INR.
daily INR
#Hematoma within the right groin, measuring 4.4 cm in greatest dimension
no further mgmt
#Cronic leukopenia
#Cronic anemia
follow CBC
#Anxiety
#Insomnia
#Constipation
#GERD
#SLE
#Glaucoma
#Raynaulds
#Neuropathy
#Essential HTN
#Pulmonary HTN
cont home meds
DVT ppx Coumadin
Full code
I have spent at least 58min reviewing chart, test results, communication with consultants, family and providing direct patient care
Anticipated Discharge: 24 - 48 hours
Subjective/Interval History
-
Date of Service: February 04, 2025
Objective Data
-
Labs:
Laboratory Results
02/04/25
05:02
WBC 4.1 L
Hgb 8.5 L
Hct 26.1 L
Plt Count 221
PT 41.3 H
INR 4.38
Vital Signs:
Vital Signs
Temp Pulse Resp BP Pulse Ox
98.2 F 85 14 103/58 98
02/04/25 07:51 02/04/25 07:51 02/04/25 07:51 02/04/25 07:51 02/04/25 09:11
I&O
02/03/25 02/04/25 02/05/25
06:59 06:59 06:59
Intake Total 720 / 720
Balance 720 / 720
Review of Systems
-
History Source: Patient
All other systems: Reviewed and negative
Physical Exam
-
General: No Apparent Distress
HEENT: Normocephalic
GI: Soft, Nontender and Nondistended
Musculoskeletal: Other (R great toe tip discoloration with surrounding erythema)
Neuro: Awake, Alert, Oriented and AO x 3
Psych: Calm
[2025-02-04 15:05] VITALS: BP 108/66
--- NOTE | 2025-02-04 16:52 | CM ---
Addendum entered by Joann Stuart 02/04/25 16:57:
PCP is Dr. Salvador Brannon
Original Note:
CM spoke with Lizette regarding needs for discharge. She declined any services, stating she will return home with her when she is cleared for discharge.
Plan: Discharge to home with no needs identified.
[2025-02-04] MEDS: COUMADIN 3 MG PO (17:25)
[2025-02-04] MEDS: CELLCEPT 1000 MG PO (21:38)
[2025-02-04] MEDS: REVATIO 20 MG PO (21:38)
[2025-02-04] MEDS: PLAQUENIL 400 MG PO (21:39)
[2025-02-04] MEDS: XALATAN OPHTHALMIC SOLUTION 1 DROP BOTH EYES (21:39)
[2025-02-04] MEDS: DESYREL 200 MG PO (21:39)
[2025-02-04 23:55] VITALS: BP 92/55
[2025-02-05 06:07] LABS: INR 4.58; PT 43.4 Sec (11.4-14.6)
[2025-02-05 07:00] VITALS: BP 103/77
[2025-02-05] MEDS: DILAUDID 2 MG PO (07:36)
[2025-02-05] MEDS: PEPCID 20 MG PO (07:45)
[2025-02-05] MEDS: VITAMIN B-12 1000 MCG PO (07:45)
[2025-02-05] MEDS: ZYRTEC 10 MG PO (07:45)
[2025-02-05] MEDS: NEURONTIN 400 MG PO (07:46)
[2025-02-05] MEDS: PLAVIX 75 MG PO (07:46)
[2025-02-05 08:26] VITALS: BP 103/77
[2025-02-05] MEDS: KLONOPIN 0.5 MG PO (09:38)
--- NOTE | 2025-02-05 11:17 | W.PN.HOSP.TC ---
Today's Communication/Plan
-
DC
Assessment / Plan
Assessment / Plan
54yo F with SLE, APLS, PAD, Reynaulds, Scleroderma, HTN, anxiety, GERD, discharged less then 24h ago after being managed for R anterior tibila artery occlusion s/p angio and stent. Patient had persisstent RLE pain over preceding weeks and did not
get relieve fter the procedure. Found ocluded limflow stent. Admitted for pain mgmt and found supratherapeutic INR. VascSx advised to continue Coumadin as no intervention planned at this time with later date for amputation. Patient has appt on
02/12/25. in spite of lower coumadin dose INR kept increasing. Discussed with - patients cinder block mason - was advised to hold Coumadin for 2 days and asked patient to repeat INR in 2 days (Rx provided) and follow up result with ,
who also will be bd special education teacher this wekend. Pain much better controlled on Dilaudid, patient to get extension of the prscription with PCP. Medcially stabel for d/c home
A/P:
#APLS with critical limb ischemia and occluded Limflow
recently s/p: endovascular venous arterialization, endovascular bypass of right posterior tibial artery to lower extremity vein with synthetic substitute, cutdown and exposure of right superficial femoral artery, mechanical thrombectomy of right
popliteal artery, posterior tibial artery, and proximal limflow/TADV circuit, balloon angioplasty and stent to plantar vein outflow at right foot, balloon angioplasty and bioabsorbable drug-eluting scaffold stent at posterior tibial artery, Viabahn
stent grafting of right popliteal artery
VascSX consult: cont warfarin
Pain mgmt
Cont Plavix, change PPI to Pepcid to avoid interaction
#Supratherapeutic INR
Target 3-3.5 as per Hematology consult on previous admisison
Subtherapeutic INR way more dangerous due to significant propencity to clotting. Reasnable to cont previous home dose except of admission date, when dose to be decreased by 50% (that patient was on for months) and follow INR.
daily INR
#Hematoma within the right groin, measuring 4.4 cm in greatest dimension
no further mgmt
#Cronic leukopenia
#Cronic anemia
follow CBC
#Anxiety
#Insomnia
#Constipation
#GERD
#SLE
#Glaucoma
#Raynaulds
#Neuropathy
#Essential HTN
#Pulmonary HTN
cont home meds
DVT ppx Coumadin
Full code
I have spent at least 36min reviewing chart, test results, communication with consultants, family and providing direct patient care
Anticipated Discharge: Today
Subjective/Interval History
-
Date of Service: February 05, 2025
Objective Data
-
Labs:
Laboratory Results
02/05/25
05:02
PT 43.4 H
INR 4.58
Vital Signs:
Vital Signs
Temp Pulse Resp BP Pulse Ox
98.1 F 93 17 103/77 98
02/05/25 07:00 02/05/25 07:00 02/05/25 07:00 02/05/25 07:00 02/05/25 08:40
I&O
02/04/25 02/05/25 02/06/25
06:59 06:59 06:59
Intake Total 2400 / 2400
Balance 2400 / 2400
Review of Systems
-
History Source: Patient
All other systems: Reviewed and negative
Physical Exam
-
General: No Apparent Distress
HEENT: Normocephalic
Respiratory: Clear to Auscultation
GI: Soft, Nontender and Nondistended
Skin: Other (RLE discoloration)
Neuro: Awake, Alert, Oriented and AO x 3
Psych: Calm
--- NOTE | 2025-02-05 11:25 | W.DCSUMMARY ---
Discharge Summary
Discharge Data
Date of Admission: 02/04/25
Date of Discharge: 02/05/25
-
Pending Results: No
Hospital Course
54yo F with SLE, APLS, PAD, Reynaulds, Scleroderma, HTN, anxiety, GERD, discharged less then 24h ago after being managed for R anterior tibila artery occlusion s/p angio and stent. Patient had persisstent RLE pain over preceding weeks and did not
get relieve fter the procedure. Found ocluded limflow stent. Admitted for pain mgmt and found supratherapeutic INR. VascSx advised to continue Coumadin as no intervention planned at this time with later date for amputation. Patient has appt on
02/12/25. in spite of lower coumadin dose INR kept increasing. 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
who also will be conical mixer this wekend. Pain much better controlled on Dilaudid, patient to get extension of the prscription with PCP. Medcially stabel for d/c home
I have spent at least 36min reviewing chart, test results, communication with consultants, family and providing direct patient care
Patient was managed for:
#APLS with critical limb ischemia and occluded Limflow
#Supratherapeutic INR
#Hematoma within the right groin, measuring 4.4 cm in greatest dimension
#Cronic leukopenia
#Cronic anemia
follow CBC
#Anxiety
#Insomnia
#Constipation
#GERD
#SLE
#Glaucoma
#Raynaulds
#Neuropathy
#Essential HTN
#Pulmonary HTN
Discharge Plan
-
Patient Disposition: Home (Routine Discharge)
Discharge Diagnosis/Procedures: PAIn 2/2 RLE ischemia
Diet: Regular
Blood Work: INR on 02/07/25
Referrals:
Efrain Sanchez DO [Non-Admitting Privileges, Hematology / Oncology]
Referral Note: follow INR
Salvador Brannon CRNP [Family Provider]
Additional Discharge Medication Instructions: Dont take coumadin on 02/05 amd 02/06, for dose on 02/07 - consult with
Prescriptions:
New
cetirizine 10 mg Tablet
10 mg PO DAILY Qty: 30 0RF
hydromorphone 2 mg Tablet
2 mg PO Q4HPRN PRN (Reason: moderate-severe pain) Qty: 18 0RF
naloxone [Narcan] 4 mg/actuation spray,non-aerosol
4 mg intranasal Q2M PRN (Reason: opioid overdose) Qty: 2 0RF
Continued
hydroxychloroquine [Plaquenil] 200 mg Tablet
400 mg PO HS Qty: 0
clonazepam 0.5 MG tablet
0.5 mg PO Q8HPRN PRN (Reason: anxiety)
mycophenolate mofetil [CellCept] 500 mg Tablet
1,000 mg PO HS
trazodone 100 mg Tablet
200 mg PO HS
latanoprost 0.005 % Drops
1 drp BOTH EYES HS
loperamide 2 mg Tablet
2 mg PO Q6HPRN PRN (Reason: DIARRHEA)
psyllium husk [Metamucil] 0.4 gram Capsule
2.4 g PO DAILY
clopidogrel 75 mg Tablet
75 mg PO DAILY Qty: 30 0RF
cyanocobalamin (vitamin B-12) [Vitamin B-12] 500 mcg Tablet
1,000 mcg PO DAILY Qty: 30 0RF
gabapentin 400 mg capsule
400 mg PO TID Qty: 90 0RF
sildenafil (pulm.hypertension) 20 mg tablet
20 mg PO HS
polyethylene glycol 3350 17 gram powder in packet
17 g PO DAILYPRN PRN (Reason: constipation)
acetaminophen [Tylenol Extra Strength] 500 mg tablet
1,000 mg PO Q8HPRN PRN (Reason: mild pain)
docusate sodium 100 mg capsule
200 mg PO BIDPRN PRN (Reason: constipation)
Discontinued
amlodipine 5 MG tablet
5 mg PO HS
omeprazole 40 mg Capsule,Delayed Release(Dr/Ec)
80 mg PO HS
warfarin 2 mg Tablet
6 mg PO FR@1999
oxycodone 5 mg Tablet
5 mg PO Q4HPRN PRN (Reason: moderate to severe pain) Qty: 20 0RF
warfarin 5 mg Tablet
5 mg PO SUMOTUWETHSA@1999
Discharge Orders:
Discharge Patient (As Directed); Ordered 02/05/25
Ordered By: Kenneth Smith
Discharge Date and Time
Print Language: AMERICAN
[2025-02-05 12:26] VITALS: BP 97/67
== END 2025-02-05 12:42 | disposition home or self-care (01) | DRG 815 ==
LOC: 3 WEST ACU 10:54
PROVIDERS: ADMITTING PHYSICIAN Internal Medicine; CONSULT PHYSICIAN Surgery Vascular Surgery; EMERGENCY PHYSICIAN Emergency Medicine
DX: D68.61 Antiphospholipid syndrome (principal); T82.868A Thrombosis due to vascular prosthetic devices, implants and grafts, initial encounter; I70.221 Atherosclerosis of native arteries of extremities with rest pain, right leg; M79.81 Nontraumatic hematoma of soft tissue; I10 Essential (primary) hypertension; M32.9 Systemic lupus erythematosus, unspecified; F41.9 Anxiety disorder, unspecified; K21.9 Gastro-esophageal reflux disease without esophagitis; D72.819 Decreased white blood cell count, unspecified; D64.9 Anemia, unspecified; G47.00 Insomnia, unspecified; G62.9 Polyneuropathy, unspecified; H40.9 Unspecified glaucoma; I27.20 Pulmonary hypertension, unspecified; M34.9 Systemic sclerosis, unspecified; I73.00 Raynaud's syndrome without gangrene; L29.89 Other pruritus; Z79.02 Long term (current) use of antithrombotics/antiplatelets; Z79.01 Long term (current) use of anticoagulants; Z79.899 Other long term (current) drug therapy; Z95.820 Peripheral vascular angioplasty status with implants and grafts; Y83.8 Other surgical procedures as the cause of abnormal reaction of the patient, or of later complication, without mention of misadventure at the time of the procedure
CPT/HCPCS: 80053; 85025; 85610; 85730; 93922; 93926; 93971; 96374; 96375; 96376; 99285

== ENCOUNTER → 2025-02-07 10:36 | Outpatient (REF) | payer OTHER, SELFPAY ==
[2025-02-07 13:23] LABS: INR 3.11; PT 31.9 Sec (11.4-14.6)
== END ==
LOC: REG 10:36
PROVIDERS: ATTENDING PHYSICIAN Internal Medicine; REFERRING PHYSICIAN Internal Medicine Hematology & Oncology
DX: Z13.0 Encounter for screening for diseases of the blood and blood-forming organs and certain disorders involving the immune mechanism (principal)
CPT/HCPCS: 36415; 85610

== ENCOUNTER → 2025-02-11 14:36 | Outpatient (REF) | payer MEDICARE, OTHER, SELFPAY | LOC: RAD 14:36 | PROVIDERS: ATTENDING PHYSICIAN Surgery Vascular Surgery; FAMILY PHYSICIAN Internal Medicine Hematology & Oncology | DX: Z09 Encounter for follow-up examination after completed treatment for conditions other than malignant neoplasm (principal); D68.62 Lupus anticoagulant syndrome; I73.9 Peripheral vascular disease, unspecified; D50.9 Iron deficiency anemia, unspecified; E55.9 Vitamin D deficiency, unspecified; Z79.01 Long term (current) use of anticoagulants; Z79.899 Other long term (current) drug therapy; Z86.718 Personal history of other venous thrombosis and embolism; I82.891 Chronic embolism and thrombosis of other specified veins | CPT/HCPCS: 93922; 93926; 93971 ==

== ENCOUNTER 2025-02-18 15:42 | Inpatient (IN) | payer MEDICARE, OTHER, SELFPAY ==
[2025-02-18 13:20] VITALS: BP 105/74
[2025-02-18 14:56] VITALS: BMI 26.4
[2025-02-18 15:11] LABS: Hematocrit 31.2 % (37.0-47.0); Hemoglobin 10.1 g/dL (12.0-16.0); Mean Corp Hgb Conc. 32.4 g/dL (33.0-37.0); Mean Corpuscular Volume 86.4 fL (81.0-99.0); Platelet Count 328 10^3/uL (130-400); Red Cell Dist. Width 14.7 % (11.5-14.5)
[2025-02-18] MEDS: DILAUDID 0.5 MG IV (15:12)
[2025-02-18 15:28] LABS: INR 4.79; PT 44.9 Sec (11.4-14.6)
[2025-02-18 15:29] LABS: APTT 54.8 Sec (23.4-35.0)
[2025-02-18 15:32] LABS: Blood Urea Nitrogen 13 mg/dl (7-17); Calcium 9.2 mg/dl (8.4-10.2); Carbon Dioxide 22 mmol/L (22-30); Chloride 103 mmol/L (98-107); Estimated Creatinine Clearance 46 ml/min; Glucose 125 mg/dl (70-99); Potassium 4.1 mmol/L (3.5-5.1); Sodium 131 mmol/L (135-145); eGFR 49.48
--- NOTE | 2025-02-18 15:34 | PHANOTE ---
med rec note- patient unable to go over her medication, she stated her who at work take care of them. patient mom with patient trying to help with medication and has a list but it does not have warfarin dose or last known taken on it. mom
seem confused about the written list and can not tell information about it. mom went mom to alessandro note book the keeps until he comes to hospital
--- NOTE | 2025-02-18 16:00 | PTCARENOTE ---
pt admitted to room 2124 from ED. pt ambulated with walker to commode, then scale. Pt AAOX3. started on dilaudid PHOTOGRAPHIC SUPERVISOR per orders. right big toe and 4th toe with necrosis. no dp pulse. doppler left foot dp and right food posterior tibial. admission
questions completed with patient. pt oriented to room and unit.
[2025-02-18 16:04] VITALS: BP 117/85; BMI 25.5
--- NOTE | 2025-02-18 16:26 | CON.VAS ---
Consultation
Consultation Request
Date/Time Consultation Performed: 02/18/2025 1500
Requesting Provider: ED provider
Performing Provider: Yesika Rodarte NP-C for Truman Rachel III
Reason for Consultation: Right foot critical limb ischemia
Medical History
-
Chief Complaint: Right foot worsening rest pain
History of Present Illness:
This is a 54-year-old female with significant past medical history for antiphospholipid syndrome, leukopenia, chronic anemia, anxiety, insomnia, constipation, GERD, lupus, glaucoma, Raynaud's, neuropathy, hypertension, pulmonary hypertension,
peripheral arterial disease, and right lower extremity critical limb ischemia who presents to [place] ED at the recommendation of our vascular surgery group for management of chronic right foot rest pain from critical limb threatening ischemia
with plan for amputation. Patient is known to our service as she recently underwent right lower extremity limflow or transcatheter arterialization of the deep veins as a last ditch effort for limb salvage with Dr. Truman Rachel III on 01/27/2025.
Unfortunately, patient presented to ED on 02/03/2025 with reports of worsening right foot pain and discoloration of the hallux, ultrasound was obtained at that time that demonstrated occlusion of limflow circuit. Patient was seen in the outpatient
setting by Dr. Rachel with plan for right below the knee amputation as definitive treatment for her critical limb turning ischemia and progressed right foot digit wounds for this Sunday02/20/2025. However, patient indicated today that rest pain has
been worsening and p.o. pain medications are no longer providing adequate pain management, she presented to the ED at the recommendation of Dr. Rachel for initiation of PUBLIC WELFARE WORKER until surgery can be safely done with an appropriate INR level. Patient
denies any symptoms of infection such as fever, chills, nausea, and vomiting.
Past Medical History
Past Medical History: Other (antiphospholipid syndrome, leukopenia, chronic anemia, anxiety, insomnia, constipation, GERD, lupus, glaucoma, Raynaud's, neuropathy, hypertension, pulmonary hypertension, peripheral arterial disease, and right lower
extremity critical limb ischemia)
Past Surgical History: Cholecystectomy, and Other (Partial amputation of right pinky toe and left middle finger, RLE angioplasties)
Social History
Alcohol: None
Personal:
Living: With Family
Allergies / Home Medications
Allergy/AdvReac Type Severity Reaction Status Date / Time
No Known Allergies Allergy Verified 02/18/25 13:25
�Medication �Instructions �Recorded �Confirmed �Type
hydroxychloroquine 200 mg tablet 400 mg PO HS lupus ##0 11/13/13 02/18/25 History
(Plaquenil)
clonazepam 0.5 mg tablet 0.5 mg PO BIDPRN PRN anxiety 08/11/16 02/18/25 History
mycophenolate mofetil 500 mg 1,000 mg PO BID Autoimmune Disorder 09/05/24 02/18/25 History
tablet (CellCept)
trazodone 100 mg tablet 200 mg PO HS Sleep 09/05/24 02/18/25 History
latanoprost 0.005 % eye drops 1 drp BOTH EYES HS Glaucoma 09/06/24 02/18/25 History
psyllium husk 0.4 gram capsule 2.4 g PO DAILY Constipation 01/12/25 02/18/25 History
(Metamucil)
clopidogrel 75 mg tablet 75 mg PO DAILY #30 tabs 02/02/25 02/18/25 Rx
cyanocobalamin (vitamin B-12) 500 1,000 mcg (2 x 500 mcg) PO DAILY 02/02/25 02/18/25 Rx
mcg tablet (Vitamin B-12) #30 tabs
docusate sodium 100 mg capsule 200 mg PO BIDPRN PRN constipation 02/03/25 02/18/25 History
polyethylene glycol 3350 17 gram 17 g PO DAILYPRN PRN constipation 02/03/25 02/18/25 History
oral powder packet
sildenafil (pulm.hypertension) 20 20 mg PO HS pulm hypertension 02/03/25 02/18/25 History
mg tablet
cetirizine 10 mg tablet 10 mg PO DAILY #30 tabs 02/05/25 02/18/25 Rx
amlodipine 10 mg tablet (Norvasc) 10 mg PO DAILY 02/18/25 02/18/25 History
gabapentin 400 mg capsule 400 mg PO TID 02/18/25 02/18/25 History
hydromorphone 2 mg tablet 2 mg PO Q3HPRN PRN moderate-severe 02/18/25 02/18/25 History
pain
omeprazole 40 mg capsule,delayed 40 mg PO DAILY 02/18/25 02/18/25 History
release
warfarin 5 mg tablet 5 mg PO DIRECTED 02/18/25 02/18/25 History
Review of Systems
-
History Source: Patient
Constitutional: Reports No Symptoms
EENT: Reports No Symptoms
Respiratory: Reports No Symptoms
Cardiac: Reports No Symptoms
Vascular: Reports Leg Pain / Claudication, Numbness and Tingling
Abdomen/GI: Reports No Symptoms
: Reports No Symptoms
Musculoskeletal: Reports No Symptoms
Skin: Reports Other (Worsening right foot digit dry gangrene)
Neurological: Reports No Symptoms
Endocrine: Reports No Symptoms
Physical Exam
Vital Signs
Temp Pulse Resp BP Pulse Ox
98.3 F 91 18 117/85 100
02/18/25 16:04 02/18/25 16:04 02/18/25 16:04 02/18/25 16:04 02/18/25 16:04
Lab Results
02/18/25 15:01
02/18/25 15:01
Physical Exam
General: No Apparent Distress
HEENT: Normocephalic, Anicteric and Atraumatic
Respiratory: Non Labored Respirations
Cardiac: Negative JVD
GI: Soft, Non Tender and Non Distended
Musculoskeletal: No Edema
Skin: Warm and Other (Cool right foot with nonpalpable distal pulses, continued dry gangrene of right hallux digit)
Neuro: AO x 3
Assessment / Plan
-
Assessment: 54-year-old female with peripheral arterial disease and critical limb threatening ischemia right foot, plan for below the knee amputation with Dr. Rachel on Sunday02/20/2025 pending INR level, admitting for management of pain until
surgery.
Plan:
Admit for inpatient management of rest pain at right foot with PUBLIC WELFARE WORKER
Continue home medications
Check INR daily, continue to hold Coumadin and will initiate heparin infusion once INR drifts to subtherapeutic level
Plan reviewed with on-call attending Dr. Truman Rachel III
[2025-02-18] MEDS: D5/0.45%NACL 1000 IV (16:29)
[2025-02-18] MEDS: DILAUDID PCA 30 IV (16:30)
[2025-02-18 19:17] VITALS: BP 89/56
[2025-02-18] MEDS: REVATIO 20 MG PO (21:14)
[2025-02-18] MEDS: CELLCEPT 1000 MG PO (21:14)
[2025-02-18] MEDS: NEURONTIN 400 MG PO (21:14)
[2025-02-18] MEDS: XALATAN OPHTHALMIC SOLUTION 1 DROP BOTH EYES (21:16)
[2025-02-18] MEDS: PLAQUENIL 400 MG PO (21:21)
[2025-02-18 23:19] VITALS: BP 96/62
[2025-02-19] VITALS (7 sets, daily range): BP systolic 89–107; BP diastolic 56–70
[2025-02-19] MEDS: CELLCEPT 1000 MG PO ×2 (08:09→20:02)
[2025-02-19] MEDS: VITAMIN B-12 1000 MCG PO (08:10)
[2025-02-19] MEDS: PLAVIX 75 MG PO (08:10)
[2025-02-19] MEDS: PROTONIX 40 MG PO (08:10)
[2025-02-19] MEDS: ZYRTEC 10 MG PO (08:10)
[2025-02-19] MEDS: NEURONTIN 400 MG PO ×3 (08:10→21:26)
[2025-02-19] MEDS: NORVASC PO (08:14)
[2025-02-19] MEDS: COLACE 200 MG PO (08:20)
[2025-02-19 09:09] LABS: INR 4.04; PT 39.4 Sec (11.4-14.6)
[2025-02-19 09:37] LABS: Blood Urea Nitrogen 11 mg/dl (7-17); Calcium 8.7 mg/dl (8.4-10.2); Carbon Dioxide 22 mmol/L (22-30); Chloride 107 mmol/L (98-107); Estimated Creatinine Clearance 66 ml/min; Glucose 89 mg/dl (70-99); Potassium 4.0 mmol/L (3.5-5.1); Sodium 132 mmol/L (135-145); eGFR > 60.00
--- NOTE | 2025-02-19 10:10 | W.PN.VS ---
Today's Communication / Plan
-
Plan reviewed with Dr. Truman Rachel III
Assessment/Plan
-
Assessment: 54-year-old female with peripheral arterial disease and critical limb threatening ischemia right foot, plan for below the knee amputation with Dr. Rachel on Sunday02/20/2025 pending INR level, admitting for management of pain until
surgery.
Plan:
INR again elevated today, suspect she will not be low enough for surgery tomorrow. However, will make definitive decision once AM INR results tomorrow
Continue DIRECT RESPONSE CONSULTANT for pain management
Holding home antihypertensive, given patient's blood pressure is on lower side of normotensive suspect related to narcotic use
Subjective Data
-
Date of Service: February 19, 2025
Patient seen and examined at bedside, offers no complaints. Reports DIRECT RESPONSE CONSULTANT is managing ischemic rest pain well. Denies FARMER, lightheadedness, or dizziness. All questions addressed regarding upcoming below knee amputation.
Objective Data
-
Vital Signs
Temp Pulse Resp BP Pulse Ox
98.1 F 75 16 92/60 96
02/19/25 07:11 02/19/25 08:14 02/19/25 07:11 02/19/25 08:14 02/19/25 07:11
Intake and Output
02/18/25 02/19/25 02/20/25
06:59 06:59 06:59
Intake Total 680 / 680 1260 / 1260
Balance 680 / 680 1260 / 1260
Intake:
Oral fluids 680 / 680 780 / 780
IV fluids (Total) 480 / 480
Other:
Number of approximated MODERATE 1
amounts of urine
Number of approximated LARGE 3 2
amounts of urine
Lab Results
02/18/25 15:01
02/19/25 08:34
Calcium 8.7 mg/dl (8.4-10.2) 02/19/25 08:34
Physical Exam
-
No apparent distress, resting in the chair
No tachypnea
No tachycardia
Right foot with dry gangrene digits, unchanged
--- NOTE | 2025-02-19 13:14 | CM ---
CM following re: discharge planning.
Reviewed pt's chart, met with pt.
Pt is a 54 year old female, admitted with primary dx of Right foot worsening rest pain with plan for right below the knee amputation as definitive treatment for her critical limb turning ischemia and progressed right foot digit wounds.
Pt reports she lives with 2SH, 5 steps to enter, has supportive son. Pt reports she ambulates with a walker and has been dealing with her right foot. Pt reports she is aware she will have amputation of her right foot below knee, went to
tears. emotional support offered and provided. At the same time pt expressed her understanding of the need of amputation.
Pt expressed her great desire to go to acute rehab level of care and she is requested [facility]. Pt stated she will not go to a SNF.
A referral to [facility] made.
PT and OT will evaluate the pt to determine a level of care at discharge.
PCP: Salvador Brannon
Pharmacy: [facility]
D/C plan: Pt requested [facility].
CM will follow with discharge plan updates as hospitalization progresses
[2025-02-19] MEDS: D5/0.45%NACL 1000 IV (14:21)
--- NOTE | 2025-02-19 16:56 | PTCARENOTE ---
BP this AM 92/60 RUE, repeat 86/54 LUE, HR NSR 70s on monitor, cont POX 96% on RA. Patient in bed, easily arousable, states no complaints other than R foot discomfort relieved with Dilaudid BAKERY MANAGER. Vascular team made aware of low BP results and INR,
scheduled PO Norvasc put on hold per vascular team.
[2025-02-19] MEDS: PLAQUENIL 400 MG PO (21:26)
[2025-02-19] MEDS: REVATIO 20 MG PO (21:26)
[2025-02-19] MEDS: XALATAN OPHTHALMIC SOLUTION BOTH EYES (21:26)
[2025-02-20 03:06] VITALS: BP 101/61
[2025-02-20 07:15] LABS: INR 3.17; PT 32.8 Sec (11.4-14.6)
[2025-02-20 07:20] VITALS: BP 94/63
[2025-02-20] MEDS: PROTONIX 40 MG PO (08:03)
[2025-02-20] MEDS: CELLCEPT 1000 MG PO ×2 (08:03→19:58)
[2025-02-20] MEDS: PLAVIX 75 MG PO (08:03)
[2025-02-20] MEDS: ZYRTEC 10 MG PO (08:03)
[2025-02-20] MEDS: NEURONTIN 400 MG PO ×3 (08:03→21:35)
[2025-02-20] MEDS: VITAMIN B-12 1000 MCG PO (08:04)
[2025-02-20 08:55] LABS: APTT 50.4 Sec (23.4-35.0)
[2025-02-20 09:11] LABS: Hematocrit 27.0 % (37.0-47.0); Hemoglobin 8.7 g/dL (12.0-16.0); Mean Corp Hgb Conc. 32.2 g/dL (33.0-37.0); Mean Corpuscular Volume 88.8 fL (81.0-99.0); Platelet Count 242 10^3/uL (130-400); Red Cell Dist. Width 14.6 % (11.5-14.5)
--- NOTE | 2025-02-20 09:21 | W.PN.UPDATE ---
Update Note
Progress Note Update
Pain well-controlled on GRIZZLYMAN
Comfortable
Unfortunately INR is 3. Will cancel planned BKA today
I also discussed case with Dr. Joshua Tatum and will plan for TMR at the time of BKA next week. Will let INR drift over the weekend. Initiate heparin drip with therapeutic PTT goal. Continue GRIZZLYMAN.
Truman Rachel III, MD
Vascular Surgery
[facility]
[2025-02-20] MEDS: COLACE 200 MG PO (09:22)
[2025-02-20] MEDS: HEPARIN 25000 UNITS/250 ML IV (10:26)
[2025-02-20] MEDS: NON-FORMULARY ITEM 1 UNIT PO (10:26)
[2025-02-20 11:10] VITALS: BP 96/62
--- NOTE | 2025-02-20 11:13 | CM ---
CM following re: discharge planning.
Reviewed pt's chart, met with pt.
Per Vascular surgery, a plan for BKA is cancelled today due to INR is 3 and will be scheduled early next week
Pt expressed her great desire to go to acute rehab level of care and she is requested [facility]. Pt stated she will not go to a SNF.
A referral to [facility] made.
PT and OT will evaluate the pt after surgery to determine a level of care at discharge.
D/C plan: Pt requested [facility] re[facility].
CM will follow with discharge plan updates as hospitalization progresses
[2025-02-20 15:10] VITALS: BP 94/58
[2025-02-20] MEDS: D5/0.45%NACL 1000 IV (15:30)
[2025-02-20] MEDS: DILAUDID PCA 30 IV (15:38)
[2025-02-20 17:52] LABS: APTT > 200 Sec (23.4-35.0)
--- NOTE | 2025-02-20 17:58 | PTCARENOTE ---
PTT >200. MD made aware. Per protocol will hold x 2hrs and decrease heparin by 300 units. Will pass along to night custodian RN.
[2025-02-20 19:51] VITALS: BP 98/64
[2025-02-20] MEDS: XALATAN OPHTHALMIC SOLUTION 1 DROP BOTH EYES (21:33)
[2025-02-20] MEDS: REVATIO 20 MG PO (21:35)
[2025-02-20] MEDS: PLAQUENIL 400 MG PO (21:37)
[2025-02-20 23:11] VITALS: BP 98/68
--- NOTE | 2025-02-21 01:20 | PTCARENOTE ---
Patient c/o not getting relief with AMUSEMENT PARK RIDE MECHANIC. Advised covering provider. Orders received for one time order.
[2025-02-21] MEDS: DILAUDID 0.5 MG IV (01:27)
[2025-02-21 02:23] LABS: APTT 117.3 Sec (23.4-35.0)
[2025-02-21 03:14] VITALS: BP 92/59
[2025-02-21 05:30] LABS: INR 2.37; PT 26.0 Sec (11.4-14.6)
[2025-02-21 07:20] VITALS: BP 94/58
--- NOTE | 2025-02-21 07:43 | W.PN.UPDATE ---
Update Note
Progress Note Update
Sleeping comfortably
Planning for R BKA with TMR ([facility]) on Saturday 02/24
Continue GRISTMILLER
Heparin gtt with therapeutic PTT goal
Truman Rachel III, MD
Vascular Surgery
[facility]
[2025-02-21] MEDS: D5/0.45%NACL IV (08:41)
[2025-02-21 09:02] LABS: APTT 96.4 Sec (23.4-35.0)
--- NOTE | 2025-02-21 09:09 | CM ---
CM reviewed chart, care ongoing. Plan for OR 02/24 for BKA.
Patient will require PT/OT orders after OR to determine therapy recommendations, patient requesting Acute Rehab.
Will continue to follow for medical progress during hospitalization to assist with discharge planning.
Plan; OR 02/24 for BKA, will need PT/OT orders post surgery
[2025-02-21] MEDS: PLAVIX 75 MG PO (10:12)
[2025-02-21] MEDS: ZYRTEC 10 MG PO (10:12)
[2025-02-21] MEDS: PROTONIX 40 MG PO (10:12)
[2025-02-21] MEDS: CELLCEPT 1000 MG PO ×2 (10:12→19:59)
[2025-02-21] MEDS: NEURONTIN 400 MG PO ×3 (10:13→21:21)
[2025-02-21] MEDS: NON-FORMULARY ITEM 1 UNIT PO (10:13)
[2025-02-21] MEDS: D5/0.45%NACL 1000 IV (11:05)
[2025-02-21 11:20] VITALS: BP 102/70
[2025-02-21] MEDS: VITAMIN B-12 1000 MCG PO (11:30)
[2025-02-21] MEDS: HEPARIN 25000 UNITS/250 ML IV (14:48)
[2025-02-21 15:19] LABS: APTT 80.4 Sec (23.4-35.0)
[2025-02-21 15:20] VITALS: BP 97/67
[2025-02-21 19:47] VITALS: BP 93/69
[2025-02-21] MEDS: REVATIO 20 MG PO (21:21)
[2025-02-21] MEDS: PLAQUENIL 400 MG PO (21:22)
[2025-02-21] MEDS: XALATAN OPHTHALMIC SOLUTION BOTH EYES (21:24)
[2025-02-21 23:15] VITALS: BP 99/56
[2025-02-22] VITALS (7 sets, daily range): BP systolic 96–120; BP diastolic 61–77
[2025-02-22 06:49] LABS: Hematocrit 26.8 % (37.0-47.0); Hemoglobin 8.2 g/dL (12.0-16.0); Mean Corp Hgb Conc. 30.6 g/dL (33.0-37.0); Mean Corpuscular Volume 89.3 fL (81.0-99.0); Platelet Count 245 10^3/uL (130-400); Red Cell Dist. Width 14.9 % (11.5-14.5)
[2025-02-22 07:04] LABS: INR 1.62; PT 19.5 Sec (11.4-14.6)
[2025-02-22 07:05] LABS: APTT 89.9 Sec (23.4-35.0)
[2025-02-22] MEDS: VITAMIN B-12 1000 MCG PO (08:13)
[2025-02-22] MEDS: CELLCEPT 1000 MG PO ×2 (08:13→20:23)
[2025-02-22] MEDS: ZYRTEC 10 MG PO (08:13)
[2025-02-22] MEDS: PLAVIX 75 MG PO (08:13)
[2025-02-22] MEDS: NEURONTIN 400 MG PO ×3 (08:13→21:23)
[2025-02-22] MEDS: PROTONIX 40 MG PO (08:13)
[2025-02-22] MEDS: NON-FORMULARY ITEM 6 UNIT PO (08:14)
[2025-02-22] MEDS: D5/0.45%NACL 1000 IV (08:21)
[2025-02-22] MEDS: KLONOPIN 0.5 MG PO (12:09)
[2025-02-22] MEDS: DILAUDID PCA 30 IV (15:20)
[2025-02-22] MEDS: HEPARIN 25000 UNITS/250 ML IV (17:53)
[2025-02-22] MEDS: REVATIO 20 MG PO (21:23)
[2025-02-22] MEDS: PLAQUENIL 400 MG PO (21:23)
[2025-02-22] MEDS: XALATAN OPHTHALMIC SOLUTION BOTH EYES (21:23)
--- NOTE | 2025-02-22 22:37 | W.PN.UPDATE ---
Update Note
Progress Note Update
pt no longer receiving adequate pain relief from dailudid bowstring maker ( settings 0.2mg q 10min). Will increase WASTE DISPOSAL ATTENDANT to 0.3mg/10min) and add prn iv dilaudid for breakthrough pain.
pt waiting for BKA for critical limb ischemia this upcoming tu
[2025-02-22] MEDS: DILAUDID 0.5 MG IV (22:44)
[2025-02-23] MEDS: DILAUDID 0.5 MG IV (01:48)
[2025-02-23 03:31] VITALS: BP 103/65
[2025-02-23 07:15] VITALS: BP 95/71
[2025-02-23] MEDS: ZYRTEC 10 MG PO (07:53)
[2025-02-23] MEDS: PROTONIX 40 MG PO (07:53)
[2025-02-23] MEDS: PLAVIX 75 MG PO (07:54)
[2025-02-23] MEDS: VITAMIN B-12 1000 MCG PO (07:54)
[2025-02-23] MEDS: NEURONTIN 400 MG PO ×3 (07:54→22:59)
[2025-02-23] MEDS: CELLCEPT 1000 MG PO ×2 (07:54→19:54)
[2025-02-23] MEDS: NON-FORMULARY ITEM 6 UNIT PO (07:54)
[2025-02-23] MEDS: D5/0.45%NACL 1000 IV (08:03)
[2025-02-23 09:20] LABS: INR 1.44; PT 17.8 Sec (11.4-14.6)
[2025-02-23 09:22] LABS: APTT 71.6 Sec (23.4-35.0)
--- NOTE | 2025-02-23 10:10 | W.PN.VS ---
Today's Communication / Plan
-
Discussed with Dr Rachel
Assessment/Plan
-
54 yo female here with RLE dry gangrene
Plan:
NPO after midnight for BKA with TMR tomorrow
Cont heparin gtt
Cont COMPUTER SERVICE TECHNICIAN
Subjective Data
-
Date of Service: February 23, 2025
Pt seen at bedside this am. Heparin gtt running, COMPUTER SERVICE TECHNICIAN. No events overnight. COMPUTER SERVICE TECHNICIAN covering pain well. Pt has no complaints at this time.
Objective Data
-
Vital Signs
Temp Pulse Resp BP Pulse Ox
97.7 F 79 15 95/71 100
02/23/25 07:15 02/23/25 07:15 02/23/25 08:00 02/23/25 07:15 02/23/25 08:00
Intake and Output
02/22/25 02/23/25 02/24/25
06:59 06:59 06:59
Intake Total 1380 / 1380 1000 / 1000
Balance 1380 / 1380 1000 / 1000
Intake:
Oral fluids 1380 / 1380 520 / 520
IV fluids (Total) 480 / 480
Other:
Number of approximated MODERATE 7 2
amounts of urine
Number of approximated LARGE 2
amounts of urine
Lab Results
02/22/25 06:08
02/19/25 08:34
Calcium 8.7 mg/dl (8.4-10.2) 02/19/25 08:34
Physical Exam
-
No apparent distress, resting in bed
No tachypnea
No tachycardia
Right foot with dry gangrene digits, unchanged
[2025-02-23 11:15] VITALS: BP 102/66
--- NOTE | 2025-02-23 13:50 | CM ---
CM following re: discharge planning.
Reviewed pt's chart, met with pt.
Per Vascular surgery, a plan for BKA with TMR tomorrow.
Pt expressed her great desire to go to acute rehab level of care and she is requested [facility]. Pt stated she will not go to a SNF.
A referral to [facility] acute [facility] made.
PT and OT will evaluate the pt after surgery to determine a level of care at discharge.
D/C plan: Pt requested [facility] acute re[facility].
CM will follow with discharge plan updates as hospitalization progresses
[2025-02-23 15:15] VITALS: BP 99/66
[2025-02-23 16:47] LABS: APTT 83.5 Sec (23.4-35.0)
[2025-02-23 19:10] VITALS: BP 99/70
[2025-02-23] MEDS: HEPARIN 25000 UNITS/250 ML IV (19:54)
[2025-02-23] MEDS: REVATIO 20 MG PO (22:59)
[2025-02-23] MEDS: PLAQUENIL 400 MG PO (22:59)
[2025-02-23] MEDS: XALATAN OPHTHALMIC SOLUTION BOTH EYES (23:01)
[2025-02-23 23:05] LABS: APTT 87.0 Sec (23.4-35.0)
[2025-02-23 23:23] VITALS: BP 101/70
[2025-02-24] VITALS (16 sets, daily range): BP systolic 20–129; BP diastolic 59–79
[2025-02-24] MEDS: BACTROBAN 2% OINTMENT 1 APPLIC NASAL (06:32)
[2025-02-24] MEDS: PERIDEX 0.12% ORAL RINSE 15 ML PO (06:32)
[2025-02-24 08:02] LABS: Hematocrit 26.5 % (37.0-47.0); Hemoglobin 8.4 g/dL (12.0-16.0); Mean Corp Hgb Conc. 31.7 g/dL (33.0-37.0); Mean Corpuscular Volume 89.5 fL (81.0-99.0); Platelet Count 242 10^3/uL (130-400); Red Cell Dist. Width 14.6 % (11.5-14.5)
--- NOTE | 2025-02-24 08:08 | PTCARENOTE ---
Heparin gtt on HOLD
[2025-02-24 08:10] LABS: INR 1.38; PT 17.2 Sec (11.4-14.6)
[2025-02-24 08:12] LABS: APTT 82.1 Sec (23.4-35.0)
[2025-02-24 08:38] LABS: Blood Urea Nitrogen 4 mg/dl (7-17); Calcium 8.9 mg/dl (8.4-10.2); Carbon Dioxide 22 mmol/L (22-30); Chloride 112 mmol/L (98-107); Estimated Creatinine Clearance 74 ml/min; Glucose 97 mg/dl (70-99); Potassium 3.9 mmol/L (3.5-5.1); Sodium 138 mmol/L (135-145); eGFR > 60.00
[2025-02-24] MEDS: D5/0.45%NACL 1000 IV (09:24)
[2025-02-24] MEDS: NON-FORMULARY ITEM PO (09:24)
[2025-02-24] MEDS: VITAMIN B-12 PO (09:25)
[2025-02-24] MEDS: PROTONIX 40 MG PO (09:26)
[2025-02-24] MEDS: ZYRTEC 10 MG PO (09:26)
[2025-02-24] MEDS: PLAVIX 75 MG PO (09:26)
[2025-02-24] MEDS: CELLCEPT 1000 MG PO ×2 (09:26→19:55)
[2025-02-24] MEDS: NEURONTIN 400 MG PO ×3 (09:26→22:17)
--- NOTE | 2025-02-24 11:00 | CON.PS ---
Consultation - Plastic Surgery
Consultation Request
Date/Time Consultation Performed: 02/24/2025
Requesting Provider: Truman Rachel
Performing Provider: SABIHA Tatum
Reason for Consultation: Targeted muscle reinnervation at time of BKA
Medical History
-
Chief Complaint: Right lower limb ischemia
History of Present Illness:
Patient is a 54-year-old female with multiple comorbidities predisposing her to ischemia of the right lower extremity. She has been followed by Dr. Rachel for some time. Due to increasing pain and ongoing ischemia with tissue loss, a plan was made
for below-knee amputation. Consultation was requested for consideration of targeted muscle reinnervation at the time of below-knee amputation.
Past Medical History
Past Medical History: Other
Past Surgical History: Other
Allergies / Home Medications
Allergy/AdvReac Type Severity Reaction Status Date / Time
No Known Allergies Allergy Verified 02/18/25 13:25
�Medication �Instructions �Recorded �Confirmed �Type
hydroxychloroquine 200 mg tablet 400 mg PO HS lupus ##0 11/13/13 02/18/25 History
(Plaquenil)
clonazepam 0.5 mg tablet 0.5 mg PO BIDPRN PRN anxiety 08/11/16 02/18/25 History
mycophenolate mofetil 500 mg 1,000 mg PO BID Autoimmune Disorder 09/05/24 02/18/25 History
tablet (CellCept)
trazodone 100 mg tablet 200 mg PO HS Sleep 09/05/24 02/18/25 History
latanoprost 0.005 % eye drops 1 drp BOTH EYES HS Glaucoma 09/06/24 02/18/25 History
psyllium husk 0.4 gram capsule 2.4 g PO DAILY Constipation 01/12/25 02/18/25 History
(Metamucil)
clopidogrel 75 mg tablet 75 mg PO DAILY #30 tabs 02/02/25 02/18/25 Rx
cyanocobalamin (vitamin B-12) 500 1,000 mcg (2 x 500 mcg) PO DAILY 02/02/25 02/18/25 Rx
mcg tablet (Vitamin B-12) #30 tabs
docusate sodium 100 mg capsule 200 mg PO BIDPRN PRN constipation 02/03/25 02/18/25 History
polyethylene glycol 3350 17 gram 17 g PO DAILYPRN PRN constipation 02/03/25 02/18/25 History
oral powder packet
sildenafil (pulm.hypertension) 20 20 mg PO HS pulm hypertension 02/03/25 02/18/25 History
mg tablet
cetirizine 10 mg tablet 10 mg PO DAILY #30 tabs 02/05/25 02/18/25 Rx
amlodipine 10 mg tablet (Norvasc) 10 mg PO DAILY Blood Pressure 02/18/25 02/18/25 History
gabapentin 400 mg capsule 400 mg PO TID NEUROPATHIC PAIN 02/18/25 02/18/25 History
hydromorphone 2 mg tablet 2 mg PO Q3HPRN PRN moderate-severe 02/18/25 02/18/25 History
pain
omeprazole 40 mg capsule,delayed 40 mg PO DAILY GERD 02/18/25 02/18/25 History
release
warfarin 5 mg tablet 5 mg PO DIRECTED Blood Clot 02/18/25 02/18/25 History
Prevention/Tx
Review of Systems
-
History Source: Patient
Physical Exam
Vital Signs
Temp 97.6 F 02/24/25 17:58
Temp route: Oral 02/24/25 17:58
Pulse 101 02/24/25 17:58
Rhythm: Normal sinus rhythm 02/24/25 09:12
With- Bundle Branch Block Confi 02/24/25 09:12
Resp Rate 16 02/24/25 17:58
Blood pressure 110/70 02/24/25 17:58
Blood pressure extremity used: Left upper arm 02/24/25 17:58
Position: Lying 02/24/25 17:58
MAP (cuff-Gurjit Monitor) 77 02/24/25 17:33
SaO2 97 02/24/25 17:58
Nasal Cannula flow liters per minute 2 02/24/25 17:58
Oxygen Mode of Delivery Simple mask 02/24/25 16:47
Oxygen Mode of Delivery: Nasal cannula 02/24/25 17:30
Flow liters per minute # 6 02/24/25 16:47
Acceptable pain level during hospitalization? 0 02/18/25 13:20
Can the patient verbally communicate their pain? Yes 02/24/25 16:32
Pain scale ratin 02/24/25 17:30
Actual Weight 153 lb 8 oz 02/18/25 16:04
Body Mass Index (BMI) 25.5 02/18/25 16:04
Physical exam:
No acute distress
No increased work of breathing
Alert and interactive
Right lower extremity with ischemic changes, tissue loss
Lab Results
02/24/25 17:34
02/24/25 17:34
Assessment / Plan
-
Targeted muscle reinnervation at time of BKA, right lower extremity
We discussed targeted muscle reinnervation and management of the nerves during amputations. There is reasonable support for the idea that providing sensory nerves with an target in either muscle or motor nerve recipient sites can decrease post
amputation pain and neuroma formation. Risks are limited, but pain and neuroma formation are still possible following this procedure. Risks are intrinsic in the below-knee amputation separate from the targeted muscle reinnervation. Patient
expressed understanding and desired to proceed with targeted muscle reinnervation at the time of right BKA. Of note the decision to perform the BKA as a relates to the extent of her soft tissue loss and vascular disease was left to the patient and
the vascular surgeon.
--- NOTE | 2025-02-24 12:02 | PTCARENOTE ---
pt down to [employer] for preprocedure, PLANT SPECIALIST pump on patient, report given to nurses in room #9.
--- NOTE | 2025-02-24 16:23 | W.IMMPOSTOP ---
Surgical Immed Post Op Note
-
Primary Surgeon: Truman Rachel III, MD
Assisting Surgeon: Jimi Fair MD PGY2
Pre-op Diagnosis: RLE gangrene
Post-op Diagnosis: RLE gangrene
Procedure Performed: Right BKA with TMR
Anesthesia Type: General
Specimen / Cultures: None
Estimated Blood Loss: 30 cc
Complications: None
Operative Findings: Right BKA with TMR
--- NOTE | 2025-02-24 16:41 | OR.RPT ---
Operative Report
Operative Report
Date of Operation: 02/24/2025
Pre Op Diagnosis: Right foot gangrene and ischemic rest pain
Post Op Diagnosis: Right foot gangrene and ischemic rest pain
Procedure: Right lower extremity amputation below the knee
Surgeon: Truman Rachel III, MD
Greenkeeper: Jimi Fair MD PGY2
Anesthesia: General with regional block
Complications: None
Estimated Blood Loss: 200 cc
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 She had failed transcatheter arterialization of
the deep veins and there were no other revascularization options. We brought her to the operating room for below the knee amputation.
Dr. Joshua Tatum from plastic surgery performed targeted muscle reinnervation (TMR) and will be dictated separately.
Procedure in Detail: Lizette Palma was correctly identified and placed supine on the operating table. After adequate induction of anesthesia the right leg was prepped and draped in the usual sterile fashion. A timeout procedure was performed with the
nursing and anesthesia staff confirming the patient's identity as well as the nature and laterality of the procedure. A transverse incision was made approximately 1 hands-breadth below the tibial tuberosity and carried medially and laterally to the
usp points on the calf. The incision was then turned along the long axis of the calf and carried down towards the ankle to create the posterior flap. Electrocautery was used on the subcutaneous tissue and muscle of the anterior and lateral
tissue. The anterior tibial artery and vein were identified and then ligated and divided between ties. Dr. Tatum identified nerves for TMR. His operative report will be dictated separately in more detail. The tibia and fibula were each
circumferentially exposed. A periosteal elevator was used on each to elevate the periosteum more proximally. The tibia was then divided with a saw. The anterior surface was beveled and smoothed with the saw and a rasp. The fibula was then divided
more proximally than the tibia and all edges were smoothed. The amputation was then completed using electrocautery along the posterior flap. The leg was then passed off to the back table to be sent to pathology. Hemostasis was achieved along the
posterior flap. Dr. Tatum identified additional nerves for TMR along the posterior flap. Once hemostasis was achieved the wound was irrigated with warm saline solution. Dr. Tatum performed targeted muscle reinnervation at this point. Once his
portion of the procedure was completed we proceeded with closure. A large Devyn drain was brought out through a separate stab incision at the skin and secured in place with a Nylon suture. This was left deep within the wound adjacent to the bone
margins. The wound was then closed in multiple layers. Sterile dressings were applied. The leg was wrapped in an Braeden.
The patient tolerated the procedure well and was taken to the PACU in stable condition.
Attestation: I was present and responsible for the entire procedure
Signed:
Truman Rachel III, MD
Vascular Surgery
[facility]
--- NOTE | 2025-02-24 16:59 | CM ---
To OR today for R BKA. Discharge POC: Will await therapy eval and rec. Patient wants [facility]. Referral previously placed.
[2025-02-24 17:41] LABS: Hematocrit 27.3 % (37.0-47.0); Hemoglobin 8.7 g/dL (12.0-16.0); Mean Corp Hgb Conc. 31.9 g/dL (33.0-37.0); Mean Corpuscular Volume 87.8 fL (81.0-99.0); Platelet Count 232 10^3/uL (130-400); Red Cell Dist. Width 14.7 % (11.5-14.5)
[2025-02-24 17:55] LABS: Blood Urea Nitrogen 4 mg/dl (7-17); Calcium 8.9 mg/dl (8.4-10.2); Carbon Dioxide 22 mmol/L (22-30); Chloride 111 mmol/L (98-107); Estimated Creatinine Clearance 74 ml/min; Glucose 170 mg/dl (70-99); Potassium 4.3 mmol/L (3.5-5.1); Sodium 138 mmol/L (135-145); eGFR > 60.00
[2025-02-24] MEDS: NSS 1000 IV (18:20)
--- NOTE | 2025-02-24 18:33 | PTCARENOTE ---
pt back from OR/PACU vitals Q1 hr charted, PROMOTIONAL MODEL in place with D5 45%NaCl no complaints of pain, checked stump no bleeding elevated on a pillow.
--- NOTE | 2025-02-24 18:39 | W.IMMPOSTOP ---
Surgical Immed Post Op Note
-
Primary Surgeon: SABIHA Tatum MD
Assisting Surgeon:
Pre-op Diagnosis: Right lower extremity ischemia, gangrene
Post-op Diagnosis: Same
Procedure Performed: Targeted muscle reinnervation at the time of BKA
Anesthesia Type: General
Specimen / Cultures: Per Dr. Rachel
Estimated Blood Loss: 10 cc
Complications: None
Operative Findings: As expected
--- NOTE | 2025-02-24 18:39 | OR.RPT ---
Operative Report
Operative Report
Date of surgery: 02/24/2025
Surgeon: SABIHA Tatum MD
Preoperative diagnosis: Ischemic vascular disease, resting pain, gangrene of the right lower extremity
Postoperative diagnosis: Same
Procedure:
1. Nerve pedicle transfer, first stage, posterior tibial nerve to the gastrocnemius, right
2. Nerve pedicle transfer, first stage, deep peroneal nerve to tibialis anterior, right
3. Nerve pedicle transfer, first stage, superficial peroneal nerve to peroneus longus, right
4. Nerve pedicle transfer, first stage, saphenous nerve to soleus, right
5. Nerve pedicle transfer, first stage, sural nerve to tibialis posterior, right
Anesthesia: General
Complications: None
EBL: 10 cc for my portion
Specimens: Per Dr. Rachel
Indications for procedure: Patient is a 54-year-old female with a multiply comorbid history including antiphospholipid, scleroderma, ischemic vascular occlusive disease of the right lower extremity resulting in resting pain and gangrene. A plan was
made between Dr. Rachel and the patient to proceed with below-knee amputation. I was consulted for consideration of targeted muscle reinnervation to minimize post amputation pain symptoms. Discussion was had about the the procedure and the
possibility of neuroma development. Risks were reviewed at length which included the risk of the BKA. Consents were signed accordingly
Procedure in detail: Patient was identified preoperatively and the surgical site was confirmed to be the right lower extremity. Consents were confirmed all questions were answered. Patient was taken back to the operating room placed supine on
table. Patient was then prepped and draped in the usual sterile fashion. Dr. Rachel began the procedure that his op report will be dictated separately. He performed a right below-knee amputation in the standard fashion. During this, I was able to
identify the various nerves of the lower extremity as dictated above. These were dissected free and spared from cautery. Length was ensured to allow for transfer and suture coaptation to the recipient nerve/muscle interface. Identified nerves
include the posterior tibial nerve, deep peroneal nerve, superficial peroneal nerve and saphenous nerve. Sural nerve was also identified. These nerves were then transferred to their nearby muscular recipients. This involved either a sensory to
motor nerve coaptation using 8-0 nylon. Alternatively, with no motor nerve was available, the nerve was sutured into the muscular interface. Loupe magnification was utilized. Following these coaptation's, the remainder of the below-knee amputation
was performed by Dr. Rachel. There were no complications, counts were correct at the conclusion of of the case. Patient was extubated and taken the PACU for further care
[2025-02-24] MEDS: PLAQUENIL 400 MG PO (22:18)
[2025-02-24] MEDS: XALATAN OPHTHALMIC SOLUTION 1 DROP BOTH EYES (22:18)
[2025-02-24] MEDS: REVATIO 20 MG PO (22:18)
[2025-02-25] VITALS (8 sets, daily range): BP systolic 92–132; BP diastolic 57–74; PULSE 97; O2SAT 100
[2025-02-25] MEDS: NSS 1000 IV (04:13)
[2025-02-25 06:40] LABS: Hematocrit 23.5 % (37.0-47.0); Hemoglobin 7.2 g/dL (12.0-16.0); Mean Corp Hgb Conc. 30.6 g/dL (33.0-37.0); Mean Corpuscular Volume 90.0 fL (81.0-99.0); Platelet Count 223 10^3/uL (130-400); Red Cell Dist. Width 14.6 % (11.5-14.5)
[2025-02-25 06:43] LABS: INR 1.27; PT 16.2 Sec (11.4-14.6)
[2025-02-25 07:13] LABS: Blood Urea Nitrogen 7 mg/dl (7-17); Calcium 8.2 mg/dl (8.4-10.2); Carbon Dioxide 23 mmol/L (22-30); Chloride 112 mmol/L (98-107); Estimated Creatinine Clearance 74 ml/min; Glucose 110 mg/dl (70-99); Potassium 3.6 mmol/L (3.5-5.1); Sodium 138 mmol/L (135-145); eGFR > 60.00
--- NOTE | 2025-02-25 07:50 | W.PN.VS ---
Addendum entered and electronically signed by Berto Caicedo MD 02/25/25 08:06:
Seen and examined with RETAIL [employer]ET MERCHANDISER. Agree with findings as noted below. Patient without significant complaints. Notes pain is reasonably controlled. She notes phantom sensation of the foot. Otherwise no significant complaints. Right lower extremity
dressing is clean dry and intact. No blood staining, no significant swelling. MCKAY serosanguineous. Volume is noted. Plan/as discussed and noted below.
Original Note:
Today's Communication / Plan
-
Seen and assessed with Dr. Caicedo
Assessment/Plan
-
54 yo female here with RLE dry gangrene
Postop day 1 right BKA with TMR
Plan:
Restart heparin drip
Leave dressing intact today
Cont TAX STAFF ACCOUNTANT
Continue drain
Physical therapy
Recheck H&H at 12:00
Subjective Data
-
Date of Service: February 25, 2025
Patient seen at bedside today with Dr. Caicedo. Patient offers no complaints at this time. Denies pain. No events overnight. Dressing remains dry
Objective Data
-
Vital Signs
Temp Pulse Resp BP Pulse Ox
97.6 F 72 16 98/57 98
02/25/25 03:52 02/25/25 03:52 02/25/25 03:52 02/25/25 03:52 02/25/25 04:00
Intake and Output
02/24/25 02/25/25 02/26/25
06:59 06:59 06:59
Intake Total 1440 / 1440 1500 / 1500
Output Total 1900 / 1900
Balance 1440 / 1440 -400 / -400
Intake:
Oral fluids 960 / 960 240 / 240
IV fluids (Total) 480 / 480 1260 / 1260
Normosol 300 / 300
Output:
Drain Output (Total) 50 / 50
Right Leg Yakov-Iyer
Urine, Virginie 1849
Other:
Number of approximated MODERATE 5 1
amounts of urine
Lab Results
02/25/25 05:39
02/25/25 05:39
Calcium 8.2 mg/dl (8.4-10.2) L 02/25/25 05:39
Physical Exam
-
AAO x 3
No tachypnea on 2 L nasal cannula
No tachycardia
Abdomen soft
Right stump site dressing clean, dry, intact, soft
MCKAY drain intact -50 cc over 24 hours
[2025-02-25] MEDS: NON-FORMULARY ITEM PO ×2 (08:40→15:34)
[2025-02-25] MEDS: VITAMIN B-12 1000 MCG PO (08:42)
[2025-02-25] MEDS: NEURONTIN 400 MG PO ×3 (08:42→21:51)
[2025-02-25] MEDS: ZYRTEC 10 MG PO (08:42)
[2025-02-25] MEDS: CELLCEPT 1000 MG PO ×2 (08:42→20:00)
[2025-02-25] MEDS: PROTONIX 40 MG PO (08:42)
[2025-02-25] MEDS: PLAVIX 75 MG PO (08:42)
[2025-02-25] MEDS: D5/0.45%NACL 1000 IV (08:43)
[2025-02-25] MEDS: HEPARIN 25000 UNITS/250 ML IV (08:46)
[2025-02-25] MEDS: DILAUDID PCA 30 IV (09:01)
--- NOTE | 2025-02-25 13:17 | CM ---
CM following re: discharge planning.
Reviewed pt's chart, met with pt and pt's yvonne at bedside.
Pt is POD#1 s/p right BKA with TMR. Continue supportive care.
PT and OT evaluations noted - acute rehab level of care recommended. Both pt and his spouse are aware, expressed their great desire to get to [facility].
Updated clinical faxed to [facility], spoke to liajulian Valle [phone] and she is reviewing a referral.
D/C plan: [facility].
CM will follow to assist pt with discharge to [facility].
[2025-02-25 14:45] LABS: Hematocrit 24.2 % (37.0-47.0); Hemoglobin 7.5 g/dL (12.0-16.0)
[2025-02-25 15:02] LABS: APTT 51.6 Sec (23.4-35.0)
[2025-02-25] MEDS: XALATAN OPHTHALMIC SOLUTION BOTH EYES (20:05)
[2025-02-25] MEDS: PLAQUENIL 400 MG PO (21:51)
[2025-02-25] MEDS: REVATIO 20 MG PO (21:51)
[2025-02-25] MEDS: TYLENOL 650 MG PO (22:18)
[2025-02-25 22:28] LABS: APTT 100.0 Sec (23.4-35.0)
[2025-02-26] VITALS (9 sets, daily range): BP systolic 109–143; BP diastolic 69–81; PULSE 102; O2SAT 98; BMI 25.5
[2025-02-26] MEDS: HEPARIN 25000 UNITS/250 ML IV (04:40)
[2025-02-26 06:46] LABS: Hematocrit 25.0 % (37.0-47.0); Hemoglobin 7.8 g/dL (12.0-16.0); Mean Corp Hgb Conc. 31.2 g/dL (33.0-37.0); Mean Corpuscular Volume 90.3 fL (81.0-99.0); Platelet Count 231 10^3/uL (130-400); Red Cell Dist. Width 14.8 % (11.5-14.5)
[2025-02-26 06:56] LABS: INR 1.38; PT 17.5 Sec (11.4-14.6)
[2025-02-26 07:12] LABS: APTT 167.1 Sec (23.4-35.0)
[2025-02-26] MEDS: NEURONTIN 400 MG PO ×3 (08:39→21:24)
[2025-02-26] MEDS: CELLCEPT 1000 MG PO ×2 (08:39→19:56)
[2025-02-26] MEDS: ZYRTEC 10 MG PO (08:39)
[2025-02-26] MEDS: PLAVIX 75 MG PO (08:39)
[2025-02-26] MEDS: VITAMIN B-12 1000 MCG PO (08:39)
[2025-02-26] MEDS: PROTONIX 40 MG PO (08:39)
[2025-02-26] MEDS: NON-FORMULARY ITEM 1 UNIT PO (08:42)
[2025-02-26] MEDS: D5/0.45%NACL 1000 IV (08:53)
--- NOTE | 2025-02-26 09:00 | W.PN.VS ---
Today's Communication / Plan
-
Below plan reviewed with attending Dr. Berto Caicedo.
Assessment/Plan
-
54 yo female here with RLE dry gangrene
Postop day 2 right BKA with TMR
Plan:
Continue heparin infusion, oral Coumadin restarted today for bridge, INR check tomorrow
Transitioned to oral pain medication
Continue drain
Physical therapy
Hemoglobin stable will recheck tomorrow AM
Case management consult for disposition planning
Encourage incentive spirometry
Subjective Data
-
Date of Service: February 26, 2025
Patient seen and examined, reports continued well managed post operative pain. Denies nausea, vomiting, fever, and chills. Tolerating PO diet.
Objective Data
-
Vital Signs
Temp Pulse Resp BP Pulse Ox
98.7 F 94 16 129/78 99
02/26/25 07:15 02/26/25 07:15 02/26/25 07:15 02/26/25 07:15 02/26/25 07:15
Intake and Output
02/25/25 02/26/25 02/27/25
06:59 06:59 06:59
Intake Total 1500 / 1500 2539 / 2539
Output Total 1900 / 1900 185 / 185
Balance -400 / -400 689 / 689
Intake:
Oral fluids 240 / 240 1260 / 1260
IV fluids (Total) 1260 / 1260 1040 / 1040
Normosol 300 / 300
IV piggybacks 239 / 239
Output:
Drain Output (Total) 50 / 50
Right Leg Yakov-Iyer 50
Urine, Rachel 1849 / 1849 1824 / 1824
Other:
Number of approximated MODERATE 1
amounts of urine
Lab Results
02/26/25 06:21
02/25/25 05:39
Calcium 8.2 mg/dl (8.4-10.2) L 02/25/25 05:39
Physical Exam
-
AAO x 3
No tachypnea on 2 L nasal cannula
No tachycardia
Abdomen soft
Right stump site dressing clean, dry, intact, soft. Removed staple site CDI and well approximated. New dressing re applied.
MCKAY drain intact, minimal serosanguineous output in bulb
[2025-02-26] MEDS: TYLENOL 650 MG PO ×4 (11:19→23:54)
[2025-02-26] MEDS: COLACE 100 MG PO ×2 (11:19→19:56)
--- NOTE | 2025-02-26 11:25 | CM ---
CM following re: discharge planning.
Reviewed pt's chart, met with pt.
Pt is POD#2 s/p right BKA with TMR. Continue supportive care.
Updated clinical faxed to [facility] rehab, spoke to niecy Valle [phone] and she stated she is working to accept the pt to [facility] [place] location. Both pt and her are aware of the plan and they accepted the plan for
[facility] [place] location.
D/C plan: [facility].
CM will follow to assist pt with discharge to [facility] rehab.
[2025-02-26] MEDS: ROXICODONE 5 MG PO ×2 (12:10→22:12)
[2025-02-26 13:36] LABS: APTT 99.9 Sec (23.4-35.0)
[2025-02-26] MEDS: COUMADIN 5 MG PO (17:31)
[2025-02-26 20:29] LABS: APTT 140.1 Sec (23.4-35.0)
[2025-02-26] MEDS: PLAQUENIL 400 MG PO (21:23)
[2025-02-26] MEDS: REVATIO 20 MG PO (21:24)
[2025-02-26] MEDS: XALATAN OPHTHALMIC SOLUTION BOTH EYES (22:06)
[2025-02-27] VITALS (7 sets, daily range): BP systolic 114–132; BP diastolic 69–77; PULSE 82; O2SAT 100
[2025-02-27] MEDS: TYLENOL 650 MG PO ×6 (04:01→23:15)
[2025-02-27] MEDS: HEPARIN 25000 UNITS/250 ML IV (04:15)
[2025-02-27 04:34] LABS: APTT 78.1 Sec (23.4-35.0)
[2025-02-27 06:32] LABS: INR 1.58; PT 19.3 Sec (11.4-14.6)
[2025-02-27 06:45] LABS: Blood Urea Nitrogen 6 mg/dl (7-17); Calcium 8.3 mg/dl (8.4-10.2); Carbon Dioxide 23 mmol/L (22-30); Chloride 111 mmol/L (98-107); Estimated Creatinine Clearance 99 ml/min; Glucose 110 mg/dl (70-99); Potassium 3.5 mmol/L (3.5-5.1); Sodium 135 mmol/L (135-145); eGFR > 60.00
[2025-02-27 07:48] LABS: Hematocrit 22.9 % (37.0-47.0); Hemoglobin 7.3 g/dL (12.0-16.0)
[2025-02-27] MEDS: CELLCEPT 1000 MG PO ×2 (09:04→20:09)
[2025-02-27] MEDS: COLACE 100 MG PO (09:05)
[2025-02-27] MEDS: PROTONIX 40 MG PO (09:05)
[2025-02-27] MEDS: PLAVIX 75 MG PO (09:05)
[2025-02-27] MEDS: ZYRTEC 10 MG PO (09:06)
[2025-02-27] MEDS: VITAMIN B-12 1000 MCG PO (09:06)
[2025-02-27] MEDS: KLOR-CON 20 MEQ PO (09:06)
[2025-02-27] MEDS: NEURONTIN 400 MG PO ×3 (09:06→21:48)
[2025-02-27] MEDS: NON-FORMULARY ITEM 1 UNIT PO (09:07)
--- NOTE | 2025-02-27 09:47 | W.PN.VS ---
Addendum entered and electronically signed by Truman Rachel III, MD 02/27/25 14:00:
This patient was seen and examined in collaboration with AMBERLY Smalls. I agree with the history and physical exam as well as the assessment and plan. I have the following additions:
Lizette looks great overall
Her pain is well-controlled
Encouraged her to wear stump protector
Knee immobilizer while in bed
Heparin drip with therapeutic PTT:
Coumadin
Keep drain in for now
Gentle Braeden wrap compression to the amputation site
Signed:
Truman Rachel III, MD
Vascular Surgery
[facility]
Original Note:
Today's Communication / Plan
-
Patient seen and examined at bedside with Dr. Truman Rachel III, below plan reviewed with attending.
Assessment/Plan
-
54 yo female here with RLE dry gangrene
Postop day 3 right BKA with TMR
Plan:
Continue heparin infusion, and oral Coumadin for bridge, INR check tomorrow, therapeutic goal at 4
Continue PRN pain medication
PO iron for chronic anemia, likely exacerbated by acute blood loss anemia from amputation. Hgb remains stable.
Continue drain
Physical therapy
Case management following disposition plan is to [facility] once INR therapeutic
Encourage incentive spirometry
Nutrition consult for advice on protein rich foods for wound healing
Subjective Data
-
Date of Service: February 27, 2025
Patient seen and examined at bedside, offers no complaints. Reports well managed postoperative pain with current PO pain regimen. Denies nausea, vomiting, fever, and chills.
Objective Data
-
Vital Signs
Temp Pulse Resp BP Pulse Ox
98.1 F 78 20 126/76 98
02/27/25 07:00 02/27/25 07:00 02/27/25 07:00 02/27/25 07:00 02/27/25 07:00
Intake and Output
02/26/25 02/27/25 02/28/25
06:59 06:59 06:59
Intake Total 2539 / 2539 492 / 492
Output Total 1850 / 1850 40 / 40
Balance 689 / 689 452 / 452
Intake:
Oral fluids 1260 / 1260 240 / 240
IV fluids (Total) 1040 / 1040 120 / 120
IV piggybacks 239 / 239 132 / 132
Output:
Drain Output (Total)
Right Leg Yakov-Iyer
Urine, Rachel 1824 / 1824
Other:
Number of approximated MODERATE 2
amounts of urine
Number of approximated LARGE 1
amounts of urine
Lab Results
02/27/25 06:06
02/27/25 06:05
Calcium 8.3 mg/dl (8.4-10.2) L 02/27/25 06:05
Physical Exam
-
AAO x 3
No tachypnea on 2 L nasal cannula
No tachycardia
Abdomen soft
Right stump site dressing clean, dry, intact, soft. Staple site CDI and well approximated.
MCKAY drain intact, minimal serosanguineous output in bulb
[2025-02-27 10:36] LABS: APTT 95.3 Sec (23.4-35.0)
[2025-02-27] MEDS: FEOSOL 325 MG PO (12:07)
--- NOTE | 2025-02-27 12:19 | CM ---
CM following re: discharge planning.
Reviewed pt's chart, met with pt.
Pt is POD#3 s/p right BKA with TMR. Continue supportive care. Per Vascular surgery continue heparin infusion, and oral Coumadin for bridge, INR check tomorrow, therapeutic goal at 4
Updated clinical [facility], spoke to niecy Valle [phone] and she stated as soon as INR is therapeutic pt is accepted to [facility] location when pt is medically stable. Per Tori, pt will be accepted on
Sunday or Sunday if stable.
[facility] nursing report: [phone]
Discharge instructions fax: [phone].
If pt is ready for discharge on the weekend please call [facility] assistant Nicole at [phone] to coordinate discharge.
D/C plan: [facility] location.
CM will follow to assist pt with discharge to [facility].
[2025-02-27] MEDS: COUMADIN 5 MG PO (17:47)
[2025-02-27] MEDS: ZOFRAN 4 MG IV (18:39)
[2025-02-27] MEDS: COLACE PO (20:13)
[2025-02-27] MEDS: ROXICODONE 5 MG PO (20:16)
[2025-02-27] MEDS: DESYREL PO (21:48)
[2025-02-27] MEDS: XALATAN OPHTHALMIC SOLUTION BOTH EYES (21:49)
[2025-02-27] MEDS: PLAQUENIL PO (21:50)
[2025-02-27] MEDS: REVATIO PO (21:51)
[2025-02-27] MEDS: DESYREL 200 MG PO (23:16)
[2025-02-28] VITALS (7 sets, daily range): BP systolic 100–146; BP diastolic 61–75; PULSE 79; O2SAT 94
[2025-02-28] MEDS: TYLENOL PO ×5 (04:15→23:23)
[2025-02-28 06:16] LABS: Hematocrit 24.1 % (37.0-47.0); Hemoglobin 7.6 g/dL (12.0-16.0); Mean Corp Hgb Conc. 31.5 g/dL (33.0-37.0); Mean Corpuscular Volume 88.9 fL (81.0-99.0); Platelet Count 204 10^3/uL (130-400); Red Cell Dist. Width 14.6 % (11.5-14.5)
[2025-02-28 06:25] LABS: INR 3.15; PT 32.2 Sec (11.4-14.6)
[2025-02-28 06:28] LABS: APTT 143.4 Sec (23.4-35.0)
[2025-02-28 06:34] LABS: Blood Urea Nitrogen 8 mg/dl (7-17); Calcium 8.4 mg/dl (8.4-10.2); Carbon Dioxide 22 mmol/L (22-30); Chloride 111 mmol/L (98-107); Estimated Creatinine Clearance 85 ml/min; Glucose 103 mg/dl (70-99); Potassium 3.6 mmol/L (3.5-5.1); Sodium 137 mmol/L (135-145); eGFR > 60.00
[2025-02-28] MEDS: HEPARIN 25000 UNITS/250 ML IV (08:24)
--- NOTE | 2025-02-28 08:34 | W.PN.VS ---
Today's Communication / Plan
-
.
Assessment/Plan
-
POD#4 Right BKA with TMR
Plan:
Adjust coumadin dose for tonight and recheck INR tomorrow
Continue PRN pain medication
Daily dressing changes with Braeden wrap compression
Subjective Data
-
Date of Service: February 28, 2025
Comfortable
Alert
No events
Pain controlled
Some diarrhea
Objective Data
-
Vital Signs
Temp Pulse Resp BP Pulse Ox
98.1 F 66 17 113/72 97
02/28/25 03:04 02/28/25 03:04 02/28/25 03:04 02/28/25 03:04 02/28/25 03:04
Intake and Output
02/27/25 02/28/25 03/01/25
06:59 06:59 06:59
Intake Total 492 / 492 390 / 390
Output Total 40 / 40
Balance 452 / 452 390 / 390
Intake:
Oral fluids 240 / 240 390 / 390
IV fluids (Total) 120 / 120
IV piggybacks 132 / 132
Output:
Drain Output (Total) 40 / 40
Right Leg Yakov-Iyer 40 / 40
Other:
Number of approximated MODERATE 2 5 3
amounts of urine
Number of approximated LARGE 1
amounts of urine
Number of unmeasured liquid
stools
Rectum 1
Lab Results
02/28/25 05:49
02/28/25 05:49
Calcium 8.4 mg/dl (8.4-10.2) 02/28/25 05:49
Physical Exam
-
Right BKA clean/dry
MCKAY removed
Scant duskiness of skin edge at the mid portion of BKA skin incision
Posterior flap normal appearing and warm, soft
Good knee ROM
[2025-02-28] MEDS: CELLCEPT 1000 MG PO ×2 (09:04→19:53)
[2025-02-28] MEDS: NEURONTIN 400 MG PO ×3 (09:05→21:48)
[2025-02-28] MEDS: PROTONIX 40 MG PO (09:05)
[2025-02-28] MEDS: PLAVIX 75 MG PO (09:05)
[2025-02-28] MEDS: COLACE PO ×2 (09:05→20:35)
[2025-02-28] MEDS: VITAMIN B-12 1000 MCG PO (09:11)
[2025-02-28] MEDS: IMODIUM 2 MG PO ×2 (09:11→17:05)
[2025-02-28] MEDS: NON-FORMULARY ITEM PO (09:15)
[2025-02-28] MEDS: NORVASC 10 MG PO (09:17)
[2025-02-28] MEDS: FEOSOL 325 MG PO (09:17)
[2025-02-28] MEDS: ZYRTEC PO (09:19)
[2025-02-28 13:02] LABS: APTT 86.1 Sec (23.4-35.0)
[2025-02-28] MEDS: TYLENOL 650 MG PO (14:19)
[2025-02-28] MEDS: ROXICODONE 5 MG PO ×2 (17:02→21:54)
[2025-02-28] MEDS: COUMADIN 2.5 MG PO (17:49)
[2025-02-28] MEDS: PLAQUENIL 400 MG PO (21:47)
[2025-02-28] MEDS: REVATIO 20 MG PO (21:48)
[2025-02-28] MEDS: DESYREL 200 MG PO (21:48)
[2025-02-28] MEDS: XALATAN OPHTHALMIC SOLUTION BOTH EYES (21:49)
[2025-03-01] VITALS (7 sets, daily range): BP systolic 100–119; BP diastolic 62–78; PULSE 69
[2025-03-01] MEDS: TYLENOL PO ×6 (03:40→23:42)
--- NOTE | 2025-03-01 04:00 | PTCARENOTE ---
Against prior verbal agreement, patient feeling confident attempted to get out of bed independently to the BSC. She was unable to do so and caught herself on the bed. She rang call chase for help. Patient was helped to the BSC and then back to bed.
Patient verbalized an understanding to ring for all transfers.
[2025-03-01] MEDS: ROXICODONE 5 MG PO ×3 (04:51→20:05)
[2025-03-01 06:46] LABS: Hematocrit 23.4 % (37.0-47.0); Hemoglobin 7.4 g/dL (12.0-16.0); Mean Corp Hgb Conc. 31.6 g/dL (33.0-37.0); Mean Corpuscular Volume 88.6 fL (81.0-99.0); Platelet Count 232 10^3/uL (130-400); Red Cell Dist. Width 14.6 % (11.5-14.5)
[2025-03-01 07:07] LABS: INR 3.65; PT 36.0 Sec (11.4-14.6)
[2025-03-01 07:10] LABS: Blood Urea Nitrogen 8 mg/dl (7-17); Calcium 8.5 mg/dl (8.4-10.2); Carbon Dioxide 22 mmol/L (22-30); Chloride 110 mmol/L (98-107); Estimated Creatinine Clearance 85 ml/min; Glucose 101 mg/dl (70-99); Potassium 3.5 mmol/L (3.5-5.1); Sodium 135 mmol/L (135-145); eGFR > 60.00
--- NOTE | 2025-03-01 08:20 | W.PN.VS ---
Today's Communication / Plan
-
x
Assessment/Plan
-
POD#5 Right BKA with TMR
Plan:
Coumadin. Repeat INR 03/02
Continue PRN pain medication
Daily dressing changes with Braeden wrap compression
Getting close to be able to transition to rehab
-
Total Time Spent with Patient (in minutes): x
Subjective Data
-
Date of Service: March 01, 2025
Diarrhea better
No complaints this AM
No events overnight
Objective Data
-
Vital Signs
Temp Pulse Resp BP Pulse Ox
97.9 F 75 17 106/65 97
03/01/25 03:42 03/01/25 03:42 03/01/25 03:42 03/01/25 03:42 03/01/25 03:42
Intake and Output
02/28/25 03/01/25 03/02/25
06:59 06:59 06:59
Intake Total 390 / 390 360 / 360
Balance 390 / 390 360 / 360
Intake:
Oral fluids 390 / 390 360 / 360
Other:
How many times incontinent 3
MODERATE amount urine
Number of approximated MODERATE 5 4
amounts of urine
Number of unmeasured liquid
stools
Rectum 1 1
Lab Results
03/01/25 06:15
03/01/25 06:15
Calcium 8.5 mg/dl (8.4-10.2) 03/01/25 06:15
Physical Exam
-
Comfortable
Alert/oriented
Non labored breathing
Right BKA clean/dry/warm. No signs of infection
[2025-03-01] MEDS: VITAMIN B-12 1000 MCG PO (09:18)
[2025-03-01] MEDS: NEURONTIN 400 MG PO ×3 (09:18→22:22)
[2025-03-01] MEDS: PROTONIX 40 MG PO (09:19)
[2025-03-01] MEDS: PLAVIX 75 MG PO (09:19)
[2025-03-01] MEDS: IMODIUM 2 MG PO ×2 (09:19→19:59)
[2025-03-01] MEDS: NORVASC 10 MG PO (09:19)
[2025-03-01] MEDS: COLACE PO ×2 (09:20→20:03)
[2025-03-01] MEDS: CELLCEPT 1000 MG PO ×2 (09:20→19:57)
[2025-03-01] MEDS: NON-FORMULARY ITEM 6 UNIT PO (09:20)
[2025-03-01] MEDS: ZYRTEC PO (09:22)
[2025-03-01] MEDS: FEOSOL 325 MG PO (09:24)
[2025-03-01] MEDS: TYLENOL 650 MG PO ×2 (14:32→22:22)
[2025-03-01] MEDS: COUMADIN 5 MG PO (18:26)
[2025-03-01] MEDS: PLAQUENIL 400 MG PO (22:22)
[2025-03-01] MEDS: DESYREL 200 MG PO (22:22)
[2025-03-01] MEDS: XALATAN OPHTHALMIC SOLUTION 1 DROP BOTH EYES (22:23)
[2025-03-01] MEDS: REVATIO 20 MG PO (22:23)
[2025-03-02 03:16] VITALS: BP 104/64
[2025-03-02] MEDS: TYLENOL 650 MG PO ×3 (04:39→11:02)
[2025-03-02 06:34] LABS: Hematocrit 24.4 % (37.0-47.0); Hemoglobin 7.6 g/dL (12.0-16.0); Mean Corp Hgb Conc. 31.1 g/dL (33.0-37.0); Mean Corpuscular Volume 89.1 fL (81.0-99.0); Platelet Count 211 10^3/uL (130-400); Red Cell Dist. Width 14.6 % (11.5-14.5)
[2025-03-02 06:38] LABS: INR 3.53; PT 35.1 Sec (11.4-14.6)
[2025-03-02 07:15] LABS: Blood Urea Nitrogen 7 mg/dl (7-17); Calcium 8.3 mg/dl (8.4-10.2); Carbon Dioxide 22 mmol/L (22-30); Chloride 109 mmol/L (98-107); Estimated Creatinine Clearance 85 ml/min; Glucose 103 mg/dl (70-99); Potassium 3.4 mmol/L (3.5-5.1); Sodium 135 mmol/L (135-145); eGFR > 60.00
[2025-03-02 07:25] VITALS: BP 113/68
--- NOTE | 2025-03-02 07:34 | W.PN.VS ---
Addendum entered and electronically signed by Berto Caicedo MD 03/02/25 09:25:
Seen and examined with INDUSTRIAL LOCOMOTIVE OPERATOR. Agree with findings as noted below. Right lower extremity amputation stump staple line clean dry and intact. Skin flaps pink. Plan/as discussed and noted below.
Original Note:
Today's Communication / Plan
-
Patient seen and examined at bedside with Dr. Berto Caicedo, below plan reviewed with attending.
Assessment/Plan
-
POD#6 Right BKA with TMR
Plan:
Continue Coumadin
Continue PRN pain medication
Daily dressing changes with Braeden wrap compression
Cleared for dc to rehab
Subjective Data
-
Date of Service: March 02, 2025
Patient seen and examined at bedside, offers no complaints. Reports adequate pain management post op with current PO regimen. Denies nausea, vomiting, fever, and chills.
Objective Data
-
Vital Signs
Temp Pulse Resp BP Pulse Ox
98.1 F 81 18 113/68 98
03/02/25 07:25 03/02/25 07:25 03/02/25 07:25 03/02/25 07:25 03/02/25 07:25
Intake and Output
03/01/25 03/02/25 03/03/25
06:59 06:59 06:59
Intake Total 360 / 360 1200 / 1200
Balance 360 / 360 1200 / 1200
Intake:
Oral fluids 360 / 360 1200 / 1200
Other:
How many times incontinent 3 3
MODERATE amount urine
Number of approximated SMALL 2
amounts of urine
Number of approximated MODERATE 4 1
amounts of urine
Number of unmeasured liquid
stools
Rectum 1 1
Lab Results
03/02/25 06:06
03/02/25 06:06
Calcium 8.3 mg/dl (8.4-10.2) L 03/02/25 06:06
Physical Exam
-
Comfortable
Alert/oriented
Non labored breathing
Right BKA clean/dry/warm. No signs of infection, alexis well approximated
[2025-03-02] MEDS: VITAMIN B-12 1000 MCG PO (08:37)
[2025-03-02] MEDS: PROTONIX 40 MG PO (08:37)
[2025-03-02] MEDS: PLAVIX 75 MG PO (08:38)
[2025-03-02] MEDS: NORVASC 10 MG PO (08:38)
[2025-03-02] MEDS: FEOSOL 325 MG PO (08:38)
[2025-03-02] MEDS: CELLCEPT 1000 MG PO (08:38)
[2025-03-02] MEDS: NON-FORMULARY ITEM PO (08:38)
[2025-03-02] MEDS: NEURONTIN 400 MG PO (08:38)
[2025-03-02] MEDS: COLACE PO (08:38)
[2025-03-02] MEDS: ZYRTEC PO (08:39)
--- NOTE | 2025-03-02 10:29 | CM ---
Addendum entered by Jermain Evans 03/02/25 11:31:
Correct are code for [facility] fax is [phone] and not [phone]. (mechanical error)
Addendum entered by Jermain Evans 03/02/25 10:57:
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 CM left a message to pt's Regino
Original Note:
CM following re: discharge planning.
Reviewed pt's chart, met with pt.
Pt is POD#6 s/p right BKA with TMR.
Discharge order noted. Pt is aware, expressed her agreement with discharge. IMM reviewed, placed on chart, pt has a copy.
Updated clinical faxed to [facility], spoke to liajulian Valle [phone] and she confirmed that pt is accepted for admission to [facility] today.
to arrange ambulance transport BLS. [facility]NC completed and left with [facility] [place] nursing report: [phone]
Discharge instructions fax: [phone].
D/C plan: [facility] [place] location.
[2025-03-02] MEDS: KCL 40 MEQ PO (11:01)
[2025-03-02] MEDS: KLONOPIN 0.5 MG PO (11:07)
--- NOTE | 2025-03-02 11:07 | W.DS.TRANS ---
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
-
Discharge Instructions:
Discharge Diagnosis/Procedures Right lower extremity amputation below the knee
Diet As tolerated
Activity With assistance,As tolerated
Driving Restrictions No driving
Bathing Restrictions OK to Shower
Blood Work Weekly INR with results faxed to patient's
health occupations teacher Dr. Efrain Sanchez fax number [phone]
[phone] ABD pad or 4x4 gauze over staple line and
secure with mild compression elizabeth wrap. Change
daily or PRN if soiled.
Instructions:
Stand-Alone Forms: Vascular Surg Discharge Instr
Changes to Home Medications: Yes
Discharge Medications:
DC Medications w/original date entered in [employer]
hydroxychloroquine 200 mg tablet (Plaquenil) 400 mg PO HS lupus ##0 11/13/13
clonazepam 0.5 mg tablet 0.5 mg PO BIDPRN PRN anxiety 08/11/16
mycophenolate mofetil 500 mg tablet (CellCept) 1,000 mg PO BID Autoimmune Disorder 09/05/24
trazodone 100 mg tablet 200 mg PO HS Sleep 09/05/24
latanoprost 0.005 % eye drops 1 drp BOTH EYES HS Glaucoma 09/06/24
psyllium husk 0.4 gram capsule (Metamucil) 2.4 g PO DAILY Constipation 01/12/25
clopidogrel 75 mg tablet 75 mg PO DAILY #30 tabs 02/02/25
cyanocobalamin (vitamin B-12) 500 mcg tablet (Vitamin B-12) 1,000 mcg (2 x 500 mcg) PO DAILY #30 tabs 02/02/25
polyethylene glycol 3350 17 gram oral powder packet 17 g PO DAILYPRN PRN constipation 02/03/25
sildenafil (pulm.hypertension) 20 mg tablet 20 mg PO HS pulm hypertension 02/03/25
cetirizine 10 mg tablet 10 mg PO DAILY #30 tabs 02/05/25
amlodipine 10 mg tablet (Norvasc) 10 mg PO DAILY Blood Pressure 02/18/25
gabapentin 400 mg capsule 400 mg PO TID NEUROPATHIC PAIN 02/18/25
omeprazole 40 mg capsule,delayed release 40 mg PO DAILY GERD 02/18/25
hydromorphone 2 mg tablet 2 mg PO Q4HPRN PRN severe pain #10 tabs 02/27/25
oxycodone 10 mg tablet 10 mg PO Q4HPRN PRN moderate pain #10 tabs 02/27/25
oxycodone 5 mg tablet 5 mg PO Q4HPRN PRN mild pain #10 tabs 02/27/25
docusate sodium 100 mg capsule 100 mg PO BIDPRN PRN constipation #0 caps 03/02/25
warfarin 4 mg tablet (Jantoven) 4 mg PO QPM #30 tabs 03/02/25
Home Medication Changes
Added:
oxycodone 10 mg tablet 10 mg PO Q4HPRN PRN moderate pain #10 tabs 02/27/25
oxycodone 5 mg tablet 5 mg PO Q4HPRN PRN mild pain #10 tabs 02/27/25
Changed dose:
warfarin 4 mg tablet (Jantoven) 4 mg PO QPM #30 tabs 03/02/25
hydromorphone 2 mg tablet 2 mg PO Q4HPRN PRN severe pain #10 tabs 02/27/25
docusate sodium 100 mg capsule 100 mg PO BIDPRN PRN constipation #0 caps 03/02/25
Pending Results: No
[2025-03-02 11:51] VITALS: BP 104/76
--- NOTE | 2025-03-02 12:03 | VATNOTE ---
Right arm Midline removed per unit request. Pt. for discharge today. TCL 12cm.
[2025-03-02] MEDS: ROXICODONE 5 MG PO (12:11)
== END 2025-03-02 13:02 | DRG 240 ==
LOC: 2 NORTH 15:42
PROVIDERS: Nurse Practitioner; Nurse Practitioner Acute Care; ADMITTING PHYSICIAN Surgery Vascular Surgery; FAMILY PHYSICIAN Internal Medicine Hematology & Oncology; OTHER PHYSICIAN Surgery Plastic and Reconstructive Surgery
PROC: 0Y6H0Z2 Detachment at Right Lower Leg, Mid, Open Approach (ICD-10-PCS; 2025-02-24)
PROC: 01S Peripheral Nervous System, Reposition (ICD-10-PCS; 2025-02-24)
PROC: 01S Peripheral Nervous System, Reposition (ICD-10-PCS; 2025-02-24)
DX: I70.261 Atherosclerosis of native arteries of extremities with gangrene, right leg (principal); D68.61 Antiphospholipid syndrome; D72.819 Decreased white blood cell count, unspecified; F41.9 Anxiety disorder, unspecified; G47.00 Insomnia, unspecified; L97.519 Non-pressure chronic ulcer of other part of right foot with unspecified severity; K59.00 Constipation, unspecified; K21.9 Gastro-esophageal reflux disease without esophagitis; M32.9 Systemic lupus erythematosus, unspecified; M34.9 Systemic sclerosis, unspecified; H40.9 Unspecified glaucoma; I73.00 Raynaud's syndrome without gangrene; G62.9 Polyneuropathy, unspecified; I10 Essential (primary) hypertension; I27.20 Pulmonary hypertension, unspecified; Z90.49 Acquired absence of other specified parts of digestive tract; Z79.624 Long term (current) use of inhibitors of nucleotide synthesis; Z79.02 Long term (current) use of antithrombotics/antiplatelets; Z79.899 Other long term (current) drug therapy; Z79.01 Long term (current) use of anticoagulants
CPT/HCPCS: 27880; 80048; 85014; 85018; 85027; 85610; 85730; 86850; 86900; 86901; 88307; 88311; 97110; 97116; 97163; 97167; 97530; 97535; 99285

== ENCOUNTER → 2025-04-27 14:05 | Outpatient (REF) | payer MEDICARE, OTHER, SELFPAY ==
[2025-04-27 15:14] LABS: INR 2.60; PT 27.9 Sec (11.4-14.6)
== END ==
LOC: REG 14:05
PROVIDERS: ATTENDING PHYSICIAN Internal Medicine Hematology & Oncology
DX: D68.61 Antiphospholipid syndrome (principal); M34.9 Systemic sclerosis, unspecified
CPT/HCPCS: 36415; 85610